=== PATIENT | male | born 1950 | race Caucasian/White ===

== ENCOUNTER 2025-02-16 11:59 | Outpatient (CLI) | payer MEDICARE, BC, SELFPAY ==
--- OUTSIDE RECORDS SUMMARY | 2025-02-16 12:03 | XMS_ITS | Clinical Summary ---
Author Organization [facility] Address [address] [place] [address] Care Team Providers Care Applier Name Role Phone Jan Chavez MD Primary Care Provider [phone] Allergies No known active allergies Medications multivitamin (THERAGRAN) tablet tablet Take by mouth Daily. Active allopurinol (ZYLOPRIM) 100 MG tablet Take 1 tablet by mouth. Active atorvastatin (LIPITOR) 40 MG tablet Take 1 tablet by mouth Daily. 3 Active citalopram (CeleXA) 40 MG tablet Take 1 tablet by mouth Daily. 3 Active fluconazole (DIFLUCAN) 100 MG tablet Take 1 tablet by mouth Daily. 3 Active lisinopril-hydr ochlorothiazide (PRINZIDE,ZESTO RETIC) 20-12.5 MG per tablet Take 1 tablet by mouth Daily. 3 Active nystatin (MYCOSTATIN) 952512 UNIT/GM powder APPLY 1 GRAM TOPICALLY EVERY 6 HOURS FOR 14 DAYS 3 Active phentermine (ADIPEX-P) 37.5 MG tablet Take 1 tablet by mouth Daily. 3 Active Active Problems Problem Noted Date Diagnosed Date Nonrheumatic aortic valve insufficiency 11/21/19 23 High cholesterol 07/06/2021 Assessment & Plan (11/20/2022 12:48 PM EDT): On statin. Followed by Dr. Chavez. HTN (hypertension) 07/06/2021 Assessment & Plan (11/20/2022 12:48 PM EDT): Not at goal in clinic today. However patient is taking Adipex. This most likely is increasing his blood pressure slightly. Kidney stone 07/06/2021 RENÉE (obstructive sleep apnea) 07/06/2021 Brain mass 07/05/2021 Onychomycosis of toenail 06/30/2019 Immunizations Immunization Administration Dates Next Due COVID-19 (PFIZER) Purple Cap Monovalent 03/15/20,08/01/2020,07/11/2020 Covid-19 (Pfizer) Hoang Cap Monovalent 11/10/2021 Fluzone High-Dose 65+YRS 03/25/2019 Fluzone High-Dose 65+yrs 03/10/2022,03/27/2021,0 03/07/2020 Hepatitis A 07/11/2018 Tdap 12/26/2006 Family History Relation Name Status Comments Father Mother Social History Tobacco Use Types Packs/Day Years Used Date Smoking Tobacco: Never Abuse Screen Answer Date Recorded Unsafe at Home or Work/School Not on file Feels Threatened by Someone? Not on file 03/2023 Does Anyone Keep You from Co ntacting Others or Doint Things Outside the Home? Not on file 04/15/2023 Physical Sign of Abuse Present Not on file 1 Housing Stability Answer Date Recorded Current Living Arrangements Not on file 03/2023 Potentially Unsafe Housing Conditions Not on cathryn e 04/15/2023 Family and Community Support Answer Jose R e Recorded Help with Day-to-Day Activities Not on file 04/15/2023 Lonely or Isolated Not on file 04/15/2023 Employment Answer Date Recorded Do you want help finding or keeping work or a us b? Not on file 04/15/2023 Disabilities Answer Date Recorded Concentrating, Remembering, or Making Decisions Difficulty Not on file 04/15/2023 Doing Errands Independently Difficulty Not on fi le 04/15/2023 Education Answer Date Recorded Help with school or training? Not on file Preferred Language Not on file 04/15/2023 Sex and Gender Information Value Date Recorded Sex Assigned at Not on file Legal Sex Male 12:29 PM EDT Gender Identity Not on file Sexual Orientation Not on file Last Filed Vital Signs Vital Sign Reading Time Taken Comments Blood Pressure 140/88 11/20/2022 8:46 AM EDT Pulse 95 11/20/2022 8:46 AM EDT Temperature - - Respiratory Rate - - Oxygen Saturation 94% 11/20/2022 8:46 AM EDT Inhaled Oxygen Concentration - - Weight 92.1 kg (203 lb) 11/20/2022 8:46 AM EDT Height 172.7 cm (5' 8 ) 11/20/2022 8:46 AM EDT Body Mass Index 30.87 11/20/2022 8:46 AM EDT Plan of Treatment Health Maintenance Due Date Last Done Comments LIPID PANEL 1950 COLOGUARD 11/17/1996 COLON CANCER SCREENING 5 YEA R SIGMOIDOSCOPY 11/17/1996 COLONOSCOPY 11/17/1996 COLORECTAL CANCER SCREENING 11/17/1996 CT COLONOGRAPHY 11/17/1996 FECAL OCCULT BLOOD TEST 11/17/1996 FIT Testing (1 year) 11/17/1996 Pneumococcal Vaccine 50+ (1 of 1 - PCV) 11/17/2001 ZOSTER VACCINE (1 of 2) 11/17/2001 TDAP/TD VACCINES (2 - Td or Tdap) 12/26/2016 007 ANNUAL WELLNESS VISIT 11/20/2022 HEPATITIS C SCREENING 11/20/2022 COVID-19 Vaccine (6 - 2023-2 5 season) 2024 03/20/2022, 11/10/2021, 03/15/2021, Additional history exists INFLUENZA VACCINE 04/07/2025 03/10/2022, , 03/07/2020, Additional history exists AAA SCREEN ONCE Completed 07/05/2021 Insurance MEDICARE A & B [facility] SU[facility] Care Teams Applier Relationship Specialty Start Date End Date Jan Chavez MD [address] [place] [address] PCP - General Family Medicine 11/20/22
--- OUTSIDE RECORDS SUMMARY | 2025-02-16 12:03 | XMS_ITS | Clinical Summary ---
Author Organization [facility] Address [address] [place] [address] Care Team Providers Care Continuity Editor Name Role Phone Jan Chavez MD Primary Care Provider [phone] Rachid Jaime MD Unavailable [phone] Allergies No known active allergies Medications allopurinol (Zyloprim) 100 MG tablet Take 100 mg by mouth 2 (two) times a day. Active atorvastatin (Lipitor) 40 MG tablet Take 40 mg by mouth 1 (one) time each day. Active citalopram (CeleXA) 40 MG tablet Take 40 mg by mouth 1 (one) time each day. Active lisinopril-hydr oCHLOROthiazide 20-12.5 MG tablet Take 1 tablet by mouth 1 (one) time each day. Active cephalexin (Keflex) 500 MG capsule Take 1,000 mg by mouth 2 (two) times a day. Active Multiple Vitamins-Minera ls (CENTRUM SILVER ADULT 50+ PO) Take 1 by mouth daily Active dexamethasone (Decadron) 2 MG tablet Take 1 tablet (2 mg total) by mouth 2 (two) times a day for 8 doses. 8 tablet 2 Active Additional Information Patient not taking.Reported on 08/07/2021 levETIRAcetam (Keppra) 750 MG tablet Take 1 tablet (750 mg total) by mouth 2 (two) times a day for 7 days. 14 tablet 1 Active Additional Information Patient not taking.Reported on 08/07/2021 acetaminophen-c odeine (Tylenol #3) 300-30 MG tablet TAKE 1 TABLET BY MOUTH EVERY 6 HOURS NEEDED FOR SEVERE PAIN 2 Active diazePAM (Valium) 5 MG tablet TAKE 1 TABLET BY MOUTH A ONE TIME DOSE 30 MINUTES PRIOR TO MRI 2 Active Active Problems Problem Noted Date Diagnosed Date HTN (hypertension) 07/06/2021 High cholesterol 07/06/2021 RENÉE (obstructive sleep apnea) 07/06/2021 Kidney stone 07/06/2021 Brain mass 07/05/2021 Immunizations Immunization Administration Dates Next Due [employer] COVID-19 Vaccine (Purple Cap) 12 + 08/01/2020,07/11/2020 Social History Tobacco Use Types Packs/Day Years Used Date Smoking Tobacco: Never Smokeless Tobacco: Never Alcohol Use Standard Drinks/Week Comments Never 0 (1 standard drink = 0.6 oz pur e alcohol) Sex and Gender Information Value Date Recorded Sex Assigned at Male 07/06/2021 10:53 AM EST Legal Sex Male 8:47 PM EDT Gender Identity Male 07/06/2021 10:53 AM EST Sexual Orientation Not on file Last Filed Vital Signs Vital Sign Reading Time Taken Comments Blood Pressure 140/90 04/30/2022 9:41 AM EDT Pulse 79 07/07/2021 8:04 AM EST Temperature 36.4 C (97.6 F) 07/07/2021 8:04 AM EST Respiratory Rate 16 07/07/2021 8:04 AM EST Oxygen Saturation 96% 07/07/2021 8:04 AM EST Inhaled Oxygen Concentration - - Weight 89.8 kg (198 lb) 04/30/2022 9:41 AM EDT Height 172.7 cm (5' 8 ) 04/30/2022 9:41 AM EDT Body Mass Index 30.11 04/30/2022 9:41 AM EDT Plan of Treatment Health Maintenance Due Date Last Done Comments [facility]-Depression Screening 1950 [facility]-Medicare Annual Wellness (AWV) 1950 [facility]-Infant/Child/Adol SDOH Screenings 1950 [facility]- SDOH Screenings 11/17/1969 [facility]-Adult SDOH Screenings 11/17/1969 CT Colonography 11/17/1996 Colonoscopy 11/17/1996 FIT-DNA 11/17/1996 FIT 11/17/1996 FOBT 11/17/1996 Sigmoidoscopy 11/17/1996 [facility]-Colorectal Cancer Screening 11/17/1996 [facility]-Pneumococcal Vaccine: 50+ Years (1 of 1 - PCV) 11/17/2001 [facility]-Zoster Vaccines (1 of 2) 11/17/2001 [facility]-DTaP,Tdap,and Td Vaccines (2 - Td or Tdap) 12/26/2016 12/26/2006 [id number] Vaccine ( season) 2024 03/20/2022, 11/10/2021, 03/15/2021, Additional history exists [facility]-Influenza Vaccine (#1) 03/08/202503/10, 03/27/2021, 03/07/2020, Additional history exists [facility]-RSV Vaccine: 60+ Years or (1 - 1-dose 75+ series) 11/17/2026 [facility]-Hepatitis A Vaccines Aged Out 07/11/2018 No longer eligible based on patient's age to complete this topic [facility]-Hepatitis C Screening Completed 07/05/2021 [facility]-Obesity Intervention Completed 04/30/2022 HPV Vaccines Aged Out No longer eligi ble based on patient's age to complete this topic [facility]-HIB Vaccines Aged Out No longer e ligible based on patient's age to complete this topic [facility]-IPV Vaccines Aged Out No longer e ligible based on patient's age to complete this topic [facility]-Rotavirus Vaccines Aged Out No lo nger eligible based on patient's age to complete this topic Medical Devices Implanted Type Area Cloth Brushing [employer] Sueding Supervisor Device Identifier Shelf Expiration Date Model / Serial / Lot Periguard 10 X 16cm - [id number] Implanted:Qty: 1 on 07/06/2021 by Rachid Jaime MD at [facility] [employer]-[id number] 09/01/2025 [id number] / / [id number] Screw Ti Matrixneuro Selfdrill 4mm - [id number] Implanted:Qty: 18 on 07/06/2021 by Rachid Jaime MD at [facility]-[id number] 07/06/2022 [id number] / / Plate, Neuro Box Lp [id number] - [id number] Implanted:Qty: 2 on 07/06/2021 by Rachid Jaime MD at [facility]-[id number] 07/06/2022 [id number] / / Cover, Neuro Bhupendra Lp 17mm - [id number] Implanted:Qty: 3 on 07/06/2021 by Rachid Jaime MD at [facility]-07/06/2022 [id number] / / Explanted Type Area Cloth Brushing And Sueding Supervisor Device Identifier Shelf Expiration Date Model / Serial / Lot Screw Ti Matrixneuro Selfdrill 4mm - [id number] Explanted:Qty: 3 on 07/06/2021 by Rachid Jaime MD at [facility]-07/06/2022 [id number] / / Procedures Procedure Name Priority Date/Time Associated Diagnosis Comments HEPATITIS C ANTIBODY - ED W/REFLEX TO HCV QUANT PCR STAT 07/05/2021 6:33 PM EST from Last 3 Months or Most Recently Relevant to Health Maintenance Results * [place] Hepatitis C Antibody (07/05/2021 6:33 PM EST) [facility] Signature Hepatitis C Antibody Negative Negative 07/05/2021 8:12 PM EST [facility] Blood Venous blood specimen / Unknown Venipuncture / Unknown 07/05/2021 6:33 PM EST 07/05/2021 6:42 PM EST Jose R Morrow MD LAB BLOOD ORDERABLES Tran darden Result [facility] [address] [place] [id number] from Last 3 Months or Most Recently Relevant to Health Maintenance Insurance [address] [address] [place] [address] ANTHEM Advance Directives * Full Code (Latest Code Status on File) Date Activated Date Inactivated Comments 07/05/2021 10:54 PM 07/07/2021 4:30 PM Question Answer Comments Patient has decision-making capacity? Yes Care Teams Continuity Editor Relationship Specialty Start Date End Date Jan Chavez MD [address] [place] [id number] PCP - General 07/05/21 Rachid Jaime MD [address] [id number] Surgeon Neurosurgery 08/07/21
[2025-02-16 12:55] LABS: Hematocrit 31.0 % (42.0-52.0); Hemoglobin 9.2 g/dL (14.1-18.0); Immature Granulocytes % 0.2 %; Mean Corpuscular HGB Conc 29.7 g/dL (31.8-35.4); Mean Corpuscular Hemoglobin 25.8 pg (27.0-31.2); Mean Corpuscular Volume 86.8 fl (80-94); Nucleated Red Blood Cells % 0 %; Platelet Count 473 K/mm3 (142-424); Red Blood Count 3.57 M/mm3 (4.60-6.20); Red Cell Distribution Width-SD 48.9 fL; Reticulocyte % (Auto) 1.7 % (0.9-3.2); White Blood Count 8.1 K/mm3 (4.8-10.8)
[2025-02-16 13:33] LABS: Albumin Level 3.9 g/dl (3.5-5.0); Chloride 102 mmol/L (98-107)
[2025-02-16 13:34] LABS: Potassium 4.7 mmoL/L (3.5-5.1); Sodium 137 mmol/L (136-145)
[2025-02-16 13:36] LABS: Alanine Aminotransferase 29 U/L (12-78); Alkaline Phosphatase 99 U/L (38-126); Anion Gap 11.7 mEq/L (5-15); Aspartate Amino Transferase 23 U/L (17-59); Bilirubin,Total 0.4 mg/dl (0.2-1.3); Blood Urea Nitrogen 15 mg/dl (9-20); Carbon Dioxide 28 mmol/L (22.0-30.0); Creatinine,Serum 0.80 mg/dl (0.66-1.25); Estimated Glomerular Filt Rate 95 ml/min (>60); GFR (African American) 115 ML/MIN (>60)
[2025-02-16 13:37] LABS: Albumin/Globulin Ratio 1.5 (1.1-1.8); Calcium 9.4 mg/dl (8.4-10.2); Globulin 2.6 g/dL (1.3-3.2); Glucose 95 mg/dl (74-100); Iron 42 ug/dL (49-181); Total Protein,Serum 6.5 g/dl (6.3-8.2)
[2025-02-16 13:46] LABS: Total Iron Binding Capacity 211 ug/dL (261-462)
[2025-02-16 14:12] LABS: Ferritin 5.98 ng/ml (17.9-464)
[2025-02-16 14:59] LABS: Folate > 20.00 ng/mL
== END 2025-02-16 23:59 | disposition home or self-care (01) ==
LOC: LAB 12:01
PROVIDERS: PCP Family Medicine; Visit Provider Internal Medicine Medical Oncology
DX: D64.9 Anemia, unspecified (principal)
CPT/HCPCS: 36415; 80053; 81596; 82728; 82746; 83540; 83550; 83615; 85025; 85044; 86880

== ENCOUNTER 2025-03-10 08:04 | Day surgery (SDC) | payer MEDICARE, BC, SELFPAY ==
[2025-03-09 07:52] VITALS: BMI 29.4
--- NOTE | 2025-03-09 07:58 | EXP.HP ---
History of Present Illness *Admission Date: 03/10/25 *History of present illness: Mr. Collins is a 74-year-old gentleman who is here for diagnostic EGD and colonoscopy secondary to recent profound anemia. The patient's labs on 02/02/2025 showed hemoglobin 5.8 and hematocrit 20.6 with normocytic indices. The patient did have 2 units of PRBCs transfused. Labs were repeated on 02/16/2025 showing some improvement with hemoglobin 9.2 and hematocrit 31.0. Iron studies showed serum iron 42, ferritin 5.98 and iron saturation of 19.9%. The examination is deemed medically necessary for diagnostic EGD and colonoscopy. The patient has been seen, interviewed and examined prior to the procedure by both myself and the anesthesia provider. [facility] Disclaimer: The information contained in this section may have been updated after the patient was seen, as this information can be updated by other users. Medical History Hypertension Kidney stones RENÉE (obstructive sleep apnea) Surgical History History of cholecystectomy History of tonsillectomy Family History Other Cancer Diabetes Heart attack Hypertension Social History Smoking Status: Never smoker alcohol intake: never substance use type: denies use current occupational status: retired Travel in the last 8 weeks?: None household members: spouse housing: house marital status: Have you lived/traveled outside US in past 30 days?: No Contact w/someone who lives/traveled outside US past 30 days?: No Exposure to someone with infectious disease in past 14 days?: No Do you have a fever (greater than 100.4 F or 38 C)?: No Have you tested positive for COVID-19?: No Exposed to someone with COVID-19 in past 14 days?: No Do you have a sore throat?: No Do you have a cough?: No Do you have any weakness?: No Do you have any diarrhea?: No Are you experiencing any unusual bleeding?: No Do you have any muscle aches/pain?: No Do you have any abdominal pain?: No Are you experiencing loss of taste or smell?: No Other Medical History Have you received the Pneumonia Vaccine: Yes Review of Systems Review of Systems Review of systems (narrative): Negative *Cardiovascular Comments: Negative *Gastrointestinal Comments: Negative *Genitourinary Comments: Negative *Musculoskeletal Comments: Negative *Neurologic Comments: Negative Meds Home Medications and Allergies Home Medications ?Medication ?Instructions ?Recorded ?Confirmed ?Type allopurinol 100 mg tablet 100 mg PO DAILY 03/14/23 03/10/25 History atorvastatin 40 mg tablet 40 mg PO HS 03/14/23 03/10/25 History citalopram 40 mg tablet 40 mg PO DAILY 03/14/23 03/10/25 History lisinopril 20 1 tab PO DAILY 03/14/23 03/10/25 History mg-hydrochlorothiazide 12.5 mg tablet (Zestoretic) multivitamin-ferrous 1 tab PO DAILY 03/14/23 03/10/25 History fumarate-folic acid 18 mg-400 mcg tablet (Centrum) topiramate 50 mg tablet (Topamax) 50 mg PO DAILY 09/11/23 03/10/25 History gabapentin 300 mg capsule 300 mg PO TID #90 caps 02/16/25 03/10/25 Rx ferrous sulfate 325 mg (65 mg 325 mg PO DAILY #90 tabs 02/17/25 03/10/25 Rx iron) tablet sodium,potassium,mag sulfates 17.5 See Rx Instructions PO .COMPLEX 03/05/25 Rx gram-3.13 gram-1.6 gram oral soln #354 mL (Suprep Bowel Prep Kit) sodium,potassium,mag sulfates 17.5 See Rx Instructions PO .COMPLEX 03/05/25 03/05/25 Rx gram-3.13 gram-1.6 gram oral soln #354 mL (Suprep Bowel Prep Kit) New Prescriptions to Start Prescriptions: Allergies Allergy/AdvReac Type Severity Reaction Status Date / Time No Known Allergies Allergy Verified 03/10/25 08:31 Exam Data for Last 24 hours I & O for Last 24 hours: Intake & Output 03/06/25 03/07/25 03/08/25 03/09/25 23:59 23:59 23:59 23:59 Weight 188 lb *Routine HEENT Exam Head: Present normocephalic Eye: Present EOMI and PERRL ENT: Present mucous membranes moist *Routine Neck Exam Neck: Present supple *Routine Respiratory Exam Respiratory: Present CTA bilaterally *Routine Cardiovascular Exam Cardiovascular: Present RRR *Routine Abdominal Exam Abdominal: Present soft and normoactive bowel sounds; Absent tenderness *Routine Rectal Exam Rectal:: deferred *Routine Genitalia Exam Genitalia:: deferred *Routine Extremities Exam Extremities: Absent cyanosis, clubbing or edema *Routine Skin Exam Skin: Present warm; Absent rash *Routine Neurological Exam Neurological: Present alert and oriented X3 Assessment and Plan *Assessment and plan (1) Iron deficiency anemia: Status: Acute Category: Medical Code(s): D50.9 - Iron deficiency anemia, unspecified Plan A/P: 1. Iron deficiency anemia is the preprocedural diagnosis. The patient will be anesthetized/sedated using MAC sedation. The patient has been seen and examined. Cardiac and lung assessment prior to the examination is stable. Proceed with planned diagnostic EGD and colonoscopy.
[2025-03-10 08:36] VITALS: BP 159/89; PULSE 78; RESP 18; TEMP 36.2; O2SAT 98
[2025-03-10] MEDS: LACTATED RINGERS 1000ML 1,000 ML 50 ML IV (08:47)
--- NOTE | 2025-03-10 09:18 | SUR.PREOP ---
Patient reported having shingles during preop assessment, rash noted to neck with open areas oozing scant amount serous fluid extending to BUCW. Karley Pate RN informed care team including charge preparation technician and department mgr, appropriate isolation interventions activated and patient transferred to PACU r/t contact/airborne precautions. Staff was provided with Airborne and contact isolation PPE. patient's EGD and Colonoscopy moved to last case for the day r/t active infection per Dr. Mcpherson. Patient agreeable to change in schedule and staying until the end of day for procedures rescheduled for 1500.
--- NOTE | 2025-03-10 14:47 | P.PNANES_ITS ---
[facility] Disclaimer: The information contained in this section may have been updated after the patient was seen, as this information can be updated by other users. Medical History Hypertension Kidney stones RENÉE (obstructive sleep apnea) Surgical History History of cholecystectomy History of tonsillectomy Family History Other Cancer Diabetes Heart attack Hypertension Social History Smoking Status: Never smoker alcohol intake: never substance use type: denies use current occupational status: retired Travel in the last 8 weeks?: None household members: spouse housing: house marital status: Have you lived/traveled outside US in past 30 days?: No Contact w/someone who lives/traveled outside US past 30 days?: No Exposure to someone with infectious disease in past 14 days?: No Do you have a fever (greater than 100.4 F or 38 C)?: No Have you tested positive for COVID-19?: No Exposed to someone with COVID-19 in past 14 days?: No Do you have a sore throat?: No Do you have a cough?: No Do you have any weakness?: No Do you have any diarrhea?: No Are you experiencing any unusual bleeding?: No Do you have any muscle aches/pain?: No Do you have any abdominal pain?: No Are you experiencing loss of taste or smell?: No [facility] Anesthesia Checklist Patient Identification Patient Identification: Arm Band Structural Data Admitted From: Home Planned Operative Procedure/s: EGD/Colonoscopy Consent for Planned Operative Procedure(s) Verified: Yes Verified Documents: Surgical Consent and History and Physical NPO Status Verified Time NPO: 00:00 Additional verifications Anesthesia Reactions: No Airway Assessment Mallampati Score:: Class II C-Spine Mobility Assessed: Yes TMJ Mobility Assessed: Yes Dentition: Good Dentition Neurological Assessment Level of Consciousness: Awake, Alert and Appropriate Anesthesia Plan Anesthesia Risk discussed: Yes Anesthesia Plan: Verified ASA Class: III Anesthesia Type: MAC
--- NOTE | 2025-03-10 14:58 | HMH.PROCNOTE ---
[facility] Procedure Note Date: 03/10/25 Time: 15:19 Procedure Note:: Upper Endoscopy Procedure Report: Esophagogastroduodenoscopy with cold biopsies Endoscopost: Stephen Mcpherson II, MD Referring Physician: Jan Chavez MD Date of Procedure: March 10, 2025 Equipment: Olympus GIF-1100 standard upper endoscope Sedation: MAC sedation Indications: Mr. Collins is a 74-year-old gentleman who is here for diagnostic EGD and colonoscopy secondary to a recent finding of profound anemia. The patient's labs on 02/02/2025 showed hemoglobin 5.8 and hematocrit 20.6 with normocytic indices. The patient did have 4 units of PRBCs transfused. Labs were repeated on 02/16/2025 showing some improvement with hemoglobin 9.2 and hematocrit 31.0. Iron studies showed serum iron 42, ferritin 5.98 and iron saturation of 19.9%. The patient is taking oral iron. The patient reports no heartburn, reflux, dyspepsia or dysphagia. He has never had an upper endoscopy. He reports no abdominal pain, weight loss, melena, hematochezia or bright red blood per rectum. He reports no change in bowel habits or family history of gastric or colon cancer. He has never had a prior colonoscopy. His sister had ovarian cancer. Procedure: Prior to the procedure, a history and physical exam was performed, and patient's medications and allergies were reviewed. The risks, benefits and alternatives of the sedation and procedure were discussed with the patient. All questions were answered and informed consent was obtained. The patient was brought to the procedure room. Patient identification and proposed procedure were verified by the physician and the nurse. The patient was placed in a left lateral decubitus position and the scope was passed under direct vision. Throughout the procedure, the patient's blood pressure, pulse, and oxygen saturations were monitored continuously. The upper GI endoscopy was accomplished without difficulty. The patient tolerated the procedure well. Findings: The scope was passed directly into the upper esophagus and advanced to the third portion of the duodenum. The second portion of the duodenum and ampulla were normal. There were 3-4 shallow ulcerations within the first portion of the duodenum and duodenal bulb. The largest of these was 8 mm. Cold biopsies were taken from the duodenum. The scope was withdrawn to a normal pylorus and of the stomach. The antrum and body of the stomach were normal but there was some gastric atrophy of the body and fundus. A cold biopsy was taken along the incisura. Upon retroflexion there was a 3 cm extrinsic mass with central cavitation and central ulceration that was deeper. Several biopsies were taken within the cavitation where there was ulceration of this mass. This was in the gastric cardia within 1 to 2 cm from the GE junction along the posterior wall and lesser curvature side. The scope was then withdrawn into the esophagus. There was no evidence of reflux esophagitis or Luis's and the remainder of the esophageal mucosa was normal. Impression: 1. 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 Superficial duodenal ulceration x 4 3. Mild chronic atrophic gastritis/gastric atrophy Plan: I am concerned about the gastric cardia mass. The margins and masslike effect appear to be a submucosal and this may be submucosal GIST or carcinoid or leiomyoma. I am still suspicious it could be adenocarcinoma. Will await pathology. We will obtain CT imaging of the abdomen and pelvis. I do feel that this is the etiology of his iron deficiency anemia but we will still proceed with diagnostic colonoscopy.
--- NOTE | 2025-03-10 14:59 | P.PCN_ITS ---
[facility] Procedure Note Date: 03/10/25 Time: 15:31 Procedure Note:: Sigmoidoscopy procedure Report: Aborted colonoscopy Endoscopist: Stephen Mcpherson II, MD Referring physician: Jan Chavez MD Date of Procedure: March 10, 2020 Equipment: Olympus [id number] adult colonoscope Sedation: MAC sedation Indication: Mr. Collins is a 74-year-old gentleman who is here for diagnostic EGD and colonoscopy secondary to a recent finding of profound anemia. The patient's labs on 02/02/2025 showed hemoglobin 5.8 and hematocrit 20.6 with normocytic indices. The patient did have 4 units of PRBCs transfused. Labs were repeated on 02/16/2025 showing some improvement with hemoglobin 9.2 and hematocrit 31.0. Iron studies showed serum iron 42, ferritin 5.98 and iron saturation of 19.9%. The patient is taking oral iron. The patient reports no heartburn, reflux, dyspepsia or dysphagia. He has never had an upper endoscopy. He reports no abdominal pain, weight loss, melena, hematochezia or bright red blood per rectum. He reports no change in bowel habits or family history of gastric or colon cancer. He has never had a prior colonoscopy. His sister had ovarian cancer. Procedure: Prior to the procedure, a history and physical exam was performed, and patient's medications and allergies were reviewed. The risks, benefits and alternatives of the sedation and procedure were discussed with the patient. All questions were answered and informed consent was obtained. The patient was brought to the procedure room. Patient identification and proposed procedure were verified by the physician and the nurse. The patient was placed in a left lateral decubitus position and the scope was passed under direct vision. Throughout the procedure, the patient's blood pressure, pulse, and oxygen saturations were monitored continuously. The sigmoidoscopy was accomplished without difficulty. The patient tolerated the procedure well. Findings: On digital rectal examination, there was normal rectal tone. The scope was then inserted through the anal canal into the rectum and advanced to 30 cm. There was abundant amount of brown liquid stool and the preparation was inadequate to allow visualization of the mucosa. The procedure was aborted. Impression: 1. Unprepped exam?aborted colonoscopy Plan: I do suspect that the profound iron deficiency anemia is related to the upper endoscopic findings. However, I do feel that he will need diagnostic colonoscopy as well. We will obtain CT imaging of the abdomen and pelvis and I will discuss the findings with the patient and family.
[2025-03-10 15:35] VITALS: BP 143/76; PULSE 88; RESP 17; TEMP 36.3; O2SAT 93
[2025-03-10 15:45] VITALS: BP 146/72; PULSE 85; RESP 17; O2SAT 95
[2025-03-10 15:55] VITALS: BP 158/68; PULSE 84; RESP 18; O2SAT 95
[2025-03-10 16:05] VITALS: BP 152/74; PULSE 82; RESP 17; O2SAT 94
[2025-03-12 11:14] LABS: CEA 5.0 ng/mL (0.0-4.7)
== END 2025-03-10 16:43 | disposition home or self-care (01) ==
PROVIDERS: PCP Family Medicine; Visit Provider Internal Medicine Gastroenterology
PROC: 0DJ08ZZ Inspection of Upper Intestinal Tract, Via Natural or Artificial Opening Endoscopic (ICD-10-PCS; CPT 45378; principal; 2025-03-10 10:00)
DX: C16.0 Malignant neoplasm of cardia (principal); K26.9 Duodenal ulcer, unspecified as acute or chronic, without hemorrhage or perforation; K29.40 Chronic atrophic gastritis without bleeding; I10 Essential (primary) hypertension; G47.33 Obstructive sleep apnea (adult) (pediatric); Z79.899 Other long term (current) drug therapy
CPT/HCPCS: 43239; 45330; 82378; J2003; J2704; J7120

== ENCOUNTER 2025-03-16 10:50 | Outpatient (CLI) | payer MEDICARE, BC, SELFPAY ==
--- NOTE | 2025-03-16 11:00 | CT_ITS ---
FINAL REPORT TECHNIQUE: Thin section axial images were obtained through the abdomen after intravenous contrast. Reconstruction images were obtained from the axial data. Exam was performed using dose reduction techniques. CLINICAL HISTORY: GIST TUMOR FINDINGS: There is a hypodense lesion in the inferior right hepatic lobe measuring 25 mm with some peripheral, nodular enhancement. This is not well-seen on delayed imaging. Findings could represent hemangioma. No other liver lesion is identified. The gallbladder is absent. The spleen, adrenal glands, and pancreas are unremarkable. There are bilateral, hypodense renal lesions, some of which are not simple cysts. There are nonobstructing, bilateral renal stones. There is no hydronephrosis. There is focal wall thickening of the fundus of the stomach seen on coronal images which appears somewhat rounded and contains a focus of air. Findings could represent GIST. Air could be related to recent biopsy. There is no evidence of small bowel obstruction. Appendix is not visualized. There are no secondary findings of appendicitis. There is diverticulosis without evidence of diverticulitis. A fat-containing umbilical hernia is present. There is no abdominal or pelvic lymphadenopathy or ascites. In the deep right pelvis is a 3.1 cm cystic lesion along the anterolateral aspect of the rectum. No acute osseous abnormality is seen. IMPRESSION: 1. Findings concerning for mass in the proximal stomach, possibly recently biopsied and which could represent reported GIST. 2. Liver lesion which may represent hemangioma. However, consider liver mass protocol MRI for further evaluation. 3. Bilateral renal lesions, some of which are not simple cysts. Consider renal mass protocol for further evaluation in the nonemergent setting. 4. Fluid density lesion in the right pelvis of uncertain etiology. Findings could represent a peritoneal inclusion cyst. Metastatic disease felt unlikely. Reviewed, Interpreted and Dictated by Betina Urbina MD Transcribed by Yamel Teague Authenticated and [facility]
--- NOTE | 2025-03-16 11:00 | CT_ITS ---
FINAL REPORT TECHNIQUE: Thin section axial images were obtained from the thoracic inlet through the upper abdomen after intravenous contrast injection. Reconstruction images were obtained from the axial data. Exam was performed using dose reduction technique. CLINICAL HISTORY: GIST TUMOR FINDINGS: There is no mediastinal, hilar, or axillary lymphadenopathy. There is no pleural or pericardial effusion. The heart is mildly enlarged. There is an ascending aortic aneurysm measuring 44 mm. No suspicious nodule or mass is seen. There is a mosaic attenuation pattern which is nonspecific but suggestive of small airway or small vessel disease. No acute osseous abnormality. IMPRESSION: 1. No evidence of metastatic disease to the chest. 2. Ascending aortic aneurysm. 3. Mosaic attenuation pattern which could be seen with small airways or small vessel disease. Reviewed, Interpreted and Dictated by Betina Urbina MD Transcribed by Yamel Teague Authenticated and [facility]
--- OUTSIDE RECORDS SUMMARY | 2025-03-16 11:08 | XMS_ITS | Clinical Summary ---
Author Organization [facility] Address [address] [place] [address] Care Team Providers Care Outdoor Landscape Architect Name Role Phone Jan Chavez MD Primary Care Provider [phone] Allergies No known active allergies Medications multivitamin [...] by mouth Daily. 3 Active nystatin (MYCOSTATIN) 293406 UNIT/GM powder APPLY 1 GRAM TOPICALLY EVERY [...] help finding or keeping work or a su b? Not on file 04/15/2023 Disabilities Answer [...] C SCREENING 11/20/2022 COVID-19 Vaccine (6 - 2024-2 6 season) 2025 03/20/2022, 11/10/2021, 03/15/2021, Additional history exists INFLUENZA VACCINE 04/07/2025 03/10/2022, , 03/07/2020, Additional history exists AAA SCREEN ONCE Completed 07/05/2021 Insurance MEDICARE A & B [facility] SU[facility] Care Teams Outdoor Landscape Architect Relationship Specialty Start Date End Date Jan Chavez MD [address] [place] [address] PCP - General Family Medicine 11/20/22
--- OUTSIDE RECORDS SUMMARY | 2025-03-16 11:08 | XMS_ITS | Clinical Summary ---
Author Organization [facility] Address [address] [place] [address] Care Team Providers Care Tobacco Packer Name Role Phone Jan Chavez MD Primary Care Provider [phone] Rachid Jaime MD Unavailable [phone] Allergies No known active allergies Medications [...] 07/05/2021 Immunizations Immunization Administration Dates Next Due [employer] COVID-19 Vaccine (Purple Cap) 12 + 08/01/2020,07/11/2020 [...] (2 - Td or Tdap) 12/26/2016 12/26/2006 [id number] Vaccine ( season) 2025 03/20/2022, 11/10/2021, 03/15/2021, Additional history exists UKY-Influenza [...] this topic Medical Devices Implanted Type Area Placement Secretary Device Identifier Shelf Expiration Date Model / Serial / Lot Periguard 10 X 16cm - [id number] Implanted:Qty: 1 on 07/06/2021 by Rachid Jaime MD at [facility] [id number] 09/01/2025 [id number] / / [id number] Screw Ti Matrixne[employer] Selfdrill 4mm - [id number] Implanted:Qty: 18 on 07/06/2021 by Rachid Jaime MD at [facility], [id number] 07/06/2022 [id number] / / Plate, Neuro Box Lp [id number] - [id number] Implanted:Qty: 2 on 07/06/2021 by Rachid Jaime MD at [facility], [id number] 07/06/2022 [id number] / / Cover, Neuro [place] Lp 17mm - [id number] Implanted:Qty: 3 on 07/06/2021 by Rachid Jaime MD at [facility] [place]-07/06/2022 [id number] / / Explanted Type Area Placement Secretary Device Identifier Shelf Expiration Date Model / Serial / Lot Screw Ti Matrixneuro Selfdrill 4mm - [id number] Explanted:Qty: 3 on 07/06/2021 by Rachid Jaime MD at [facility] [place]-07/06/2022 [id number] / / Procedures Procedure Name Priority Date/Time Associated Diagnosis Comments HEPATITIS C ANTIBODY - ED W/REFLEX TO HCV QUANT PCR STAT 07/05/2021 6:33 PM EST from Last 3 Months or Most Recently Relevant to Health Maintenance Results * [place] Hepatitis C Antibody (07/05/2021 6:33 PM EST) [facility] Signature Hepatitis C Antibody Negative Negative 07/05/2021 8:12 PM EST [facility] Blood Venous blood specimen / Unknown Venipuncture / Unknown 07/05/2021 6:33 PM EST 07/05/2021 6:42 PM EST Jose R Morrow MD LAB BLOOD ORDERABLES Tran darden Result [facility] [address] [place] [id number] from Last 3 Months or Most Recently Relevant to Health Maintenance Insurance [address] [id number] [place] [address] ANTHEM Advance Directives * Full Code (Latest Code Status on File) Date Activated Date Inactivated Comments 07/05/2021 10:54 PM 07/07/2021 4:30 PM Question Answer Comments Patient has decision-making capacity? Yes Care Teams Tobacco Packer Relationship Specialty Start Date End Date Jan Chavez MD [address] [place] [id number] PCP - General 07/05/21 Rachid Jaime MD [address] [id number] Surgeon Neurosurgery 08/07/21
[2025-03-16] MEDS: SODIUM CHLORIDE 0.9% 10ML SYR (RAD ONLY) 10 ML IV (11:22)
[2025-03-16] MEDS: IOPAMIDOL-370 (76%);100ML BOTTLE 50 ML IV (11:22)
[2025-03-16 12:47] LABS: Hematocrit 29.3 % (42.0-52.0); Hemoglobin 7.7 g/dL (14.1-18.0); Immature Granulocytes % 0.4 %; Mean Corpuscular HGB Conc 26.3 g/dL (31.8-35.4); Mean Corpuscular Hemoglobin 23.6 pg (27.0-31.2); Mean Corpuscular Volume 89.9 fl (80-94); Nucleated Red Blood Cells % 0 %; Platelet Count 438 K/mm3 (142-424); Red Blood Count 3.26 M/mm3 (4.60-6.20); Red Cell Distribution Width-SD 56.2 fL; White Blood Count 7.4 K/mm3 (4.8-10.8)
[2025-03-16 12:58] LABS: Alanine Aminotransferase 22 U/L (12-78); Albumin Level 4.1 g/dl (3.5-5.0); Albumin/Globulin Ratio 1.6 (1.1-1.8); Alkaline Phosphatase 96 U/L (38-126); Anion Gap 10.7 mEq/L (5-15); Aspartate Amino Transferase 20 U/L (17-59); Bilirubin,Total 0.2 mg/dl (0.2-1.3); Blood Urea Nitrogen 13 mg/dl (9-20); Calcium 10.2 mg/dl (8.4-10.2); Carbon Dioxide 28 mmol/L (22.0-30.0); Chloride 109 mmol/L (98-107); Creatinine,Serum 1.00 mg/dl (0.66-1.25); Estimated Glomerular Filt Rate 73 ml/min (>60); GFR (African American) 89 ML/MIN (>60); Globulin 2.6 g/dL (1.3-3.2); Glucose 113 mg/dl (74-100); Potassium 4.7 mmoL/L (3.5-5.1); Sodium 143 mmol/L (136-145); Total Protein,Serum 6.7 g/dl (6.3-8.2)
[2025-03-16 13:04] LABS: Iron 54 ug/dL (49-181)
[2025-03-16 13:14] LABS: Total Iron Binding Capacity 216 ug/dL (261-462)
[2025-03-16 13:39] LABS: Ferritin 11.5 ng/ml (17.9-464)
== END 2025-03-16 23:59 | disposition home or self-care (01) ==
LOC: RAD 10:52
PROVIDERS: PCP Family Medicine; Visit Provider Internal Medicine Medical Oncology
DX: C49.A0 Gastrointestinal stromal tumor, unspecified site (principal); I71.21 Aneurysm of the ascending aorta, without rupture; R93.89 Abnormal findings on diagnostic imaging of other specified body structures; K76.9 Liver disease, unspecified; N28.9 Disorder of kidney and ureter, unspecified; D50.9 Iron deficiency anemia, unspecified; R93.3 Abnormal findings on diagnostic imaging of other parts of digestive tract; R93.5 Abnormal findings on diagnostic imaging of other abdominal regions, including retroperitoneum
CPT/HCPCS: 36415; 71260; 74177; 80053; 82728; 83540; 83550; 85025; Q9967

== ENCOUNTER 2025-03-30 10:30 | Outpatient (CLI) | payer MEDICARE, BC, SELFPAY ==
--- OUTSIDE RECORDS SUMMARY | 2025-03-30 08:10 | XMS_ITS | Encounter Summary ---
Author Organization [facility] Address [address] 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 Encounter Details Date Type Department Care Team (Latest Contact Info) Description 03/30/2025 8:10 AM EDT Office Visit [facility] Multidisciplinary Oncology Clinic [address] [place] [address] Shorty Barroso MD [address] [phone] Gastrointestinal stromal tumor (GIST) (CMS/HCC) (Primary Dx); [...] Maryam Shipley documented as of this encounter Plan of Treatment Upcoming Encounters Date Type Department Care Team (Latest Contact Info) Description 04/15/2025 11:30 AM EDT Pre-Admission Testing [facility] Pre-op Clinic [address], [address] [place] [address] 04/23/2025 9:40 AM EDT Hospital Encounter [facility] [address] [place] [address] Shorty Barroso MD [address] [phone] 04/23/2025 9:40 AM EDT - 04/23/2025 1:40 PM EDT Surgery [facility] [address] [place] [phone] Shorty Barroso MD [address] [phone] laparoscopic/roboti c possible open partial gastrectomy [78854 (CPT )] Pending Results Name Type Priority Associated Diagnoses Date /Time ECG Adult (Now - Performed in your clinic) ECG Routine Gastrointestinal stromal tumor (GIST) (CMS/HCC) 03/30/2025 9:14 AM EDT Scheduled Procedures Name Priority Associated Diagnoses Date/Ti me GASTRECTOMY, ROBOT-ASSISTED Gastrointestinal stromal tumor (GIST) 04/23/2025 9:40 AM EDT documented as of this encounter Goals [...] profile documented in this encounter Results * (ABNORMAL) APTT (03/30/2025 9:03 AM EDT) aPTT 22(L) 25 - 35 sec LAB COAGULATION METHOD 03/30/2025 10:17 AM EDT [facility] Blood Venous blood specimen / Unknown Venipuncture / Unknown 03/30/2025 9:03 AM EDT 03/30/2025 9:36 AM EDT us Emiliana Pierre APRN LAB BLOOD ORDERABLES Fin al Result [facility] [address] [place] [address] * Prothrombin Time/INR (03/30/2025 9:03 AM EDT) Prothrombin Time 13.4 12.0 - 14.3 sec LAB COAGULATION METHOD 03/30/2025 10:17 AM EDT [facility] INR 1.0 0.9 - 1.1 LAB COAGULATION METHOD 03/30/2025 10:17 AM EDT [facility] Blood Venous blood specimen / Unknown Venipuncture / Unknown 03/30/2025 9:03 AM EDT 03/30/2025 9:36 AM EDT Narrative [facility] - 03/30/2025 10:17 AM EDT OPTIMAL INR RANGES FOR PATIENT ON ORAL ANTICOAGULANT THERAPY Prevention of venous thromboembolism INR 2.0 to 3.0 In patients with heart disease: Atrial fibrillation INR 2.0 to 3.0 Valvular heart disease INR 2.0 to 3.0 Tissue heart valves INR 2.0 to 3.0 Mechanical prosthetic valves INR 2.5 to 3.5 Prevention of recurrent [place] INR 2.5 to 3.5 Emiliana Pierre APRN LAB BLOOD ORDERABLES Fin al Result Performing Organization Address City/[facility]/ZIP Co de Phone Number [facility] [address] [place] [address] * Prealbumin, Plasma (03/30/2025 9:02 AM EDT) Prealbumin, Plasma 34.3 20.0 - 41.0 mg/dL 03/30/2025 10:09 AM EDT [facility] Blood Venous blood specimen / Unknown Venipuncture / Unknown 03/30/2025 9:02 AM EDT 03/30/2025 9:36 AM EDT Shorty Barroso MD LAB BLOOD ORDERABLES Final R esult [facility] [address] [place] [address] * (ABNORMAL) Comprehensive Metabolic Panel, Plasma (03/30/2025 9:02 AM EDT) Glucose, Plasma 91 74 - 99 mg/dL 03/30/2025 10:09 AM EDT [facility] BUN, Plasma 24(H) 8 - 23 mg/dL 03/30/2025 10:09 AM EDT [facility] Creatinine, Plasma 1.02 0.70 - 1.20 mg/dL 03/30/2025 10:09 AM EDT [facility] BUN/Creatinine Ratio 24 03/30/2025 10:09 AM EDT [facility] Sodium, Plasma 143 136 - 145 mmol/L 03/30/2025 10:09 AM EDT [facility] Potassium, Plasma 4.6 3.6 - 4.9 mmol/L 03/30/2025 10:09 AM EDT [facility] Chloride, Plasma 105 97 - 107 mmol/L 03/30/2025 10:09 AM EDT [facility] CO2, Plasma 26 22 - 29 mmol/L 03/30/2025 10:09 AM EDT [facility] Anion Gap 12 6 - 16 mmol/L 03/30/2025 10:09 AM EDT [facility] Total Calcium, Plasma 9.6 8.9 - 10.2 mg/dL 03/30/2025 10:09 AM EDT [facility] Total Protein 6.5 6.3 - 7.9 g/dL 03/30/2025 10:09 AM EDT [facility] Albumin, Plasma 4.0 3.5 - 5.2 g/dL 03/30/2025 10:09 AM EDT [facility] AST, Plasma 16 10 - 50 U/L 03/30/2025 10:09 AM EDT [facility] ALT, Plasma 35 10 - 50 U/L 03/30/2025 10:09 AM EDT [facility] Alkaline Phosphatase, Plasma 73 40 - 115 U/L 03/30/2025 10:09 AM EDT [facility] Total Bilirubin, Plasma 0.2 0.2 - 1.1 mg/dL 03/30/2025 10:09 AM EDT [facility] eGFRcr 77.6 mL/min/1.7 3m*2 03/30/2025 10:09 AM EDT [facility] Comment:Reported eGFRcr in m L/min/1.73m2 is based the CKD-EPI 2020 equation that does not use a race coefficient. Blood Venous blood specimen / Unknown Venipuncture / Unknown 03/30/2025 9:02 AM EDT 03/30/2025 9:36 AM EDT us Shorty Barroso MD LAB BLOOD ORDERABLES Final R esult [facility] [address] [place] [address] * (ABNORMAL) CBC and Differential (03/30/2025 9:02 AM EDT) WBC Count 14.22(H) 3.70 - 10.30 10*3/uL LAB HEMATOLOGY METHOD 03/30/2025 9:53 AM EDT [facility] RBC Count 3.81(L) 4.60 - 6.10 10*6/uL LAB HEMATOLOGY METHOD 03/30/2025 9:53 AM EDT [facility] HGB 8.7(L) 13.7 - 17.5 g/dL LAB HEMATOLOGY METHOD 03/30/2025 9:53 AM EDT [facility] HCT 32.4(L) 40.0 - 51.0 % LAB HEMATOLOGY METHOD 03/30/2025 9:53 AM EDT [facility] Platelet Count 534(H) 155 - 369 10*3/uL LAB HEMATOLOGY METHOD 03/30/2025 9:53 AM EDT [facility] MCV 85 79 - 98 fL LAB HEMATOLOGY METHOD 03/30/2025 9:53 AM EDT [facility] MCH 22.8(L) 26.0 - 32.0 pg LAB HEMATOLOGY METHOD 03/30/2025 9:53 AM EDT [facility] MCHC 26.9(L) 30.7 - 35.5 g/dL LAB HEMATOLOGY METHOD 03/30/2025 9:53 AM EDT [facility] RDW 16.8(H) 11.5 - 14.5 % LAB HEMATOLOGY METHOD 03/30/2025 9:53 AM EDT [facility] MPV 9.9 8.8 - 12.5 fL LAB HEMATOLOGY METHOD 03/30/2025 9:53 AM EDT [facility] nRBC 0.0 <=0.0 per 100 WBCs LAB HEMATOLOGY METHOD 03/30/2025 9:53 AM EDT [facility] Differential Type Automated LAB HEMATOLOGY METHOD 03/30/2025 9:53 AM EDT [facility] Neutrophils % 72 % LAB HEMATOLOGY METHOD 03/30/2025 9:53 AM EDT [facility] Lymphocytes % 19 % LAB HEMATOLOGY METHOD 03/30/2025 9:53 AM EDT [facility] Monocytes % 7 % LAB HEMATOLOGY METHOD 03/30/2025 9:53 AM EDT [facility] Eosinophils % 1 % LAB HEMATOLOGY METHOD 03/30/2025 9:53 AM EDT [facility] Basophils % 0 % LAB HEMATOLOGY METHOD 03/30/2025 9:53 AM EDT [facility] Immature Granulocytes % 1 % LAB HEMATOLOGY METHOD 03/30/2025 9:53 AM EDT [facility] Neutrophils Absolute 10.41(H) 1.60 - 6.10 10*3/uL LAB HEMATOLOGY METHOD 03/30/2025 9:53 AM EDT [facility] Lymphocytes Absolute 2.67 1.20 - 3.90 10*3/uL LAB HEMATOLOGY METHOD 03/30/2025 9:53 AM EDT [facility] Monocytes Absolute 0.96(H) 0.30 - 0.90 10*3/uL LAB HEMATOLOGY METHOD 03/30/2025 9:53 AM EDT [facility] Eosinophils Absolute 0.08 0.00 - 0.50 10*3/uL LAB HEMATOLOGY METHOD 03/30/2025 9:53 AM EDT [facility] Basophils Absolute 0.02 0.00 - 0.10 10*3/uL LAB HEMATOLOGY METHOD 03/30/2025 9:53 AM EDT [facility] Immature Granulocytes Absolute 0.08(H) 0.00 - 0.06 10*3/uL LAB HEMATOLOGY METHOD 03/30/2025 9:53 AM EDT [facility] Blood Venous blood specimen / Unknown Venipuncture / Unknown 03/30/2025 9:02 AM EDT 03/30/2025 9:35 AM EDT [facility] - 03/30/2025 9:53 AM EDT Therapeutic decision making should be based on absolute values, rather than percentages. 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
--- OUTSIDE RECORDS SUMMARY | 2025-03-30 10:34 | XMS_ITS | Encounter Summary ---
Author Organization Healthcare Address [address] [place] [address] Care Team Providers Care Floating Operator Name Role Phone Jan Chavez MD Primary Care Provider [phone] Rachid Jaime MD Unavailable [phone] Encounter Details Date Type Department Care Team (Late st Contact Info) Description 03/16/2025 Orders Only External Location [address] [place] [phone] Provider, External Social History Tobacco Use Types Packs/Day Years [...] on file documented as of this encounter Plan of Treatment Upcoming Encounters Date Type Department Care Team (Latest Contact Info) Description 04/15/2025 11:30 AM EDT Pre-[facility] Testing [facility] [address], [address]st [place] [address] 04/23/2025 9:40 AM EDT Hospital Encounter [facility] [address] [place] [phone] Shorty Barroso MD [address] [address] 04/23/2025 9:40 AM EDT - 04/23/2025 1:40 PM EDT Surgery [facility] [address] [place] [address] Shorty Barroso MD [address] [phone] laparoscopic/roboti c possible open partial gastrectomy [06693 (CPT )] Scheduled Procedures Name Priority Associated Diagnoses Date/Ti me GASTRECTOMY, ROBOT-ASSISTED Gastrointestinal stromal tumor (GIST) 04/23/2025 9:40 AM EDT documented as of this encounter Procedures Procedure Name Priority Date/Time Associated Diagnosis Comments CT THORACIC OUTSIDE IMAGES 03/16/2025 11:00 AM EDT documented in this encounter Results * CT THORACIC OUTSIDE IMAGES (03/16/2025 11:00 AM EDT) Anatomical Region Laterality Modality Computed Tomogra phy 03/16/2025 11:0 0 AM EDT us External Provider IMG CT PROCEDURES Edited Resul t - Final documented in this encounter Visit Diagnoses Not on filedocumented in this encounter Additional Health Concerns Assessment Noted Time A fall risk assessment has been complete d for the patient 04/30/2022 9:50 AM EDT documented as of this encounter Care Teams Floating Operator Relationship Specialty Start Date End Date Jna Chavez MD [address] [place] [address] PCP - General 07/05/21 Rachid Jaime MD [address] [facility] [address] [place] [address] Surgeon Neurosurgery 08/07/21 documented as of this encounter
--- OUTSIDE RECORDS SUMMARY | 2025-03-30 10:34 | XMS_ITS | Encounter Summary ---
Author Organization [facility] Address [address] [place] [address] Care Team Providers Care Keg Raiser Name Role Phone Jan Chavez MD Primary Care Provider [phone] Rachid Jaime MD Unavailable [phone] Encounter Details Date Type Department Care Team (Latest Contact Info) Description 03/30/2025 Travel Social History Tobacco Use Types Packs/Day Years [...] on file documented as of this encounter Functional Status * Calculated C-SSRS [...] Description 04/15/2025 11:30 AM EDT Pre-Admission Testing [facility] [address], [address] [place] [address] 04/23/2025 9:40 AM EDT Hospital Encounter [facility] ROOM [address] [place] [address] Shorty Barroso MD [address] [address] 04/23/2025 9:40 AM EDT - 04/23/2025 1:40 PM EDT Surgery [facility] RO[facility] [address] [place] [address] Shorty Barroso MD [address] [address] laparoscopic/roboti c possible open partial gastrectomy [24707 (CPT )] Scheduled Procedures Name Priority Associated Diagnoses Date/Ti me GASTRECTOMY, ROBOT-ASSISTED Gastrointestinal stromal tumor (GIST) 04/23/2025 9:40 AM EDT documented as of this encounter Goals Goal Patient Goal Type Associated Problems Recent Progress Patient-Stated? Author Autogenera kayla Goal Care Plan Autogenerated Problem No Shorty Barroso MD documented as of this encounter Visit Diagnoses Not on filedocumented in this encounter Additional Health Concerns Active Problems Noted Date Diagnosed Date Autogenerated Problem 03/30/2025 Assessment Noted Time A fall risk assessment has been complete d for the patient 03/30/2025 8:02 AM EDT documented as of this encounter Care Teams Keg Raiser Relationship Specialty Start Date End Date Jan Chavez MD [address] [place] [address] PCP - General 07/05/21 Rachid Jaime MD [address] [place] [address] Surgeon Neurosurgery 08/07/21 documented as of this encounter
--- OUTSIDE RECORDS SUMMARY | 2025-03-30 10:34 | XMS_ITS | Clinical Summary ---
Author Organization [facility] Address [address] [place] [address] Care Team Providers Care Building Mover Name Role Phone Jan Chavez MD Primary Care Provider [phone] Allergies No known active allergies Medications multivitamin [...] by mouth Daily. 3 Active nystatin (MYCOSTATIN) [id number] UNIT/GM powder APPLY 1 GRAM TOPICALLY EVERY [...] WELLNESS VISIT 11/20/2022 HEPATITIS C SCREENING 11/20/2022 INFLUENZA VACCINE 02/05/2025 03/10/2022, , 03/07/2020, Additional history exists COVID-19 Vaccine (6 - 2024-2 6 season) 2025 03/20/2022, 11/10/2021, 03/15/2021, Additional history exists AAA SCREEN ONCE Completed 07/05/2021 Insurance MEDICARE A & B [facility] Care Teams Building Mover Relationship Specialty Start Date End Date Jan Chavez MD [address] [place] [address] PCP - General Family Medicine 11/20/22
--- OUTSIDE RECORDS SUMMARY | 2025-03-30 10:34 | XMS_ITS | Encounter Summary ---
Author Organization [facility] Address [address] [place] [address] Care Team Providers Care Mix House Operator Name Role Phone Jan Chavez MD Primary Care Provider Rachid Jaime MD Unavailable [phone] Encounter Details Date Type Department Care Team (Late st Contact Info) Description 03/24/2025 Lab Requisition [facility] [address] [place] [address] Shorty Barroso MD [address] [phone] Iron deficiency anemia, unspecified Social History Tobacco Use Types Packs/Day Years [...] Description 04/15/2025 11:30 AM EDT [facility] Testing [place] [facility] Pre[facility] Clinic [address], 1[address] [place] [address] 04/23/2025 9:40 AM EDT Hospital Encounter [facility] [address] [place] [address] Shorty Barroso MD [address] [phone] 04/23/2025 9:40 AM EDT - 04/23/2025 1:40 PM EDT Surgery [facility] [address] [place] [address] Shotry Barroso MD [address] [address] laparoscopic/roboti c possible open partial gastrectomy [36026 (CPT )] Pending Results Name Type Priority Associated Diagnoses Date /Time Surgical Pathology Consult Pathology and Cytology Routine Iron deficiency anemia, unspecified 03/24/2025 10:38 AM EDT Scheduled Procedures Name Priority Associated Diagnoses Date/Ti me GASTRECTOMY, ROBOT-ASSISTED Gastrointestinal stromal tumor (GIST) 04/23/2025 9:40 AM EDT documented as of this encounter Visit Diagnoses Diagnosis Iron deficiency anemia, unspecified Gastrointestinal stromal tumor (GIST) documented in this encounter Additional Health Concerns Assessment Noted Time A fall risk assessment has been complete d for the patient 04/30/2022 9:50 AM EDT documented as of this encounter Care Teams Mix House Operator Relationship Specialty Start Date End Date Jan Chavez MD [address] [place] [address] PCP - General 07/05/21 Rachid Jaime MD [address] [facility] [address] [place] [address] Surgeon Neurosurgery 08/07/21 documented as of this encounter
--- OUTSIDE RECORDS SUMMARY | 2025-03-30 10:34 | XMS_ITS | Encounter Summary ---
Author Organization Healthcare Address [address] [place] [address] Care Team Providers Care Floor Assembler Name Role Phone Jan Chavez MD Primary Care Provider [phone] Rachid Jaime MD Unavailable [phone] Encounter Details Date Type Department Care Team (Late st Contact Info) Description 03/16/2025 Orders Only External Location [address] [place] [phone] Provider, External Social History Tobacco Use Types [...] Description 04/15/2025 11:30 AM EDT Pre-Admission Testing [facility] Pre-op Clinic [address], [address] [place] [address] 04/23/2025 9:40 AM EDT Hospital Encounter [facility] RO[facility] [address] [place] [phone] Shorty Barroso MD [address] [address] 04/23/2025 9:40 AM EDT - 04/23/2025 1:40 PM EDT Surgery [facility] RO[facility] [address] [place] [address] Shorty Barroso MD [address] [phone] laparoscopic/roboti c possible open partial gastrectomy [19776 (CPT )] Scheduled Procedures Name Priority Associated [...] documented as of this encounter Care Teams Floor Assembler Relationship Specialty Start Date End Date Jan Chavez MD [address] [place] [address] PCP - General 07/05/21 Rachid Jaime MD [address] [facility] [address] [place] [address] Surgeon Neurosurgery 08/07/21 documented as of this encounter
--- OUTSIDE RECORDS SUMMARY | 2025-03-30 10:34 | XMS_ITS | Clinical Summary ---
Author Organization [facility] Address [address] [place] [address] Care Team Providers Care Extruder Name Role Phone Jan Chavez MD Primary Care Provider [phone] Rachid Jaime MD Unavailable [phone] Allergies No known active allergies Medications [...] Active Additional Information Patient not taking.Reported on 03/30/2025 levETIRAcetam (Keppra) 750 MG tablet Take 1 tablet (750 mg total) by mouth 2 (two) times a day for 7 days. 14 tablet 1 Active Additional Information Patient not taking.Reported on 03/30/2025 acetaminophen-c odeine (Tylenol #3) 300-30 MG tablet TAKE 1 TABLET BY MOUTH EVERY 6 HOURS NEEDED FOR SEVERE PAIN 2 Active diazePAM (Valium) 5 MG tablet TAKE 1 TABLET BY MOUTH A ONE TIME DOSE 30 MINUTES PRIOR TO MRI 2 Active FeroSul 325 (65 Fe) MG tablet Take 1 tablet by mouth daily. 5 Active multivitamin (Theragran) tablet Take by mouth daily. Active omeprazole (PriLOSEC) [address] capsule Take 1 capsule by mouth daily. 5 Active topiramate 50 MG tablet Take 1 tablet by mouth nightly. 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 HTN (hypertension) 07/06/2021 High cholesterol 07/06/2021 RENÉE (obstructive sleep apnea) 07/06/2021 Kidney stone 07/06/2021 Brain mass 07/05/2021 Encounters Date Type Department Care Team Description 03/30/2025 8:10 AM EDT Office Visit [facility] Multidisciplinary Oncology Clinic [address] [place] [address] Shorty Barroso MD Gastrointestinal stromal tumor (GIST) (CMS/HCC) (Primary Dx); Abnormal coagulation profile 03/30/2025 Travel 03/24/2025 Lab Requisition [facility] [address] [place] [phone] Shorty Barroso MD Iron deficiency anemia, unspecified 03/16/2025 Orders Only External Location [address] [place] [address] Provider, External 03/16/2025 Orders Only External Location [address] [place] [phone] Provider, External from Last 3 Months Immunizations Immunization Administration Dates Next Due [facility] COVID-19 Vaccine (Purple Cap) 12 + 08/01/2020,07/11/2020 [...] Mass Index 32.99 03/30/2025 8:07 AM EDT Plan of Treatment Upcoming Encounters Date Type Department Care Team (Latest Contact Info) Description 04/15/2025 11:30 AM EDT Pre-Admission Testing [facility] Pre-op Clinic [address], [address]st [place] [address] 04/23/2025 9:40 AM EDT Hospital Encounter [facility]ATING ROOM [address] [place] [phone] Shorty Barroso MD [address] [address] 04/23/2025 9:40 AM EDT - 04/23/2025 1:40 PM EDT Surgery [facility]ATING ROOM [address] [place] [address] Shorty Barroso MD [address] [phone] laparoscopic/roboti c possible open partial gastrectomy [85661 (CPT )] Scheduled Procedures Name Priority Associated Diagnoses Date/Ti me GASTRECTOMY, ROBOT-ASSISTED Gastrointestinal stromal tumor (GIST) 04/23/2025 9:40 AM EDT Health Maintenance Due Date Last Done Comments [facility]-Medicare Annual Wellness (AWV) 1950 [facility]-/Child/Adol SDOH Screenings 1950 [facility]- SDOH Screenings 11/17/1969 [facility]-Adult SDOH Screenings 11/17/1969 CT Colonography 11/17/1996 Colonoscopy 11/17/1996 FIT-DNA 11/17/1996 FIT 11/17/1996 FOBT 11/17/1996 Sigmoidoscopy 11/17/1996 [facility]-Colorectal Cancer Screening 11/17/1996 [facility]-Zoster Vaccines (1 of 2) 11/17/2001 [facility]-DTaP,Tdap,and Td Vaccines (2 - Td or Tdap) 12/26/2016 12/26/2006 [id number] Vaccine (2023- season) 2025 04/15/2024, 04/10/2023, 03/20/2022, Additional history exists [facility]-Influenza Vaccine (#1) 03/08/202502/28, 04/08/2023, 03/10/2022, Additional history exists [facility]-Depression Screening 03/30/2026 03/30/2025, 03/09 [facility]-RSV Vaccine: 60+ Years or (1 - 1-dose 75+ series) 11/17/2026 [facility]-Hepatitis A Vaccines Aged Out 07/11/2018 No longer eligible based on patient's age to complete this topic [facility]-Hepatitis C Screening Completed 07/05/2021 [facility]-Obesity Intervention Completed 04/30/2022 [facility]-Pneumococcal Vaccine: 50+ Years Completed 04/15/2024 HPV Vaccines Aged Out No longer eligi [...] on patient's age to complete this topic Goals Goal Patient Goal Type Associated Problems Recent Progress Patient-Stated? Author Autohudson garza Goal Care Plan Autogenerated Problem No Shorty Barroso MD Medical Devices Implanted Type Area Machine Stitcher Device Identifier Shelf Expiration Date Model / Serial / Lot Periguard 10 X 16cm - [id number] Implanted:Qty: 1 on 07/06/2021 by Rachid Jaime MD at [facility]-[id number] 09/01/2025 [id number] / / [id number] Screw Ti Matrixneuro Selfdrill 4mm - [id number] Implanted:Qty: 18 on 07/06/2021 by Rachid Jaime MD at [facility] Emotive [facility]-[id number] 07/06/2022 [id number] / / Plate, Neuro Box Lp 13a29jo - [id number] Implanted:Qty: 2 on 07/06/2021 by Rachid Jaime MD at [facility] [employer] [facility]-[id number] 07/06/2022 [id number] / / Cover, Neuro [place] Lp 17mm - [id number] Implanted:Qty: 3 on 07/06/2021 by Rachid Jaime MD at [facility] [employer] [facility]-[id number] 07/06/2022 [id number] / / Explanted Type Area Machine Stitcher Device Identifier Shelf Expiration Date Model / Serial / Lot Screw Ti Matrixneuro Selfdrill 4mm - [id number] Explanted:Qty: 3 on 07/06/2021 by Rachid Jaime MD at [facility] [employer] [facility]-[id number] 07/06/2022 [id number] / / Procedures Procedure Name Priority Date/Time Associated Diagnosis Comments ECG ADULT Routine 03/30/2025 9:14 AM EDT Gastrointestinal stromal tumor (GIST) (CMS/HCC) APTT Routine 03/30/2025 9:03 AM EDT Gastrointestinal stromal tumor (GIST) (CMS/HCC) Abnormal coagulation profile PROTHROMBIN TIME(PT) / INR Today 03/30/2025 9:03 AM EDT Gastrointestinal stromal tumor (GIST) (CMS/HCC) Abnormal coagulation profile PREALBUMIN, PLASMA Routine 03/30/2025 9: 02 AM EDT Gastrointestinal stromal tumor (GIST) (CMS/HCC) COMPREHENSIVE METABOLIC PANEL, PLASMA Routine 03/30/2025 9:02 AM EDT Gastrointestinal stromal tumor (GIST) (CMS/HCC) CBC WITH AUTO DIFFERENTIAL Routine 03/30/2025 9:02 AM EDT Gastrointestinal stromal tumor (GIST) (CMS/HCC) CT THORACIC OUTSIDE IMAGES 03/16/2025 11:[address] THORACIC OUTSIDE IMAGES 03/16/2025 11:00 AM EDT HEPATITIS C ANTIBODY - ED W/REFLEX TO HCV QUANT PCR STAT 07/05/2021 6:33 PM EST from Last 3 Months or Most Recently Relevant to Health Maintenance Results * (ABNORMAL) APTT (03/30/2025 9:03 AM EDT) aPTT 22(L) 25 - 35 sec LAB COAGULATION METHOD 03/30/2025 10:[address] [facility] Blood Venous blood specimen / Unknown Venipuncture / Unknown 03/30/2025 9:03 AM EDT 03/30/2025 9:36 AM EDT us Emiliana Pierre INSTRUCTOR TAP DANCING LAB BLOOD ORDERABLES Fin al Result [facility] [address] [place] [address] * Prothrombin Time/INR (03/30/2025 9:03 AM EDT) Prothrombin Time 13.4 12.0 - 14.3 sec LAB COAGULATION METHOD 03/30/2025 10:[address] [facility] INR 1.0 0.9 - 1.1 LAB COAGULATION METHOD 03/30/2025 10:[address] [facility] Blood Venous blood specimen / Unknown Venipuncture / Unknown 03/30/2025 9:03 AM EDT 03/30/2025 9:[address] [facility] - 03/30/2025 10:17 AM EDT OPTIMAL INR RANGES FOR PATIENT ON ORAL ANTICOAGULANT THERAPY Prevention of venous thromboembolism INR 2.0 to 3.0 In patients with heart disease: Atrial fibrillation INR 2.0 to 3.0 Valvular heart disease INR 2.0 to 3.0 Tissue heart valves INR 2.0 to 3.0 Mechanical prosthetic valves INR 2.5 to 3.5 Prevention of recurrent VT INR 2.5 to 3.5 Emiliana Pierre INSTRUCTOR TAP DANCING LAB BLOOD ORDERABLES Fin al Result [facility] [address] [place] [address] * (ABNORMAL) CBC and Differential (03/30/2025 9:02 AM EDT) WBC Count 14.22(H) 3.70 - 10.30 10*3/uL LAB HEMATOLOGY METHOD 03/30/2025 9:[address] [facility] RBC Count 3.81(L) 4.60 - 6.10 10*6/uL LAB HEMATOLOGY METHOD 03/30/2025 9:[address] [facility] HGB 8.7(L) 13.7 - 17.5 g/dL LAB HEMATOLOGY METHOD 03/30/2025 9:[address] [facility] HCT 32.4(L) 40.0 - 51.0 % LAB HEMATOLOGY METHOD 03/30/2025 9:[address] [facility] Platelet Count 534(H) 155 - 369 10*3/uL LAB HEMATOLOGY METHOD 03/30/2025 9:[address] [facility] MCV 85 79 - 98 fL LAB HEMATOLOGY METHOD 03/30/2025 9:[address] [facility] MCH 22.8(L) 26.0 - 32.0 pg LAB HEMATOLOGY METHOD 03/30/2025 9:[address] [facility] MCHC 26.9(L) 30.7 - 35.5 g/dL LAB HEMATOLOGY METHOD 03/30/2025 9:[address] [facility] RDW 16.8(H) 11.5 - 14.5 % LAB HEMATOLOGY METHOD 03/30/2025 9:[address] [facility] MPV 9.9 8.8 - 12.5 fL LAB HEMATOLOGY METHOD 03/30/2025 9:[address] [facility] nRBC 0.0 <=0.0 per 100 WBCs LAB HEMATOLOGY METHOD 03/30/2025 9:[address] [facility] Differential Type Automated LAB HEMATOLOGY METHOD 03/30/2025 9:[address] [facility] Neutrophils % 72 % LAB HEMATOLOGY METHOD 03/30/2025 9:[address] [facility] Lymphocytes % 19 % LAB HEMATOLOGY METHOD 03/30/2025 9:[address] [facility] Monocytes % 7 % LAB HEMATOLOGY METHOD 03/30/2025 9:[address] [facility] Eosinophils % 1 % LAB HEMATOLOGY METHOD 03/30/2025 9:[address] [facility] Basophils % 0 % LAB HEMATOLOGY METHOD 03/30/2025 9:[address] [facility] Immature Granulocytes % 1 % LAB HEMATOLOGY METHOD 03/30/2025 9:[address] [facility] Neutrophils Absolute 10.41(H) 1.60 - 6.10 10*3/uL LAB HEMATOLOGY METHOD 03/30/2025 9:[address] [facility] Lymphocytes Absolute 2.67 1.20 - 3.90 10*3/uL LAB HEMATOLOGY METHOD 03/30/2025 9:[address] [facility] Monocytes Absolute 0.96(H) 0.30 - 0.90 10*3/uL LAB HEMATOLOGY METHOD 03/30/2025 9:[address] [facility] Eosinophils Absolute 0.08 0.00 - 0.50 10*3/uL LAB HEMATOLOGY METHOD 03/30/2025 9:[address] [facility] Basophils Absolute 0.02 0.00 - 0.10 10*3/uL LAB HEMATOLOGY METHOD 03/30/2025 9:[address] [facility] Immature Granulocytes Absolute 0.08(H) 0.00 - 0.06 10*3/uL LAB HEMATOLOGY METHOD 03/30/2025 9:[address] [facility] Blood Venous blood specimen / Unknown Venipuncture / Unknown 03/30/2025 9:02 AM EDT 03/30/2025 9:[address] [facility] - 03/30/2025 9:53 AM EDT Therapeutic decision making should be based on absolute values, rather than percentages. us Shorty Barroso MD LAB BLOOD ORDERABLES Final R esult [facility] [address] [place] [address] * Prealbumin, Plasma (03/30/2025 9:02 AM EDT) Prealbumin, Plasma 34.3 20.0 - 41.0 mg/dL 03/30/2025 10:[address] [facility] Blood Venous blood specimen / Unknown Venipuncture / Unknown 03/30/2025 9:02 AM EDT 03/30/2025 9:36 AM EDT Shorty Barroso MD LAB BLOOD ORDERABLES Final R [facility] [address] [place] [address] * (ABNORMAL) Comprehensive Metabolic Panel, Plasma (03/30/2025 9:02 AM EDT) Pathologist [facility] Glucose, Plasma 91 74 - 99 mg/dL 03/30/2025 10:[address] [facility] BUN, Plasma 24(H) 8 - 23 mg/dL 03/30/2025 10:[address] [facility] Creatinine, Plasma 1.02 0.70 - 1.20 mg/dL 03/30/2025 10:[address] [facility] BUN/Creatinine Ratio 24 03/30/2025 10:[address] [facility] Sodium, Plasma 143 136 - 145 mmol/L 03/30/2025 10:[address] [facility] Potassium, Plasma 4.6 3.6 - 4.9 mmol/L 03/30/2025 10:[address] [facility] Chloride, Plasma 105 97 - 107 mmol/L 03/30/2025 10:[address] [facility] CO2, Plasma 26 22 - 29 mmol/L 03/30/2025 10:[address] [facility] Anion Gap 12 6 - 16 mmol/L 03/30/2025 10:[address] [facility] Total Calcium, Plasma 9.6 8.9 - 10.2 mg/dL 03/30/2025 10:[address] [facility] Total Protein 6.5 6.3 - 7.9 g/dL 03/30/2025 10:[address] [facility] Albumin, Plasma 4.0 3.5 - 5.2 g/dL 03/30/2025 10:[address] [facility] AST, Plasma 16 10 - 50 U/L 03/30/2025 10:[address] [facility] ALT, Plasma 35 10 - 50 U/L 03/30/2025 10:[address] [facility] Alkaline Phosphatase, Plasma 73 40 - 115 U/L 03/30/2025 10:[address] [facility] Total Bilirubin, Plasma 0.2 0.2 - 1.1 mg/dL 03/30/2025 10:[address] [facility] eGFRcr 77.6 mL/min/1.7 3m*2 03/30/2025 10:[address] [facility] Comment:Reported eGFRcr in m L/min/1.73m2 is based the CKD-EPI 2020 equation that does not use a race coefficient. Blood Venous blood specimen / Unknown Venipuncture / Unknown 03/30/2025 9:02 AM EDT 03/30/2025 9:36 AM EDT us Shorty Barroso MD LAB BLOOD ORDERABLES Final R esult [facility] [address] [place] [address] * CT THORACIC OUTSIDE IMAGES (03/16/2025 11:00 AM EDT) Only the most recent of2 resultswithin the time period is included. Anatomical Region Laterality Modality Computed Tomogra phy 03/16/2025 11:0 0 AM EDT us External Provider IMG CT PROCEDURES Edited Resul t - Final * Martin Hepatitis C Antibody (07/05/2021 6:33 PM EST) Hepatitis C Antibody Negative Negative 07/05/2021 8:12 PM EST [facility] Blood Venous blood specimen / Unknown Venipuncture / Unknown 07/05/2021 6:33 PM EST 07/05/2021 6:42 PM EST us Jose R Morrow MD LAB BLOOD ORDERABLES Tran adelso Result [facility] [address] [place] [address] from Last 3 Months or Most Recently Relevant to Health Maintenance Additional Health Concerns Active Problems Noted Date Diagnosed Date Autogenerated Problem 03/30/2025 [address] [id number] MEDICARE [facility] Advance Directives * Full Code (Latest Code Status on File) Date Activated Date Inactivated Comments 07/05/2021 10:54 PM 07/07/2021 4:30 PM Question Answer Comments Patient has decision-making capacity? Yes Care Teams Extruder Relationship Specialty Start Date End Date Jan Chavez MD [address] [place] [address], [place] [address] PCP - General 07/05/21 Rachid Jaime MD [address] [facility] [address] [place] [address] Surgeon Neurosurgery 08/07/21
[2025-03-30] MEDS: SODIUM CHLORIDE 0.9% 10ML FLUSH SYRINGE 10 ML IV (10:56)
[2025-03-30 10:57] VITALS: BP 143/82; PULSE 61; RESP 14; TEMP 36.6; O2SAT 100
[2025-03-30] MEDS: IRON SUCROSE COMPLEX 200 MG in 0.9 % SODIUM CHLORIDE 100 ML 220 MG IV (10:57)
[2025-03-30 11:30] VITALS: BP 130/73; PULSE 60; RESP 16; TEMP 36.6; O2SAT 99
== END 2025-03-30 23:59 | disposition home or self-care (01) ==
LOC: INF 10:31
PROVIDERS: PCP Family Medicine; Visit Provider Internal Medicine Medical Oncology
DX: D50.9 Iron deficiency anemia, unspecified (principal)
CPT/HCPCS: 96365; J1756

== ENCOUNTER 2025-04-02 09:10 | Outpatient (CLI) | payer MEDICARE, BC, SELFPAY ==
--- OUTSIDE RECORDS SUMMARY | 2024-10-20 20:00 | XMS_ITS | Continuity of Care Document ---
Author Organization [address] [place] [address] Address [address] [facility] [address] [place] [address] Phone Care Team Providers Care Manager Audit Name Role Phone Fred Daly DPM Unavailable [...] SECOND DOSE IN A WEEK. - Active allopurinol 100 mg tablet take 1 tablet by oral route every day 100 MG - Active atorvastatin 40 mg tablet take 1 tablet by oral route every day 40 MG - Active losartan 100 mg-hydrochlorothiazide 12.5 mg tablet take 1 tablet by oral route every day 1.00 tablet - Active Problems Condition Type Effective Dates [...] Encounter HOME/RES VST EST MOD MDM [address] [place] [address], [address] [place] [address], [id number], tel:[phone] [employer] [place] Other specified peripheral vascular diseasesTinea unguiumCorns and callositiesHall ux valgus (acquired), left footHallux valgus (acquired), right footOther hammer toe(s) (acquired), right footOther hammer toe(s) (acquired), left foot 5 Malika Peter [place]. Referring Provider: Jan Chavez. [address] [place] [address], [address] [place] [address], [place], [place], [id number], tel:[phone] [employer] [place] Tinea unguiumOther specified peripheral vascular diseasesCorns and callosities 5 Inocente Cervantes [address] [facility], [address], [place], [place], [facility], . Referring Provider: Jan Chavez. [address] [place] [address], [address] [place] [address], [place], [place], [id number], tel:[phone] [employer] [place] Other specified peripheral vascular diseasesTinea unguiumCorns and callosities 4 Inocente Cervantes [address] [facility], [address], [place], [address], . Referring Provider: Jan Chavez. [address] [place] [address], [address] [place] [address], [place], [place], [id number], tel:[phone] [facility] No Information 4 Inocente Cervantes [address] [facility], [address], [place], [address], [place]. [facility], [address] [place] [address], [place], [place], [id number], tel:[phone] [facility] [place] Tinea unguiumOther specified peripheral vascular diseasesCorns and callosities 4 Inocente Higginbotham. [address], [address], [place], [address], [place]. Referring Provider: Jan Chavez. [facility], [address] [place] [address], [place], [place], [id number], tel:[phone] [facility] Corns and callositiesOthe r specified peripheral vascular diseasesTinea unguium 4 Inocente Cervantes [address] [facility], [address], [place], [address], [place]. Referring Provider: Jose A Porter. [facility], [address] [place], [place] [address], [place], [place], [id number], tel:[phone] [facility] Corns and callositiesTine a unguiumOther specified peripheral vascular diseases 3 Inocente Cervantes [address] [facility], [address], [place], [address], [place]. Referring Provider: Kaykay Aranda. [address] [place] [address], [address] [place] [address], [place], [place], [id number], tel:[phone] [facility] Tinea unguiumCorns and callositiesOthe r specified peripheral vascular diseases 3 Inocente Cervantes [address] [facility], [address], [place], [address], [place]. Referring Provider: Jan Chavez. [address] [place] [address], [address] [place], [place] [address], [place], [place], [id number], tel:[phone] [facility] No Information 3 Inocente Cervantes [address] [facility], [address], [place], [address], [place]. NURSING FAC CARE SUBSEQ [facility], [address] [place], [place] [address], [place], [place], [id number], tel:[phone] [place] Tinea unguiumOther specified peripheral vascular diseasesXerosis cutisCorns and callositiesPain in right toe(s)Pain in left toe(s) 7- 2 [place], [place]. Referring Provider: Jan Chavez. [facility], [address] [place], [place] [address], [place], [place], [id number], tel:[phone] [place] Tinea unguiumOther specified peripheral vascular diseasesCorns and callositiesPain in right toe(s)Pain in left toe(s) - 1 [place], [place]. Referring Provider: Jan Chavez. [facility], [address] [place] [address], [place], [place], [id number], tel:[phone] [place] Tinea unguiumPain in left toe(s)Pain in right toe(s)Corns and callosities Jun-2 9 Inocente Cervantes [address] [facility], [address], [place], [place], [facility], . Referring Provider: Jan Chavez. [address] [place] [address], [address] [place] [address], [place], [place], [id number], tel:[phone] [place] Tinea unguiumCorns and callositiesPain in left toe(s)Pain in right toe(s) Sep-2 0-201 9 Inocente Cervantes [address] [facility], [address], [place], [address], . Referring Provider: Jan Chavez. [facility], [address] [place] [address], [place], [place], [id number], tel:[phone] [place] Tinea unguiumPain in left toe(s)Pain in right toe(s)Tinea pedisCorns and callosities Jan-0 8 9 Inocente Cervantes [address] [facility], [address], [place], [address], . Referring Provider: Jan Chavez. Subsequent Nursing Facility Care [address] [place] [address], [address], [place], [place], [id number], [place] tel:[phone] Lizzie Mercado Tinea unguiumPain in left toe(s)Pain in right toe(s)Tinea pedis Oct- 9 Inocente Higginbotham. [address] [facility], [address], [place], [address], . Referring Provider: Jan Chavez. Family History Family Member Type Diagnosis Age At Onset No Information Payers Payer name Insurance type Covered constitution party ID Authoriza tion(s) Medicare [facility] [id number] BC Supplemental [facility] [id number] Social History Type Description Quantity Date Captured [...] to Other hammer toe(s) (acquired), left foot All of the calluses were debrided/pared to [...] for 1 % clotrimazole cream. Called into [facility] pharmacy in [place], [place]. Apply to affected area twice a [...]
--- OUTSIDE RECORDS SUMMARY | 2025-03-30 08:10 | XMS_ITS | Encounter Summary ---
Author Organization [facility] Address [address] 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 Encounter Details Date Type Department Care Team (Latest Contact Info) Description 03/30/2025 8:10 AM EDT Office Visit [facility] Multidisciplinary Oncology Clinic [address] [place] [address] Shorty Barroso MD [address] [address] Gastrointestinal stromal tumor (GIST) (CMS/HCC) (Primary Dx); [...] Description 04/15/2025 11:30 AM EDT Pre-Admission Testing [facility] Pre-op Clinic [address], 1st [place] [address] 04/23/2025 11:35 AM EDT Hospital Encounter [facility] [address] [place] [address] Shorty Barroso MD [address] [address] 04/23/2025 11:35 AM EDT - 04/23/2025 3:35 PM EDT Surgery [facility] RO[facility] [address] [place] [address] Shorty Barroso MD [address] [phone] laparoscopic/roboti c possible open partial gastrectomy [53123 (CPT )] Scheduled Procedures Name Priority Associated [...] ECG Atrial Rate 60 BPM MUSE ECG [place] Interval 160 ms MUSE ECG QRSD Interval 90 ms MUSE ECG QT Interval 438 ms MUSE ECG QTC Interval 438 ms MUSE ECG P [place] 57 degrees MUSE ECG R [place] 6 degrees MUSE ECG T Wave [place] 17 degrees MUSE ECG Diagnosis Normal sinus [...] LAB COAGULATION METHOD 03/30/2025 10:17 AM EDT [facility] Blood Venous blood specimen / Unknown Venipuncture / Unknown 03/30/2025 9:03 AM EDT 03/30/2025 9:36 AM EDT [facility] FRONT END SOFTWARE ENGINEER LAB BLOOD ORDERABLES Fin al Result Performing Organization Address City/[facility]/ZIP Co de Phone Number [facility] [address] [place] [address] * Prothrombin Time/INR (03/30/2025 9:03 AM EDT) Prothrombin Time 13.4 12.0 - 14.3 sec LAB COAGULATION METHOD 03/30/2025 10:17 AM EDT [facility] INR 1.0 0.9 - 1.1 LAB COAGULATION METHOD 03/30/2025 10:17 AM EDT [facility] Blood Venous blood specimen / Unknown Venipuncture / Unknown 03/30/2025 9:03 AM EDT 03/30/2025 9:36 AM EDT Narrative [facility] - 03/30/2025 10:17 AM EDT OPTIMAL INR RANGES FOR PATIENT ON ORAL ANTICOAGULANT THERAPY Prevention of venous thromboembolism INR 2.0 to 3.0 In patients with heart disease: Atrial fibrillation INR 2.0 to 3.0 Valvular heart disease INR 2.0 to 3.0 Tissue heart valves INR 2.0 to 3.0 Mechanical prosthetic valves INR 2.5 to 3.5 Prevention of recurrent CO INR 2.5 to 3.5 Emilianawalt Woodsoney FRONT END SOFTWARE ENGINEER LAB BLOOD ORDERABLES Fin al Result [facility] [address] [place] [address] * Prealbumin, Plasma (03/30/2025 9:02 AM EDT) Prealbumin, Plasma 34.3 20.0 - 41.0 mg/dL 03/30/2025 10:09 AM EDT [facility] Blood Venous blood specimen / Unknown Venipuncture / Unknown 03/30/2025 9:02 AM EDT 03/30/2025 9:36 AM EDT us Shorty Barroso MD LAB BLOOD ORDERABLES Final R esult [facility] [address] [place] [address] * (ABNORMAL) Comprehensive Metabolic Panel, Plasma (03/30/2025 9:02 AM EDT) Glucose, Plasma 91 74 - 99 mg/dL 03/30/2025 10:09 AM EDT [facility] BUN, Plasma 24(H) 8 - 23 mg/dL 03/30/2025 10:09 AM EDT [facility] Creatinine, Plasma 1.02 0.70 - 1.20 mg/dL 03/30/2025 10:09 AM EDT [facility] BUN/Creatinine Ratio 24 03/30/2025 10:09 AM EDT [facility] Sodium, Plasma 143 136 - 145 mmol/L 03/30/2025 10:09 AM EDT [facility] Potassium, Plasma 4.6 3.6 - 4.9 mmol/L 03/30/2025 10:09 AM EDT [facility] Chloride, Plasma 105 97 - 107 mmol/L 03/30/2025 10:09 AM EDT [facility] CO2, Plasma 26 22 - 29 mmol/L 03/30/2025 10:09 AM EDT [facility] Anion Gap 12 6 - 16 mmol/L 03/30/2025 10:09 AM EDT [facility] Total Calcium, Plasma 9.6 8.9 - 10.2 mg/dL 03/30/2025 10:09 AM EDT [facility] Total Protein 6.5 6.3 - 7.9 g/dL 03/30/2025 10:09 AM EDT [facility] Albumin, Plasma 4.0 3.5 - 5.2 g/dL 03/30/2025 10:09 AM EDT [facility] AST, Plasma 16 10 - 50 U/L 03/30/2025 10:09 AM EDT [facility] ALT, Plasma 35 10 - 50 U/L 03/30/2025 10:09 AM EDT [facility] Alkaline Phosphatase, Plasma 73 40 - 115 U/L 03/30/2025 10:09 AM EDT [facility] Total Bilirubin, Plasma 0.2 0.2 - 1.1 mg/dL 03/30/2025 10:09 AM EDT [facility] eGFRcr 77.6 mL/min/1.7 3m*2 03/30/2025 10:09 AM EDT [facility] Comment:Reported eGFRcr in m L/min/1.73m2 is based the CKD-EPI 2020 equation that does not use a race coefficient. Blood Venous blood specimen / Unknown Venipuncture / Unknown 03/30/2025 9:02 AM EDT 03/30/2025 9:36 AM EDT us Shorty Barroso MD LAB BLOOD ORDERABLES Final R esult [facility] [address] [place] [address] * (ABNORMAL) CBC and Differential (03/30/2025 9:02 AM EDT) WBC Count 14.22(H) 3.70 - 10.30 10*3/uL LAB HEMATOLOGY METHOD 03/30/2025 9:53 AM EDT [facility] RBC Count 3.81(L) 4.60 - 6.10 10*6/uL LAB HEMATOLOGY METHOD 03/30/2025 9:53 AM EDT [facility] HGB 8.7(L) 13.7 - 17.5 g/dL LAB HEMATOLOGY METHOD 03/30/2025 9:53 AM EDT [facility] HCT 32.4(L) 40.0 - 51.0 % LAB HEMATOLOGY METHOD 03/30/2025 9:53 AM EDT [facility] Platelet Count 534(H) 155 - 369 10*3/uL LAB HEMATOLOGY METHOD 03/30/2025 9:53 AM EDT [facility] MCV 85 79 - 98 fL LAB HEMATOLOGY METHOD 03/30/2025 9:53 AM EDT [facility] MCH 22.8(L) 26.0 - 32.0 pg LAB HEMATOLOGY METHOD 03/30/2025 9:53 AM EDT [facility] MCHC 26.9(L) 30.7 - 35.5 g/dL LAB HEMATOLOGY METHOD 03/30/2025 9:53 AM EDT [facility] RDW 16.8(H) 11.5 - 14.5 % LAB HEMATOLOGY METHOD 03/30/2025 9:53 AM EDT [facility] MPV 9.9 8.8 - 12.5 fL LAB HEMATOLOGY METHOD 03/30/2025 9:53 AM EDT [facility] nRBC 0.0 <=0.0 per 100 WBCs LAB HEMATOLOGY METHOD 03/30/2025 9:53 AM EDT [facility] Differential Type Automated LAB HEMATOLOGY METHOD 03/30/2025 9:53 AM EDT [facility] Neutrophils % 72 % LAB HEMATOLOGY METHOD 03/30/2025 9:53 AM EDT [facility] Lymphocytes % 19 % LAB HEMATOLOGY METHOD 03/30/2025 9:53 AM EDT [facility] Monocytes % 7 % LAB HEMATOLOGY METHOD 03/30/2025 9:53 AM EDT [facility] Eosinophils % 1 % LAB HEMATOLOGY METHOD 03/30/2025 9:53 AM EDT [facility] Basophils % 0 % LAB HEMATOLOGY METHOD 03/30/2025 9:53 AM EDT [facility] Immature Granulocytes % 1 % LAB HEMATOLOGY METHOD 03/30/2025 9:53 AM EDT [facility] Neutrophils Absolute 10.41(H) 1.60 - 6.10 10*3/uL LAB HEMATOLOGY METHOD 03/30/2025 9:53 AM EDT [facility] Lymphocytes Absolute 2.67 1.20 - 3.90 10*3/uL LAB HEMATOLOGY METHOD 03/30/2025 9:53 AM EDT [facility] Monocytes Absolute 0.96(H) 0.30 - 0.90 10*3/uL LAB HEMATOLOGY METHOD 03/30/2025 9:53 AM EDT [facility] Eosinophils Absolute 0.08 0.00 - 0.50 10*3/uL LAB HEMATOLOGY METHOD 03/30/2025 9:53 AM EDT [facility] Basophils Absolute 0.02 0.00 - 0.10 10*3/uL LAB HEMATOLOGY METHOD 03/30/2025 9:53 AM EDT [facility] Immature Granulocytes Absolute 0.08(H) 0.00 - 0.06 10*3/uL LAB HEMATOLOGY METHOD 03/30/2025 9:53 AM EDT [facility] Blood Venous blood specimen / Unknown Venipuncture / Unknown 03/30/2025 9:02 AM EDT 03/30/2025 9:35 AM EDT Narrative [facility] - 03/30/2025 9:53 AM EDT Therapeutic decision making should be based on absolute values, rather than percentages. us Shorty Barroso MD LAB BLOOD ORDERABLES Final R esult [facility] [address] [place] [address] documented in this encounter Visit Diagnoses Diagnosis [...] documented as of this encounter Care Teams Ditching Machine Operating Engineer Relationship Specialty Start Date End Date Jan Chavez MD [address] [place] [address] PCP - General 07/05/21 Rachid Jaime MD [address] [facility] [address] [place] [address] Surgeon Neurosurgery 08/07/21 documented as of this encounter
[2025-04-02 09:25] VITALS: BP 152/86; PULSE 74; RESP 18; O2SAT 99
--- OUTSIDE RECORDS SUMMARY | 2025-04-02 09:25 | XMS_ITS | Encounter Summary ---
Author Organization [facility] Address [address] [place] [address] Care Team Providers Care Solid Glass Rod Dowel Machine Operator Name Role Phone Jan Chavez MD Primary Care Provider [phone] Rachid Jaime MD Unavailable [phone] Encounter Details Date Type Department Care Team (Late st Contact Info) Description 03/16/2025 Orders Only External Location [address] [place] [address] Provider, External Social History Tobacco Use Types [...] Description 04/15/2025 11:30 AM EDT Pre-Admission Testing [place] [facility] Pre-op Clinic [address], [address]st [place] [address] 04/23/2025 11:35 AM EDT Hospital Encounter [facility] [address] [place] [phone] Shorty Barroso MD [address] [address] 04/23/2025 11:35 AM EDT - 04/23/2025 3:35 PM EDT Surgery [facility]ATING RO[facility] [address] [place] [address] Shorty Barroso MD [address] [phone] laparoscopic/roboti c possible open partial gastrectomy [19495 (CPT )] Scheduled Procedures Name Priority Associated [...] documented as of this encounter Care Teams Solid Glass Rod Dowel Machine Operator Relationship Specialty Start Date End Date Jan Chavez MD [address] [place] [address] PCP - General 07/05/21 Rachid Jaime MD [address] [facility] [address] [place] [address] Surgeon Neurosurgery 08/07/21 documented as of this encounter
--- OUTSIDE RECORDS SUMMARY | 2025-04-02 09:25 | XMS_ITS | Encounter Summary ---
Author Organization [facility] Address [address] [place] [address] Care Team Providers Care Project Estimator Name Role Phone Jan Chavez MD Primary Care Provider Rachid Jaime MD Unavailable [phone] Encounter Details Date Type Department Care Team (Late st Contact Info) Description 03/24/2025 Lab Requisition [facility] H Lab [address] [place] [address] Shorty Barroso MD [address] [phone] Iron deficiency anemia, unspecified Social History Tobacco [...] Description 04/15/2025 11:30 AM EDT Pre-Admission Testing [place] [facility] Pre-op Clinic [address], [address] [place] [address] 04/23/2025 11:35 AM EDT Hospital Encounter [facility]ATING ROOM [address] [place] [address] Shorty Barroso MD [address] [phone] 04/23/2025 11:35 AM EDT - 04/23/2025 3:35 PM EDT Surgery [facility]ATING RO[facility] [address] [place] [address] Shorty Barroso MD [address] [address] laparoscopic/roboti c possible open partial gastrectomy [28490 (CPT )] Pending Results Name Type Priority [...] documented as of this encounter Care Teams Project Estimator Relationship Specialty Start Date End Date Jan Chavez MD [address] [place] [address] PCP - General 07/05/21 Rachid Jaime MD [address] [facility] [address] [place] [address] Surgeon Neurosurgery 08/07/21 documented as of this encounter
--- OUTSIDE RECORDS SUMMARY | 2025-04-02 09:25 | XMS_ITS | Encounter Summary ---
Author Organization Healthcare Address [address] [place] [address] Care Team Providers Care Estimate Clerk Name Role Phone Jan Chavez MD Primary Care Provider [phone] Rachid Jaime MD Unavailable [phone] Encounter Details Date Type Department Care Team (Late st Contact Info) Description 03/16/2025 Orders Only External Location 800 [place] [phone] Provider, External Social History Tobacco Use Types [...] Description 04/15/2025 11:30 AM EDT Pre-Admission Testing [place] [facility] Pre-op Clinic [address], [address] [place] [address] 04/23/2025 11:35 AM EDT Hospital Encounter [facility] A OPERATING ROOM [address] [place] [phone] Shorty Barroso MD [address] [address] 04/23/2025 11:35 AM EDT - 04/23/2025 3:35 PM EDT Surgery [facility]ATING RO[facility] [address] [place] [address] Shorty Barroso MD [address] [phone] laparoscopic/roboti c possible open partial gastrectomy [05876 (CPT )] Scheduled Procedures Name Priority Associated [...] documented as of this encounter Care Teams Estimate Clerk Relationship Specialty Start Date End Date Jan Chavez MD [address] [place] [address] PCP - General 07/05/21 Rachid Jaime MD [address] [facility] [address] [place] [address] Surgeon Neurosurgery 08/07/21 documented as of this encounter
--- OUTSIDE RECORDS SUMMARY | 2025-04-02 09:25 | XMS_ITS | Encounter Summary ---
Author Organization [facility] Address [address] [place] [address] Care Team Providers Care Caramel Cutter Helper Name Role Phone Jan Chavez MD Primary Care Provider [phone] Rachid Jaime MD Unavailable [phone] Encounter Details Date Type Department Care [...] Description 04/15/2025 11:30 AM EDT Pre-Admission Testing [place] [facility] Pre-op Clinic [address], [address] [place] [address] 04/23/2025 11:35 AM EDT Hospital Encounter [facility] A OPERATING ROOM [address] [place] [address] Shorty Barroso MD [address] [address] 04/23/2025 11:35 AM EDT - 04/23/2025 3:35 PM EDT Surgery [facility] RO[facility] [address] [place] [address] Shorty Barroso MD [address] [address] laparoscopic/roboti c possible open partial gastrectomy [51598 (CPT )] Scheduled Procedures Name Priority Associated [...] documented as of this encounter Care Teams Caramel Cutter Helper Relationship Specialty Start Date End Date Jan Chavez MD [address] [place] [address] PCP - General 07/05/21 Rachid Jaime MD [address] [place] [address] Surgeon Neurosurgery 08/07/21 documented as of this encounter
[2025-04-02] MEDS: IRON SUCROSE COMPLEX 200 MG in 0.9 % SODIUM CHLORIDE 100 ML 220 MG IV (09:26)
--- OUTSIDE RECORDS SUMMARY | 2025-04-02 09:26 | XMS_ITS | Clinical Summary ---
Author Organization [facility] Address [address] [place] [address] Care Team Providers Care Tobacco Educator Name Role Phone Jan Chavez MD Primary Care Provider [phone] Allergies No known active allergies Medications multivitamin [...] by mouth Daily. 3 Active nystatin (MYCOSTATIN) [id number] UNIT/GM powder APPLY 1 GRAM TOPICALLY EVERY [...] Completed 07/05/2021 Insurance MEDICARE A & B [facility] SU[facility] Care Teams Tobacco Educator Relationship Specialty Start Date End Date Jan Chavez MD [address] [place] [address] PCP - General Family Medicine 11/20/22
--- OUTSIDE RECORDS SUMMARY | 2025-04-02 09:26 | XMS_ITS | Clinical Summary ---
Author Organization [facility] Address [address] [place] [address] Care Team Providers Care Area Forester Name Role Phone Jan Chavez MD Primary Care Provider Rachid Jaime MD Unavailable [phone] Allergies No known active allergies Medications [...] Description 03/30/2025 8:10 AM EDT [address] [facility] Multidisciplinary Oncology Clinic [address] [place] [address] Shorty Barroso MD Gastrointestinal stromal tumor (GIST) (CMS/HCC) (Primary Dx); Abnormal coagulation profile 03/30/2025 Travel 03/24/2025 Lab Requisition [facility] [address] [place] [phone] Shorty Barroso MD Iron deficiency anemia, unspecified 03/16/2025 Orders Only External Location [address] [place] [address] Provider, External 03/16/2025 Orders Only External Location [address] [place] [phone] Provider, External from Last 3 Months Immunizations Immunization Administration Dates Next Due SparCode COVID-19 Vaccine (Purple Cap) 12 + 08/01/2020,07/11/2020 [...] Description 04/15/2025 11:30 AM EDT Pre-Admission Testing [facility] [address], [address]st [place] [address] 04/23/2025 11:35 AM EDT Hospital Encounter [facility] A OPERATING ROOM [address] [place] [phone] Shorty Barroso MD [address] [phone] 04/23/2025 11:35 AM EDT - 04/23/2025 3:35 PM EDT Surgery [facility] OPERATING ROOM [address] [place] [phone] Shorty Barroso MD [address] [phone] laparoscopic/roboti c possible open partial gastrectomy [11361 (CPT )] Scheduled Procedures Name Priority Associated Diagnoses Date/Ti me GASTRECTOMY, ROBOT-ASSISTED Gastrointestinal stromal tumor (GIST) 04/23/2025 11:35 AM EDT Health Maintenance Due Date Last Done Comments [facility] Annual Wellness (AWV) 1950 [facility]-/Child/Adol SDOH Screenings 1950 [facility]- SDOH Screenings 11/17/1969 [facility]-Adult SDOH Screenings 11/17/1969 CT Colonography 11/17/1996 Colonoscopy 11/17/1996 FIT-DNA 11/17/1996 FIT 11/17/1996 FOBT 11/17/1996 Sigmoidoscopy 11/17/1996 [facility]-Colorectal Cancer Screening 11/17/1996 [facility]-Zoster Vaccines (1 of 2) 11/17/2001 [facility]-DTaP,Tdap,and Td Vaccines (2 - Td or Tdap) 12/26/2016 12/26/2006 [id number] Vaccine (2023- season) 2025 04/15/2024, 04/10/2023, 03/20/2022, [...] Barroso MD Medical Devices Implanted Type Area Glass Installer Technician Device Identifier Shelf Expiration Date Model / Serial / Lot Periguard 10 X 16cm - [id number] Implanted:Qty: 1 on 07/06/2021 by Rachid Jaime MD at [facility]-[id number] 09/01/2025 [id number] / / [id number] Screw Ti Matrixneuro Selfdrill 4mm - [id number] Implanted:Qty: 18 on 07/06/2021 by Rachid Jaime MD at [facility] Girls Guide To [facility]-[id number] 07/06/2022 [id number] / / Plate, Neuro Box Lp 50s05zu - [id number] Implanted:Qty: 2 on 07/06/2021 by Rachid Jaime MD at [facility] [employer] To [facility]-[id number] 07/06/2022 [id number] / / Cover, Neuro Goldvein Lp 17mm - [id number] Implanted:Qty: 3 on 07/06/2021 by Rachid Jaime MD at [facility] [employer] To [facility]-[id number] 07/06/2022 [id number] / / Explanted Type Area Glass Installer Technician Device Identifier Shelf Expiration Date Model / Serial / Lot Screw Ti Matrixneuro Selfdrill 4mm - [id number] Explanted:Qty: 3 on 07/06/2021 by Rachid Jaime MD at [facility] [employer] Guide To [facility]-[id number] 07/06/2022 [id number] / / Procedures Procedure [...] Recently Relevant to Health Maintenance Results * ECG Adult (Now - Performed in your clinic) (03/30/2025 9:14 AM EDT) EKG DIAGNOSIS CLASS Normal MUSE ECG Ventricular Rate 60 BPM MUSE ECG Atrial Rate 60 BPM MUSE ECG MS Interval 160 ms MUSE ECG QRSD Interval 90 ms MUSE ECG QT Interval 438 ms MUSE ECG QTC Interval 438 ms MUSE ECG P [place] 57 degrees MUSE ECG R [place] 6 degrees MUSE ECG T Wave [place] 17 degrees MUSE ECG Diagnosis Normal sinus [...] LAB COAGULATION METHOD 03/30/2025 10:17 AM EDT [facility] Blood Venous blood specimen / Unknown Venipuncture / Unknown 03/30/2025 9:03 AM EDT 03/30/2025 9:36 AM EDT Emiliana D Reckley FIRE PROTECTION FABRICATOR LAB BLOOD ORDERABLES Fin al Result Performing Organization Address City/[facility]/ZIP Co de Phone Number [facility] [address] [place] [address] * Prothrombin Time/INR (03/30/2025 9:03 AM EDT) Prothrombin Time 13.4 12.0 - 14.3 sec LAB COAGULATION METHOD 03/30/2025 10:17 AM EDT [facility] INR 1.0 0.9 - 1.1 LAB COAGULATION METHOD 03/30/2025 10:17 AM EDT [facility] Blood Venous blood specimen / Unknown Venipuncture / Unknown 03/30/2025 9:03 AM EDT 03/30/2025 9:36 AM EDT Narrative [facility] - 03/30/2025 10:17 AM EDT OPTIMAL INR RANGES FOR PATIENT ON ORAL ANTICOAGULANT THERAPY Prevention of venous thromboembolism INR 2.0 to 3.0 In patients with heart disease: Atrial fibrillation INR 2.0 to 3.0 Valvular heart disease INR 2.0 to 3.0 Tissue heart valves INR 2.0 to 3.0 Mechanical prosthetic valves INR 2.5 to 3.5 Prevention of recurrent [place] INR 2.5 to 3.5 Emiliana Pierre APRN LAB BLOOD ORDERABLES Fin al Result Performing Organization Address [facility] Co de Phone Number [facility] [address] [place] [address] * (ABNORMAL) CBC and Differential (03/30/2025 9:02 AM EDT) WBC Count 14.22(H) 3.70 - 10.30 10*3/uL LAB HEMATOLOGY METHOD 03/30/2025 9:53 AM EDT [facility] RBC Count 3.81(L) 4.60 - 6.10 10*6/uL LAB HEMATOLOGY METHOD 03/30/2025 9:53 AM EDT [facility] HGB 8.7(L) 13.7 - 17.5 g/dL LAB HEMATOLOGY METHOD 03/30/2025 9:53 AM EDT [facility] HCT 32.4(L) 40.0 - 51.0 % LAB HEMATOLOGY METHOD 03/30/2025 9:53 AM EDT [facility] Platelet Count 534(H) 155 - 369 10*3/uL LAB HEMATOLOGY METHOD 03/30/2025 9:53 AM EDT [facility] MCV 85 79 - 98 fL LAB HEMATOLOGY METHOD 03/30/2025 9:53 AM EDT [facility] MCH 22.8(L) 26.0 - 32.0 pg LAB HEMATOLOGY METHOD 03/30/2025 9:53 AM EDT [facility] MCHC 26.9(L) 30.7 - 35.5 g/dL LAB HEMATOLOGY METHOD 03/30/2025 9:53 AM EDT [facility] RDW 16.8(H) 11.5 - 14.5 % LAB HEMATOLOGY METHOD 03/30/2025 9:53 AM EDT [facility] MPV 9.9 8.8 - 12.5 fL LAB HEMATOLOGY METHOD 03/30/2025 9:53 AM EDT [facility] nRBC 0.0 <=0.0 per 100 WBCs LAB HEMATOLOGY METHOD 03/30/2025 9:53 AM EDT [facility] Differential Type Automated LAB HEMATOLOGY METHOD 03/30/2025 9:53 AM EDT [facility] Neutrophils % 72 % LAB HEMATOLOGY METHOD 03/30/2025 9:53 AM EDT [facility] Lymphocytes % 19 % LAB HEMATOLOGY METHOD 03/30/2025 9:53 AM EDT [facility] Monocytes % 7 % LAB HEMATOLOGY METHOD 03/30/2025 9:53 AM EDT [facility] Eosinophils % 1 % LAB HEMATOLOGY METHOD 03/30/2025 9:53 AM EDT [facility] Basophils % 0 % LAB HEMATOLOGY METHOD 03/30/2025 9:53 AM EDT [facility] Immature Granulocytes % 1 % LAB HEMATOLOGY METHOD 03/30/2025 9:53 AM EDT [facility] Neutrophils Absolute 10.41(H) 1.60 - 6.10 10*3/uL LAB HEMATOLOGY METHOD 03/30/2025 9:53 AM EDT [facility] Lymphocytes Absolute 2.67 1.20 - 3.90 10*3/uL LAB HEMATOLOGY METHOD 03/30/2025 9:53 AM EDT [facility] Monocytes Absolute 0.96(H) 0.30 - 0.90 10*3/uL LAB HEMATOLOGY METHOD 03/30/2025 9:53 AM EDT [facility] Eosinophils Absolute 0.08 0.00 - 0.50 10*3/uL LAB HEMATOLOGY METHOD 03/30/2025 9:53 AM EDT [facility] Basophils Absolute 0.02 0.00 - 0.10 10*3/uL LAB HEMATOLOGY METHOD 03/30/2025 9:53 AM EDT [facility] Immature Granulocytes Absolute 0.08(H) 0.00 - 0.06 10*3/uL LAB HEMATOLOGY METHOD 03/30/2025 9:53 AM EDT [facility] Blood Venous blood specimen / Unknown Venipuncture / Unknown 03/30/2025 9:02 AM EDT 03/30/2025 9:35 AM EDT Narrative [facility] - 03/30/2025 9:53 AM EDT Therapeutic decision making should be based on absolute values, rather than percentages. us Shorty Barroso MD LAB BLOOD ORDERABLES Final R esult [facility] [address] [place] [address] * Prealbumin, Plasma (03/30/2025 9:02 AM EDT) Prealbumin, Plasma 34.3 20.0 - 41.0 mg/dL 03/30/2025 10:09 AM EDT [facility] Blood Venous blood specimen / Unknown Venipuncture / Unknown 03/30/2025 9:02 AM EDT 03/30/2025 9:36 AM EDT us Shorty Barroso MD LAB BLOOD ORDERABLES Final R esult [facility] [address] [place] [address] * (ABNORMAL) Comprehensive Metabolic Panel, Plasma (03/30/2025 9:02 AM EDT) Glucose, Plasma 91 74 - 99 mg/dL 03/30/2025 10:09 AM EDT [facility] BUN, Plasma 24(H) 8 - 23 mg/dL 03/30/2025 10:09 AM EDT [facility] Creatinine, Plasma 1.02 0.70 - 1.20 mg/dL 03/30/2025 10:09 AM EDT [facility] BUN/Creatinine Ratio 24 03/30/2025 10:09 AM EDT [facility] Sodium, Plasma 143 136 - 145 mmol/L 03/30/2025 10:09 AM EDT [facility] Potassium, Plasma 4.6 3.6 - 4.9 mmol/L 03/30/2025 10:09 AM EDT [facility] Chloride, Plasma 105 97 - 107 mmol/L 03/30/2025 10:09 AM EDT [facility] CO2, Plasma 26 22 - 29 mmol/L 03/30/2025 10:09 AM EDT [facility] Anion Gap 12 6 - 16 mmol/L 03/30/2025 10:09 AM EDT [facility] Total Calcium, Plasma 9.6 8.9 - 10.2 mg/dL 03/30/2025 10:09 AM EDT [facility] Total Protein 6.5 6.3 - 7.9 g/dL 03/30/2025 10:09 AM EDT [facility] Albumin, Plasma 4.0 3.5 - 5.2 g/dL 03/30/2025 10:09 AM EDT [facility] AST, Plasma 16 10 - 50 U/L 03/30/2025 10:09 AM EDT [facility] ALT, Plasma 35 10 - 50 U/L 03/30/2025 10:09 AM EDT [facility] Alkaline Phosphatase, Plasma 73 40 - 115 U/L 03/30/2025 10:09 AM EDT [facility] Total Bilirubin, Plasma 0.2 0.2 - 1.1 mg/dL 03/30/2025 10:09 AM EDT [facility] eGFRcr 77.6 mL/min/1.7 3m*2 03/30/2025 10:09 AM EDT [facility] Comment:Reported eGFRcr in m L/min/1.73m2 is based the CKD-EPI 2020 equation that does not use a race coefficient. Blood Venous blood specimen / Unknown Venipuncture / Unknown 03/30/2025 9:02 AM EDT 03/30/2025 9:36 AM EDT us Shorty Barroso MD LAB BLOOD ORDERABLES Final R esult Performing Organization Address City/[facility]/ZIP Co de Phone Number [facility] [address] [place] [address] * CT THORACIC OUTSIDE IMAGES (03/16/2025 11:00 AM EDT) Only the most recent of2 resultswithin the time period is included. Anatomical Region Laterality Modality Computed Tomogra phy 03/16/2025 11:0 0 AM EDT External Provider IMG CT PROCEDURES Edited Resul t - Final * [place] Hepatitis C Antibody (07/05/2021 6:33 PM EST) Hepatitis C Antibody Negative Negative 07/05/2021 8:12 PM EST [facility] Blood Venous blood specimen / Unknown Venipuncture / Unknown 07/05/2021 6:33 PM EST 07/05/2021 6:42 PM EST Jose R Morrow MD LAB BLOOD ORDERABLES Tran l Result Performing Organization Address City/[facility]/ZIP Co de Phone Number [facility] [address] [place] [address] from Last 3 Months or Most Recently Relevant to Health Maintenance Additional Health Concerns Active Problems Noted Date Diagnosed Date Autogenerated Problem 03/30/2025 [address] [phone] MEDICARE ANTHEM Advance Directives * Full Code (Latest Code Status on File) Date Activated Date Inactivated Comments 07/05/2021 10:54 PM 07/07/2021 4:30 PM Question Answer Comments Patient has decision-making capacity? Yes Care Teams Area Forester Relationship Specialty Start Date End Date Jan Chavez MD [address] [place] [address] PCP - General 07/05/21 Rachid Jaime MD [address] [facility] [address] [place] [address] Surgeon Neurosurgery 08/07/21
[2025-04-02 10:00] VITALS: BP 126/80; PULSE 66
== END 2025-04-02 23:59 | disposition home or self-care (01) ==
LOC: INF 09:12
PROVIDERS: PCP Family Medicine; Visit Provider Internal Medicine Medical Oncology
DX: D50.9 Iron deficiency anemia, unspecified (principal)
CPT/HCPCS: 96365; J1756

== ENCOUNTER 2025-04-05 09:29 | Outpatient (CLI) | payer MEDICARE, BC, SELFPAY ==
--- OUTSIDE RECORDS SUMMARY | 2024-10-20 20:00 | XMS_ITS | Continuity of Care Document ---
Author Organization [address] [place] [address] Address [address] [facility] [address] [place] [address] Phone Care Team Providers Care Network Director Name Role Phone Fred Daly DPM Unavailable Unavaila ble Allergies, Adverse Reactions, Alerts Substance Reaction Status Criticality No Known Allergies Active No Inform ation Medications Medication Instructions Dosage Effective Dates (start - stop) Status Comments topiramate 50 mg tablet TAKE 1 TABLET BY MOUTH ONCE DAILY AT BEDTIME - Active amoxicillin 500 mg capsule TAKE 1 CAPSULE BY MOUTH THREE TIMES DAILY FOR 10 DAYS - Active acyclovir 200 mg capsule TAKE 1 CAPSULE BY MOUTH FIVE TIMES DAILY - Active acyclovir 400 mg tablet TAKE 1 TABLET BY MOUTH ONCE DAILY - Active triamcinolone acetonide 0.1 % topical ointment - Active phentermine 37.5 mg tablet TAKE 1 TABLET BY MOUTH ONCE DAILY - Active ketoconazole 2 % topical cream APPLY A THIN LAYER TO AFFECTED AREAS TWICE DAILY UNTIL RESOLVED - Active lisinopril 20 mg-hydrochlorothiazide 12.5 mg tablet - Active nystatin 100,000 unit/gram topical powder APPLY 1 GRAM TOPICALLY EVERY 6 HOURS FOR 14 DAYS - Active itraconazole 100 mg capsule - Active clotrimazole 1 % topical cream APPLY 1 GRAM OF CREAM TOPICALLY TWICE DAILY - Active fluconazole 100 mg tablet - Active citalopram 40 mg tablet TAKE 1 TABLET BY MOUTH ONCE DAILY - Active promethazine-DM 6.25 mg-15 mg/5 mL oral syrup TAKE 5 ML BY MOUTH EVERY 6 HOURS NEEDED FOR COUGH, CONGESTION AND DRIANAGE - Active cephalexin 500 mg capsule - Active sulfamethoxazole 800 mg-trimethoprim 160 mg tablet TAKE 1 TABLET BY MOUTH TWICE DAILY FOR 10 DAYS - Active mupirocin 2 % topical ointment - Active fluconazole 150 mg tablet TAKE 1 TABLET BY MOUTH TODAY, THEN REPEAT SECOND DOSE IN A WEEK. - Active losartan 100 mg-hydrochlorothiazide 12.5 mg tablet take 1 tablet by oral route every day 1.00 tablet - Active atorvastatin 40 mg tablet take 1 tablet by oral route every day 40 MG - Active allopurinol 100 mg tablet take 1 tablet by oral route every day 100 MG - Active Problems Condition Type Effective Dates (start - stop) Clini mariana Status Comments No Known Problems Procedures Procedure Date PARNG/CUTG B9 HYPRKR LES 2-4 DEBRIDE NAIL 6 OR MORE HOME/RES VST EST MOD MDM 40 Paring, cutting callus, 2-4 Debride mycotic, thick nails 6 or more J PARNG/CUTG B9 HYPRKR LES 2-4 DEBRIDE NAIL 6 OR MORE PARNG/CUTG B9 HYPRKR LES 2-4 DEBRIDE NAIL 6 OR MORE PARNG/CUTG B9 HYPRKR LES 2-4 DEBRIDE NAIL 6 OR MORE TRIM SKIN LESIONS 2 TO 4 DEBRIDE NAIL 6 OR MORE TRIM SKIN LESIONS 2 TO 4 DEBRIDE NAIL 6 OR MORE DEBRIDE NAIL 6 OR MORE TRIM SKIN LESIONS 2 TO 4 NURSING FAC CARE SUBSEQ TRIM SKIN LESIONS 2 TO 4 DEBRIDE NAIL 6 OR MORE DEBRIDEMENT OF NAIL(S) BY ANY METHOD(S); 6 OR MORE Paring/cutting 2-4 benign lesions DEBRIDEMENT OF NAIL(S) BY ANY METHOD(S); OR MORE Paring/cutting 2-4 benign lesions DEBRIDEMENT OF NAIL(S) BY ANY METHOD(S); OR MORE Paring/cutting 2-4 benign lesions DEBRIDEMENT OF NAIL(S) BY ANY METHOD(S); OR MORE Subsequent Nursing Facility Care 2018 Advance Directives Directive Yes / No Effective Date File Name No Information Encounters Encounter Description Practice Location Reason(s) For Visit Diagnoses Date Provider Providers Copied on Encounter HOME/RES VST EST MOD MDM [address] [place] [address], [address] [place] [address], [id number], tel:[phone] [employer] [place] Other specified peripheral vascular diseasesTinea unguiumCorns and callositiesHall ux valgus (acquired), left footHallux valgus (acquired), right footOther hammer toe(s) (acquired), right footOther hammer toe(s) (acquired), left foot 5 Malika Peter [place]. Referring Provider: Jan Chavez. [address] [place] [address], [address] [place] [address], [place], [place], [id number], tel:[phone] [employer] [place] Tinea unguiumOther specified peripheral vascular diseasesCorns and callosities 5 Inocente Cervantes [address] [facility], [address], [place], [place], [facility], . Referring Provider: Jan Chavez. [address] [place] [address], [address] [place] [address] 300, [place], [place], [id number], tel:[phone] [employer] [place] Other specified peripheral vascular diseasesTinea unguiumCorns and callosities 4 Inocente Cervantes [address] [facility], [address], [place], [address], . Referring Provider: Jan Chavez. [address] [place] [address], [address] [place] [address], [place], [place], [id number], tel:[phone] [facility] No Information 4 Inocente Cervantes [address] [facility], [address], [place], [address], [place]. [facility], [address] [place] [address], [place], [place], [id number], tel:[phone] [facility] [place] Tinea unguiumOther specified peripheral vascular diseasesCorns and callosities 4 Inocente Higginbotham. [address], [address], [place], [address], [place]. Referring Provider: Jan Chavez. [facility], [address] [place] [address], [place], [place], [id number], tel:[phone] [facility] Corns and callositiesOthe r specified peripheral vascular diseasesTinea unguium 4 Inocente Cervantes [address] [facility], [address], [place], [address], [place]. Referring Provider: Jose A Porter. [facility], [address] [place], [place] [address], [place], [place], [id number], tel:[phone] [facility] Corns and callositiesTine a unguiumOther specified peripheral vascular diseases 3 Inocente Cervantes [address] [facility], [address], [place], [address], [place]. Referring Provider: Kaykay Aranda. [address] [place] [address], [address] [place] [address], [place], [place], [id number], tel:[phone] [facility] Tinea unguiumCorns and callositiesOthe r specified peripheral vascular diseases 3 Inocente Cervantes [address] [facility], [address], [place], [address], [place]. Referring Provider: Jan Chavez. [address] [place] [address], [address] [place], [place] [address], [place], [place], [id number], tel:[phone] [facility] No Information 3 Inocente Cervantes [address] [facility], [address], [place], [address], [place]. NURSING FAC CARE SUBSEQ [facility] [place], [address] [place], [place] [address], [place], [place], [id number], tel:[phone] [place] Tinea unguiumOther specified peripheral vascular diseasesXerosis cutisCorns and callositiesPain in right toe(s)Pain in left toe(s) 7- 2 [place], [place]. Referring Provider: Jan Chavez. [facility], [address] [place], [place] [address], [place], [place], [id number], tel:[phone] [place] Tinea unguiumOther specified peripheral vascular diseasesCorns and callositiesPain in right toe(s)Pain in left toe(s) - 1 [place], [place]. Referring Provider: Jan Chavez. [facility], [address] [place] [address], [place], [place], [id number], tel:[phone] [place] Tinea unguiumPain in left toe(s)Pain in right toe(s)Corns and callosities Jun-2 9 Inocente Cervantes [address] [facility], [address], [place], [facility], . Referring Provider: Jan Chavez. [address] [place] [address], [address] [place] [address], [place], [place], [id number], tel:[phone] [place] Tinea unguiumCorns and callositiesPain in left toe(s)Pain in right toe(s) Sep-2 0-201 9 Inocente Cervantes [address] [facility], [address], [place], [address], . Referring Provider: Jan Chavez. [facility], [address] [place] [address], [place], [place], [id number], tel:[phone] [place] Tinea unguiumPain in left toe(s)Pain in right toe(s)Tinea pedisCorns and callosities Jan-0 8 9 Inocente Cervantes [address] [facility], [address], [place], [address], . Referring Provider: Jan Chavez. Subsequent Nursing Facility Care [address] [place] [address], [address], [place], [place], [id number], [place] tel:[phone] Lizzie Mercado Tinea unguiumPain in left toe(s)Pain in right toe(s)Tinea pedis Oct- 9 Inocente Higginbotham. [address] [facility], [address], [place], [address], . Referring Provider: Jan Chavez. Family History Family Member Type Diagnosis Age At Onset No Information Payers Payer name Insurance type Covered green party ID Authoriza tion(s) Medicare [facility] [id number] BC Supplemental [facility] [id number] Social History Type Description Quantity Date Captured Comments Alcohol Use Details Unknown Caffeine Use Details Unknown Tobacco Use Status No Information Smoking Status No Information Sex Male Chief Complaint And Reason For Visit No Information Reason For Referral Reason For Referral No Information Plan Of Treatment Date Type Action Status Appointment Sunny Collins BOOKED Patient Education Toenail Fungus: Care In structions completed Patient Education Toenail Fungus: Care In structions completed Patient Education Toenail Fungus: Care In structions completed Patient Education Toenail Fungus: Care In structions completed History Of Present Illness Encounter Date Complaint History Of Prese nt Illness No Information Functional Status Date Functional Assessmen t No Information Instructions Date Instruction Additional Infor mation Pt will continue to be monitored for signs and symptoms of Peripheral vascular disease. Stressed importance of regular podiatry care and pedal hygiene. Related to Other specified peripheral vascular diseases All onychogryphotic, and/or mycotic nails ( 6 or more) as described were debrided using nail nipper. A file and/or rotary tool were used to further reduce thickness. Related to Tinea unguium All of the multiple benign hyperkeratotic lesions (corn/callus) as described were cut/pared. A sterile blade and scalpel were used. Padding to offload encouraged. Related to Corns and callosities discussed bunion def ormity with patient. Educated patient on signs/symptoms. Treatment to include padding and shoe gear changes. creams or pain medicine if symptoms worsen. Related to Hallux valgus (acquired), left foot discussed bunion def ormity with patient. Educated patient on signs/symptoms. Treatment to include padding and shoe gear changes. creams or pain medicine if symptoms worsen. Related to Hallux valgus (acquired), right foot symptomatic hammer t oes examined today. pt educated on monitoring for any signs of wound formation or skin irritation. discussed using toe sleeves to provide padding if needed. not candidate for elective surgery due to vascular status. hammer toes stable at this time. pt educated on monitoring for any signs of wound formation or skin irritation. discussed using toe sleeves to provide padding if needed. Related to Other hammer toe(s) (acquired), right foot symptomatic hammer t oes examined today. pt educated on monitoring for any signs of wound formation or skin irritation. discussed using toe sleeves to provide padding if needed. not candidate for elective surgery due to vascular status. hammer toes stable at this time. pt educated on monitoring for any signs of wound formation or skin irritation. discussed using toe sleeves to provide padding if needed. Related to Other hammer toe(s) (acquired), left foot Toenails 1-5 b/l wer e debrided in length and thickness without incident. Follow up in 2-3 months. Related to Tinea unguium All of the calluses were debrided/pared to prevent further tissue breakdown and pain. Related to Corns and callosities Toenails 1-5 b/l wer e debrided in length and thickness without incident. Follow up in 2-3 months. Related to Tinea unguium All of the calluses were debrided/pared to prevent further tissue breakdown and pain. Related to Corns and callosities Toenails 1-5 b/l wer e debrided in length and thickness without incident. Follow up in 2-3 months. Related to Tinea unguium All of the calluses were debrided/pared to prevent further tissue breakdown and pain. Related to Corns and callosities All of the calluses were debrided/pared to prevent further tissue breakdown and pain. Related to Corns and callosities Toenails 1-5 b/l wer e debrided in length and thickness without incident. Follow up in 2-3 months. Related to Tinea unguium Toenails 1-5 b/l wer e debrided in length and thickness without incident. Follow up in 2-3 months. Related to Tinea unguium All of the calluses were debrided/pared to prevent further tissue breakdown and pain. Related to Corns and callosities Toenails 1-5 b/l wer e debrided in length and thickness without incident. Follow up in 2-3 months. Related to Tinea unguium All of the calluses were debrided/pared to prevent further tissue breakdown and pain. Related to Corns and callosities Toenails 1-5 b/l wer e debrided in length and thickness without incident. Follow up in 2-3 months. 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 Related to Corns and callosities Debrided calluses x 2 b/l hallux . Related to Corns and callosities Toenails 1-5 b/l wer e debrided in length and thickness without incident. Follow up in 2-3 months.Rx clotrimazole dispensed to be applied to nails. Related to Tinea unguium Debrided callus medi al IPJ of callus b/l with a nail nipper and rasp. Related to Corns and callosities Toenails 1-5 b/l wer e debrided in length and thickness without incident. Follow up in 2-3 months. Related to Tinea unguium Debrided callus medi al IPJ of hallux b/l with a nail nipper and rasp. Related to Corns and callosities Toenails 1-5 b/l wer e debrided in length and thickness without incident. Follow up in 2-3 months. Related to Tinea unguium Debrided calluses x 2 b/l hallux . Related to Corns and callosities Continue clotrimazol e cream as prescribed. Related to Tinea pedis Toenails 1-5 b/l wer e debrided in length and thickness without incident. Follow up in 2-3 months. Related to Tinea unguium Discussed tinea infe ction in detail with the patient. Rx for 1 % clotrimazole cream. Called into [facility] pharmacy in [place], [place]. Apply to affected area twice a day. Related to Tinea pedis Toenails 1-5 b/l wer e debrided in length and thickness without incident. Follow up in 2-3 months. Related to Tinea unguium Assessments Type Assessment Date assessment Other specified peripheral vascu lar diseases assessment Tinea unguium assessment Corns and callosities assessment Hallux valgus (acquired), left f oot assessment Hallux valgus (acquired), right foot assessment Other hammer toe(s) (acquired), right foot assessment Other hammer toe(s) (acquired), left foot Patient Care Teams Name Effective Dates (start - stop) Status Members No Information
--- OUTSIDE RECORDS SUMMARY | 2025-03-30 08:10 | XMS_ITS | Encounter Summary ---
Author Organization [facility] Address [address] 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 Encounter Details Date Type Department Care Team (Latest Contact Info) Description 03/30/2025 8:10 AM EDT Office Visit [facility] Multidisciplinary Oncology Clinic [address] [place] [address] Shorty Barroso MD [address] [address] Gastrointestinal stromal tumor (GIST) (CMS/HCC) (Primary Dx); [...] Description 04/15/2025 11:30 AM EDT Pre-Admission Testing [facility] Pre-op Clinic [address], [address] [place] [address] 04/23/2025 11:35 AM EDT Hospital Encounter [facility] [address] [place] [address] Shorty Barroso MD [address] [address] 04/23/2025 11:35 AM EDT - 04/23/2025 3:35 PM EDT Surgery [facility] [address] [place] [address] Shorty Barroso MD [address] [phone] laparoscopic/roboti c possible open partial gastrectomy [43426 (CPT )] Scheduled Procedures Name Priority Associated [...] ECG Atrial Rate 60 BPM MUSE ECG [place] Interval 160 ms MUSE ECG QRSD Interval 90 ms MUSE ECG QT Interval 438 ms MUSE ECG QTC Interval 438 ms MUSE ECG P [place] 57 degrees MUSE ECG R [place] 6 degrees MUSE ECG T Wave [place] 17 degrees MUSE ECG Diagnosis Normal sinus [...] LAB COAGULATION METHOD 03/30/2025 10:17 AM EDT [facility] Blood Venous blood specimen / Unknown Venipuncture / Unknown 03/30/2025 9:03 AM EDT 03/30/2025 9:36 AM EDT [facility] BLOOD ORDERABLES Fin al Result Performing Organization Address City/[facility]/ZIP Co de Phone Number [facility] [address] [place] [address] * Prothrombin Time/INR (03/30/2025 9:03 AM EDT) Prothrombin Time 13.4 12.0 - 14.3 sec LAB COAGULATION METHOD 03/30/2025 10:17 AM EDT [facility] INR 1.0 0.9 - 1.1 LAB COAGULATION METHOD 03/30/2025 10:17 AM EDT [facility] Blood Venous blood specimen / Unknown Venipuncture / Unknown 03/30/2025 9:03 AM EDT 03/30/2025 9:36 AM EDT Narrative [facility] - 03/30/2025 10:17 AM EDT OPTIMAL INR RANGES FOR PATIENT ON ORAL ANTICOAGULANT THERAPY Prevention of venous thromboembolism INR 2.0 to 3.0 In patients with heart disease: Atrial fibrillation INR 2.0 to 3.0 Valvular heart disease INR 2.0 to 3.0 Tissue heart valves INR 2.0 to 3.0 Mechanical prosthetic valves INR 2.5 to 3.5 Prevention of recurrent NM INR 2.5 to 3.5 Emilianawalt Woodsoney CONDITIONING COACH LAB BLOOD ORDERABLES Fin al Result [facility] [address] [place] [address] * Prealbumin, Plasma (03/30/2025 9:02 AM EDT) Prealbumin, Plasma 34.3 20.0 - 41.0 mg/dL 03/30/2025 10:09 AM EDT [facility] Blood Venous blood specimen / Unknown Venipuncture / Unknown 03/30/2025 9:02 AM EDT 03/30/2025 9:36 AM EDT us Shorty Barroso MD LAB BLOOD ORDERABLES Final R esult [facility] [address] [place] [address] * (ABNORMAL) Comprehensive Metabolic Panel, Plasma (03/30/2025 9:02 AM EDT) Glucose, Plasma 91 74 - 99 mg/dL 03/30/2025 10:09 AM EDT [facility] BUN, Plasma 24(H) 8 - 23 mg/dL 03/30/2025 10:09 AM EDT [facility] Creatinine, Plasma 1.02 0.70 - 1.20 mg/dL 03/30/2025 10:09 AM EDT [facility] BUN/Creatinine Ratio 24 03/30/2025 10:09 AM EDT [facility] Sodium, Plasma 143 136 - 145 mmol/L 03/30/2025 10:09 AM EDT [facility] Potassium, Plasma 4.6 3.6 - 4.9 mmol/L 03/30/2025 10:09 AM EDT [facility] Chloride, Plasma 105 97 - 107 mmol/L 03/30/2025 10:09 AM EDT [facility] CO2, Plasma 26 22 - 29 mmol/L 03/30/2025 10:09 AM EDT [facility] Anion Gap 12 6 - 16 mmol/L 03/30/2025 10:09 AM EDT [facility] Total Calcium, Plasma 9.6 8.9 - 10.2 mg/dL 03/30/2025 10:09 AM EDT [facility] Total Protein 6.5 6.3 - 7.9 g/dL 03/30/2025 10:09 AM EDT [facility] Albumin, Plasma 4.0 3.5 - 5.2 g/dL 03/30/2025 10:09 AM EDT [facility] AST, Plasma 16 10 - 50 U/L 03/30/2025 10:09 AM EDT [facility] ALT, Plasma 35 10 - 50 U/L 03/30/2025 10:09 AM EDT [facility] Alkaline Phosphatase, Plasma 73 40 - 115 U/L 03/30/2025 10:09 AM EDT [facility] Total Bilirubin, Plasma 0.2 0.2 - 1.1 mg/dL 03/30/2025 10:09 AM EDT [facility] eGFRcr 77.6 mL/min/1.7 3m*2 03/30/2025 10:09 AM EDT [facility] Comment:Reported eGFRcr in m L/min/1.73m2 is based the CKD-EPI 2020 equation that does not use a race coefficient. Blood Venous blood specimen / Unknown Venipuncture / Unknown 03/30/2025 9:02 AM EDT 03/30/2025 9:36 AM EDT us Shorty Barroso MD LAB BLOOD ORDERABLES Final R esult [facility] [address] [place] [address] * (ABNORMAL) CBC and Differential (03/30/2025 9:02 AM EDT) WBC Count 14.22(H) 3.70 - 10.30 10*3/uL LAB HEMATOLOGY METHOD 03/30/2025 9:53 AM EDT [facility] RBC Count 3.81(L) 4.60 - 6.10 10*6/uL LAB HEMATOLOGY METHOD 03/30/2025 9:53 AM EDT [facility] HGB 8.7(L) 13.7 - 17.5 g/dL LAB HEMATOLOGY METHOD 03/30/2025 9:53 AM EDT [facility] HCT 32.4(L) 40.0 - 51.0 % LAB HEMATOLOGY METHOD 03/30/2025 9:53 AM EDT [facility] Platelet Count 534(H) 155 - 369 10*3/uL LAB HEMATOLOGY METHOD 03/30/2025 9:53 AM EDT [facility] MCV 85 79 - 98 fL LAB HEMATOLOGY METHOD 03/30/2025 9:53 AM EDT [facility] MCH 22.8(L) 26.0 - 32.0 pg LAB HEMATOLOGY METHOD 03/30/2025 9:53 AM EDT [facility] MCHC 26.9(L) 30.7 - 35.5 g/dL LAB HEMATOLOGY METHOD 03/30/2025 9:53 AM EDT [facility] RDW 16.8(H) 11.5 - 14.5 % LAB HEMATOLOGY METHOD 03/30/2025 9:53 AM EDT [facility] MPV 9.9 8.8 - 12.5 fL LAB HEMATOLOGY METHOD 03/30/2025 9:53 AM EDT [facility] nRBC 0.0 <=0.0 per 100 WBCs LAB HEMATOLOGY METHOD 03/30/2025 9:53 AM EDT [facility] Differential Type Automated LAB HEMATOLOGY METHOD 03/30/2025 9:53 AM EDT [facility] Neutrophils % 72 % LAB HEMATOLOGY METHOD 03/30/2025 9:53 AM EDT [facility] Lymphocytes % 19 % LAB HEMATOLOGY METHOD 03/30/2025 9:53 AM EDT [facility] Monocytes % 7 % LAB HEMATOLOGY METHOD 03/30/2025 9:53 AM EDT [facility] Eosinophils % 1 % LAB HEMATOLOGY METHOD 03/30/2025 9:53 AM EDT [facility] Basophils % 0 % LAB HEMATOLOGY METHOD 03/30/2025 9:53 AM EDT [facility] Immature Granulocytes % 1 % LAB HEMATOLOGY METHOD 03/30/2025 9:53 AM EDT [facility] Neutrophils Absolute 10.41(H) 1.60 - 6.10 10*3/uL LAB HEMATOLOGY METHOD 03/30/2025 9:53 AM EDT [facility] Lymphocytes Absolute 2.67 1.20 - 3.90 10*3/uL LAB HEMATOLOGY METHOD 03/30/2025 9:53 AM EDT [facility] Monocytes Absolute 0.96(H) 0.30 - 0.90 10*3/uL LAB HEMATOLOGY METHOD 03/30/2025 9:53 AM EDT [facility] Eosinophils Absolute 0.08 0.00 - 0.50 10*3/uL LAB HEMATOLOGY METHOD 03/30/2025 9:53 AM EDT [facility] Basophils Absolute 0.02 0.00 - 0.10 10*3/uL LAB HEMATOLOGY METHOD 03/30/2025 9:53 AM EDT [facility] Immature Granulocytes Absolute 0.08(H) 0.00 - 0.06 10*3/uL LAB HEMATOLOGY METHOD 03/30/2025 9:53 AM EDT [facility] Blood Venous blood specimen / Unknown Venipuncture / Unknown 03/30/2025 9:02 AM EDT 03/30/2025 9:35 AM EDT Narrative [facility] - 03/30/2025 9:53 AM EDT Therapeutic decision making should be based on absolute values, rather than percentages. us Shorty Barroso MD LAB BLOOD ORDERABLES Final R esult [facility] [address] [place] [address] documented in this encounter Visit Diagnoses Diagnosis [...] documented as of this encounter Care Teams Sql Ssis Developer Relationship Specialty Start Date End Date Jan Chavez MD [address] [place] [address] PCP - General 07/05/21 Rachid Jaime MD [address] [facility] [address] [place] [address] Surgeon Neurosurgery 08/07/21 documented as of this encounter
--- OUTSIDE RECORDS SUMMARY | 2025-04-05 09:36 | XMS_ITS | Encounter Summary ---
Author Organization Healthcare Address [address] [place] [address] Care Team Providers Care Fitting Room Operator Name Role Phone Jan Chavez MD Primary Care Provider [phone] Rachid Jaime MD Unavailable [phone] Encounter Details Date Type Department Care Team (Late st Contact Info) Description 03/16/2025 Orders Only External Location [address] [place] [address] Provider, External Social History Tobacco Use Types [...] Description 04/15/2025 11:30 AM EDT [facility] Testing [facility] [address], [address]st [place] [address] 04/23/2025 11:35 AM EDT Hospital Encounter [facility] ROOM [address] [place] [phone] Shorty Barroso MD [address] [address] 04/23/2025 11:35 AM EDT - 04/23/2025 3:35 PM EDT Surgery [facility] OPERATING ROOM [address] [place] [address] Shorty Barroso MD [address] [phone] laparoscopic/roboti c possible open partial gastrectomy [45257 (CPT )] Scheduled Procedures Name Priority Associated [...] documented as of this encounter Care Teams Fitting Room Operator Relationship Specialty Start Date End Date Jan Chavez MD [address] [place] [address] PCP - General 07/05/21 Rachid Jaime MD [address] [facility] [address] [place] [address] Surgeon Neurosurgery 08/07/21 documented as of this encounter
--- OUTSIDE RECORDS SUMMARY | 2025-04-05 09:36 | XMS_ITS | Encounter Summary ---
Author Organization [facility] Address [address] [place] [address] Care Team Providers Care Wire Mesh Gate Assembler Name Role Phone Jan Chavez MD Primary Care Provider Rachid Jaime MD Unavailable [phone] Encounter Details Date Type Department Care Team (Late st Contact Info) Description 03/24/2025 Lab Requisition [facility] [address] [place] [address] Shorty Barroso MD [address] [phone] Iron deficiency anemia, unspecified Social History Tobacco [...] Description 04/15/2025 11:30 AM EDT [facility] Testing [facility] [address], [address] [place] [address] 04/23/2025 11:35 AM EDT Hospital Encounter [facility] A OPERATING ROOM [address] [place] [address] Shorty Barroso MD [address] [phone] 04/23/2025 11:35 AM EDT - 04/23/2025 3:35 PM EDT Surgery [facility] A OPERATING ROOM [address] [place] [address] Shorty Barroso MD [address] [address] laparoscopic/roboti c possible open partial gastrectomy [89344 (CPT )] Scheduled Procedures Name Priority Associated Diagnoses Date/Ti me GASTRECTOMY, ROBOT-ASSISTED Gastrointestinal stromal tumor (GIST) 04/23/2025 11:35 AM EDT documented as of this encounter Procedures Procedure Name Priority Date/Time Associated Diagnosis Comments SURGICAL PATHOLOGY CONSULT Routine 03/24/2025 10:38 AM EDT Iron deficiency anemia, unspecified documented in this encounter Results * Surgical Pathology Consult (03/24/2025 10:38 AM EDT) Case Report Sugical Pathology Consult Case: [id number] Authorizing Provider: Shorty Barroso MD Collected: 03/24/2025 1038 Ordering Location: [facility] Lab Received: 03/24/2025 1039 Pathologist: Landry Mcdonald MD Specimen: Duodenum, [id number] 5 6:16 PM EDT [facility] Final Diagnosis (OUTSIDE CASE: [id number] COLLECTED ON 03/10/2025): DUODENUM, BIOPSY (A): - NO PATHOLOGIC ABNORMALITY - NO EVIDENCE OF VILLOUS ABNORMALITY OR INTRAEPITHELIAL LYMPHOCYTOSIS STOMACH, BIOPSY (B): - NO PATHOLOGIC ABNORMALITY - NO EVIDENCE OF HELICOBACTER-LIKE ORGANISMS ON ROUTINE STAIN STOMACH, CARDIA MASS, BIOPSY (C): - GASTROINTESTINAL STROMAL TUMOR (GIST), SPINDLE CELL TYPE - MITOTIC RATE: UP TO 2 PER 5MM2 (GRADE 1 IN THE SUBMITTED SAMPLE) 5 6:16 PM EDT [facility] at 1816 EDT Clinical Information D50.9 - Iron deficiency anemia, unspecified [ICD-10-CM] 5 6:16 PM EDT [facility] Special and Immunohistochemical Stains Immunohistochemica l stains that have been performed by the outside institution are also reviewed here, which are interpreted as follows: Positive: CD117, DOG1 5 6:16 PM EDT [facility] Gross Description A. [id number] Received along with a corresponding pathology report from [facility] Laboratory are 5 slide(s) labeled outside case: [id number] collected on 03/10/2025. 5 6:16 PM EDT [facility] Tissue Duodenal structure / Unknown 03/24/2025 10:38 AM EDT 03/24/2025 10:39 AM EDT us Shorty Barroso MD LAB PATHOLOGY ORDERABLES Fin al Result [facility] [address] [place] [address] documented in this encounter Visit Diagnoses Diagnosis Iron deficiency anemia, unspecified Gastrointestinal stromal tumor (GIST) documented in this encounter Additional Health Concerns Assessment Noted Time A fall risk assessment has been complete d for the patient 04/30/2022 9:50 AM EDT documented as of this encounter Care Teams Wire Mesh Gate Assembler Relationship Specialty Start Date End Date Jan Chavez MD [address] [place] [address] PCP - General 07/05/21 Rachid Jaime MD [address] [facility] [address] [place] [address] Surgeon Neurosurgery 08/07/21 documented as of this encounter
--- OUTSIDE RECORDS SUMMARY | 2025-04-05 09:36 | XMS_ITS | Encounter Summary ---
Author Organization Healthcare Address [address] [place] [address] Care Team Providers Care Air Chief Marshal Name Role Phone Jan Chavez MD Primary Care Provider [phone] Rachid Jaime MD Unavailable [phone] Encounter Details Date Type Department Care Team (Late st Contact Info) Description 03/16/2025 Orders Only External Location [address] [place] [phone] Provider, External Social History Tobacco Use Types [...] Description 04/15/2025 11:30 AM EDT Pre-[facility]mission Testing [facility] [address], [address] [place] [address] 04/23/2025 11:35 AM EDT Hospital Encounter [facility] A OPERATING ROOM [address] [place] [phone] Shorty Barroso MD [address] [address] 04/23/2025 11:35 AM EDT - 04/23/2025 3:35 PM EDT Surgery [facility]PERATING ROOM [address] [place] [address] Shorty Barroso MD [address] [phone] laparoscopic/roboti c possible open partial gastrectomy [92710 (CPT )] Scheduled Procedures Name Priority Associated [...] documented as of this encounter Care Teams Air Chief Marshal Relationship Specialty Start Date End Date Jan Chavez MD [address] [place] [address] PCP - General 07/05/21 Rachid Jaime MD [address] [facility] [address] [place] [address] Surgeon Neurosurgery 08/07/21 documented as of this encounter
--- OUTSIDE RECORDS SUMMARY | 2025-04-05 09:37 | XMS_ITS | Encounter Summary ---
Author Organization [facility] Address [address] [place] [address] Care Team Providers Care Beef Cattle Farm Worker Name Role Phone Jan Chavez MD Primary Care Provider [phone] Rachid Jaime MD Unavailable [phone] Encounter Details Date Type Department Care [...] Description 04/15/2025 11:30 AM EDT Pre-Admission Testing [place] [facility] [address], [address] [place] [address] 04/23/2025 11:35 AM EDT Hospital Encounter [facility] A OPERATING ROOM [address] [place] [address] Shorty Barroso MD [address] [address] 04/23/2025 11:35 AM EDT - 04/23/2025 3:35 PM EDT Surgery [facility] A OPERATING ROOM [address] [place] [address] Shorty Barroso MD [address] [address] laparoscopic/roboti c possible open partial gastrectomy [27438 (CPT )] Scheduled Procedures Name Priority Associated [...] documented as of this encounter Care Teams Beef Cattle Farm Worker Relationship Specialty Start Date End Date Jan Chavez MD [address] [place] [address] PCP - General 07/05/21 Rachid Jaime MD [address] [place] [address] Surgeon Neurosurgery 08/07/21 documented as of this encounter
--- OUTSIDE RECORDS SUMMARY | 2025-04-05 09:37 | XMS_ITS | Clinical Summary ---
Author Organization [facility] Address [address] [place] [address] Care Team Providers Care Engineering Mechanic Name Role Phone Jan Chavez MD Primary Care Provider [phone] Rachid Jaime MD Unavailable [phone] Allergies No known active allergies Medications [...] Description 03/30/2025 8:10 AM EDT Office Visit [facility] Multidisciplinary Oncology Clinic [address] [place] [address] Shorty Barroso MD Gastrointestinal stromal tumor (GIST) (CMS/HCC) (Primary Dx); Abnormal coagulation profile 03/30/2025 Travel 03/24/2025 Lab Requisition [facility] [address] [place] [phone] Shorty Barroso MD Iron deficiency anemia, unspecified 03/16/2025 Orders Only External Location [address] [place] [address] Provider, External 03/16/2025 Orders Only External Location [address] [place] [phone] Provider, External from Last 3 Months Immunizations Immunization Administration Dates Next Due Ram Power COVID-19 Vaccine (Purple Cap) 12 + 08/01/2020,07/11/2020 [...] Description 04/15/2025 11:30 AM EDT Pre-Admission Testing [facility] Pre-op Clinic [address], [address] [place] [address] 04/23/2025 11:35 AM EDT Hospital Encounter [facility] [address] [place] [address] Shorty Barroso MD [address] [phone] 04/23/2025 11:35 AM EDT - 04/23/2025 3:35 PM EDT Surgery [facility] [address] [place] [phone] Shorty Barroso MD [address] [phone] laparoscopic/roboti c possible open partial gastrectomy [42010 (CPT )] Scheduled Procedures Name Priority Associated Diagnoses Date/Ti me GASTRECTOMY, ROBOT-ASSISTED Gastrointestinal stromal tumor (GIST) 04/23/2025 11:35 AM EDT Health Maintenance Due Date Last Done Comments [facility] Annual Wellness (AWV) 1950 [facility]-/Child/Adol SDOH Screenings 1950 [facility]- SDOH Screenings 11/17/1969 [facility]-Adult SDOH Screenings 11/17/1969 CT Colonography 11/17/1996 Colonoscopy 11/17/1996 FIT-DNA 11/17/1996 FIT 11/17/1996 FOBT 11/17/1996 Sigmoidoscopy 11/17/1996 [facility]-Colorectal Cancer Screening 11/17/1996 [facility]-Zoster Vaccines (1 of 2) 11/17/2001 [facility]-DTaP,Tdap,and Td Vaccines (2 - Td or Tdap) 12/26/2016 12/26/2006 [id number] Vaccine (2023- season) 2025 04/15/2024, 04/10/2023, 03/20/2022, [...] Barroso MD Medical Devices Implanted Type Area Alterations Workroom Clerk Device Identifier Shelf Expiration Date Model / Serial / Lot Periguard 10 X 16cm - [id number] Implanted:Qty: 1 on 07/06/2021 by Rachid Jaime MD at [id number] 09/01/2025 [id number] / / [id number] Screw Ti Matrixneuro Selfdrill 4mm - [id number] Implanted:Qty: 18 on 07/06/2021 by Rachid Jaime MD at [facility] PatientKeeper [facility] [email or web address] 07/06/2022 [id number] / / Plate, Neuro Box Lp 52m88ms - [id number] Implanted:Qty: 2 on 07/06/2021 by Rachid Jaime MD at [facility]eeper [facility] [[email or web address]]-[id number] 07/06/2022 421.521 / / Cover, Neuro [place] Lp 17mm - [id number] Implanted:Qty: 3 on 07/06/2021 by Rachid Jaime MD at [facility] PatientKeeper [facility] [[email or web address]]-[id number] 07/06/2022 421.527 / / Explanted Type Area Alterations Workroom Clerk Device Identifier Shelf Expiration Date Model / Serial / Lot Screw Ti Matrixneuro Selfdrill 4mm - [id number] Explanted:Qty: 3 on 07/06/2021 by Rachid Jaime MD at [facility] Patient[employer]eeper [facility] [email or web address] 07/06/2022 [id number] / / Procedures Procedure [...] AM EDT Gastrointestinal stromal tumor (GIST) (CMS/HCC) SURGICAL PATHOLOGY CONSULT Routine 03/24/2025 10:38 AM EDT Iron deficiency anemia, unspecified CT THORACIC OUTSIDE IMAGES 03/16/2025 11:00 AM [...] ECG Atrial Rate 60 BPM MUSE ECG MA Interval 160 ms MUSE ECG QRSD Interval 90 ms MUSE ECG QT Interval 438 ms MUSE ECG QTC Interval 438 ms MUSE ECG P Mesa 57 degrees MUSE ECG R Mesa 6 degrees MUSE ECG T Wave Mesa 17 degrees MUSE ECG Diagnosis Normal sinus rhythm MUSE ECG Diagnosis Normal ECG MUSE ECG Diagnosis MUSE ECG Diagnosis Confirmed by Jayne Holland ([id number]) on 03/30/2025 10:46:16 AM MUSE ECG 03/30/2025 [...] ORDERABLES Fin al Result Performing Organization Address City/[facility]/ZIP Co de Phone Number [facility] [address] [place] [address] * Prothrombin Time/INR (03/30/2025 9:03 AM EDT) [...] INR 2.5 to 3.5 Prevention of recurrent GA INR 2.5 to 3.5 Emiliana Pierre APRN LAB BLOOD ORDERABLES Fin al Result Performing Organization Address City/[facility]/ZIP Co de Phone Number [facility] [address] [place] [address] * (ABNORMAL) CBC and Differential (03/30/2025 9:02 [...] ORDERABLES Final R esult Performing Organization Address City/[facility]/ZIP Co de Phone Number [facility] [address] [place] [address] * Prealbumin, Plasma (03/30/2025 9:02 AM EDT) Prealbumin, Plasma 34.3 20.0 - 41.0 mg/dL 03/30/2025 10:09 AM EDT [facility] Blood Venous blood specimen / Unknown Venipuncture / Unknown 03/30/2025 9:02 AM EDT 03/30/2025 9:36 AM EDT Shorty Barroso MD LAB BLOOD ORDERABLES Final R esult [facility] [address] [place] [address] * (ABNORMAL) Comprehensive Metabolic Panel, Plasma (03/30/2025 9:02 AM EDT) [facility] Glucose, Plasma 91 74 - 99 [...] MD LAB BLOOD ORDERABLES Final R esult [facility] [address] [place] [address] * Surgical Pathology Consult (03/24/2025 10:38 AM EDT) Case Report Sugical Pathology Consult Case: [id number] Authorizing Provider: Shorty Barroso MD Collected: 03/24/2025 1038 Ordering Location: [facility] Lab Received: 03/24/2025 1039 Pathologist: Landry Mcdonald MD Specimen: Duodenum, [id number] 6:16 PM EDT [facility] Final Diagnosis (OUTSIDE CASE: [id number] COLLECTED ON 03/10/2025): DUODENUM, BIOPSY (A): - [...] THE SUBMITTED SAMPLE) 5 6:16 PM EDT [facility] at 1816 EDT Clinical Information D50.9 - Iron deficiency anemia, unspecified [ICD-10-CM] 5 6:16 PM EDT [facility] Special and Immunohistochemical Stains Immunohistochemica l stains that have been performed by the outside institution are also reviewed here, which are interpreted as follows: Positive: CD117, DOG1 5 6:16 PM EDT [facility] Gross Description A. [id number] Received along with a corresponding pathology report from [facility] are 5 slide(s) labeled outside case: [id number] collected on 03/10/2025. 6:16 PM EDT [facility] Tissue Duodenal structure / Unknown 03/24/2025 10:38 AM EDT 03/24/2025 10:39 AM EDT us Shorty Barroso MD LAB PATHOLOGY ORDERABLES Fin al Result Performing Organization Address City/[facility]/ZIP Co de Phone Number [facility] [address] [place] [address] * CT THORACIC OUTSIDE IMAGES (03/16/2025 11:00 AM EDT) Only the most recent of2 resultswithin the time period is included. Anatomical Region Laterality Modality Computed Tomogra phy 03/16/2025 11:0 0 AM EDT External Provider IMG CT PROCEDURES Edited Resul t - Final * Warren Hepatitis C Antibody (07/05/2021 6:33 PM EST) Hepatitis C Antibody Negative Negative 07/05/2021 8:12 PM EST [facility] Blood Venous blood specimen / Unknown Venipuncture / Unknown 07/05/2021 6:33 PM EST 07/05/2021 6:42 PM EST us Jose R Morrow MD LAB BLOOD ORDERABLES Tran l Result Performing Organization Address City/[facility]/ZIP Co de Phone Number [facility] [address] [place] [address] from Last 3 Months or Most Recently Relevant to Health Maintenance Additional Health Concerns Active Problems Noted Date Diagnosed Date Autogenerated Problem 03/30/[address] [phone] [place] [address] ANTHEM Advance Directives * Full Code (Latest Code Status on File) Date Activated Date Inactivated Comments 07/05/2021 10:54 PM 07/07/2021 4:30 PM Question Answer Comments Patient has decision-making capacity? Yes Care Teams Engineering Mechanic Relationship Specialty Start Date End Date Jan Chavez MD [address] [place] [address] PCP - General 07/05/21 Rachid Jaime MD [address] [facility] [address] [place] [address] Surgeon Neurosurgery 08/07/21
--- OUTSIDE RECORDS SUMMARY | 2025-04-05 09:37 | XMS_ITS | Clinical Summary ---
Author Organization [facility] Address [address] [place] [address] Care Team Providers Care Carpenter Helper Hardwood Flooring Name Role Phone Jan Chavez MD Primary Care Provider [phone] Allergies No known active allergies Medications multivitamin [...] by mouth Daily. 3 Active nystatin (MYCOSTATIN) 732834 UNIT/GM powder APPLY 1 GRAM TOPICALLY EVERY [...] Completed 07/05/2021 Insurance MEDICARE A & B [facility] SUPP Care Teams Carpenter Helper Hardwood Flooring Relationship Specialty Start Date End Date Jan Chavez MD [address] [place] [address] PCP - General Family Medicine 11/20/22
[2025-04-05 09:55] VITALS: BP 148/81; PULSE 63; RESP 18; O2SAT 100
[2025-04-05] MEDS: IRON SUCROSE COMPLEX 200 MG in 0.9 % SODIUM CHLORIDE 100 ML 220 MG IV (09:55)
[2025-04-05 10:33] VITALS: BP 137/86; PULSE 59; RESP 18; O2SAT 100
== END 2025-04-05 23:59 | disposition home or self-care (01) ==
PROVIDERS: PCP Family Medicine; Visit Provider Internal Medicine Medical Oncology
DX: D50.9 Iron deficiency anemia, unspecified (principal)
CPT/HCPCS: 96365; J1756

== ENCOUNTER 2025-04-08 09:45 | Outpatient (CLI) | payer MEDICARE, BC, SELFPAY ==
--- OUTSIDE RECORDS SUMMARY | 2025-03-30 08:10 | XMS_ITS | Encounter Summary ---
Author Organization [facility] Address [address] 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 Encounter Details Date Type Department Care Team (Latest Contact Info) Description 03/30/2025 8:10 AM EDT Office Visit [facility] Multidisciplinary Oncology Clinic [address] [place] [address] Shorty Barroso MD [address] [address] Gastrointestinal stromal tumor (GIST) (CMS/HCC) (Primary Dx); [...] No Risk Indicated 03/30/2025 7:58 AM EDT Mayram Shipley * Question Answer Date of Assessment [...] Description 04/15/2025 11:30 AM EDT Pre-Admission Testing [facility] Pre-op Clinic [address], [address] [place] [address] 04/23/2025 11:35 AM EDT Hospital Encounter [facility] [address] [place] [address] Shorty Barroso MD [address] [phone] 04/23/2025 11:35 AM EDT - 04/23/2025 3:35 PM EDT Surgery [facility] [address] [place] [phone] Shorty Barroso MD [address] [phone] laparoscopic/roboti c possible open partial gastrectomy [06495 (CPT )] Scheduled Procedures Name Priority Associated Diagnoses Date/Ti me GASTRECTOMY, ROBOT-ASSISTED Gastrointestinal stromal tumor (GIST) 04/23/2025 11:35 AM EDT documented as of this encounter [...] ECG Atrial Rate 60 BPM MUSE ECG ID Interval 160 ms MUSE ECG QRSD Interval 90 ms MUSE ECG QT Interval 438 ms MUSE ECG QTC Interval 438 ms MUSE ECG P Bronson 57 degrees MUSE ECG R Bronson 6 degrees MUSE ECG T Wave Bronson 17 degrees MUSE ECG Diagnosis Normal sinus rhythm MUSE ECG Diagnosis Normal ECG MUSE ECG Diagnosis MUSE ECG Diagnosis Confirmed by Jayne Holland ([id number]) on 03/30/2025 10:46:16 AM MUSE ECG 03/30/2025 9:14 AM EDT 03/30/2025 10:46 AM EDT us Shorty Barroso MD ECG ORDERABLES Final Result MUSE ECG * (ABNORMAL) APTT (03/30/2025 9:03 AM EDT) aPTT 22(L) 25 - 35 sec LAB COAGULATION METHOD 03/30/2025 10:17 AM EDT [facility] Blood Venous blood specimen / Unknown Venipuncture / Unknown 03/30/2025 9:03 AM EDT 03/30/2025 9:[address] [facility] [facility] STERILE PROCESSING LAB BLOOD ORDERABLES Fin al Result Performing Organization Address City/[facility]/ZIP Co de Phone Number [facility] [address] [place] [address] * Prothrombin Time/INR (03/30/2025 9:03 AM EDT) Prothrombin Time 13.4 12.0 - 14.3 sec LAB COAGULATION METHOD 03/30/2025 10:17 AM EDT [facility] INR 1.0 0.9 - 1.1 LAB COAGULATION METHOD 03/30/2025 10:17 AM EDT [facility] Blood Venous blood specimen / Unknown Venipuncture / Unknown 03/30/2025 9:03 AM EDT 03/30/2025 9:36 AM EDT Narrative [facility] - 03/30/2025 10:17 AM EDT OPTIMAL INR RANGES FOR PATIENT ON ORAL ANTICOAGULANT THERAPY Prevention of venous thromboembolism INR 2.0 to 3.0 In patients with heart disease: Atrial fibrillation INR 2.0 to 3.0 Valvular heart disease INR 2.0 to 3.0 Tissue heart valves INR 2.0 to 3.0 Mechanical prosthetic valves INR 2.5 to 3.5 Prevention of recurrent [place] INR 2.5 to 3.5 Emilianawalt Woodsoney MANAGER STERILE PROCESSING LAB BLOOD ORDERABLES Fin al Result [facility] [address] [place] [address] * Prealbumin, Plasma (03/30/2025 9:02 AM EDT) Prealbumin, Plasma 34.3 20.0 - 41.0 mg/dL 03/30/2025 10:09 AM EDT [facility] Blood Venous blood specimen / Unknown Venipuncture / Unknown 03/30/2025 9:02 AM EDT 03/30/2025 9:36 AM EDT us Shorty Barroso MD LAB BLOOD ORDERABLES Final R esult [facility] [address] [place] [address] * (ABNORMAL) Comprehensive Metabolic Panel, Plasma (03/30/2025 9:02 AM EDT) Glucose, Plasma 91 74 - 99 mg/dL 03/30/2025 10:09 AM EDT [facility] BUN, Plasma 24(H) 8 - 23 mg/dL 03/30/2025 10:09 AM EDT [facility] Creatinine, Plasma 1.02 0.70 - 1.20 mg/dL 03/30/2025 10:09 AM EDT [facility] BUN/Creatinine Ratio 24 03/30/2025 10:09 AM EDT [facility] Sodium, Plasma 143 136 - 145 mmol/L 03/30/2025 10:09 AM EDT [facility] Potassium, Plasma 4.6 3.6 - 4.9 mmol/L 03/30/2025 10:09 AM EDT [facility] Chloride, Plasma 105 97 - 107 mmol/L 03/30/2025 10:09 AM EDT [facility] CO2, Plasma 26 22 - 29 mmol/L 03/30/2025 10:09 AM EDT [facility] Anion Gap 12 6 - 16 mmol/L 03/30/2025 10:09 AM EDT [facility] Total Calcium, Plasma 9.6 8.9 - 10.2 mg/dL 03/30/2025 10:09 AM EDT [facility] Total Protein 6.5 6.3 - 7.9 g/dL 03/30/2025 10:09 AM EDT [facility] Albumin, Plasma 4.0 3.5 - 5.2 g/dL 03/30/2025 10:09 AM EDT [facility] AST, Plasma 16 10 - 50 U/L 03/30/2025 10:09 AM EDT [facility] ALT, Plasma 35 10 - 50 U/L 03/30/2025 10:09 AM EDT [facility] Alkaline Phosphatase, Plasma 73 40 - 115 U/L 03/30/2025 10:09 AM EDT [facility] Total Bilirubin, Plasma 0.2 0.2 - 1.1 mg/dL 03/30/2025 10:09 AM EDT [facility] eGFRcr 77.6 mL/min/1.7 3m*2 03/30/2025 10:09 AM EDT [facility] Comment:Reported eGFRcr in m L/min/1.73m2 is based the CKD-EPI 2020 equation that does not use a race coefficient. Blood Venous blood specimen / Unknown Venipuncture / Unknown 03/30/2025 9:02 AM EDT 03/30/2025 9:36 AM EDT us Shorty Barroso MD LAB BLOOD ORDERABLES Final R esult [facility] [address] [place] [address] * (ABNORMAL) CBC and Differential (03/30/2025 9:02 AM EDT) WBC Count 14.22(H) 3.70 - 10.30 10*3/uL LAB HEMATOLOGY METHOD 03/30/2025 9:53 AM EDT [facility] RBC Count 3.81(L) 4.60 - 6.10 10*6/uL LAB HEMATOLOGY METHOD 03/30/2025 9:53 AM EDT [facility] HGB 8.7(L) 13.7 - 17.5 g/dL LAB HEMATOLOGY METHOD 03/30/2025 9:53 AM EDT [facility] HCT 32.4(L) 40.0 - 51.0 % LAB HEMATOLOGY METHOD 03/30/2025 9:53 AM EDT [facility] Platelet Count 534(H) 155 - 369 10*3/uL LAB HEMATOLOGY METHOD 03/30/2025 9:53 AM EDT [facility] MCV 85 79 - 98 fL LAB HEMATOLOGY METHOD 03/30/2025 9:53 AM EDT [facility] MCH 22.8(L) 26.0 - 32.0 pg LAB HEMATOLOGY METHOD 03/30/2025 9:53 AM EDT [facility] MCHC 26.9(L) 30.7 - 35.5 g/dL LAB HEMATOLOGY METHOD 03/30/2025 9:53 AM EDT [facility] RDW 16.8(H) 11.5 - 14.5 % LAB HEMATOLOGY METHOD 03/30/2025 9:53 AM EDT [facility] MPV 9.9 8.8 - 12.5 fL LAB HEMATOLOGY METHOD 03/30/2025 9:53 AM EDT [facility] nRBC 0.0 <=0.0 per 100 WBCs LAB HEMATOLOGY METHOD 03/30/2025 9:53 AM EDT [facility] Differential Type Automated LAB HEMATOLOGY METHOD 03/30/2025 9:53 AM EDT [facility] Neutrophils % 72 % LAB HEMATOLOGY METHOD 03/30/2025 9:53 AM EDT [facility] Lymphocytes % 19 % LAB HEMATOLOGY METHOD 03/30/2025 9:53 AM EDT [facility] Monocytes % 7 % LAB HEMATOLOGY METHOD 03/30/2025 9:53 AM EDT [facility] Eosinophils % 1 % LAB HEMATOLOGY METHOD 03/30/2025 9:53 AM EDT [facility] Basophils % 0 % LAB HEMATOLOGY METHOD 03/30/2025 9:53 AM EDT [facility] Immature Granulocytes % 1 % LAB HEMATOLOGY METHOD 03/30/2025 9:53 AM EDT [facility] Neutrophils Absolute 10.41(H) 1.60 - 6.10 10*3/uL LAB HEMATOLOGY METHOD 03/30/2025 9:53 AM EDT [facility] Lymphocytes Absolute 2.67 1.20 - 3.90 10*3/uL LAB HEMATOLOGY METHOD 03/30/2025 9:53 AM EDT [facility] Monocytes Absolute 0.96(H) 0.30 - 0.90 10*3/uL LAB HEMATOLOGY METHOD 03/30/2025 9:53 AM EDT [facility] Eosinophils Absolute 0.08 0.00 - 0.50 10*3/uL LAB HEMATOLOGY METHOD 03/30/2025 9:53 AM EDT [facility] Basophils Absolute 0.02 0.00 - 0.10 10*3/uL LAB HEMATOLOGY METHOD 03/30/2025 9:53 AM EDT [facility] Immature Granulocytes Absolute 0.08(H) 0.00 - 0.06 10*3/uL LAB HEMATOLOGY METHOD 03/30/2025 9:53 AM EDT [facility] Blood Venous blood specimen / Unknown Venipuncture / Unknown 03/30/2025 9:02 AM EDT 03/30/2025 9:35 AM EDT Narrative [facility] - 03/30/2025 9:53 AM EDT Therapeutic decision making should be based on absolute values, rather than percentages. us Shorty Barroso MD LAB BLOOD ORDERABLES Final R esult [facility] [address] [place] [address] documented in this encounter Visit Diagnoses Diagnosis [...] documented as of this encounter Care Teams Drug Room Clerk Relationship Specialty Start Date End Date Jan Chavez MD [address] [place] [id number] PCP - General 07/05/21 Rachid Jaime MD [address] [facility] [address] [place] [address] Surgeon Neurosurgery 08/07/21 documented as of this encounter
--- OUTSIDE RECORDS SUMMARY | 2025-04-08 09:52 | XMS_ITS | Encounter Summary ---
Author Organization [facility] Address [address] [place] [address] Care Team Providers Care Semi Conductor Assembler Name Role Phone Jan Chavez MD Primary Care Provider [phone] Rachid Jaime MD Unavailable [phone] Encounter Details Date Type Department Care [...] Description 04/15/2025 11:30 AM EDT Pre[facility] Testing [facility] [address], [address]st [place] [address] 04/23/2025 11:35 AM EDT Hospital Encounter [facility] [address] [place] [address] Shorty Barroso MD [address] [address] 04/23/2025 11:35 AM EDT - 04/23/2025 3:35 PM EDT Surgery [facility] [address] [place] [address] Shorty Barroso MD [address] [address] laparoscopic/roboti c possible open partial gastrectomy [25642 (CPT )] Scheduled Procedures Name Priority Associated [...] documented as of this encounter Care Teams Semi Conductor Assembler Relationship Specialty Start Date End Date Jan Chavez MD [address] [place] [address] PCP - General 07/05/21 Rachid Jaime MD [address] [place] [address] Surgeon Neurosurgery 08/07/21 documented as of this encounter
--- OUTSIDE RECORDS SUMMARY | 2025-04-08 09:52 | XMS_ITS | Encounter Summary ---
Author Organization [facility] Address [address] [place] [address] Care Team Providers Care Auto Mechanics Teacher Name Role Phone Jan Chavez MD Primary Care Provider [phone] Rachid Jaime MD Unavailable [phone] Encounter Details Date Type Department Care Team (Late st Contact Info) Description 03/24/2025 Lab Requisition [facility] [address] [place] [address] Shorty Barroso MD [address] [phone] Iron deficiency anemia, unspecified Social History Tobacco [...] Description 04/15/2025 11:30 AM EDT Pre-Admission Testing [place] [facility] [address], [address] [place] [address] 04/23/2025 11:35 AM EDT Hospital Encounter [facility] [address] [place] [address] Shorty Barroso MD [address] [phone] 04/23/2025 11:35 AM EDT - 04/23/2025 3:35 PM EDT Surgery [facility] [address] [place] [address] Shorty Barroso MD [address] [address] laparoscopic/roboti c possible open partial gastrectomy [70157 (CPT )] Scheduled Procedures Name Priority Associated [...] EDT) Case Report Sugical Pathology Consult Case: [id number] Authorizing Provider: Shorty Barroso MD Collected: 03/24/2025 1038 Ordering Location: [facility] Lab Received: 03/24/2025 1039 Pathologist: Landry Mcdonald MD Specimen: Duodenum, [id number] 5 6:16 PM EDT [facility] Final Diagnosis (OUTSIDE CASE: [id number] COLLECTED ON 03/10/2025): DUODENUM, BIOPSY (A): - [...] THE SUBMITTED SAMPLE) 5 6:16 PM EDT [facility] at 1816 EDT Clinical Information D50.9 - Iron deficiency anemia, unspecified [ICD-10-CM] 5 6:16 PM EDT [facility] Special and Immunohistochemical Stains Immunohistochemica l stains that have been performed by the outside institution are also reviewed here, which are interpreted as follows: Positive: CD117, DOG1 5 6:16 PM EDT [facility] Gross Description A. [id number] Received along with a corresponding pathology report from [facility] are 5 slide(s) labeled outside case: [id number] collected on 03/10/2025. 5 6:16 PM EDT [facility] Tissue Duodenal structure / Unknown 03/24/2025 10:38 AM EDT 03/24/2025 10:39 AM EDT us Shorty Barroso MD LAB PATHOLOGY ORDERABLES Fin al Result [facility] [address] [place] [address] documented in this encounter Visit Diagnoses Diagnosis Iron deficiency anemia, unspecified Gastrointestinal stromal tumor (GIST) documented in this encounter Additional Health Concerns Assessment Noted Time A fall risk assessment has been complete d for the patient 04/30/2022 9:50 AM EDT documented as of this encounter Care Teams Auto Mechanics Teacher Relationship Specialty Start Date End Date Jan Chavez MD [address] [place] [address] PCP - General 07/05/21 Rachid Jaime MD [address] [facility] [address] [place] [address] Surgeon Neurosurgery 08/07/21 documented as of this encounter
--- OUTSIDE RECORDS SUMMARY | 2025-04-08 09:52 | XMS_ITS | Encounter Summary ---
Author Organization [facility] Address [address] [place] [address] Care Team Providers Care Buckle Stringer Name Role Phone Jan Chavez MD Primary Care Provider [phone] Rachid Jaime MD Unavailable [phone] Encounter Details Date Type Department Care Team (Late st Contact Info) Description 03/16/2025 Orders Only External Location [address] [place] [address] Provider, External Social History Tobacco Use Types [...] Description 04/15/2025 11:30 AM EDT Pre-Admission Testing [facility] Pre-op Clinic [address], [address] [place] [address] 04/23/2025 11:35 AM EDT Hospital Encounter [facility] [address] [place] [address] Shorty Barroso MD [address] [address] 04/23/2025 11:35 AM EDT - 04/23/2025 3:35 PM EDT Surgery [facility] [address] [place] [address] Shorty Barroso MD [address] [phone] laparoscopic/roboti c possible open partial gastrectomy [55936 (CPT )] Scheduled Procedures Name Priority Associated [...] documented as of this encounter Care Teams Buckle Stringer Relationship Specialty Start Date End Date Jan Chavez MD [address] [place] [address] PCP - General 07/05/21 Rachid Jaime MD [address] [facility] [address] [place] [address] Surgeon Neurosurgery 08/07/21 documented as of this encounter
--- OUTSIDE RECORDS SUMMARY | 2025-04-08 09:52 | XMS_ITS | Encounter Summary ---
Author Organization [facility] Address [address] [place] [address] Care Team Providers Care Custom Harvester Name Role Phone Jan Chavez MD Primary Care Provider [phone] Rachid Jaime MD Unavailable [phone] Encounter Details Date Type Department Care Team (Late st Contact Info) Description 03/16/2025 Orders Only External Location [address] [place] [address] Provider, External Social History Tobacco Use Types [...] Description 04/15/2025 11:30 AM EDT Pre-Admission Testing [place] [facility] [address], [address] [place] [address] 04/23/2025 11:35 AM EDT Hospital Encounter [facility] [address] [place] [phone] Shorty Barroso MD [address] [address] 04/23/2025 11:35 AM EDT - 04/23/2025 3:35 PM EDT Surgery [facility] [address] [place] [address] Shorty Barroso MD [address] [phone] laparoscopic/roboti c possible open partial gastrectomy [12863 (CPT )] Scheduled Procedures Name Priority Associated [...] documented as of this encounter Care Teams Custom Harvester Relationship Specialty Start Date End Date Jan Chavez MD [address] [place] [address] PCP - General 07/05/21 Rachid Jaime MD [address] [facility] [address] [place] [address] Surgeon Neurosurgery 08/07/21 documented as of this encounter
--- OUTSIDE RECORDS SUMMARY | 2025-04-08 09:52 | XMS_ITS | Clinical Summary ---
Author Organization [facility] Address [address] [place] [address] Care Team Providers Care Child Care Associate Teacher Name Role Phone Jan Chavez MD Primary Care Provider [phone] Rachid Jaime MD Unavailable [phone] Allergies No known active allergies Medications [...] Description 03/30/2025 8:10 AM EDT Office Visit [facility] Multidisciplinary Oncology Clinic [address] [place] [address] Shorty Barroso MD Gastrointestinal stromal tumor (GIST) (CMS/HCC) (Primary Dx); Abnormal coagulation profile 03/30/2025 Travel 03/24/2025 Lab Requisition [facility] [address] [place] [phone] Shorty Barrsoo MD Iron deficiency anemia, unspecified 03/16/2025 Orders Only External Location [address] [place] [phone] Provider, External 03/16/2025 Orders Only External Location [address] [place] [phone] Provider, External from Last 3 Months Immunizations Immunization Administration Dates Next Due [employer] COVID-19 Vaccine (Purple Cap) 12 + 08/01/2020,07/11/2020 [...] Description 04/15/2025 11:30 AM EDT Pre-Admission Testing [facility] Pre-op Clinic [address], [address] [place] [address] 04/23/2025 11:35 AM EDT Hospital Encounter [facility] [address] [place] [phone] Shorty Barroso MD [address] [phone] 04/23/2025 11:35 AM EDT - 04/23/2025 3:35 PM EDT Surgery [facility] [address] [place] [phone] Shorty Barroso MD [address] [phone] laparoscopic/roboti c possible open partial gastrectomy [71394 (CPT )] Scheduled Procedures Name Priority Associated Diagnoses Date/Ti me GASTRECTOMY, ROBOT-ASSISTED Gastrointestinal stromal tumor (GIST) 04/23/2025 11:35 AM EDT Health Maintenance Due Date Last Done Comments [facility]-Medicare Annual Wellness (AWV) 1950 [facility]-/Child/Adol SDOH Screenings 1950 [facility]- SDOH Screenings 11/17/1969 [facility]-Adult SDOH Screenings 11/17/1969 CT Colonography 11/17/1996 Colonoscopy 11/17/1996 [facility]-DNA 11/17/1996 FIT 11/17/1996 FOBT 11/17/1996 Sigmoidoscopy 11/17/1996 [facility]-Colorectal Cancer Screening 11/17/1996 [facility]-Zoster Vaccines (1 of 2) 11/17/2001 [facility]-DTaP,Tdap,and Td Vaccines (2 - Td or Tdap) 12/26/2016 12/26/2006 BXX-RSTGA-30 Vaccine (2023- season) 2025 04/15/2024, 04/10/2023, 03/20/2022, [...] Barroso MD Medical Devices Implanted Type Area Silhouette Artist Device Identifier Shelf Expiration Date Model / Serial / Lot Periguard 10 X 16cm - [id number] Implanted:Qty: 1 on 07/06/2021 by Rachid Jaime MD at [facility]-[id number] 09/01/2025 [id number] / / [id number] Screw Ti [employer] Selfdrill 4mm - [id number] Implanted:Qty: 18 on 07/06/2021 by Rachid Jaime MD at [facility] [employer] [facility]-[id number] 07/06/2022 [id number] / / Plate, Neuro Box Lp 02o80sq - [id number] Implanted:Qty: 2 on 07/06/2021 by Rachid Jaime MD at [facility] [employer] [facility]-[id number] 07/06/2022 [id number] / / Cover, Neuro [place] Lp 17mm - [id number] Implanted:Qty: 3 on 07/06/2021 by Rachid Jaime MD at [facility] [employer] [facility]-[id number] 07/06/2022 [id number] / / Explanted Type Area Silhouette Artist Device Identifier Shelf Expiration Date Model / Serial / Lot Screw Ti [employer] Selfdrill 4mm - [id number] Explanted:Qty: 3 on 07/06/2021 by Rachid Jaime MD at [facility] [employer] [facility]-[id number] 07/06/2022 [id number] / / Procedures Procedure [...] ECG Atrial Rate 60 BPM MUSE ECG LA Interval 160 ms MUSE ECG QRSD Interval 90 ms MUSE ECG QT Interval 438 ms MUSE ECG QTC Interval 438 ms MUSE ECG P [place] 57 degrees MUSE ECG R [place] 6 degrees MUSE ECG T Wave [place] 17 degrees MUSE ECG Diagnosis Normal sinus rhythm MUSE ECG Diagnosis Normal ECG MUSE ECG Diagnosis MUSE ECG Diagnosis Confirmed by Jayne Holland ([id number]) on 03/30/2025 10:46:16 AM MUSE ECG 03/30/2025 [...] ORDERABLES Fin al Result Performing Organization Address City/[facility]/ZIP Co de Phone Number [facility] [address] [place] [address] * Prothrombin Time/INR (03/30/2025 9:03 AM EDT) [...] INR 2.5 to 3.5 Prevention of recurrent [place] INR 2.5 to 3.5 Emiliana Pierre APRN LAB BLOOD ORDERABLES Fin al Result Performing Organization Address City/[facility]/ZIP Co de Phone Number [facility] [address] [place] [address] * (ABNORMAL) CBC and Differential (03/30/2025 9:02 [...] ORDERABLES Final R esult Performing Organization Address City/[facility]/ZIP Co de Phone Number [facility] [address] [place] [address] * Prealbumin, Plasma (03/30/2025 9:02 AM EDT) Prealbumin, Plasma 34.3 20.0 - 41.0 mg/dL 03/30/2025 10:09 AM EDT [facility] Blood Venous blood specimen / Unknown Venipuncture / Unknown 03/30/2025 9:02 AM EDT 03/30/2025 9:36 AM EDT Shorty Barroso MD LAB BLOOD ORDERABLES Final R esult [facility] [address] [place] [address] * (ABNORMAL) Comprehensive Metabolic Panel, Plasma (03/30/2025 9:02 AM EDT) [facility] Glucose, Plasma 91 74 - 99 mg/dL [...] MD LAB BLOOD ORDERABLES Final R esult [facility] [address] [place] [address] * Surgical Pathology Consult (03/24/2025 10:38 AM EDT) Case Report Sugical Pathology Consult Case: [id number] Authorizing Provider: Shorty Barroso MD Collected: 03/24/2025 1038 Ordering Location: [facility] Lab Received: 03/24/2025 1039 Pathologist: Landry Mcdonald MD Specimen: Duodenum, [id number] 6:16 PM EDT [facility] Final Diagnosis (OUTSIDE CASE: [id number] COLLECTED ON 03/10/2025): DUODENUM, BIOPSY (A): - [...] THE SUBMITTED SAMPLE) 5 6:16 PM EDT [facility] at 1816 EDT Clinical Information D50.9 - Iron deficiency anemia, unspecified [ICD-10-CM] 5 6:16 PM EDT [facility] Special and Immunohistochemical Stains Immunohistochemica l stains that have been performed by the outside institution are also reviewed here, which are interpreted as follows: Positive: CD117, DOG1 5 6:16 PM EDT [facility] Gross Description A. [id number] Received along with a corresponding pathology report from [facility] are 5 slide(s) labeled outside case: [id number] collected on 03/10/2025. 6:16 PM EDT [facility] Tissue Duodenal structure / Unknown 03/24/2025 10:38 AM EDT 03/24/2025 10:39 AM EDT us Shorty Barroso MD LAB PATHOLOGY ORDERABLES Fin al Result Performing Organization Address City/[facility]/ZIP Co de Phone Number [facility] [address] [place] [address] * CT THORACIC OUTSIDE IMAGES (03/16/2025 11:00 AM EDT) Only the most recent of2 resultswithin the time period is included. Anatomical Region Laterality Modality Computed Tomogra phy 03/16/2025 11:0 0 AM EDT External Provider IMG CT PROCEDURES Edited Resul t - Final * [place] Hepatitis C Antibody (07/05/2021 6:33 PM EST) Hepatitis C Antibody Negative Negative 07/05/2021 8:12 PM EST [facility] Blood Venous blood specimen / Unknown Venipuncture / Unknown 07/05/2021 6:33 PM EST 07/05/2021 6:42 PM EST us Jose R Morrow MD LAB BLOOD ORDERABLES Tran l Result Performing Organization Address City/[facility]/ZIP Co de Phone Number [facility] [address] [place] [address] from Last 3 Months or Most Recently Relevant to Health Maintenance Additional Health Concerns Active Problems Noted Date Diagnosed Date Autogenerated Problem 03/30/2025 [address] [id number] MEDICARE ANTHEM Advance Directives * Full Code (Latest Code Status on File) Date Activated Date Inactivated Comments 07/05/2021 10:54 PM 07/07/2021 4:30 PM Question Answer Comments Patient has decision-making capacity? Yes Care Teams Child Care Associate Teacher Relationship Specialty Start Date End Date Jan Chavez MD [address] [place] [address] PCP - General 07/05/21 Rachid Jaime MD [address] [facility] [address] [place] [address] Surgeon Neurosurgery 08/07/21
--- OUTSIDE RECORDS SUMMARY | 2025-04-08 09:52 | XMS_ITS | Clinical Summary ---
Author Organization [facility] Address [address] [place] [address] Care Team Providers Care Renal Dialysis Technician Name Role Phone Jan Chavez MD Primary Care Provider [phone] Allergies No known active allergies Medications multivitamin [...] by mouth Daily. 3 Active nystatin (MYCOSTATIN) 623878 UNIT/GM powder APPLY 1 GRAM TOPICALLY EVERY [...] Completed 07/05/2021 Insurance MEDICARE A & B [facility] SUPP Care Teams Renal Dialysis Technician Relationship Specialty Start Date End Date Jan Chavez MD [address] [place] [address] PCP - General Family Medicine 11/20/22
[2025-04-08 10:04] VITALS: BP 130/71; PULSE 62; RESP 16; TEMP 36.6; O2SAT 99
[2025-04-08] MEDS: IRON SUCROSE COMPLEX 200 MG in 0.9 % SODIUM CHLORIDE 100 ML 220 MG IV (10:04)
[2025-04-08] MEDS: SODIUM CHLORIDE 0.9% 10ML FLUSH SYRINGE 10 ML IV (10:05)
[2025-04-08 10:40] VITALS: BP 143/78; PULSE 60; RESP 16; TEMP 36.6; O2SAT 98
== END 2025-04-08 23:59 | disposition home or self-care (01) ==
LOC: INF 09:47
PROVIDERS: PCP Family Medicine; Visit Provider Internal Medicine Medical Oncology
DX: D50.9 Iron deficiency anemia, unspecified (principal)
CPT/HCPCS: 96365; J1756

== ENCOUNTER 2025-04-12 09:32 | Outpatient (CLI) | payer MEDICARE, BC, SELFPAY ==
--- OUTSIDE RECORDS SUMMARY | 2025-03-30 08:10 | XMS_ITS | Encounter Summary ---
Author Organization [facility] Address [address] [place] [address] Care Team Providers Care Spent Grain Dryer Name Role Phone Jan Chavez MD Primary Care Provider Rachid Jaime MD Unavailable [phone] Reason for Visit * Reason Comments Consult Darier's disease. Encounter Details Date Type Department Care Team (Latest Contact Info) Description 03/30/2025 8:10 AM EDT Office Visit [facility] Multid[facility] Oncology [facility] [address] [place] [address] Shorty Barroso MD [address] [phone] Gastrointestinal stromal tumor (GIST) (CMS/HCC) (Primary Dx); Abnormal coagulation profile Social History Tobacco Use Types Packs/Day Years Used Date Smoking Tobacco: Never Smokeless Tobacco: Never Alcohol Use Standard Drinks/Week Comments Never 0 (1 standard drink = 0.6 oz pur e alcohol) PHQ-2A Answer Date Recorded Depression Risk 0 03/30/2025 PHQ-9A Answer Date Recorded Depression Risk Score 0 03/30/2025 Sex and Gender Information Value Date Recorded Sex Assigned at Male 07/06/2021 10:53 AM EST Legal Sex Male 8:47 PM EDT Gender Identity Male 07/06/2021 10:53 AM EST Sexual Orientation Not on file documented as of this encounter Last Filed Vital Signs Vital Sign Reading Time Taken Comments Blood Pressure 142/82 03/30/2025 8:07 AM EDT Pulse 61 03/30/2025 8:07 AM EDT Temperature 36.6 C (97.9 F) 03/30/2025 8:07 AM EDT Respiratory Rate 16 03/30/2025 8:07 AM EDT Oxygen Saturation 99% 03/30/2025 8:07 AM EDT Inhaled Oxygen Concentration - - Weight 91.3 kg (201 lb 4.5 oz) 03/30/2025 8:07 A M EDT Height 166.4 cm (5' 5.5 ) 03/30/2025 8:07 AM EDT Body Mass Index 32.99 03/30/2025 8:07 AM EDT documented in this encounter Functional Status * Calculated C-SSRS Risk Score (Lifetime/Recent) Answer Date of Assessment Author No Risk Indicated 03/30/2025 7:58 AM EDT Maryam Shipley * Question Answer Date of Assessment Author 1. Wish to be (Past 1 Month) No 025 7:58 AM EDT Maryam Shipley 2. Non-Specific Active Suici farzad Thoughts (Past 1 Month) No 03/30/2025 7:58 AM EDT Ela Shipley 6. Suicidal Behavior (Lifetime) No 7:58 AM EDT Maryam Shipley documented as of this encounter Miscellaneous Notes * H&P - Shorty Barroso MD - 03/30/2025 8:10 AM EDT Images from the original note were not included. Surgical Oncology Outpatient Consultation Requesting Service: Dr. Steve Chief complaint: Sunny Collins is a 74 y.o. seen in consultation from Dr. Shorty Steve for GIST of the gastric cardia. History of Present Illness: Sunny Collins is a 74 year old male with a PMHx of HTN, nephrolithiasis and RENÉE who presents in consultation from his junior legal secretary/oncologist Dr. Steve. The patient presented to his PCP with reports of dizziness and fatigue and was found to be profoundly anemic on labs. (Hgb 5.7). Patient underwent EGD to rule out UGIB and was found to have a gastric mass in the cardia notable for GIST. He is currently asymptomatic without changes in his bowel habits, no nausea/vomiting, no blood in the stool, no abdominal pain and no unintentional weight loss. His surgical history is remarkable for cholecystectomy and craniotomy for meningioma done at under Dr. Jaime. He is here with his and son-in-law. Treatment history 03/10/25 EGD - ulcerated cardia mass, bx GIST with low mitotic rate 03/16/25 CT - 3cm gastric cardia mass 03/30/25 - initial surg onc consult - plan for 04/23 robotic partial gastrectomy. Past Medical History: Past Medical History: Diagnosis Date Headache High cholesterol 07/06/2021 HTN (hypertension) 07/06/2021 Kidney stone 07/06/2021 RENÉE (obstructive sleep apnea) 07/06/2021 Past Surgical History: Past Surgical History: Procedure Laterality Date BRAIN SURGERY 06/2021 COLONOSCOPY Social History: Tobacco: Tobacco Use: Low Risk (03/30/2025) Patient History Smoking Tobacco Use: Never Smokeless Tobacco Use: Never Passive Exposure: Not on file Alcohol: Alcohol Use: Not on file Illicit drug use: Social History Substance and Sexual Activity Drug Use Never Allergies: No Known Allergies Family Medical History: family history is not on file. Denies FH of cancer. Home Medications: Prior to Admission medications Medication Sig Start Date End Date Taking? Authorizing Provider allopurinol (Zyloprim) 100 MG tablet Take 100 mg by mouth 2 (two) times a day. Yes Provider, Historical atorvastatin (Lipitor) 40 MG tablet Take 40 mg by mouth 1 (one) time each day. Yes Provider, Historical citalopram (CeleXA) 40 MG tablet Take 40 mg by mouth 1 (one) time each day. Yes Provider, Historical FeroSul 325 (65 Fe) MG tablet Take 1 tablet by mouth daily. 02/17/25 Yes Provider, Historical lisinopril-hydroCHLOROthiazide 20-12.5 MG tablet Take 1 tablet by mouth 1 (one) time each day. Yes Provider, Historical Multiple Vitamins-Minerals (CENTRUM SILVER ADULT 50+ PO) Take 1 by mouth daily Yes Provider, Historical multivitamin (Theragran) tablet Take by mouth daily. Yes Provider, Historical omeprazole (PriLOSEC) [address] capsule Take 1 capsule by mouth daily. 03/16/25 Yes Provider, Historical topiramate 50 MG tablet Take 1 tablet by mouth nightly. Yes Provider, Historical acetaminophen-codeine (Tylenol #3) 300-30 MG tablet TAKE 1 TABLET BY MOUTH EVERY 6 HOURS NEEDED FOR SEVERE PAIN Patient not taking: Reported on 03/30/2025 10/19/21 Provider, Historical cephalexin (Keflex) 500 MG capsule Take 1,000 mg by mouth 2 (two) times a day. Patient not taking: Reported on 03/30/2025 Provider, Historical dexamethasone (Decadron) 2 MG tablet Take 1 tablet (2 mg total) by mouth 2 (two) times a day for 8 doses. Patient not taking: Reported on 03/30/2025 07/13/21 07/17/21 Naeem Ortiz MD diazePAM (Valium) 5 MG tablet TAKE 1 TABLET BY MOUTH A ONE TIME DOSE 30 MINUTES PRIOR TO MRI Patient not taking: Reported on 03/30/2025 10/23/21 Provider, Historical levETIRAcetam (Keppra) 750 MG tablet Take 1 tablet (750 mg total) by mouth 2 (two) times a day for 7 days. Patient not taking: Reported on 03/30/2025 07/07/21 07/14/21 Naeem Ortiz MD Review of Systems: 14 ROS was conducted and is otherwise negative unless noted in HPI. Physical exam: GENERAL: WD, WN, NAD. EYES: No scleral icterus or conjunctivitis HENT: Atraumatic, normocephalic, nares patent, mucus membranes moist NECK: Supple, no JVD, no evidence of bruit bilaterally RESP/CHEST: Symmetric expansion; non labored. CTA bilaterally. CARD: Regular rate and rhythm, no murmur Extremities: No cyanosis or clubbing. Pedal pulses palpable +2. GI: No organomegaly or masses. Soft, Nontender, nondistended. BS present and normoactive x 4 quadrants SKIN: No rash, sores, lesions or subcutaneous nodules. NEURO: AAOx4. Motor intact and no focal deficits PSYCH: Mood and affect congruent and appropriate to situation. Objective: All laboratory, images, tracings, and vital sign data are personally reviewed unless otherwise noted. VITALS BP (!) 142/82 (03/30/25 0807) Temp 36.6 ??C (97.9 ??F) (03/30/25 0807) Pulse 61 (03/30/25 0807) Resp 16 (03/30/25 0807) SpO2 99 % (03/30/25 0807) .FLOWAMB[14 Weight: 91.3 kg (201 lb 4.5 oz) .FLOWAMB[11 LABS Lab Results Component Value Date WBC 14.22 (H) 03/30/2025 HGB 8.7 (L) 03/30/2025 HCT 32.4 (L) 03/30/2025 PLT 534 (H) 03/30/2025 NA 143 03/30/2025 K 4.6 03/30/2025 CL 105 03/30/2025 CO2 26 03/30/2025 BUN 24 (H) 03/30/2025 CREATININE 1.02 03/30/2025 GLUCOSE 91 03/30/2025 CALCIUM 9.6 03/30/2025 Lab Results Component Value Date TP 6.5 03/30/2025 ALBUMIN 4.0 03/30/2025 AST 16 03/30/2025 ALT 35 03/30/2025 BILITOT 0.2 03/30/2025 ALKPHOS 73 03/30/2025 Lab Results Component Value Date APTT 22 (L) 03/30/2025 INR 1.0 03/30/2025 Lab Results Component Value Date PREALBUMIN 34.3 03/30/2025 Radiographics/Diagnostics: === 03/16/25 === CT THORACIC OUTSIDE IMAGES Pathology: Gastrointestinal stromal tumor, spindle cell type, grade 1, 0.3 cm in greatest dimension. Mitotic rate 2 per 5 mm2 Final Diagnosis (no units) Date/Time Value 03/24/2025 1038 (OUTSIDE CASE: [id number] COLLECTED ON 03/10/2025): DUODENUM, BIOPSY (A): - NO PATHOLOGIC ABNORMALITY - NO EVIDENCE OF VILLOUS ABNORMALITY OR INTRAEPITHELIAL LYMPHOCYTOSIS STOMACH, BIOPSY (B): - NO PATHOLOGIC ABNORMALITY - NO EVIDENCE OF HELICOBACTER-LIKE ORGANISMS ON ROUTINE STAIN STOMACH, CARDIA MASS, BIOPSY (C): - GASTROINTESTINAL STROMAL TUMOR (GIST), SPINDLE CELL TYPE - MITOTIC RATE: UP TO 2 PER 5MM2 (GRADE 1 IN THE SUBMITTED SAMPLE) Assessment & Plan: Mr. Collins is a 74-year-old male with a newly diagnosed grade 1 gastric cardia GIST, identified on EGD after his PCP discovered anemia during workup for dizziness and fatigue. He presents today for surgical management. His imaging is significant for a 3 cm gastric cardia mass along the posterior wall and lesser curvature of the stomach. I personally reviewed these images and pasted a leyva image in the note above. I reviewed the endoscopic images (also pasted above). I discussed his case with referring physician Dr. Steve. I recommended proceeding to the operating room for a laparoscopic/robotic partial gastrectomy, which will be performed via anterior gastrotomy. I discussed risks, benefits, and alternatives to gastrectomy including but not limited to bleeding, infection, injury to associated structures such as the biliary tree, liver, pancreas, duodenum, or blood vessels; life-long dietary modifications, anastomotic leak, hernia, pancreatic fistula, cardiopulmonary complications, stroke, possibly even . After this discussion, the patient signed consent to the procedure. Patient has been advised to complete an EKG and labs today as part of his pre- operative workup. These were notable for anemia with hgb of 8.7 with otherwise acceptable values to proceed with surgery. Kathy Donohue, MS3 03/30/25 8:52 AM I saw and evaluated the patient with the medical/COSMETIC CONSULTANT/PA student. I discussed the case with the medical/COSMETIC CONSULTANT/PA student and agree with the findings and plan as documented. I personally performed the Examand Medical Decision Making. Shorty Barroso MD * Progress Notes - Kathy Donohue - 03/30/2025 8:10 AM EDT Images from the original note were not included. Surgical Oncology Outpatient Consultation Requesting Service: Dr. Steve Chief complaint: Sunny Collins is a 74 y.o. seen in consultation from Dr. Shorty Steve for GIST of the gastric cardia. History of Present Illness: Sunny Collins is a 74 year old male with a PMHx of HTN, nephrolithiasis and RENÉE who presents in consultation from his junior legal secretary/oncologist Dr. Steve. The patient presented to his PCP with reports of dizziness and fatigue and was found to be profoundly anemic on labs. (Hgb 5.7). Patient underwent EGD to rule out UGIB and was found to have a gastric mass in the cardia notable for GIST. He is currently asymptomatic without changes in his bowel habits, no nausea/vomiting, no blood in the stool, no abdominal pain and no unintentional weight loss. His surgical history is remarkable for cholecystectomy and craniotomy for meningioma done at under Dr. Jaime. He is here with his and son-in-law. Treatment history 03/10/25 EGD - ulcerated cardia mass, bx GIST with low mitotic rate 03/16/25 CT - 3cm gastric cardia mass 03/30/25 - initial surg onc consult - plan for 04/23 robotic partial gastrectomy. Past Medical History: Past Medical History: Diagnosis Date Headache High cholesterol 07/06/2021 HTN (hypertension) 07/06/2021 Kidney stone 07/06/2021 RENÉE (obstructive sleep apnea) 07/06/2021 Past Surgical History: Past Surgical History: Procedure Laterality Date BRAIN SURGERY 06/2021 COLONOSCOPY Social History: Tobacco: Tobacco Use: Low Risk (03/30/2025) Patient History Smoking Tobacco Use: Never Smokeless Tobacco Use: Never Passive Exposure: Not on file Alcohol: Alcohol Use: Not on file Illicit drug use: Social History Substance and Sexual Activity Drug Use Never Allergies: No Known Allergies Family Medical History: family history is not on file. Denies FH of cancer. Home Medications: Prior to Admission medications Medication Sig Start Date End Date Taking? Authorizing Provider allopurinol (Zyloprim) 100 MG tablet Take 100 mg by mouth 2 (two) times a day. Yes Provider, Historical atorvastatin (Lipitor) 40 MG tablet Take 40 mg by mouth 1 (one) time each day. Yes Provider, Historical citalopram (CeleXA) 40 MG tablet Take 40 mg by mouth 1 (one) time each day. Yes Provider, Historical FeroSul 325 (65 Fe) MG tablet Take 1 tablet by mouth daily. 02/17/25 Yes Provider, Historical lisinopril-hydroCHLOROthiazide 20-12.5 MG tablet Take 1 tablet by mouth 1 (one) time each day. Yes Provider, Historical Multiple Vitamins-Minerals (CENTRUM SILVER ADULT 50+ PO) Take 1 by mouth daily Yes Provider, Historical multivitamin (Theragran) tablet Take by mouth daily. Yes Provider, Historical omeprazole (PriLOSEC) [address] capsule Take 1 capsule by mouth daily. 03/16/25 Yes Provider, Historical topiramate 50 MG tablet Take 1 tablet by mouth nightly. Yes Provider, Historical acetaminophen-codeine (Tylenol #3) 300-30 MG tablet TAKE 1 TABLET BY MOUTH EVERY 6 HOURS NEEDED FOR SEVERE PAIN Patient not taking: Reported on 03/30/2025 10/19/21 Provider, Historical cephalexin (Keflex) 500 MG capsule Take 1,000 mg by mouth 2 (two) times a day. Patient not taking: Reported on 03/30/2025 Provider, Historical dexamethasone (Decadron) 2 MG tablet Take 1 tablet (2 mg total) by mouth 2 (two) times a day for 8 doses. Patient not taking: Reported on 03/30/2025 07/13/21 07/17/21 Naeem Ortiz MD diazePAM (Valium) 5 MG tablet TAKE 1 TABLET BY MOUTH A ONE TIME DOSE 30 MINUTES PRIOR TO MRI Patient not taking: Reported on 03/30/2025 10/23/21 Provider, Historical levETIRAcetam (Keppra) 750 MG tablet Take 1 tablet (750 mg total) by mouth 2 (two) times a day for 7 days. Patient not taking: Reported on 03/30/2025 07/07/21 07/14/21 Naeem Ortiz MD Review of Systems: 14 ROS was conducted and is otherwise negative unless noted in HPI. Physical exam: GENERAL: WD, WN, NAD. EYES: No scleral icterus or conjunctivitis HENT: Atraumatic, normocephalic, nares patent, mucus membranes moist NECK: Supple, no JVD, no evidence of bruit bilaterally RESP/CHEST: Symmetric expansion; non labored. CTA bilaterally. CARD: Regular rate and rhythm, no murmur Extremities: No cyanosis or clubbing. Pedal pulses palpable +2. GI: No organomegaly or masses. Soft, Nontender, nondistended. BS present and normoactive x 4 quadrants SKIN: No rash, sores, lesions or subcutaneous nodules. NEURO: AAOx4. Motor intact and no focal deficits PSYCH: Mood and affect congruent and appropriate to situation. Objective: All laboratory, images, tracings, and vital sign data are personally reviewed unless otherwise noted. VITALS BP (!) 142/82 (03/30/25 08) Temp 36.6 ??C (97.9 ??F) (03/30/25 08) Pulse 61 (03/30/25 0807) Resp 16 (03/30/25 0807) SpO2 99 % (03/30/25 0807) .FLOWAMB[14 Weight: 91.3 kg (201 lb 4.5 oz) .FLOWAMB[11 LABS Lab Results Component Value Date WBC 14.22 (H) 03/30/2025 HGB 8.7 (L) 03/30/2025 HCT 32.4 (L) 03/30/2025 PLT 534 (H) 03/30/2025 NA 143 03/30/2025 K 4.6 03/30/2025 CL 105 03/30/2025 CO2 26 03/30/2025 BUN 24 (H) 03/30/2025 CREATININE 1.02 03/30/2025 GLUCOSE 91 03/30/2025 CALCIUM 9.6 03/30/2025 Lab Results Component Value Date TP 6.5 03/30/2025 ALBUMIN 4.0 03/30/2025 AST 16 03/30/2025 ALT 35 03/30/2025 BILITOT 0.2 03/30/2025 ALKPHOS 73 03/30/2025 Lab Results Component Value Date APTT 22 (L) 03/30/2025 INR 1.0 03/30/2025 Lab Results Component Value Date PREALBUMIN 34.3 03/30/2025 Radiographics/Diagnostics: === 03/16/25 === CT THORACIC OUTSIDE IMAGES Pathology: Gastrointestinal stromal tumor, spindle cell type, grade 1, 0.3 cm in greatest dimension. Mitotic rate 2 per 5 mm2 Final Diagnosis (no units) Date/Time Value 03/24/2025 1038 (OUTSIDE CASE: [id number] COLLECTED ON 03/10/2025): DUODENUM, BIOPSY (A): - NO PATHOLOGIC ABNORMALITY - NO EVIDENCE OF VILLOUS ABNORMALITY OR INTRAEPITHELIAL LYMPHOCYTOSIS STOMACH, BIOPSY (B): - NO PATHOLOGIC ABNORMALITY - NO EVIDENCE OF HELICOBACTER-LIKE ORGANISMS ON ROUTINE STAIN STOMACH, CARDIA MASS, BIOPSY (C): - GASTROINTESTINAL STROMAL TUMOR (GIST), SPINDLE CELL TYPE - MITOTIC RATE: UP TO 2 PER 5MM2 (GRADE 1 IN THE SUBMITTED SAMPLE) Assessment & Plan: Mr. Collins is a 74-year-old male with a newly diagnosed grade 1 gastric cardia GIST, identified on EGD after his PCP discovered anemia during workup for dizziness and fatigue. He presents today for surgical management. His imaging is significant for a 3 cm gastric cardia mass along the posterior wall and lesser curvature of the stomach. I personally reviewed these images and pasted a leyva image in the note above. I reviewed the endoscopic images (also pasted above). I discussed his case with referring physician Dr. Steve. I recommended proceeding to the operating room for a laparoscopic/robotic partial gastrectomy, which will be performed via anterior gastrotomy. I discussed risks, benefits, and alternatives to gastrectomy including but not limited to bleeding, infection, injury to associated structures such as the biliary tree, liver, pancreas, duodenum, or blood vessels; life-long dietary modifications, anastomotic leak, hernia, pancreatic fistula, cardiopulmonary complications, stroke, possibly even . After this discussion, the patient signed consent to the procedure. Patient has been advised to complete an EKG and labs today as part of his pre- operative workup. These were notable for anemia with hgb of 8.7 with otherwise acceptable values to proceed with surgery. Kathy Donohue, MS3 03/30/25 8:52 AM I saw and evaluated the patient with the medical/COSMETIC CONSULTANT/PA student. I discussed the case with the medical/COSMETIC CONSULTANT/PA student and agree with the findings and plan as documented. I personally performed the Examand Medical Decision Making. Shorty Barroso MD Cosigned by Shorty Barroso MD at 04/08/2025 1:45 PM EDT documented in this encounter Plan of Treatment Upcoming Encounters Date Type Department Care Team (Latest Contact Info) Description 04/15/2025 11:30 AM EDT Pre-Admission Testing [place] Clinic Pre-op Clinic [address] [place] [address] 04/23/2025 3:30 PM EDT Hospital Encounter [facility] [address] [place] [address] Shorty Barroso MD [address] [id number] 04/23/2025 3:30 PM EDT - 04/23/2025 7:30 PM EDT Surgery [facility] [address] [place] [address] Shorty Barroso MD [address] [phone] laparoscopic/roboti c possible open partial gastrectomy [76132 (CPT )] Scheduled Procedures Name Priority Associated Diagnoses Date/Ti me GASTRECTOMY, ROBOT-ASSISTED Gastrointestinal stromal tumor (GIST) 04/23/2025 3:30 PM EDT documented as of this encounter Goals Goal Patient Goal Type Associated Problems Recent Progress Patient-Stated? Author Autogenera kayla Goal Care Plan Autogenerated Problem No Shorty Barroso MD documented as of this encounter Procedures Procedure Name Priority Date/Time Associated Diagnosis Comments ECG ADULT Routine 03/30/2025 9:14 AM EDT Gastrointestinal stromal tumor (GIST) (CMS/HCC) APTT Routine 03/30/2025 9:03 AM EDT Gastrointestinal stromal tumor (GIST) (CMS/HCC) Abnormal coagulation profile PROTHROMBIN TIME(PT) / INR Today 03/30/2025 9:03 AM EDT Gastrointestinal stromal tumor (GIST) (CMS/HCC) Abnormal coagulation profile documented in this encounter Results * ECG Adult (Now - Performed in your clinic) (03/30/2025 9:14 AM EDT) EKG DIAGNOSIS CLASS Normal MUSE ECG Ventricular Rate 60 BPM MUSE ECG Atrial Rate 60 BPM MUSE ECG RI Interval 160 ms MUSE ECG QRSD Interval 90 ms MUSE ECG QT Interval 438 ms MUSE ECG QTC Interval 438 ms MUSE ECG P [place] 57 degrees MUSE ECG R [place] 6 degrees MUSE ECG T Wave [place] 17 degrees MUSE ECG Diagnosis Normal sinus rhythm MUSE ECG Diagnosis Normal ECG MUSE ECG Diagnosis MUSE ECG Diagnosis Confirmed by Jayne Holland ([id number]) on 03/30/2025 10:46:16 AM MUSE ECG 03/30/2025 9:14 AM EDT 03/30/2025 10:46 AM EDT Shorty Barroso MD ECG ORDERABLES Final Result MUSE ECG * (ABNORMAL) APTT (03/30/2025 9:03 AM EDT) aPTT 22(L) 25 - 35 sec LAB COAGULATION METHOD 03/30/2025 10:17 AM EDT [facility] Blood Venous blood specimen / Unknown Venipuncture / Unknown 03/30/2025 9:03 AM EDT 03/30/2025 9:36 AM EDT Emiliana Pierre APRN LAB BLOOD ORDERABLES Fin al Result Performing Organization Address City/[facility]/ZIP Co de Phone Number [facility] [address] [place] [address] * Prothrombin Time/INR (03/30/2025 9:03 AM EDT) Prothrombin Time 13.4 12.0 - 14.3 sec LAB COAGULATION METHOD 03/30/2025 10:17 AM EDT [facility] INR 1.0 0.9 - 1.1 LAB COAGULATION METHOD 03/30/2025 10:17 AM EDT [facility] Blood Venous blood specimen / Unknown Venipuncture / Unknown 03/30/2025 9:03 AM EDT 03/30/2025 9:36 AM EDT Narrative [facility] - 03/30/2025 10:17 AM EDT OPTIMAL INR RANGES FOR PATIENT ON ORAL ANTICOAGULANT THERAPY Prevention of venous thromboembolism INR 2.0 to 3.0 In patients with heart disease: Atrial fibrillation INR 2.0 to 3.0 Valvular heart disease INR 2.0 to 3.0 Tissue heart valves INR 2.0 to 3.0 Mechanical prosthetic valves INR 2.5 to 3.5 Prevention of recurrent HI INR 2.5 to 3.5 Emiliana Pierre APRN LAB BLOOD ORDERABLES Fin al Result [facility] [address] [place] [address] * Prealbumin, Plasma (03/30/2025 9:02 AM EDT) Prealbumin, Plasma 34.3 20.0 - 41.0 mg/dL 03/30/2025 10:09 AM EDT [facility] Blood Venous blood specimen / Unknown Venipuncture / Unknown 03/30/2025 9:02 AM EDT 03/30/2025 9:36 AM EDT us Shorty Barroso MD LAB BLOOD ORDERABLES Final R esult Performing Organization Address City/[facility]/ZIP Co de Phone Number [facility] [address] [place] [address] * (ABNORMAL) Comprehensive Metabolic Panel, Plasma (03/30/2025 9:02 AM EDT) Pathologist [facility] [place] Glucose, Plasma 91 74 - 99 mg/dL 03/30/2025 10:09 AM EDT [facility] BUN, Plasma 24(H) 8 - 23 mg/dL 03/30/2025 10:09 AM EDT [facility] Creatinine, Plasma 1.02 0.70 - 1.20 mg/dL 03/30/2025 10:09 AM EDT [facility] BUN/Creatinine Ratio 24 03/30/2025 10:09 AM EDT [facility] Sodium, Plasma 143 136 - 145 mmol/L 03/30/2025 10:09 AM EDT [facility] Potassium, Plasma 4.6 3.6 - 4.9 mmol/L 03/30/2025 10:09 AM EDT [facility] Chloride, Plasma 105 97 - 107 mmol/L 03/30/2025 10:09 AM EDT [facility] CO2, Plasma 26 22 - 29 mmol/L 03/30/2025 10:09 AM EDT [facility] Anion Gap 12 6 - 16 mmol/L 03/30/2025 10:09 AM EDT [facility] Total Calcium, Plasma 9.6 8.9 - 10.2 mg/dL 03/30/2025 10:09 AM EDT [facility] Total Protein 6.5 6.3 - 7.9 g/dL 03/30/2025 10:09 AM EDT [facility] Albumin, Plasma 4.0 3.5 - 5.2 g/dL 03/30/2025 10:09 AM EDT [facility] AST, Plasma 16 10 - 50 U/L 03/30/2025 10:09 AM EDT [facility] ALT, Plasma 35 10 - 50 U/L 03/30/2025 10:09 AM EDT [facility] Alkaline Phosphatase, Plasma 73 40 - 115 U/L 03/30/2025 10:09 AM EDT [facility] Total Bilirubin, Plasma 0.2 0.2 - 1.1 mg/dL 03/30/2025 10:09 AM EDT [facility] eGFRcr 77.6 mL/min/1.7 3m*2 03/30/2025 10:09 AM EDT [facility] Comment:Reported eGFRcr in m L/min/1.73m2 is based the CKD-EPI 2020 equation that does not use a race coefficient. Blood Venous blood specimen / Unknown Venipuncture / Unknown 03/30/2025 9:02 AM EDT 03/30/2025 9:36 AM EDT us Shorty Barroso MD LAB BLOOD ORDERABLES Final R esult [facility] [address] [place] [address] * (ABNORMAL) CBC and Differential (03/30/2025 9:02 AM EDT) WBC Count 14.22(H) 3.70 - 10.30 10*3/uL LAB HEMATOLOGY METHOD 03/30/2025 9:53 AM EDT [facility] RBC Count 3.81(L) 4.60 - 6.10 10*6/uL LAB HEMATOLOGY METHOD 03/30/2025 9:53 AM EDT [facility] HGB 8.7(L) 13.7 - 17.5 g/dL LAB HEMATOLOGY METHOD 03/30/2025 9:53 AM EDT [facility] HCT 32.4(L) 40.0 - 51.0 % LAB HEMATOLOGY METHOD 03/30/2025 9:53 AM EDT [facility] Platelet Count 534(H) 155 - 369 10*3/uL LAB HEMATOLOGY METHOD 03/30/2025 9:53 AM EDT [facility] MCV 85 79 - 98 fL LAB HEMATOLOGY METHOD 03/30/2025 9:53 AM EDT [facility] MCH 22.8(L) 26.0 - 32.0 pg LAB HEMATOLOGY METHOD 03/30/2025 9:53 AM EDT [facility] MCHC 26.9(L) 30.7 - 35.5 g/dL LAB HEMATOLOGY METHOD 03/30/2025 9:53 AM EDT [facility] RDW 16.8(H) 11.5 - 14.5 % LAB HEMATOLOGY METHOD 03/30/2025 9:53 AM EDT [facility] MPV 9.9 8.8 - 12.5 fL LAB HEMATOLOGY METHOD 03/30/2025 9:53 AM EDT [facility] nRBC 0.0 <=0.0 per 100 WBCs LAB HEMATOLOGY METHOD 03/30/2025 9:53 AM EDT [facility] Differential Type Automated LAB HEMATOLOGY METHOD 03/30/2025 9:53 AM EDT [facility] Neutrophils % 72 % LAB HEMATOLOGY METHOD 03/30/2025 9:53 AM EDT [facility] Lymphocytes % 19 % LAB HEMATOLOGY METHOD 03/30/2025 9:53 AM EDT [facility] Monocytes % 7 % LAB HEMATOLOGY METHOD 03/30/2025 9:53 AM EDT [facility] Eosinophils % 1 % LAB HEMATOLOGY METHOD 03/30/2025 9:53 AM EDT [facility] Basophils % 0 % LAB HEMATOLOGY METHOD 03/30/2025 9:53 AM EDT [facility] Immature Granulocytes % 1 % LAB HEMATOLOGY METHOD 03/30/2025 9:53 AM EDT [facility] Neutrophils Absolute 10.41(H) 1.60 - 6.10 10*3/uL LAB HEMATOLOGY METHOD 03/30/2025 9:53 AM EDT [facility] Lymphocytes Absolute 2.67 1.20 - 3.90 10*3/uL LAB HEMATOLOGY METHOD 03/30/2025 9:53 AM EDT [facility] Monocytes Absolute 0.96(H) 0.30 - 0.90 10*3/uL LAB HEMATOLOGY METHOD 03/30/2025 9:53 AM EDT [facility] Eosinophils Absolute 0.08 0.00 - 0.50 10*3/uL LAB HEMATOLOGY METHOD 03/30/2025 9:53 AM EDT [facility] Basophils Absolute 0.02 0.00 - 0.10 10*3/uL LAB HEMATOLOGY METHOD 03/30/2025 9:53 AM EDT [facility] Immature Granulocytes Absolute 0.08(H) 0.00 - 0.06 10*3/uL LAB HEMATOLOGY METHOD 03/30/2025 9:53 AM EDT [facility] Blood Venous blood specimen / Unknown Venipuncture / Unknown 03/30/2025 9:02 AM EDT 03/30/2025 9:35 AM EDT Narrative [facility] - 03/30/2025 9:53 AM EDT Therapeutic decision making should be based on absolute values, rather than percentages. 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) documented in this encounter Additional Health Concerns Active Problems Noted Date Diagnosed Date Autogenerated Problem 03/30/2025 Assessment Noted Time A fall risk assessment has been complete d for the patient 03/30/2025 8:02 AM EDT A Body Mass Index follow-up plan has been documented for the patient 04/08/2025 1:45 PM EDT documented as of this encounter Care Teams Spent Grain Dryer Relationship Specialty Start Date End Date Jan Chavez MD [address] [place] [id number] PCP - General 07/05/21 Rachid Jaime MD [address] [place] [phone] Surgeon Neurosurgery 08/07/21 documented as of this encounter
--- OUTSIDE RECORDS SUMMARY | 2025-04-12 09:38 | XMS_ITS | Encounter Summary ---
Author Organization [facility] Address [address] [place] [address] Care Team Providers Care Labor Supervisor Name Role Phone Jan Chavez MD Primary Care Provider [phone] Rachid Jaime MD Unavailable [phone] Encounter Details Date Type Department Care [...] Description 04/15/2025 11:30 AM EDT Pre-Admission Testing [facility] [address], [address]st [place] [address] 04/23/2025 3:30 PM EDT Hospital Encounter [facility] [address] [place] [address] Shorty Barroso MD [address] [address] 04/23/2025 3:30 PM EDT - 04/23/2025 7:30 PM EDT Surgery [facility] [address] [place] [address] Shorty Barroso MD [address] [place] [address] laparoscopic/roboti c possible open partial gastrectomy [02921 (CPT )] Scheduled Procedures Name Priority Associated [...] documented as of this encounter Care Teams Labor Supervisor Relationship Specialty Start Date End Date Jan Chavez MD [address] [place] [address] PCP - General 07/05/21 Rachid Jaime MD [address] [place] [address] Surgeon Neurosurgery 08/07/21 documented as of this encounter
--- OUTSIDE RECORDS SUMMARY | 2025-04-12 09:38 | XMS_ITS | Encounter Summary ---
Author Organization [facility] Address [address] [place] [address] Care Team Providers Care Hide Mill Worker Name Role Phone Jan Chavez MD Primary Care Provider Rachid Jaime MD Unavailable [phone] Encounter Details Date Type Department Care Team (Late st Contact Info) Description 03/24/2025 Lab Requisition [facility] [address] [place] [address] Shorty Barroso MD [address] [phone] Iron deficiency anemia, unspecified Social History Tobacco [...] Description 04/15/2025 11:30 AM EDT Pre-Admission Testing [facility] [address], [address] [place] [address] 04/23/2025 3:30 PM EDT Hospital Encounter [facility] [address] [place] [address] Shorty Barroso MD [address] [phone] 04/23/2025 3:30 PM EDT - 04/23/2025 7:30 PM EDT Surgery [facility] [address] [place] [address] Shorty Barroso MD [address] [address] laparoscopic/roboti c possible open partial gastrectomy [36183 (CPT )] Scheduled Procedures Name Priority Associated Diagnoses Date/Ti me GASTRECTOMY, ROBOT-ASSISTED Gastrointestinal stromal tumor (GIST) 04/23/2025 3:30 PM EDT documented as of this encounter Procedures Procedure Name Priority Date/Time Associated Diagnosis Comments SURGICAL PATHOLOGY CONSULT Routine 03/24/2025 10:38 AM EDT Iron deficiency anemia, unspecified documented in this encounter Results * Surgical Pathology Consult (03/24/2025 10:38 AM EDT) Case Report Sugical Pathology Consult Case: [id number] Authorizing Provider: Shorty Barroso MD Collected: 03/24/2025 1038 Ordering Location: [facility] Lab Received: 03/24/2025 1039 Pathologist: Landry Mcdonald MD Specimen: Duodenum, [id number] 5 6:16 PM EDT [facility] Final Diagnosis (OUTSIDE CASE: [id number] COLLECTED ON 03/10/2025): DUODENUM, BIOPSY (A): - [...] THE SUBMITTED SAMPLE) 5 6:16 PM EDT [facility] at 1816 EDT Clinical Information D50.9 - Iron deficiency anemia, unspecified [ICD-10-CM] 5 6:16 PM EDT [facility] Special and Immunohistochemical Stains Immunohistochemica l stains that have been performed by the outside institution are also reviewed here, which are interpreted as follows: Positive: CD117, DOG1 5 6:16 PM EDT [facility] Gross Description A. [id number] Received along with a corresponding pathology report from [facility] are 5 slide(s) labeled outside case: [id number] collected on 03/10/2025. 5 6:16 PM EDT [facility] Tissue Duodenal structure / Unknown 03/24/2025 10:38 AM EDT 03/24/2025 10:39 AM EDT us Shorty Barroso MD LAB PATHOLOGY ORDERABLES Fin al Result [facility] [address] [place] [address] documented in this encounter Visit Diagnoses Diagnosis Iron deficiency anemia, unspecified Gastrointestinal stromal tumor (GIST) documented in this encounter Additional Health Concerns Assessment Noted Time A fall risk assessment has been complete d for the patient 04/30/2022 9:50 AM EDT documented as of this encounter Care Teams Hide Mill Worker Relationship Specialty Start Date End Date Jan Chavez MD [address] [place] [address] PCP - General 07/05/21 Rachid Jaime MD [address] [facility] [address] [place] [address] Surgeon Neurosurgery 08/07/21 documented as of this encounter
--- OUTSIDE RECORDS SUMMARY | 2025-04-12 09:38 | XMS_ITS | Encounter Summary ---
Author Organization [facility] Address [address] [place] [address] Care Team Providers Care Regulatory Affairs Assistant Name Role Phone Jan Chavez MD Primary Care Provider [phone] Rachid Jaiem MD Unavailable [phone] Encounter Details Date Type Department Care Team (Late st Contact Info) Description 03/16/2025 Orders Only External Location [address] [place] [phone] Provider, External Social History Tobacco Use Types [...] Description 04/15/2025 11:30 AM EDT [facility] Testing [place] [facility] [address], [address] [place] [address] 04/23/2025 3:30 PM EDT Hospital Encounter [facility] [address] [place] [phone] Shorty Barroso MD [address] [phone] 04/23/2025 3:30 PM EDT - 04/23/2025 7:30 PM EDT Surgery [facility] RO[facility] [address] [place] [address] Shorty Barroso MD [address] [phone] laparoscopic/roboti c possible open partial gastrectomy [72057 (CPT )] Scheduled Procedures Name Priority Associated [...] documented as of this encounter Care Teams Regulatory Affairs Assistant Relationship Specialty Start Date End Date Jan Chavez MD [address] [place] [address] PCP - General 07/05/21 Rachid Jaime MD [address] [facility] [address] [place] [address] Surgeon Neurosurgery 08/07/21 documented as of this encounter
--- OUTSIDE RECORDS SUMMARY | 2025-04-12 09:38 | XMS_ITS | Clinical Summary ---
Author Organization [facility] Address [address] [place] [address] Care Team Providers Care Regrader Name Role Phone Jan Chavez MD Primary Care Provider [phone] Rachid Jaime MD Unavailable [phone] Allergies No known active allergies Medications [...] Description 03/30/2025 8:10 AM EDT Office Visit [facility] Multidisciplinary Oncology Clinic [address] [place] [address] Shorty Barroso MD Gastrointestinal stromal tumor (GIST) (CMS/HCC) (Primary Dx); Abnormal coagulation profile 03/30/2025 Travel 03/24/2025 Lab Requisition [facility] [address] [place] [phone] Shorty Barroso MD Iron deficiency anemia, unspecified 03/16/2025 Orders Only External Location [address] [place] [address] Provider, External 03/16/2025 Orders Only External Location [address] [place] [phone] Provider, External from Last 3 Months Immunizations Immunization Administration Dates Next Due Big Frame COVID-19 Vaccine (Purple Cap) 12 + 08/01/2020,07/11/2020 [...] Description 04/15/2025 11:30 AM EDT Pre-Admission Testing [facility] Pre-op Clinic [address], [address] [place] [address] 04/23/2025 3:30 PM EDT Hospital Encounter [facility] [address] [place] [address] Shorty Barroso MD [address] [phone] 04/23/2025 3:30 PM EDT - 04/23/2025 7:30 PM EDT Surgery [facility] [address] [place] [phone] Shotry Barroso MD [address] [phone] laparoscopic/roboti c possible open partial gastrectomy [68822 (CPT )] Scheduled Procedures Name Priority Associated Diagnoses Date/Ti me GASTRECTOMY, ROBOT-ASSISTED Gastrointestinal stromal tumor (GIST) 04/23/2025 3:30 PM EDT Health Maintenance Due Date Last Done Comments [facility]-Medicare Annual Wellness (AWV) 1950 [facility]-Infant/Child/Adol SDOH Screenings 1950 [facility]- SDOH Screenings 11/17/1969 [facility]-Adult SDOH Screenings 11/17/1969 CT Colonography 11/17/1996 Colonoscopy 11/17/1996 FIT-DNA 11/17/1996 FIT 11/17/1996 FOBT 11/17/1996 Sigmoidoscopy 11/17/1996 [facility]-Colorectal Cancer Screening 11/17/1996 [facility]-Zoster Vaccines (1 of 2) 11/17/2001 [facility]-DTaP,Tdap,and Td Vaccines (2 - Td or Tdap) 12/26/2016 12/26/2006 [id number] Vaccine ( season) 2025 04/15/2024, 04/10/2023, 03/20/2022, Additional history exists [facility]-Influenza Vaccine (#1) 03/08/202502/28, 04/08/2023, 03/10/2022, Additional history exists [facility]-Depression Screening 03/30/2026 03/30/2025, 03/09 [facility]-RSV Vaccine: 60+ Years or (1 - 1-dose 75+ series) 11/17/2026 [facility]-Hepatitis A Vaccines Aged Out 07/11/2018 No longer eligible based on patient's age to complete this topic [facility]-Hepatitis C Screening Completed 07/05/2021 [facility]-Pneumococcal Vaccine: 50+ Years Completed 04/15/2024 [facility]-Obesity Intervention Completed 03/30/2025, 04/08 HPV Vaccines Aged Out No longer eligi [...] Barroso MD Medical Devices Implanted Type Area Chief Of Planning Device Identifier Shelf Expiration Date Model / Serial / Lot Periguard 10 X 16cm - [id number] Implanted:Qty: 1 on 07/06/2021 by Rachid Jaime MD at [facility]-[id number] 09/01/2025 [id number] / / [id number] Screw Ti Matrixneuro Selfdrill 4mm - [id number] Implanted:Qty: 18 on 07/06/2021 by Rachid Jaime MD at [facility] [employer] [facility]-[id number] 07/06/2022 [id number] / / Plate, Neuro Box Lp [id number] - [id number] Implanted:Qty: 2 on 07/06/2021 by Rachid Jaime MD at [facility] [employer] [facility]-[id number] 07/06/2022 [id number] / / Cover, Neuro Bhupendra Lp 17mm - [id number] Implanted:Qty: 3 on 07/06/2021 by Rachid Jaime MD at [facility] [employer] [facility]-[id number] 07/06/2022 [id number] / / Explanted Type Area Chief Of Planning Device Identifier Shelf Expiration Date Model / Serial / Lot Screw Ti Matrixneuro Selfdrill 4mm - [id number] Explanted:Qty: 3 on 07/06/2021 by Rachid Jaime MD at [facility] [employer] [facility]-[id number] 07/06/2022 [id number] / / Procedures Procedure [...] ECG Atrial Rate 60 BPM MUSE ECG NV Interval 160 ms MUSE ECG QRSD Interval 90 ms MUSE ECG QT Interval 438 ms MUSE ECG QTC Interval 438 ms MUSE ECG P [place] 57 degrees MUSE ECG R [place] 6 degrees MUSE ECG T Wave [place] 17 degrees MUSE ECG Diagnosis Normal sinus [...] ORDERABLES Fin al Result Performing Organization Address City/[facility]/ZIP Co de Phone Number [facility] [address] [place] [address] * Prothrombin Time/INR (03/30/2025 9:03 AM EDT) [...] INR 2.5 to 3.[address] INR 2.5 to 3.5 Emiliana Pierre APRN LAB BLOOD ORDERABLES Fin al Result Performing Organization Address City/[facility] Co de Phone Number [facility] [address] [place] [address] * (ABNORMAL) CBC and Differential (03/30/2025 9:02 [...] based on absolute values, rather than percentages. Shorty Barroso MD LAB BLOOD ORDERABLES Final R esult Performing Organization Address City/[facility]/ZIP Co de Phone Number [facility] [address] [place] [address] * Prealbumin, Plasma (03/30/2025 9:02 AM EDT) Prealbumin, Plasma 34.3 20.0 - 41.0 mg/dL 03/30/2025 10:09 AM EDT [facility] Blood Venous blood specimen / Unknown Venipuncture / Unknown 03/30/2025 9:02 AM EDT 03/30/2025 9:36 AM EDT Shorty Barroso MD LAB BLOOD ORDERABLES Final R esult Performing Organization Address City/[facility]/ZIP Co de Phone Number [facility] [address] [place] [address] * (ABNORMAL) Comprehensive Metabolic Panel, Plasma (03/30/2025 [...] R esult [facility] [address] [place] [address] * Surgical Pathology Consult (03/24/2025 10:38 AM EDT) Case Report Sugical Pathology Consult Case: [id number] Authorizing Provider: Shorty Barroso MD Collected: 03/24/2025 1038 Ordering Location: [facility] Lab Received: 03/24/2025 1039 Pathologist: Landry Mcdonald MD Specimen: Duodenum, [id number] 6:16 PM EDT [facility] Final Diagnosis (OUTSIDE CASE: [id number] COLLECTED ON 03/10/2025): DUODENUM, BIOPSY (A): - NO PATHOLOGIC ABNORMALITY - NO EVIDENCE OF VILLOUS ABNORMALITY OR INTRAEPITHELIAL LYMPHOCYTOSIS STOMACH, BIOPSY (B): - NO PATHOLOGIC ABNORMALITY - NO EVIDENCE OF HELICOBACTER-LIKE ORGANISMS ON ROUTINE STAIN STOMACH, CARDIA MASS, BIOPSY (C): - GASTROINTESTINAL STROMAL TUMOR (GIST), SPINDLE CELL TYPE - MITOTIC RATE: UP TO 2 PER 5MM2 (GRADE 1 IN THE SUBMITTED SAMPLE) 6:16 PM EDT [facility] at 1816 EDT Clinical Information D50.9 - Iron deficiency anemia, unspecified [ICD-10-CM] 5 6:16 PM EDT [facility] Special and Immunohistochemical Stains Immunohistochemica l stains that have been performed by the outside institution are also reviewed here, which are interpreted as follows: Positive: CD117, DOG1 5 6:16 PM EDT [facility] Gross Description A. [id number] Received along with a corresponding pathology report from [facility]ology [facility] Laboratory are 5 slide(s) labeled outside case: [id number] collected on 03/10/2025. 6:16 PM EDT [facility] Tissue Duodenal structure / Unknown 03/24/2025 10:38 AM EDT 03/24/2025 10:39 AM EDT us Shorty Barroso MD LAB PATHOLOGY ORDERABLES Fin al Result Performing Organization Address City/[facility]/ZIP Co de Phone Number [facility] [address] [place] [address] * CT THORACIC OUTSIDE IMAGES (03/16/2025 11:00 AM EDT) Only the most recent of2 resultswithin the time period is included. Anatomical Region Laterality Modality Computed Tomogra phy 03/16/2025 11:0 0 AM EDT us External Provider IMG CT PROCEDURES Edited Resul t - Final * [place] Hepatitis C Antibody (07/05/2021 6:33 PM EST) Hepatitis C Antibody Negative Negative 07/05/2021 8:12 PM EST [facility] Blood Venous blood specimen / Unknown Venipuncture / Unknown 07/05/2021 6:33 PM EST 07/05/2021 6:42 PM EST us Jose R Morrow MD LAB BLOOD ORDERABLES Tran l Result [facility] [address] [place] [address] from Last 3 Months or Most Recently Relevant to Health Maintenance Additional Health Concerns Active Problems Noted Date Diagnosed Date Autogenerated Problem 03/30/2025 Insurance [address] [phone] MEDICARE ANTHEM Advance Directives * Full Code (Latest Code Status on File) Date Activated Date Inactivated Comments 07/05/2021 10:54 PM 07/07/2021 4:30 PM Question Answer Comments Patient has decision-making capacity? Yes Care Teams Regrader Relationship Specialty Start Date End Date Jan Chavez MD [address] [place] [address] PCP - General 07/05/21 Rachid Jaime MD [id number] [place] [address] Surgeon Neurosurgery 08/07/21
--- OUTSIDE RECORDS SUMMARY | 2025-04-12 09:38 | XMS_ITS | Clinical Summary ---
Author Organization [facility] Address [address] [place] [address] Care Team Providers Care Pipe Organ Technician Name Role Phone Jan Chavez MD Primary Care Provider [phone] Allergies No known active allergies Medications multivitamin [...] by mouth Daily. 3 Active nystatin (MYCOSTATIN) 327598 UNIT/GM powder APPLY 1 GRAM TOPICALLY EVERY [...] Completed 07/05/2021 Insurance MEDICARE [facility] Care Teams Pipe Organ Technician Relationship Specialty Start Date End Date Jan Chavez MD [address] [facility] [facility] [place] [address] PCP - General Family Medicine 11/20/22
--- OUTSIDE RECORDS SUMMARY | 2025-04-12 09:38 | XMS_ITS | Encounter Summary ---
Author Organization [facility] Address [address] [place] [address] Care Team Providers Care Craps Dealer Name Role Phone Jan Chavez MD Primary Care Provider [phone] Rachid Jaime MD Unavailable [phone] Encounter Details Date Type Department Care Team (Late st Contact Info) Description 03/16/2025 Orders Only External Location [address] [place] [address] Provider, External Social History Tobacco Use Types [...] Testing [facility] [address], [address]st [place] [address] 04/23/2025 3:30 PM EDT Hospital Encounter [facility] [address] [place] [phone] Shorty Barroso MD [address] [address] 04/23/2025 3:30 PM EDT - 04/23/2025 7:30 PM EDT Surgery [facility] [address] [place] [address] Shorty Barroso MD [address] [phone] laparoscopic/roboti c possible open partial gastrectomy [83925 (CPT )] Scheduled Procedures Name Priority Associated [...] documented as of this encounter Care Teams Craps Dealer Relationship Specialty Start Date End Date Jan Chavez MD [address] [place] [address] PCP - General 07/05/21 Rachid Jaime MD [address] [facility] [address] [place] [address] Surgeon Neurosurgery 08/07/21 documented as of this encounter
[2025-04-12 09:41] VITALS: BP 100/68; PULSE 76; RESP 18; TEMP 36.7; O2SAT 99
[2025-04-12] MEDS: IRON SUCROSE COMPLEX 200 MG in 0.9 % SODIUM CHLORIDE 100 ML 220 MG IV (09:41)
[2025-04-12] MEDS: SODIUM CHLORIDE 0.9% 10ML FLUSH SYRINGE 10 ML IV (09:45)
[2025-04-12 10:20] VITALS: BP 132/67; PULSE 76
== END 2025-04-12 23:59 | disposition home or self-care (01) ==
LOC: INF 09:33
PROVIDERS: PCP Family Medicine; Visit Provider Internal Medicine Medical Oncology
DX: D50.9 Iron deficiency anemia, unspecified (principal)
CPT/HCPCS: 96365; J1756

== ENCOUNTER 2025-06-08 11:41 | Outpatient (CLI) | payer MEDICARE, BC, SELFPAY ==
--- OUTSIDE RECORDS SUMMARY | 2025-04-15 10:30 | XMS_ITS | Encounter Summary ---
Author Organization [facility] Address [address] [place] [address] Care Team Providers Care Insole Beveler Name Role Phone Jan Chavez MD Primary Care Provider [phone] Rachid Jaime MD Unavailable [phone] Encounter Details Date Type Department Care Team (Late st Contact Info) Description 04/15/2025 11:30 AM EDT Pre-Admission Testing [facility] Pre-op Clinic [address], [address] [place] [address] Anesthesia Record Procedure Summary Procedure Name Responsible Anesthesiologist Anesthesia Start Time Anesthesia Stop Time laparoscopic/robotic possible open partial gastrectomy (Abdomen) Jose Ortega MD 04/23/25 1212 04/23/25 1537 Events Date Time Event Comment 04/23/2025 1212 In Room 1212 An Start The patient was reevaluated immediately before sedation and remains eligible for anesthesia plan. 1212 An Start Data 1216 An Induction The patient was reevaluated immediately before moderate or deep sedation use and before anesthesia induction. 1219 An Intubation 1224 Anesthesia Ready 1306 Proc Start 1331 Alvin Gala waveform became unreliable after several attempts at flushing and troubleshooting. Will continue to monitor NIBP. 1520 Proc Fin 1526 An Extubation 1527 an stop data 1528 Out of Room 1537 Handoff to Receiving I compl eted my handoff to the receiving clinician during which we: 1. Identified the patient 2. Identified the responsible provider 3. Reviewed the pertinent medical history 4. Discussed the surgical course 5. Reviewed intra-op anesthesia management and issues during anesthesia 6. Set expectations for post-procedure period 7. Allowed opportunity for questions and acknowledgement of understanding. 1537 An Stop Meds * Agents No agents on file. * Blood No blood administrations on file. Lines, Drains, and Airways Type Details Placement Removal Wound 04/23/25; 1312; N; Y es; Surgical; Abdomen; Left, Upper, Mid, Outer 04/23/25 1312 by Blu Huizar RN Peripheral IV Placement Date: 04/07 01/29; Placement Time: 1156; Catheter Size: 18 G; Orientation: Left, Posterior; Location: Forearm; Site Prep: Chlorhexidine ; Local Anesth: Injectable; Technique: Anatomical landmarks; Inserted by: Janessa Ornelas RN; Insertion Attempts: 2; Patient Tolerance: Tolerated poorly; Removal Date: 04/23/25; Removal Time: 1605 04/23/25 1156 by Jeet Canas RN 04/23/25 1605 by Marylin Shelby RN ETT Placement Date: 04/07 01/29; Placement Time: 1219 (created via procedure documentation); Mask Ventilation: 2; Technique: Direct laryngoscopy; Type: ETT - single; Single Lumen Tube Size: 7.5 mm; Cuffed: Yes; Laryngoscope: Dianna; Blade Size: 3; Location: Oral; Grade View: Grade IIb; Insertion Attempts: 1; Placement Verification: Auscultation, Capnometry; Airway Comments: Atraumatic. No change to dentition. ; Placed by: Resident ; Removal Date: 04/23/25; Removal Time: 1526 04/23/25 1219 by Taj Jeronimo MD 04/23/25 1526 by Taj Jeronimo MD Arterial Line Placement Date: 04/07 01/29; Placement Time: 1224 (created via procedure documentation); Size: 20 G; Orientation: Left; Location: Radial; Inserted by: Anesthesiologist; Securement: Taped; Removal Date: 04/23/25; Removal Time: 1605 04/23/25 1224 by Taj Jeronimo MD 04/23/25 1605 by Marylin Shelby RN Peripheral IV Placement Date: 04/07 01/29; Placement Time: 1224 (created via procedure documentation); Catheter Size: 20 G; Orientation: Right; Location: Hand; Technique: Anatomical landmarks; Inserted by: Taj Jeronimo MD; Insertion Attempts: 1; Removal Date: 04/25/25; Removal Time: 1550 04/23/25 1224 by Taj Jeronimo MD 04/25/25 1550 by Pili Gonzalez RN Urethral Catheter Placement Date: 04/07 01/29; Placement Time: 1239; Inserted by: HELEN Mcclain; Type: Non-latex, Temperature probe; Size: 16 Fr.; Balloon Size: 10 mL; Urine Returned: Yes; Removal Date: 04/24/25; Removal Time: 1000; Removal Reason: Per order 04/23/25 1239 by Blu Huizar RN 04/24/25 1000 by Pili Gonzalez RN documented in this encounter Social History Tobacco Use Types Packs/Day Years [...] on file documented as of this encounter Miscellaneous Notes * PAT Evaluation Note - Bianka Alcaraz PA - 04/15/2025 11:30 AM EDT Images from the original note were not included. HPI Sunny Collins is a 74 y.o. 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 Past Medical History[1] Family History[2] Social History[3] SURGICAL HISTORY: Surgical History[4] Allergies[5] MEDICATIONS: Current Medications[6] ROS Anesthesia: Date of last anesthetic: 07/06/21: ETT Cuffed: yes Successful intubation technique: direct laryngoscopy Facilitating devices/methods: cricoid pressure and intubating stylet Endotracheal tube insertion site: oral Blade: Dianna Blade size: #3 ETT size (mm): 7.5 Cormack-Lehane Classification: grade I - full view of glottis Placement verified by: chest auscultation and capnometry Measured from: teeth ETT to teeth (cm): 23 Number of attempts at approach: 1 history of previous anesthesia and obstructive sleep apnea (wears cpap nightly). Does not have a history of anesthetic complications. Cardiovascular: hyperlipidemia. Does not have atrial fibrillation, CAD, CHF, dysrhythmias, pacemaker or past SC. hypertension: Exercise tolerance is 2 flights of stairs. Does not have chest pain. Cardio additional comments: No current active cardiac complaints. Respiratory: Does not have home oxygen. no asthma: no COPD: Has not had an upper respiratory infection in last 30 days. Has not had pneumonia in the last 30 days or COVID in the last 30 days. HEENT: Does not have chipped teeth. Neurological: headaches. no seizures: Did not have a cerebrovascular accident.an intracranial mass/tumor. 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 Gastrointestinal: Does not have GERD.Does not have cirrhosis. GI/ additional comments: GIST Genitourinary: Does not have chronic renal disease.renal calculi (multiple kidney stones). Does not have renal disease. Hematological/Lymphatic: anemia. History of no DVT. History of no pulmonary embolism. Not in a hypercoagulable state. no history of chemotherapy no history of radiation Does not have HIV, MRSA or tuberculosis. Endocrine/Metabolic: does not have diabetes mellitus. Does not have thyroid disorder. Lab Results Component Value Date WBC 14.22 (H) 03/30/2025 HGB 8.7 (L) 03/30/2025 HCT 32.4 (L) 03/30/2025 MCV 85 03/30/2025 PLT 534 (H) 03/30/2025 Lab Results Component Value Date GLUCOSE 91 03/30/2025 BUN 24 (H) 03/30/2025 CREATININE 1.02 03/30/2025 BCR 24 03/30/2025 NA 143 03/30/2025 K 4.6 03/30/2025 CL 105 03/30/2025 CO2 26 03/30/2025 ALBUMIN 4.0 03/30/2025 ALKPHOS 73 03/30/2025 BILITOT 0.2 03/30/2025 No results found for: HGBA1C Lab Results Component Value Date INR 1.0 03/30/2025 INR 0.9 07/05/2021 Visit Vitals Smoking Status Never 03/30/2025 8:07 AM Vitals Systolic 142 Diastolic 82 Heart Rate 61 Temp 36.6 C Resp 16 Height (cm) 166.4 cm Weight (kg) 91.3 kg BMI 32.99 kg/m2 BSA (m2) 2.05 m2 Visit Report Report Physical Exam Anesthesia Plan ASA 3 Anesthesia technique(s) discussed with the patient/family: general Comment: ALEX phone screen. SADIE Clarke [1] Past Medical History: Diagnosis Date Headache High cholesterol 07/06/2021 HTN (hypertension) 07/06/2021 Kidney stone 07/06/2021 RENÉE (obstructive sleep apnea) 07/06/2021 [2] No family history on file. [3] Social History Tobacco Use Smoking status: Never Smokeless tobacco: Never Vaping Use Vaping status: Never Used Substance Use Topics Alcohol use: Never Drug use: Never [4] Past Surgical History: Procedure Laterality Date BRAIN SURGERY 06/2021 COLONOSCOPY [5] No Known Allergies [6] Current Outpatient Medications: acetaminophen-codeine, TAKE 1 TABLET BY MOUTH EVERY 6 HOURS NEEDED FOR SEVERE PAIN (Patient not taking: Reported on 03/30/2025) allopurinol, Take 100 mg by mouth 2 (two) times a day. atorvastatin, Take 40 mg by mouth 1 (one) time each day. cephalexin, Take 1,000 mg by mouth 2 (two) times a day. (Patient not taking: Reported on 03/30/2025) citalopram, Take 40 mg by mouth 1 (one) time each day. dexamethasone, Take 1 tablet (2 mg total) by mouth 2 (two) times a day for 8 doses. (Patient not taking: Reported on 03/30/2025) diazePAM, TAKE 1 TABLET BY MOUTH A ONE TIME DOSE 30 MINUTES PRIOR TO MRI (Patient not taking: Reported on 03/30/2025) FeroSul, Take 1 tablet by mouth daily. levETIRAcetam, Take 1 tablet (750 mg total) by mouth 2 (two) times a day for 7 days. (Patient not taking: Reported on 03/30/2025) lisinopril-hydroCHLOROthiazide, Take 1 tablet by mouth 1 (one) time each day. Multiple Vitamins-Minerals (CENTRUM SILVER ADULT 50+ PO), Take 1 by mouth daily multivitamin, Take by mouth daily. omeprazole, Take 1 capsule by mouth daily. topiramate, Take 1 tablet by mouth nightly. * Preprocedure Instructions - Bianka Alcaraz PA - 04/15/2025 11:30 AM EDT Home Medication Instructions Current Medications Medication Instructions allopurinol (Zyloprim) 100 MG tablet Take morning of surgery atorvastatin (Lipitor) 40 MG tablet Take morning of surgery citalopram (CeleXA) 40 MG tablet Take night before surgery FeroSul 325 (65 Fe) MG tablet Hold day of surgery lisinopril-hydroCHLOROthiazide 20-12.5 MG tablet Hold day of surgery Multiple Vitamins-Minerals (CENTRUM SILVER ADULT 50+ PO) Hold day of surgery topiramate 50 MG tablet Take night before surgery General Preoperative Instructions You will be called the business day before surgery with your arrival time No food after midnight the night before surgery. You can drink clear liquids up to 2 hours prior to arrival unless instructed by your surgeon otherwise. Please do not try to get all your hydration in 2 hours prior to arrival. Start the day before surgery drinking more than you usually would. After midnight, you can have clear liquids only (water,apple juice, Gatorade) up to 2 hours prior to arrival. No coffee or tea. No alcohol or smoking prior to surgery Arrive on time to avoid delays Parking/Registration procedure explained You MUST have a responsible adult available for transport to and from hospital Visitation policy for the day of surgery reviewed Bring insurance card, photo ID, along with power of commercial real estate attorney, guardianship or advanced directives if applicable Do not bring money, jewelry or other valuables Hibiclens bathing instructions reviewed if applicable Notify surgeon of fever, illness, any changes or if you decide not to have surgery Diabetes Instructions (If applicable) Take diabetes medication as instructed You may have up to 4 ounces of apple juice 2 hours prior to arrival for surgery for low glucose documented in this encounter Plan of Treatment Not on file documented as of this encounter Goals Goal [...] documented as of this encounter Care Teams Insole Beveler Relationship Specialty Start Date End Date Jan Chavez MD [address] [place] [address] PCP - General 07/05/21 Rachid Jaime MD [address] [facility] [address] [place] [address] Surgeon Neurosurgery 08/07/21 documented as of this encounter
--- OUTSIDE RECORDS SUMMARY | 2025-04-23 08:31 | XMS_ITS | Encounter Summary ---
Author Organization [facility] Address [address] [place] [address] Care Team Providers Care Corporate Associate Attorney Name Role Phone Jan Chavez MD Primary Care Provider [phone] Rachid Jaime MD Unavailable [phone] Reason for Referral * Consultation (Routine) - Closed Specialty Diagnoses / Procedures Referred By Contac t Referred To Contact Surgical Oncology / Hematology and Oncology Diagnoses Gastrointestinal stromal tumor (GIST) Shorty Barroso MD [address] [address] Phone: tel: fax: Referral ID Status Reason Start Date Expiration Date V isits Requested Visits Authorized [id number] Closed Specialty Services Required 04/25/2025 10/25/2026 1 1 Scheduling Instructions Please schedule 4 weeks for postop check with Dr. Barroso * Consultation (Routine) - Closed Specialty Diagnoses / Procedures Referred By Contac t Referred To Contact Surgical Oncology / Hematology and Oncology Diagnoses Gastrointestinal stromal tumor (GIST) Shorty Barroso MD [address] [address] Phone: tel: fax: Referral ID Status Reason Start Date Expiration Date V isits Requested Visits Authorized [id number] Closed Specialty Services Required 04/25/2025 10/25/2026 1 1 Scheduling Instructions Please schedule follow up in 2 weeks post op with Surg Onc [facility]. 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] Procedures HI REMV STOMACH,PART,DISTAL,GASTROJ EJUN laparoscopic/robotic possible open partial gastrectomy Shorty Barroso MD [address] [address] Phone: tel: fax: [facility] [address] [place] [phone] Phone: tel: Referral ID Status Reason Start Date Expiration Date Visits Re quested Visits Authorized [id number] 1 1 Encounter Details Date Type Department Care Team (Latest Contact Info) Description 04/23/2025 9:31 AM EDT - 04/25/2025 4:25 PM EDT Hospital Encounter [place] [address] Shorty Barroso MD [address] [address] Gastrointestinal stromal tumor (GIST) (CMS/HCC) Discharge Disposition: Home or Self Care Social History Tobacco Use Types Packs/Day Years [...] Sign Reading Time Taken Comments Blood Pressure 124/72 04/25/2025 12:05 PM EDT Pulse 67 04/25/2025 12:05 PM EDT Temperature 36.9 C (98.5 F) 04/25/2025 12:05 PM EDT Respiratory Rate 16 04/25/2025 5:10 AM EDT Oxygen Saturation 96% 04/25/2025 12: 05 PM EDT Inhaled Oxygen Concentration - - Weight 86.5 kg (190 lb 11.2 oz) 04/25/2025 6:00 AM EDT Height 166.4 cm (5' 5.51 ) 04/23/2025 6:00 PM ED T Body Mass Index 31.24 04/23/2025 6:00 PM EDT documented in this encounter Functional Status * Calculated C-SSRS Risk Score (Lifetime/Recent) Answer Date of Assessment Author No Risk Indicated 04/23/2025 6:00 PM EDT Ilene Araujo RN * Question Answer Date of Assessment Author 1. Wish to be (Past 1 Month) No 04/23/2025 6:00 PM EDT Ilene Humphrey RN 2. Non-Specific Active Suicidal Thoughts (Past 1 Month) No 04/23/2025 6:00 PM EDT Ilene Humphrey RN 6. Suicidal Behavior (Lifetime) No 04/23/2025 6:00 PM EDT Ilene Humphrey RN documented as of this encounter Discharge Instructions * Discharge Instructions* Maury Bacon MD - 04/25/2025 2:58 PM EDT Post-Operative Discharge Instructions: Medications: - You should take 650mg Tylenol every 6 hours as needed for mild - moderate pain. - You have been prescribed pain medications to be taken as needed for severe pain. - You may resume your previous medications unless otherwise instructed. Nutrition: - You should consume a full liquid diet as tolerated, focusing on liquids to keep yourself hydrated. Please refer to diet education for more instructions on what you can or cannot eat. Activity: - Walking and climbing stairs is ok and encouraged. You should refrain from any strenuous activity/exercise until your follow up appointment. - No lifting anything more than 10 pounds for the next 6 weeks - You may not drive for 48 hours after surgery, or while taking narcotics Dressing: - You have steri strips across your incision. Do not pick them off, they will fall off on their ownafter approximately 2 weeks. - A special skin glue is used to close and cover your incision. Do not pick it off, it will fall ofon its own after approximately 2 weeks. The glue is waterproof but you should not soak your incision or take a tub bath for 2 weeks. - You have shahbaz across your incision. These will be removed in clinic at your follow up appointment. - You should try to keep your incisions as clean and dry as possible - You may shower. Let the soapy water run over your incisions. Do not scrub at your incisions. After you shower, pat your incisions dry with a clean towel. - Do NOT soak your incisions, or take a tub bath for 2 weeks. Drain Care: - You will need to clean around your JOLYNN drain once daily as instructed and apply a new drain sponge. - Please empty the drain 2-3 times a day as needed and keep track of drainage output. - You should bring the form you write the output on to your follow-up appointment. Potential Issues: - It is normal to have some pain and soreness, especially around the incisions - A small amount of clear drainage from the incision may be expected, call the office if the drainage becomes bloody, purulent (pus), or foul-smelling - Call the office if you start to have increased redness, drainage, swelling, or increased pain around your incision - Call the office if you have a fever greater than 101 F - Call the office if you have severe abdominal discomfort, nausea and vomiting, or feeling unwell Follow Up: - You will be contacted by the clinic for a follow up appointment in 2 weeks with ALEX and with Dr. Barroso in 4 weeks. - Call the [facility] with any questions or concerns during regular business hours (9am-5pm Saturday through Saturday except holidays). The number is . - If outside regular business hours, please call the after hours number at . documented in this encounter Medications at Time of Discharge acetaminophen (Tylenol) 325 MG tablet Take 2 tablets by mouth every 6 hours. 100 tablet 04/25/2025 allopurinol (Zyloprim) 100 MG tablet Take 1 tablet by mouth 2 times a day. atorvastatin (Lipitor) 40 MG tablet Take 1 tablet by mouth daily. citalopram (CeleXA) 40 MG tablet Take 1 tablet by mouth daily. FeroSul 325 (65 Fe) MG tablet Take 1 tablet by mouth daily. 02/17/2025 lisinopril-hydroCHLO ROthiazide 20-12.5 MG tablet Take 1 tablet by mouth daily. methocarbamol (Robaxin) 500 MG tablet Take 1 tablet by mouth 4 times a day. 56 tablet 04/25/2025 Multiple Vitamins-Minerals (CENTRUM SILVER ADULT 50+ PO) Take 1 by mouth daily naloxone (Narcan) 4 mg/0.1 mL nasal spray 1. Give 1 spray in nostril for no/slow breathing or cannot wake after opioid use 2. Call 911 3. Repeat in other nostril if symptoms continue 1 each 04/25/2025 ondansetron ODT (Zofran-ODT) 4 MG disintegrating tablet Dissolve 1 tablet on the tongue every 6 hours as needed for nausea or vomiting. 20 tablet 04/25/2025 oxyCODONE (Roxicodone) 5 MG immediate release tablet Take 0.5 tablets by mouth every 6 hours as needed for moderate pain. 12 tablet 04/25/2025 pantoprazole (Protonix) 40 MG EC tablet Take 1 tablet by mouth daily. Do not crush, chew, or split. 90 tablet 3 04/26/2025 topiramate 50 MG tablet Take 1 tablet by mouth nightly. enoxaparin (Lovenox) 40 MG/0.4ML solution prefilled syringe Inject 0.4 mL under the skin daily for 26 doses. 10.4 mL 04/25/2025 5 documented as of this encounter Miscellaneous Notes * Pili Jovel RN - 04/25/2025 3:55 PM EDT [id number] Discharge Instructions: Having a Full Liquid Diet Your healthcare provider prescribed a full liquid diet temporarily for you. You may have trouble swallowing solid foods. Or, you may have had surgery and not be ready for solid food or need to advance to solid foods gradually. Here's what you need to know about this type of diet. Home care ? Remember, this diet is temporary. You should not follow this diet longer than directed because itmight not provide you with enough fiber, vitamins, and minerals. ? Contact your healthcare provider if you are on this diet for more than 5 days. You may need nutritional or vitamin supplements. ? Keep track of the amount of liquid that you drink and anything you eat while on this diet. Keep alog for your healthcare provider. Choose these foods ? Choose fruit juices without pulp, such as apple juice, grape juice, cranberry juice, and nectars. ? Choose drinks such as coffee, tea (hot or cold), fruit-flavored drinks, soda, water, milk (whole,skim, 1%, and 2%), cream, instant breakfast drinks, and liquid meal replacements. ? Choose desserts and snacks such as fruit ices (without chunks of fruit), plain or vanilla yogurt (without fruit chunks), plain gelatin, hard candy, frozen juice pops, custards, frozen yogurt, smoothies without chunks, ice cream (without nuts or candy), and pudding. ? Choose broth, bouillon, fat-free consomm??, or strained cream soups. ? Choose thin, refined hot cereals, such as porridge, and grits. Don't eat these foods ? Don?t eat canned, fresh, or frozen fruit. ? Don?t eat soup with vegetables, noodles, rice, meat, or other chunks of food in it. ? Don?t eat vegetables, bread, whole cereal and grain products, meat, chicken, fish, eggs, meat substitutes (nuts and nut butters, tofu, soy), hard cheese, oils, butter, or margarine. Follow-up Make a follow-up appointment, or as advised. When to call your healthcare provider Call your healthcare provider right away if you have any of the following: ? Fever of 100.4??F (38.0??C) or higher, or as advised by your healthcare provider ? Diarrhea that lasts for more than 1 day ? Vomiting that does not stop ? Trouble urinating ? Trouble passing gas ? Abdominal pain with bloating and cramping Last Reviewed Date: 2025 00:00:00 ?? [id number] [employer]. All rights reserved. This information is not intended as a substitute for professional medical care. Always follow your healthcare professional's instructions. * Latha Verma - Pili Gonzalez RN - 04/25/2025 3:55 PM EDT Images from the original note were not included. [id number] Full Liquid Diet A full liquid diet is a middle step between a clear liquid diet and eating solid foods. A clear liquid diet allows only liquids you can see through. A full liquid diet allows thicker liquid foods, aslisted below. It can be anything that is liquid at room temperature. The full liquid diet may be used before or after surgery. Or it may be used if you have a digestive illness. It's also used beforesome medical tests. It's easy to digest and leaves little food in the stomach and intestines. A full liquid diet meets calorie and protein needs for your body with liquids only. If it's to be used for more than 5 days, your healthcare provider or dietitian may also order high-protein, high-calorie liquid supplements. These will give you extra vitamins and minerals. You may include the itemsbelow on a full liquid diet. Adults Adults should drink a total of 2 to 3 quarts of liquid per day. It may be easier to drink small frequent servings rather than a few large ones. People with severe kidney or heart disease may need to limit the amount of fluid they take in. Check with your provider. ? Cereals and soups. Creamy hot breakfast cereals (wheat or rice) thinned with milk, pureed soups (including pureed meats, bland vegetables, and white potatoes), tomato puree. ? Desserts. Gelatin, whipped topping, custard-style yogurt, pudding, custard, plain ice cream, sherbet, sorbet, frozen fruit juice bars. ? Drinks. Coffee, tea, cream, milk, milkshakes, fruit and vegetable juices, sodas, mineral water (plain or flavored), liquid gelatin, electrolyte replacement sports drinks. ? Other items. Salt, mild-flavored seasonings, chocolate flavoring, gravy, margarine, sugar, syrup,jelly, honey, hard candy (to suck on). Children Follow the healthcare provider?s instructions. Young children who are eating solid foods may be able to have the items listed above without problems. Be sure to follow these safety measures: ? Don't give hard candies to young children. The candies may cause choking. ? Children under 1 year old. Don't give cow's milk or honey. It may cause illness. ? Children under 2 years old. Ask your child?s provider if you should supplement your child?s diet with oral rehydration solutions, which have electrolytes. You can buy these drinks at pharmacies and[employer] stores. You don?t need a prescription. ? Children over 1 year old. Limit milk to 2 or 3 cups per day. Too much milk can make your child less hungry for other foods. Last Reviewed Date: 2024 00:00:00 ?? [id number] [employer]. All rights reserved. This information is not intended as a substitute for professional medical care. Always follow your healthcare professional's instructions. * Neetagamal Bayron - Pili Gonzalez RN - 04/25/2025 3:25 PM EDT Images from the original note were not included. [id number] Gastrointestinal Stromal Tumor (GIST) What is a GIST? A gastrointestinal stromal tumor (GIST) is a rare type of soft tissue cancer. It may also be calleda soft tissue sarcoma. It occurs in the GI (gastrointestinal) or digestive tract. A tumor can happen anywhere in your GI tract, from the esophagus to the anus. But they are found most often in the stomach. And in the small intestine (small bowel). In rare cases, a GIST tumor occurs outside the GI tract and in the belly (abdomen). GIST starts in cells that are part of the nervous system. They send signals to the muscles of your GI tract. This helps your GI tract move food and liquid through it. Who is at risk for GIST? Researchers are still learning what causes GIST. In most cases, a gene change (mutation) causes thecells to grow out of control. This causes a tumor to grow. A risk factor is anything that may increase your chance of having a disease. The exact cause of someone?s cancer may not be known. But risk factors can make it more likely for a person to have cancer. Some risk factors may not be in your control. But others may be things you can change. Anyone can get GIST. But certain genetic syndromes have been linked to a higher risk. These include: ? Neurofibromatosis type 1 (NF1) ? Ambrose-Stratakis dyad ? Ambrose triad What are the symptoms of GIST? Many people with GIST have vague symptoms. Symptoms often depend on where the tumor is in the GI tract, its size, and how fast it is growing. As the tumor grows, symptoms may include: ? Swelling pain in the stomach or belly ? Vomiting ? Blood in stools or vomit ? Feeling very tired (from low levels of red blood cells, a condition called anemia) ? Feeling full after eating only a small amount ? Trouble or pain when swallowing ? Loss of appetite ? Weight loss Many of these may be caused by other health problems. It's important to see a healthcare provider if you have these symptoms. Only a healthcare provider can diagnose cancer. How is GIST diagnosed? Your healthcare provider will ask about your health history, your symptoms, and your family history. A physical exam will be done. You may also have some tests, such as: ? Blood tests. These help your provider get an idea of your overall health and how well certain organs are working. ? Endoscopy. This is a procedure that uses a thin, flexible tube that is put down your throat. The tool used (endoscope) has a small light and video camera on the end. This lets your provider closelycheck the lining of your esophagus, stomach, and upper small intestine. ? CT scan. This test uses a series of X-rays and a computer to make detailed images of the inside of the body. A substance called contrast dye may be given before the scan. This helps make the imagesclearer. Contrast can be given into your vein. Or in a liquid that you drink. ? MRI. This test uses large magnets, radio waves, and a computer to make images of the inside of the body. Contrast dye may be given before the scan. This helps make the images clearer. This test uses no X-rays. ? Biopsy. Tiny pieces of tissue (called a sample) are taken from the tumor. They're sent to a lab and checked under a microscope to diagnose cancer. A biopsy may be done during an endoscopy. Or the sample may be removed during surgery. How is GIST treated? GIST can be treated in many ways. It grows differently in each person. The type of treatment that'sbest for you depends on where the tumor is, how big it is, and if cells from the tumor have spread to other parts of your body. If the cancer has spread it is called metastasis. When GIST spreads, itoften goes to the liver and the stomach lining. GIST may be treated with: ? Surgery. If the cancer has not spread, surgery can be done to remove the tumor and a healthy edgeof tissue around it. ? Targeted therapy. These medicines target certain parts of cancer cells that make them unlike normal cells. They're very helpful in treating GIST. Targeted therapy doesn't work the same as chemotherapy (chemo). It causes different side effects. The type of targeted therapy often used to treat GISTis known as tyrosine kinase inhibitors (TKIs). The medicines most often used to treat GIST are taken by mouth as a pill at home. They include: ? Imatinib. This is often the first medicine used for GIST with mutations that respond to it. It can be given before surgery to try to shrink the tumor so it's easier to remove. It can also be used after surgery to help lower the chance of the cancer coming back. It may not cure advanced GIST. But it can help people live longer and feel better. ? Sunitinib. This TKI medicine targets a few receptors. It is often used when imatinib doesn't work. Or if imatinib side effects become a problem. It can often shrink tumors or stop them from growingfor a time. It may help people with GIST live longer. ? Regorafenib. This medicine is often used for advanced GIST that can't be surgically removed. Or if other medicines are no longer working or are causing bad side effects. It can often shrink tumors or slow their growth for a time. ? Ripretinib. This medicine might be used for advanced GIST if other targeted therapies stop working. It can help slow tumor growth and even shrink tumors for a time. ? Avapritinib. This medicine targets a specific gene change called PDGFRA exon 18 mutation. It might be used if tests show that your cancer cells have this mutation. GISTs with this mutation don't often respond well to imatinib and other targeted therapy medicines. Other treatments, like radiation therapy and chemo, are often not effective. They are not often used to treat GIST. Talk with your healthcare providers about your treatment choices. Make a list of questions. Think about the benefits and possible side effects of each choice. Talk about your concerns with your healthcare provider before making a decision. What are treatment side effects? Surgery can cause side effects like pain, bleeding, and infection. Your healthcare providers will talk with you about these before you have surgery. Side effects depend on the type of surgery done and where the tumor is. Targeted therapy medicines also cause side effects. These depend on which medicine is used. They can include: ? Nausea ? Diarrhea ? Loss of appetite ? Fluid retention and swelling ? Muscle cramps ? Bleeding from the GIST tumor ? Feeling very tired (fatigue) ? Skin rash ? Changes in skin and hair color ? Redness and pain in the palms of the hands and soles of the feet ? Hair loss ? Blood pressure changes ? Mouth irritation In most cases, side effects are mild to moderate. And there are often ways to manage them. More serious side effects can include high blood pressure, increased risk of bleeding, swelling, and heart, lung, or liver problems. When to call the healthcare provider It's important to know which medicines you're taking. Write down the names of your medicines. Ask your healthcare team how they work, how to take them, and what side effects they might have. Talk with your healthcare providers about what side effects to look for and when to call them. For instance, imatinib can cause itchy skin rashes that can lead to infections. Make sure you know what number to call with questions. Is there a different number for evenings, weekends, and holidays? It may be helpful to keep a diary of your side effects. Write down the physical, thinking, and emotional changes. A written list will make it easier for you to remember your questions when you go to your appointments. It will also make it easier for you to work with your healthcare team to make a plan to manage your side effects. Last Reviewed Date: 2023 00:00:00 ?? [id number] [employer]. All rights reserved. This information is not intended as a substitute for professional medical care. Always follow your healthcare professional's instructions. * Discharge Summary - Maury aBcon MD - 04/25/2025 2:56 PM EDT Hospitalization Admit Date/Time: 04/23/2025 9:31 AM Admitting Attending: Shorty Barroso Discharge Date: 04/25/2025 Discharge Attending Physician: Shorty Barroso MD PCP name and Address: Jan Chavez MD [address] [place] [address] Referring provider name and address: No referring provider defined for this encounter. 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 On 04/23, the patient was taken to the OR and underwent laparoscopic/robotic partial gastrectomy and EGD. The patient tolerated the procedure without any intraoperative or postoperative complications. The patient was extubated in the operating room, and transferred to the PACU for immediate recovery from anesthesia. Shortly thereafter, the patient was transferred to the floor for their continued recovery. On the day of discharge the patient's pain was controlled on PO pain regimen, tolerating FLD diet, ambulating without issues, and voiding spontaneously and passing flatus with BM. The patient was seen by the surgical oncology team and felt the patient has reached maximal benefit from hospital stay, and deemed the patient stable for discharge. The patient will follow up ALEX in 2 weeks andDr. Barroso in 4 weeks. Surgeries and Procedures laparoscopic/robotic possible open partial gastrectomy (N/A) Medication List .. naloxone 4 mg/0.1 mL nasal spray Commonly known as: Narcan 1. Give 1 spray in nostril for no/slow breathing or cannot wake after opioid use 2. Call 911 3. Repeat in other nostril if symptoms continue oxyCODONE 5 MG immediate release tablet Commonly known as: Roxicodone Take 0.5 tablets by mouth every 6 hours as needed for moderate pain. . allopurinol 100 MG tablet Commonly known as: Zyloprim Take 1 tablet by mouth 2 times a day. atorvastatin 40 MG tablet Commonly known as: Lipitor Take 1 tablet by mouth daily. CENTRUM SILVER ADULT 50+ PO Take 1 by mouth daily citalopram 40 MG tablet Commonly known as: CeleXA Take 1 tablet by mouth daily. FeroSul 325 (65 Fe) MG tablet Generic drug: ferrous sulfate Take 1 tablet by mouth daily. lisinopril-hydroCHLOROthiazide 20-12.5 MG tablet Take 1 tablet by mouth daily. omeprazole [address] capsule Commonly known as: PriLOSEC Take 1 capsule by mouth daily. Do not crush or chew. Ask about: Which instructions should I use? topiramate 50 MG tablet Take 1 tablet by mouth nightly. Where to Get Your Medications These medications were sent to [facility] - [place], [place] - [address], [facility] [id number] naloxone 4 mg/0.1 mL nasal spray oxyCODONE 5 MG immediate release tablet Discharge Diagnosis Medical Problems Active and Resolved Hospital Problems Hospital * (Principal) Gastrointestinal stromal tumor (GIST) Post Discharge Instructions Post-Operative Discharge Instructions: Medications: - You should take 650mg Tylenol every 6 hours as needed for mild - moderate pain. - You have been prescribed pain medications to be taken as needed for severe pain. - You may resume your previous medications unless otherwise instructed. Nutrition: - You should consume a full liquid diet as tolerated, focusing on liquids to keep yourself hydrated. Please refer to diet education for more instructions on what you can or cannot eat. Activity: - Walking and climbing stairs is ok and encouraged. You should refrain from any strenuous activity/exercise until your follow up appointment. - No lifting anything more than 10 pounds for the next 6 weeks - You may not drive for 48 hours after surgery, or while taking narcotics Dressing: - You have steri strips across your incision. Do not pick them off, they will fall off on their ownafter approximately 2 weeks. - A special skin glue is used to close and cover your incision. Do not pick it off, it will fall ofon its own after approximately 2 weeks. The glue is waterproof but you should not soak your incision or take a tub bath for 2 weeks. - You have shahbaz across your incision. These will be removed in clinic at your follow up appointment. - You should try to keep your incisions as clean and dry as possible - You may shower. Let the soapy water run over your incisions. Do not scrub at your incisions. After you shower, pat your incisions dry with a clean towel. - Do NOT soak your incisions, or take a tub bath for 2 weeks. Drain Care: - You will need to clean around your JOLYNN drain once daily as instructed and apply a new drain sponge. - Please empty the drain 2-3 times a day as needed and keep track of drainage output. - You should bring the form you write the output on to your follow-up appointment. Potential Issues: - It is normal to have some pain and soreness, especially around the incisions - A small amount of clear drainage from the incision may be expected, call the office if the drainage becomes bloody, purulent (pus), or foul-smelling - Call the office if you start to have increased redness, drainage, swelling, or increased pain around your incision - Call the office if you have a fever greater than 101 F - Call the office if you have severe abdominal discomfort, nausea and vomiting, or feeling unwell Follow Up: - You will be contacted by the clinic for a follow up appointment in 2 weeks with ALEX and with Dr. Barroso in 4 weeks. - Call the [facility] with any questions or concerns during regular business hours (9am-5pm Saturday through Saturday except holidays). The number is . - If outside regular business hours, please call the after hours number at . Outpatient Follow-Up No future appointments. Test Results Pending At Discharge Pending Labs Order Current Status Surgical Pathology Exam In process Pertinent Physical Exam At Time of Discharge Physical Exam Constitutional: Appearance: Normal appearance. He is normal weight. HENT: Head: Normocephalic. Cardiovascular: Rate and Rhythm: Normal rate and regular rhythm. Pulmonary: Effort: Pulmonary effort is normal. Breath sounds: Normal breath sounds. Abdominal: General: There is distension. Comments: Appropriately tender at incision sites Incisions well healing Musculoskeletal: Cervical back: Normal range of motion and neck supple. Skin: General: Skin is warm and dry. Neurological: Mental Status: He is alert. Comments: Alert and oriented x3 Discharge Disposition/Condition Disposition: Home Condition: Stable (s/sx potential problems absent or manageable) I spent >30 minutes of patient care and instruction time in preparation for this discharge. Maury Bacon PGY-1 General Surgery Cosigned by Himanshu Mendiola MD at 04/26/2025 2:02 PM EDT Associated attestation - Himanshu Mendiola MD - 04/26/2025 2:02 PM EDT I saw and evaluated the patient with the resident/fellow. I discussed the case with the resident/fellow and agree with the findings and plan as documented. 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 On 04/23, the patient was taken to the OR and underwent laparoscopic/robotic partial gastrectomy and EGD. The patient tolerated the procedure without any intraoperative or postoperative complications. The patient was extubated in the operating room, and transferred to the PACU for immediate recovery from anesthesia. Shortly thereafter, the patient was transferred to the floor for their continued recovery. On the day of discharge the patient's pain was controlled on PO pain regimen, tolerating FLD diet, ambulating without issues, and voiding spontaneously and passing flatus with BM. The patient was seen by the surgical oncology team and felt the patient has reached maximal benefit from hospital stay, and deemed the patient stable for discharge. The patient will follow up ALEX in 2 weeks andDr. Barroso in 4 weeks. * Progress Notes - Maury Bacon MD - 04/25/2025 10:12 AM EDT Images from the original note were not included. Department of Surgery Division of Surgical Oncology Surgery Progress Note 04/25/25 Sunny Collins Subjective Subjective: HPI Mr. Collins is a 74-year-old male with a newly diagnosed grade 1 gastric cardia GIST, identified on EGD. 04/23: laparoscopic/robotic partial gastrectomy and EGD. Interval: POD#2. Afebrile. VSS. Delirium concern early last night. Bm, gas, doing well with clears.Not oriented to place. I- 1190 O- 950 UOP + bmx1 Incisions good, distended, gcs 14 Edited by: Maury Bacon MD at 04/25/2025 1012 Review of Systems: Relevant review of systems was obtained as able and is negative unless stated above in HPI. Objective Objective: Vital signs: Vitals: 04/25/25 1205 BP: 124/72 Pulse: 67 Resp: Temp: 36.9 ??C (98.5 ??F) SpO2: 96% Physical Exam: Physical Exam Constitutional: Appearance: Normal appearance. He is normal weight. HENT: Head: Normocephalic. Cardiovascular: Rate and Rhythm: Normal rate and regular rhythm. Pulmonary: Effort: Pulmonary effort is normal. Breath sounds: Normal breath sounds. Abdominal: General: There is distension. Comments: Appropriately tender at incision sites Incisions well healing Musculoskeletal: Cervical back: Normal range of motion and neck supple. Skin: General: Skin is warm and dry. Neurological: Mental Status: He is alert. Comments: Not oriented to place, is oriented to name and year. Intake/Output Summary (Last 24 hours) at 04/25/2025 1249 Last data filed at 04/25/2025 0820 Gross per 24 hour Intake 830 ml Output 600 ml Net 230 ml Lines/Drains/Tubes: Patient Lines/Drains/Airways Status Active Airway None Output by Drain (mL) 04/23/25 07 - 04/23/25 18504/23/251899 - 04/24/25 0659 04/24/25 07 - 04/24/25 18504/24/25 190 - 04/25/25 0659 04/25/25 07 - 04/25/25 1249 Patient has no LDAs of requested type attached. Labs in last 18 hours: CBC WBC 11.40 (H) Hb 10.8 (L) Plt 257 Hct 36.9 (L) ANC ?? INR ??, PTT ??, Anti-Xa ?? MCV 89 BMP Na 139 Cl 103 BUN 14 Glu 118 (H) K 4.1 Co2 27 Cr 0.89 Ca 9.8 iCa ?? Mg 2.1, Phos 2.3 (L) Lactate ?? LFT AST 29 AlkPhos 65 T Prot 7.0 ALK 33 Bili 0.5 Alb ?? D.Bili ?? Lab Trends: H/H Results from last 7 days Lab Units 04/25/25 0511 04/24/25 1432 04/24/25 0339 HEMOGLOBIN g/dL 10.8* 10.4* 11.0* HEMATOCRIT % 36.9* 35.2* 36.6* INR Cr Results from last 7 days Lab Units 04/25/25 0511 04/24/25 1432 04/24/25 0339 CREATININE mg/dL 0.89 0.84 0.84 Lactate Results from last 7 days Lab Units 04/23/25 1558 LACTIC ACID, WHOLE B mmol/L 1.4 Radiographic Interpretation: No relevant imaging to review. Medications reviewed. Vital signs reviewed. Labs reviewed. 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 Pt is s/p Laparoscopic/robotic partial gastrectomy. Plan: - reduce oxy dose to 2.5 q6h prn - will cont to watch mental status - upgrade to fld - Incentive spirometer - Restart home meds (lisinopril-hydrochlorothiazide) - SSI for elevated glucose Edited by: Maury Bacon MD at 04/25/2025 2343 Dispo: Continue Current Level of Care Maury Bacon PGY-1 General Surgery Pager: [phone] Cosigned by Himanshu Mendiola MD at 04/26/2025 2:02 PM EDT Associated attestation - Himanshu Mendiola MD - 04/26/2025 2:02 PM EDT I saw and evaluated the patient with the resident/fellow. I discussed the case with the resident/fellow and agree with the findings and plan as documented. * Care Plan - Pili Gonzalez RN - 04/25/2025 10:00 AM EDT Problem: Adult Inpatient Plan of Care Goal: Plan of Care Review Outcome: Ongoing, Progressing Flowsheets (Taken 04/25/2025 0959) Progress: improving Plan of Care Reviewed With: patient spouse Goal: Patient-Specific Goal (Individualized) Outcome: Ongoing, Progressing Flowsheets (Taken 04/25/2025819) Patient/Family-Specific Goals (Include Timeframe): pt will be free from falls/injury during this shift Individualized Care Needs: safety Anxieties, Fears or Concerns: Eager to go home today Goal: Absence of Hospital-Acquired Illness or Injury Outcome: Ongoing, Progressing Intervention: Identify and Manage Fall Risk Flowsheets (Taken 04/25/2025 08) Safety Promotion/Fall Prevention: assistive device/personal items within reach clutter-free environment maintained lighting adjusted nonskid shoes/slippers when out of bed room organization consistent safety round/check completed Intervention: Prevent Skin Injury Flowsheets Taken 04/25/2025819 Body Position: weight shifting Taken 04/24/2025 1303 Skin Protection: protective footwear used Intervention: Prevent and Manage VTE (Venous Thromboembolism) Risk Flowsheets (Taken 04/25/2025 0820) VTE Prevention/Management: bilateral SCDs (sequential compression devices) off patient refused intervention education provided Intervention: Prevent Infection Flowsheets (Taken 04/24/2025 1303) Infection Prevention: hand hygiene promoted equipment surfaces disinfected rest/sleep promoted Goal: Optimal Comfort and Wellbeing Outcome: Ongoing, Progressing Intervention: Monitor Pain and Promote Comfort Flowsheets (Taken 04/25/2025 0959) Pain Management Interventions: rest Intervention: Provide Person-Centered Care Flowsheets (Taken 04/24/2025 1303) Trust Relationship/Rapport: care explained choices provided emotional support provided empathic listening provided questions answered questions encouraged reassurance provided thoughts/feelings acknowledged Problem: Infection Goal: Absence of Infection Signs and Symptoms Outcome: Ongoing, Progressing Intervention: Prevent or Manage Infection Flowsheets (Taken 04/24/2025 1303) Infection Management: aseptic technique maintained Fever Reduction/Comfort Measures: lightweight clothing Problem: Fall Injury Risk Goal: Absence of Fall and Fall-Related Injury Outcome: Ongoing, Progressing Intervention: Identify and Manage Contributors Flowsheets (Taken 04/25/2025 0959) Medication Review/Management: medications reviewed Self-Care Promotion: independence encouraged Intervention: Promote Injury-Free Environment Flowsheets (Taken 04/25/2025 0820) Safety Promotion/Fall Prevention: assistive device/personal items within reach clutter-free environment maintained lighting adjusted nonskid shoes/slippers when out of bed room organization consistent safety round/check completed * Care Plan - Geraldine Galvez RN - 04/25/2025 5:46 AM EDT Problem: Adult Inpatient Plan of Care Goal: Plan of Care Review Outcome: Ongoing, Progressing Flowsheets (Taken 04/24/2025 0538) Progress: improving Outcome Evaluation: Pt will understand goals of care, Plan of Care Reviewed With: patient spouse Goal: Patient-Specific Goal (Individualized) Outcome: Ongoing, Progressing Flowsheets (Taken 04/23/20252044) Patient/Family-Specific Goals (Include Timeframe): Patient will remain free of injury this shift Individualized Care Needs: safety Anxieties, Fears or Concerns: none stated Goal: Absence of Hospital-Acquired Illness or Injury Outcome: Ongoing, Progressing Intervention: Identify and Manage Fall Risk Flowsheets (Taken 04/24/2025 0538) Safety Promotion/Fall Prevention: activity supervised assistive device/personal items within reach fall prevention program maintained Intervention: Prevent Skin Injury Flowsheets (Taken 04/24/2025 0538) Body Position: weight shifting Skin Protection: incontinence pads utilized protective footwear used Intervention: Prevent and Manage VTE (Venous Thromboembolism) Risk Flowsheets (Taken 04/24/2025 0538) VTE Prevention/Management: medication Intervention: Prevent Infection Flowsheets (Taken 04/24/2025 0538) Infection Prevention: hand hygiene promoted Goal: Optimal Comfort and Wellbeing Outcome: Ongoing, Progressing Intervention: Monitor Pain and Promote Comfort Flowsheets (Taken 04/24/2025 05) Pain Management Interventions: medication (see MAR) Intervention: Provide Person-Centered Care Flowsheets (Taken 04/24/2025 05) Trust Relationship/Rapport: care explained choices provided emotional support provided Problem: Infection Goal: Absence of Infection Signs and Symptoms Outcome: Ongoing, Progressing Intervention: Prevent or Manage Infection Flowsheets (Taken 04/24/2025 05) Infection Management: aseptic technique maintained Fever Reduction/Comfort Measures: lightweight clothing lightweight bedding Isolation Precautions: precautions maintained protective * Care Plan - Pili Gonzalez RN - 04/24/2025 1:04 PM EDT Problem: Adult Inpatient Plan of Care Goal: Plan of Care Review Outcome: Ongoing, Progressing Flowsheets (Taken 04/24/2025 1303) Progress: improving Plan of Care Reviewed With: patient spouse Goal: Patient-Specific Goal (Individualized) Outcome: Ongoing, Progressing Flowsheets (Taken 04/24/2025 08) Patient/Family-Specific Goals (Include Timeframe): pt will report pain level tolerable with currentpain medication regimen during this shift Individualized Care Needs: pain mgmt Anxieties, Fears or Concerns: Wants to go home Goal: Absence of Hospital-Acquired Illness or Injury Outcome: Ongoing, Progressing Intervention: Identify and Manage Fall Risk Flowsheets (Taken 04/24/2025 08) Safety Promotion/Fall Prevention: assistive device/personal items within reach clutter-free environment maintained lighting adjusted nonskid shoes/slippers when out of bed room organization consistent Intervention: Prevent Skin Injury Flowsheets Taken 04/24/2025 1303 by Pili Gonzalez RN Skin Protection: protective footwear used Taken 04/24/2025 1200 by Radha Wallace Body Position: weight shifting Intervention: Prevent and Manage VTE (Venous Thromboembolism) Risk Flowsheets (Taken 04/24/2025 0800) VTE Prevention/Management: medication Intervention: Prevent Infection Flowsheets (Taken 04/24/2025 1303) Infection Prevention: hand hygiene promoted equipment surfaces disinfected rest/sleep promoted Goal: Optimal Comfort and Wellbeing Outcome: Ongoing, Progressing Intervention: Monitor Pain and Promote Comfort Flowsheets (Taken 04/24/2025 1241) Pain Management Interventions: medication (see MAR) Intervention: Provide Person-Centered Care Flowsheets (Taken 04/24/2025 1303) Trust Relationship/Rapport: care explained choices provided emotional support provided empathic listening provided questions answered questions encouraged reassurance provided thoughts/feelings acknowledged Problem: Infection Goal: Absence of Infection Signs and Symptoms Outcome: Ongoing, Progressing Intervention: Prevent or Manage Infection Flowsheets (Taken 04/24/2025 1303) Infection Management: aseptic technique maintained Fever Reduction/Comfort Measures: lightweight clothing * Progress Notes - Maury Bacon MD - 04/24/2025 10:09 AM EDT Images from the original note were not included. Department of Surgery Division of Surgical Oncology Surgery Progress Note 04/24/25 Sunny Collins Subjective Subjective: HPI Mr. Collins is a 74-year-old male with a newly diagnosed grade 1 gastric cardia GIST, identified on EGD. 04/23: laparoscopic/robotic partial gastrectomy and EGD. Patient did well overnight. He had BM x4. Tolerating ice chips well. No N/V. No SOB. Interval: POD#1. Afebrile. VSS. I- 110 PO, 2100 IV O- 875 UOP Edited by: Suzanne Figueredo at 04/24/2025 1008 Review of Systems: Relevant review of systems was obtained as able and is negative unless stated above in HPI. Objective Objective: Vital signs: Vitals: 04/24/25 1130 BP: (!) 157/88 Pulse: 75 Resp: 14 Temp: 36.7 ??C (98 ??F) SpO2: 96% Physical Exam: Physical Exam Constitutional: Appearance: Normal appearance. He is normal weight. HENT: Head: Normocephalic. Cardiovascular: Rate and Rhythm: Normal rate and regular rhythm. Pulmonary: Effort: Pulmonary effort is normal. Breath sounds: Normal breath sounds. Abdominal: General: There is distension. Comments: Appropriately tender at incision sites Musculoskeletal: Cervical back: Normal range of motion and neck supple. Skin: General: Skin is warm and dry. Neurological: General: No focal deficit present. Mental Status: He is alert and oriented to person, place, and time. Mental status is at baseline. Intake/Output Summary (Last 24 hours) at 04/24/2025 1322 Last data filed at 04/24/2025 0827 Gross per 24 hour Intake 2570 ml Output 1025 ml Net 1545 ml Lines/Drains/Tubes: Patient Lines/Drains/Airways Status Active Airway None Output by Drain (mL) 04/22/25 0700 - 04/22/25 18504/22/25 1900 - 04/23/25 0659 04/23/25 07 - 04/23/25 1859 04/23/25 1900 - 04/24/25 0659 04/24/25 0700 - 04/24/25 1322 Patient has no LDAs of requested type attached. Labs in last 18 hours: CBC WBC 9.24 Hb 11.0 (L) Plt 264 Hct 36.6 (L) ANC ?? INR ??, PTT ??, Anti-Xa ?? MCV 88 BMP Na 136 Cl 101 BUN 16 Glu 208 (H) K 4.7 Co2 23 Cr 0.84 Ca 9.5 iCa ?? Mg 1.9, Phos 2.8 Lactate ?? LFT AST 37 AlkPhos 67 T Prot 6.6 ALK 41 Bili 0.5 Alb ?? D.Bili ?? Lab Trends: H/H Results from last 7 days Lab Units 04/24/25 0339 04/23/25 1558 HEMOGLOBIN g/dL 11.0* 11.2* HEMATOCRIT % 36.6* 38.0* INR Cr Results from last 7 days Lab Units 04/24/25 0339 04/23/25 1558 CREATININE mg/dL 0.84 0.82 Lactate Results from last 7 days Lab Units 04/23/25 1558 LACTIC ACID, WHOLE B mmol/L 1.4 Radiographic Interpretation: No relevant imaging to review. Medications reviewed. Vital signs reviewed. Labs reviewed. 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 Pt is s/p Laparoscopic/robotic partial gastrectomy. Plan: - Begin transitioning from IV to oral meds - dc maldonado - Cont CLD - Incentive spirometer - Restart home meds (lisinopril-hydrochlorothiazide) - SSI for elevated glucose Edited by: Maury Bacon MD at 04/24/2025 4822 Dispo: Continue Current Level of Care Maury Bacon PGY-1 General Surgery Pager: [phone] Cosigned by Himanshu Mendiola MD at 04/24/2025 5:38 PM EDT Associated attestation - Himanshu Mendiola MD - 04/24/2025 5:38 PM EDT I saw and evaluated the patient with the resident/fellow. I discussed the case with the resident/fellow and agree with the findings and plan as documented. * Care Plan - Geraldine Galvez RN - 04/24/2025 5:39 AM EDT Problem: Adult Inpatient Plan of Care Goal: Plan of Care Review Outcome: Ongoing, Progressing Flowsheets (Taken 04/24/2025537) Progress: improving Outcome Evaluation: Pt will understand goals of care, Plan of Care Reviewed With: patient spouse Goal: Patient-Specific Goal (Individualized) Outcome: Ongoing, Progressing Flowsheets (Taken 04/23/20252044) Patient/Family-Specific Goals (Include Timeframe): Patient will remain free of injury this shift Individualized Care Needs: safety Anxieties, Fears or Concerns: none stated Goal: Absence of Hospital-Acquired Illness or Injury Outcome: Ongoing, Progressing Intervention: Identify and Manage Fall Risk Flowsheets (Taken 04/24/2025 05) Safety Promotion/Fall Prevention: activity supervised assistive device/personal items within reach fall prevention program maintained Intervention: Prevent Skin Injury Flowsheets (Taken 04/24/2025537) Body Position: weight shifting Skin Protection: incontinence pads utilized protective footwear used Intervention: Prevent and Manage VTE (Venous Thromboembolism) Risk Flowsheets (Taken 04/24/2025537) VTE Prevention/Management: medication Intervention: Prevent Infection Flowsheets (Taken 04/24/2025537) Infection Prevention: hand hygiene promoted Goal: Optimal Comfort and Wellbeing Outcome: Ongoing, Progressing Intervention: Monitor Pain and Promote Comfort Flowsheets (Taken 04/24/2025537) Pain Management Interventions: medication (see MAR) Intervention: Provide Person-Centered Care Flowsheets (Taken 04/24/2025537) Trust Relationship/Rapport: care explained choices provided emotional support provided Problem: Infection Goal: Absence of Infection Signs and Symptoms Outcome: Ongoing, Progressing Intervention: Prevent or Manage Infection Flowsheets (Taken 04/24/2025537) Infection Management: aseptic technique maintained Fever Reduction/Comfort Measures: lightweight clothing lightweight bedding Isolation Precautions: precautions maintained protective * Consults - Chapin Morocho - 04/24/2025 12:20 AM EDT Pastoral Care Note [employer] In[employer] initiated visit. Patient's is at bedside. Patient appeared to be responsive and talking to care team. and patient expressed gratitude for the care team. [employer] In[employer] Servicer provided emotionalsupport, spiritual support, and supportive listening. [employer] In[employer] Servicer will follow up as needed. Referral From: [employer] In[employer] Servicer Initiated Pastoral Care Provided For: Patient, Spouse Patient Profile: Consult Reasons: Initial visit Spiritual Assessment: Support Systems/ Spiritual Resources: Marry, Family Spiritual Needs: Emotional support Spiritual Issues: Change/ transition, Trauma/ crisis Interventions: Interventions Provided: Emotional support, Spiritual support, Consulted with care team, Introduced Patient/Family to [employer] Services, Supportive Listening Pastoral Care Outcomes: Patient Outcomes: Gratitude, Is knowledgeable about [employer], Appreciative of [employer] Support, Expresses increased trust in medical team and/or plan of care * Post-Procedure Note - Homero Joyner MD - 04/23/2025 5:14 PM EDT Images from the original note were not included. [facility] Department of Surgery Division of Surgical Oncology Post Operative Check: Subjective: Procedure: Laparoscopic/robotic partial gastrectomy, EGD Patient currently reports that pain is well controlled with medications. Patient is has not attempted to tolerate a by mouth diet, denies any nausea or vomiting. Patient is on a clear liquid diet. has not ambulated and has a Maldonado in. Denies any shortness of breath, chest pain, or any other acute complaints at this time. Objective: Vitals: Visit Vitals BP (!) 156/84 Pulse 71 Temp (!) 36.1 ??C (97 ??F) Resp 9 IN/Out: Intake/Output Summary (Last 24 hours) at 04/23/2025 1714 Last data filed at 04/23/2025 1509 Gross per 24 hour Intake 2100 ml Output 75 ml Net 2025 ml Physical Exam: GENERAL: Well-developed, well-nourished, not in acute distress EYES: Extra-ocular movements intact, pupils equal, round and reactive to light HENT: Normocephalic, atraumatic, nares patent, mucus membranes moist NECK: Normal range of motion, supple, no JVD CARD: Regular rate RESP: Normal pulmonary effort, symmetric expansion, non-labored, not in respiratory distress GI: Soft, appropriately tender post operatively, non-distended, no guarding or rebound. Incisions clean, dry, and intact. Extremities: No swelling, tenderness, or deformity SKIN: Warm, dry, and without rash, sores, or lesions NEURO: Mental status at baseline, oriented to person, place, and time PSYCH: Mood and affect congruent and appropriate to situation Incisions: healing well Labs: WBC 7.53 Hgb 11.2 (L) PLT 251 HCT 38.0 (L) INR ?? PTT ?? antiXa ?? Na 137 Cl 104 BUN 14 Gluc 189 (H) K 5.0 (H) CO2 23 Creat 0.82 Ca 9.0 iCa 4.8 Mg 1.9 Phos 3.5 pH 7.32 pCO2 50 (H) pO2 70 (L) SPO2 93 (L) FIO2 ?? HCO3 26 BE -0.5 Lactate 1.4 Assessment and Plan: - Diet Status: Clear liquid diet - Anticoagulation/DVT ppx: [facility] - [facility] - Level of care: Continue Current Level of Care I have answered and addressed all issues and concerns from the patient and nursing staff. I have notified senior resident/attending abalone fisherman with any issues or concerns. Homero Joyner MD Plastic and Reconstructive Surgery, PGY-1 * Anesthesia PACU Signout - Carrie Antunez DO - 04/23/2025 4:43 PM EDT Patient: Montez Collins Anesthesia Type: general Vitals Value Taken Time BP 156/84 04/23/25 16:30 Temp 36.2 ??C (97.2 ??F) 04/23/25 16:42 Pulse 72 04/23/25 16:42 Resp 10 04/23/25 16:42 SpO2 95 % 04/23/25 16:42 Vitals shown include unfiled device data. Anesthesia PACU Signout Patient location during evaluation: PACU Patient participation: complete - patient participated Level of consciousness: baseline and awake Pain management: adequate (pain score 0-3) Airway patency: natural airway Hydration status: acceptable PONV: none Cardiovascular status: acceptable and hemodynamically stable Respiratory status: acceptable, spontaneous ventilation, unassisted, nonlabored ventilation and room air Discharge Disposition: admit to inpatient unit Comments: Patient is s/p Procedure(s) and Anesthesia Type: * laparoscopic/robotic possible open partial gastrectomy - General. Patient remains HDS on room air, neurologically appropriate, pain is controlled, and tolerating PO w/o N/V. Patient is appropriate for discharge from PACU to inpatient unit for continued postop care. Cosigned by Andrew Baer MD at 04/23/2025 4:52 PM EDT Associated attestation - Andrew Baer MD - 04/23/2025 4:52 PM EDT I saw and evaluated the patient with the resident/fellow. I discussed the case with the resident/fellow and agree with the findings and plan as documented. 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 (Active) Specimen: Specimens ID Source Frozen? 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 I discussed risks,benefits, and alternatives to laparoscopic/robotic, possible open partial gastrectomy including butnot limited to bleeding, infection, injury to associated structures such as the biliary tree, liver, pancreas, duodenum, or blood vessels; life-long dietary modifications, anastomotic leak, hernia, pancreatic fistula, cardiopulmonary complications, stroke, possibly even . After this discussion, the patient signed consent to the procedure. Narrative: After informed consent was obtained, the patient was brought to the operating room placed this was then positioned on the operating table. SCD boots were placed and activated. Subcutaneous heparin was administered. General anesthesia was induced out complication. Anesthesia placed additional IVs. AFoley catheter was placed. A TAP block was performed. The patient was positioned with the arms tucked bilaterally and a footboard placed with all pressure points carefully padded. The endoscope was inserted into the mouth and passed to the esophagus. The stomach was insufflated and retroflexion was performed. This confirmed the lobulated endophytic ulcerated mass at the GE junction. The stomach was desufflated and the endoscope was removed. An orogastric tube was placed to de compress the stomach. A Veress needle technique was used in the left upper quadrant to insufflate the abdomen to 15 mmHg without adverse hemodynamic effect. An 8 mm robotic Optiview trocar was used to enter the left lowerquadrant of the abdomen. There was no sign of injury from our entry was in the Veress needle. An additional 8 mm robotic port was placed in the left mid abdomen. There were some omental adhesions to the middle of the anterior abdominal wall from the open cholecystectomy. These were taken down with hot cautery. I placed a 12 mm robotic port in the right paramedian supraumbilical position and a 8 mm robotic port in the right upper quadrant. A subxiphoid 5 mm stab incision was made and the Ruby retractor was inserted to elevate the left lateral segment of the liver. The Edaii XI robot was brought in and docked. The camera was placed arm 3. The abdomen was explored. There was no peritoneal carcinomatosis, ascites, or liver metastatic disease. There was no grossevidence of the tumor anteriorly on the stomach, as expected. In the other arms we alternated between tip up grasper, fenestrated bipolar, vessel sealer, hook electrocautery, and needle drivers. The stomach was retracted inferiorly. On the anterior aspect of the upper gastric body, I made a gastrotomy. This confirmed out this was slightly distal to the tumor. I extent of the gastrotomy alongthe middle of the anterior stomach using the vessel sealer. I then used a tip up grasper was in arms 1 and 4 to retract to open this view. The mass was mobile and endophytic. This appeared amenable to robotic stapling. Using a 60 mm white load of the robotic stapler through arm 2, I used a series of staple fires to resect the mass. Once this was done, this was set aside and placed in an Endo-Catch bag. The gastrotomy was closed in 2 layers using 3-0 absorbable Stratafix sutures. Once the closure was complete, the endoscope was passed back into the stomach which insufflated without difficulty. Therewas a negative endoscopic leak past history was no evidence of narrowing at the GE junction. The resection site was hemostatic. The stomach was then desufflated. The ports were removed under direct vision without signs of bleeding. After correct sponge, instrument, and needle count, we then proceeded with specimen extraction and closure obtained in the 12 mm right paramedian incision was extended to about 2 cm with cautery including the underlying fascia. The specimen was then removed without difficulty. This was inspected and found to have what appeared to be a close 5 grossly negative margin. The fascia was closed in interrupted fashion 0-0 [id number] Vicryl sutures. Skin was closed with 4-0 Monocryl in subcuticular fashion. At the conclusion of the procedure, the patient was extubated, and taken to recovery room in stable condition. Complications: None; patient tolerated the procedure well. 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 (Active) Specimen: Specimens ID Source Frozen? 1 Other (specify site) No Description: Partial gastrectomy Findings: Round well circumscribed mass in gastric cardia along lesser curvature with ulceration within the mass. Anterior gastrotomy created, stapled from mucosal surface along base of mass, two layer suture closure of gastrotomy. Completion endoscopy revealed intact and hemostatic staple lines, GEJ easily traversable. Complications: None; patient tolerated the procedure well. Submitted by: Thelma Wallace DO - 04/23/2025 Cosigned by Shorty Barroso MD at 04/23/2025 3:27 PM EDT * Interval H&P Note - Thelma Wallace DO - 04/23/2025 10:38 AM EDT H&P reviewed. The patient was examined and there are no changes to the H&P and the surgicalsite was marked. Source Note - Shorty Barroso MD - 03/30/2025 8:10 [...] RENÉE who presents in consultation from his beamer helper/oncologist Dr. Steve. The patient presented to his [...] units) Date/Time Value 03/24/2025 1038 (OUTSIDE CASE: [id number] COLLECTED ON 03/10/2025): DUODENUM, BIOPSY (A): - [...] saw and evaluated the patient with the medical/INFORMATION TECHNOLOGY DIRECTOR/PA student. I discussed the case with the medical/INFORMATION TECHNOLOGY DIRECTOR/PA student and agree with the findings and plan as documented. I personally performed the Examand Medical Decision Making. Shorty Barroso MD documented in this encounter Plan of Treatment Scheduled Referrals Name Type Priority Associated Diagnoses Order Schedule Discharge Ambulatory referral to Surgical Oncology Outpatient Referral Routine Gastrointestinal stromal tumor (GIST) Expected: 05/09/2025 (Approximate), Expires: 10/27/2026 Discharge Ambulatory referral to Surgical Oncology Outpatient Referral Routine Gastrointestinal stromal tumor (GIST) Expected: 05/26/2025 (Approximate), Expires: 10/27/2026 documented as of this encounter Goals Goal Patient Goal Type Associated Problems Recent Progress Patient-Stated? Author Autogenera kayla Goal Care Plan Autogenerated Problem No Shorty Barroso MD documented as of this encounter Procedures Procedure Name Priority Date/Time Associated Diagnosis Comments POCT GLUCOSE METER UNSOLICITED RESULTS Routine 04/25/2025 12:04 PM EDT POCT GLUCOSE METER UNSOLICITED RESULTS Routine 04/25/2025 7:40 AM EDT CBC W/O DIFFERENTIAL Routine 04/25/2025 5:11 AM EDT PHOSPHORUS, PLASMA Routine 04/25/2025 5: 11 AM EDT MAGNESIUM, PLASMA Routine 04/25/2025 5:1 1 AM EDT COMPREHENSIVE METABOLIC PANEL, PLASMA Routine 04/25/2025 5:11 AM EDT POCT GLUCOSE METER UNSOLICITED RESULTS Routine 04/24/2025 8:04 PM EDT POCT GLUCOSE METER UNSOLICITED RESULTS Routine 04/24/2025 4:52 PM EDT CBC W/O DIFFERENTIAL Timed 04/24/2025 2:32 PM EDT PHOSPHORUS, PLASMA Timed 04/24/2025 2: 32 PM EDT MAGNESIUM, PLASMA Timed 04/24/2025 2:3 2 PM EDT COMPREHENSIVE METABOLIC PANEL, PLASMA Timed 04/24/2025 2:32 PM EDT POCT GLUCOSE METER UNSOLICITED RESULTS Routine 04/24/2025 11:23 AM EDT CBC W/O DIFFERENTIAL Routine 04/24/2025 3:39 AM EDT PHOSPHORUS, PLASMA Routine 04/24/2025 3: 39 AM EDT MAGNESIUM, PLASMA Routine 04/24/2025 3:3 9 AM EDT HEMOGLOBIN A1C Add-On 04/24/2025 3:39 AM EDT COMPREHENSIVE METABOLIC PANEL, PLASMA Routine 04/24/2025 3:39 AM EDT CBC WITH AUTO DIFFERENTIAL Routine 04/23/2025 3:58 PM EDT PHOSPHORUS, PLASMA Routine 04/23/2025 3: 58 PM EDT MAGNESIUM, PLASMA Routine 04/23/2025 3:5 8 PM EDT BLOOD GAS PANEL, ARTERIAL Routine 04/23/2025 3:58 PM EDT COMPREHENSIVE METABOLIC PANEL, PLASMA Routine 04/23/2025 3:58 PM EDT SURGICAL PATHOLOGY EXAM Routine 04/23/2025 2:02 PM EDT Gastrointestinal stromal tumor (GIST) HI REMV STOMACH,PART,DISTAL,GA STROJEJUN 04/23/2025 11:57 AM EDT Gastrointestinal stromal tumor (GIST) TYPE AND SCREEN Routine 04/23/2025 11:47 AM EDT POCT GLUCOSE METER UNSOLICITED RESULTS Routine 04/23/2025 11:46 AM EDT documented in this encounter Results * (ABNORMAL) POCT glucose meter (04/25/2025 12:04 PM EDT) POCT Glucose 127(H) 74 - 99 mg/dL 04/25/2025 12:05 PM EDT [facility] Comment:Accuracy of a glucos e result obtained from a capillary whole blood specimen relies upon adequate, non-compromised capillary blood flow. If the capillary glucose result is not consistent with the patient's clinical signs and symptoms, glucose testing should be repeated with either an arterial or venous sample on the glucometer or sent to the main labortory for testing. Comment 04/25/2025 12:05 PM EDT [facility] Chemist Internship ID Mckenzie Cleaning 12:05 PM EDT [facility] Device ID [id number] 04/25/2025 12:05 PM EDT [facility] Specimen Type POC Capillary 04/25/2025 12:05 PM EDT [facility] Blood Capillary blood specimen / Unknown 04/25/2025 12:04 PM EDT 04/25/2025 12:05 PM EDT us Shorty Barroso MD LAB POINT OF CARE TE ST DOCKED DEVICE UNSOLICITED RESULTS Final Result [facility] [address] [place] [address] * POCT glucose meter (04/25/2025 7:40 AM EDT) POCT Glucose 97 74 - 99 mg/dL 04/25/2025 7:41 AM EDT [facility] Comment:Accuracy of a glucos e result obtained from a capillary whole blood specimen relies upon adequate, non-compromised capillary blood flow. If the capillary glucose result is not consistent with the patient's clinical signs and symptoms, glucose testing should be repeated with either an arterial or venous sample on the glucometer or sent to the main labortory for testing. Comment 04/25/2025 7:41 AM EDT [facility] Chemist Internship ID Mckenzie Cleaning 7:41 AM EDT [facility] Device ID [id number] 04/25/2025 7:41 AM EDT [facility] Specimen Type POC Capillary 04/25/2025 7:41 AM EDT [facility] Blood Capillary blood specimen / Unknown 04/25/2025 7:40 AM EDT 04/25/2025 7:41 AM EDT Shorty Barroso MD LAB POINT OF CARE TE ST DOCKED DEVICE UNSOLICITED RESULTS Final Result Performing Organization Address City/[facility]/ZIP Co de Phone Number [facility] [address] [place] [address] * (ABNORMAL) Phosphorus, Plasma (04/25/2025 5:11 AM EDT) Phosphorus, Plasma 2.3(L) 2.5 - 4.5 mg/dL 04/25/2025 5:57 AM EDT [facility] Blood Venous blood specimen / Unknown Venipuncture / Unknown 04/25/2025 5:11 AM EDT 04/25/2025 5:31 AM EDT Shorty Barroso MD LAB BLOOD ORDERABLES Final R esult [facility] [address] [place] [address] * Magnesium, Plasma (04/25/2025 5:11 AM EDT) Magnesium, Plasma 2.1 1.9 - 2.4 mg/dL 04/25/2025 5:57 AM EDT [facility] Blood Venous blood specimen / Unknown Venipuncture / Unknown 04/25/2025 5:11 AM EDT 04/25/2025 5:31 AM EDT us Shorty Barroso MD LAB BLOOD ORDERABLES Final R esult [facility] [address] [place] [address] * (ABNORMAL) Comprehensive Metabolic Panel, Plasma (04/25/2025 5:11 AM EDT) Glucose, Plasma 118(H) 74 - 99 mg/dL 04/25/2025 5:57 AM EDT [facility] BUN, Plasma 14 8 - 23 mg/dL 04/25/2025 5:57 AM EDT [facility] Creatinine, Plasma 0.89 0.70 - 1.20 mg/dL 04/25/2025 5:57 AM EDT [facility] BUN/Creatinine Ratio 16 04/25/2025 5:57 AM EDT [facility] Sodium, Plasma 139 136 - 145 mmol/L 04/25/2025 5:57 AM EDT [facility] Potassium, Plasma 4.1 3.6 - 4.9 mmol/L 04/25/2025 5:57 AM EDT [facility] Chloride, Plasma 103 97 - 107 mmol/L 04/25/2025 5:57 AM EDT [facility] CO2, Plasma 27 22 - 29 mmol/L 04/25/2025 5:57 AM EDT [facility] Anion Gap 9 6 - 16 mmol/L 04/25/2025 5:57 AM EDT [facility] Total Calcium, Plasma 9.8 8.9 - 10.2 mg/dL 04/25/2025 5:57 AM EDT [facility] Total Protein 7.0 6.3 - 7.9 g/dL 04/25/2025 5:57 AM EDT [facility] Albumin, Plasma 4.1 3.5 - 5.2 g/dL 04/25/2025 5:57 AM EDT [facility] AST, Plasma 29 10 - 50 U/L 04/25/2025 5:57 AM EDT [facility] ALT, Plasma 33 10 - 50 U/L 04/25/2025 5:57 AM EDT [facility] Alkaline Phosphatase, Plasma 65 40 - 115 U/L 04/25/2025 5:57 AM EDT [facility] Total Bilirubin, Plasma 0.5 0.2 - 1.1 mg/dL 04/25/2025 5:57 AM EDT [facility] eGFRcr 90.5 mL/min/1.7 3m*2 04/25/2025 5:57 AM EDT [facility] Comment:Reported eGFRcr in m L/min/1.73m2 is based the CKD-EPI 2020 equation that does not use a race coefficient. Blood Venous blood specimen / Unknown Venipuncture / Unknown 04/25/2025 5:11 AM EDT 04/25/2025 5:31 AM EDT us Shorty Barroso MD LAB BLOOD ORDERABLES Final R esult [facility] [address] [place] [address] * (ABNORMAL) CBC W/O Differential (04/25/2025 5:11 AM EDT) WBC Count 11.40(H) 3.70 - 10.30 10*3/uL LAB HEMATOLOGY METHOD 04/25/2025 5:40 AM EDT [facility] RBC Count 4.13(L) 4.60 - 6.10 10*6/uL LAB HEMATOLOGY METHOD 04/25/2025 5:40 AM EDT [facility] HGB 10.8(L) 13.7 - 17.5 g/dL LAB HEMATOLOGY METHOD 04/25/2025 5:40 AM EDT [facility] HCT 36.9(L) 40.0 - 51.0 % LAB HEMATOLOGY METHOD 04/25/2025 5:40 AM EDT [facility] Platelet Count 257 155 - 369 10*3/uL LAB HEMATOLOGY METHOD 04/25/2025 5:40 AM EDT [facility] MCV 89 79 - 98 fL LAB HEMATOLOGY METHOD 04/25/2025 5:40 AM EDT [facility] MCH 26.2 26.0 - 32.0 pg LAB HEMATOLOGY METHOD 04/25/2025 5:40 AM EDT [facility] MCHC 29.3(L) 30.7 - 35.5 g/dL LAB HEMATOLOGY METHOD 04/25/2025 5:40 AM EDT [facility] RDW 21.0(H) 11.5 - 14.5 % LAB HEMATOLOGY METHOD 04/25/2025 5:40 AM EDT [facility] MPV 9.4 8.8 - 12.5 fL LAB HEMATOLOGY METHOD 04/25/2025 5:40 AM EDT [facility] nRBC 0.0 <=0.0 per 100 WBCs LAB HEMATOLOGY METHOD 04/25/2025 5:40 AM EDT [facility] Blood Venous blood specimen / Unknown Venipuncture / Unknown 04/25/2025 5:11 AM EDT 04/25/2025 5:30 AM EDT us Shorty Barroso MD LAB BLOOD ORDERABLES Final R esult [facility] [address] [place] [address] * (ABNORMAL) POCT glucose meter (04/24/2025 8:04 PM EDT) POCT Glucose 122(H) 74 - 99 mg/dL 04/24/2025 8:06 PM EDT [facility] Comment:Accuracy of a glucos e result obtained from a capillary whole blood specimen relies upon adequate, non-compromised capillary blood flow. If the capillary glucose result is not consistent with the patient's clinical signs and symptoms, glucose testing should be repeated with either an arterial or venous sample on the glucometer or sent to the main labortory for testing. Comment 04/24/2025 8:06 PM EDT [facility] Chemist Internship ID ZakariahNoemi 025 8:06 PM EDT [facility] Device ID [id number] 04/24/2025 8:06 PM EDT [facility] Specimen Type POC Capillary 04/24/2025 8:06 PM EDT [facility] Blood Capillary blood specimen / Unknown 04/24/2025 8:04 PM EDT 04/24/2025 8:06 PM EDT us Shorty Barroso MD LAB POINT OF CARE TE ST DOCKED DEVICE UNSOLICITED RESULTS Final Result [facility] [address] [place] [address] * (ABNORMAL) POCT glucose meter (04/24/2025 4:52 PM EDT) POCT Glucose 122(H) 74 - 99 mg/dL 04/24/2025 4:53 PM EDT [facility] Comment:Accuracy of a glucos e result obtained from a capillary whole blood specimen relies upon adequate, non-compromised capillary blood flow. If the capillary glucose result is not consistent with the patient's clinical signs and symptoms, glucose testing should be repeated with either an arterial or venous sample on the glucometer or sent to the main labortory for testing. Comment 04/24/2025 4:53 PM EDT [facility] Chemist Internship ID Pili Gonzalez 025 4:53 PM EDT [facility] Device ID [id number] 04/24/2025 4:53 PM EDT [facility] Specimen Type POC Capillary 04/24/2025 4:53 PM EDT [facility] Blood Capillary blood specimen / Unknown 04/24/2025 4:52 PM EDT 04/24/2025 4:53 PM EDT us Shorty Barroso MD LAB POINT OF CARE TE ST DOCKED DEVICE UNSOLICITED RESULTS Final Result Performing Organization Address City/[facility]/ZIP Co de Phone Number [facility] [address] [place] [address] * (ABNORMAL) Phosphorus, Plasma (04/24/2025 2:32 PM EDT) Phosphorus, Plasma 2.2(L) 2.5 - 4.5 mg/dL 04/24/2025 3:14 PM EDT [facility] Blood Venous blood specimen / Unknown Venipuncture / Unknown 04/24/2025 2:32 PM EDT 04/24/2025 2:43 PM EDT Shorty Barroso MD LAB BLOOD ORDERABLES Final R esult [facility] [address] [place] [address] * Magnesium, Plasma (04/24/2025 2:32 PM EDT) Pathologist [facility] Magnesium, Plasma 1.9 1.9 - 2.4 mg/dL 04/24/2025 3:14 PM EDT [facility] Blood Venous blood specimen / Unknown Venipuncture / Unknown 04/24/2025 2:32 PM EDT 04/24/2025 2:43 PM EDT us Shorty Barroso MD LAB BLOOD ORDERABLES Final R [facility] Performing Organization Address City/[facility]/ZIP Co de Phone Number [facility] [address] [place] [address] * (ABNORMAL) Comprehensive Metabolic Panel, Plasma (04/24/2025 2:32 PM EDT) Pathologist [facility] Glucose, Plasma 139(H) 74 - 99 mg/dL 04/24/2025 3:14 PM EDT [facility] BUN, Plasma 13 8 - 23 mg/dL 04/24/2025 3:14 PM EDT [facility] Creatinine, Plasma 0.84 0.70 - 1.20 mg/dL 04/24/2025 3:14 PM EDT [facility] BUN/Creatinine Ratio 15 04/24/2025 3:14 PM EDT [facility] Sodium, Plasma 137 136 - 145 mmol/L 04/24/2025 3:14 PM EDT [facility] Potassium, Plasma 4.2 3.6 - 4.9 mmol/L 04/24/2025 3:14 PM EDT [facility] Chloride, Plasma 102 97 - 107 mmol/L 04/24/2025 3:14 PM EDT [facility] CO2, Plasma 23 22 - 29 mmol/L 04/24/2025 3:14 PM EDT [facility] Anion Gap 12 6 - 16 mmol/L 04/24/2025 3:14 PM EDT [facility] Total Calcium, Plasma 9.5 8.9 - 10.2 mg/dL 04/24/2025 3:14 PM EDT [facility] Total Protein 6.9 6.3 - 7.9 g/dL 04/24/2025 3:14 PM EDT [facility] Albumin, Plasma 3.9 3.5 - 5.2 g/dL 04/24/2025 3:14 PM EDT [facility] AST, Plasma 34 10 - 50 U/L 04/24/2025 3:14 PM EDT [facility] ALT, Plasma 36 10 - 50 U/L 04/24/2025 3:14 PM EDT [facility] Alkaline Phosphatase, Plasma 64 40 - 115 U/L 04/24/2025 3:14 PM EDT [facility] Total Bilirubin, Plasma 0.5 0.2 - 1.1 mg/dL 04/24/2025 3:14 PM EDT [facility] eGFRcr 92.1 mL/min/1.7 3m*2 04/24/2025 3:14 PM EDT [facility] Comment:Reported eGFRcr in m L/min/1.73m2 is based the CKD-EPI 2020 equation that does not use a race coefficient. Blood Venous blood specimen / Unknown Venipuncture / Unknown 04/24/2025 2:32 PM EDT 04/24/2025 2:43 PM EDT us Shorty Barroso MD LAB BLOOD ORDERABLES Final R esult [facility] [address] [place] [address] * (ABNORMAL) CBC W/O Differential (04/24/2025 2:32 PM EDT) WBC Count 13.80(H) 3.70 - 10.30 10*3/uL LAB HEMATOLOGY METHOD 04/24/2025 2:51 PM EDT [facility] RBC Count 4.02(L) 4.60 - 6.10 10*6/uL LAB HEMATOLOGY METHOD 04/24/2025 2:51 PM EDT [facility] HGB 10.4(L) 13.7 - 17.5 g/dL LAB HEMATOLOGY METHOD 04/24/2025 2:51 PM EDT [facility] HCT 35.2(L) 40.0 - 51.0 % LAB HEMATOLOGY METHOD 04/24/2025 2:51 PM EDT [facility] Platelet Count 264 155 - 369 10*3/uL LAB HEMATOLOGY METHOD 04/24/2025 2:51 PM EDT [facility] MCV 88 79 - 98 fL LAB HEMATOLOGY METHOD 04/24/2025 2:51 PM EDT [facility] MCH 25.9(L) 26.0 - 32.0 pg LAB HEMATOLOGY METHOD 04/24/2025 2:51 PM EDT [facility] MCHC 29.5(L) 30.7 - 35.5 g/dL LAB HEMATOLOGY METHOD 04/24/2025 2:51 PM EDT [facility] RDW 20.4(H) 11.5 - 14.5 % LAB HEMATOLOGY METHOD 04/24/2025 2:51 PM EDT [facility] MPV 9.2 8.8 - 12.5 fL LAB HEMATOLOGY METHOD 04/24/2025 2:51 PM EDT [facility] nRBC 0.0 <=0.0 per 100 WBCs LAB HEMATOLOGY METHOD 04/24/2025 2:51 PM EDT [facility] Blood Venous blood specimen / Unknown Venipuncture / Unknown 04/24/2025 2:32 PM EDT 04/24/2025 2:43 PM EDT us Shorty Barroso MD LAB BLOOD ORDERABLES Final R esult [facility] [address] [place] [address] * (ABNORMAL) POCT glucose meter (04/24/2025 11:23 AM EDT) POCT Glucose 157(H) 74 - 99 mg/dL 04/24/2025 11:24 AM EDT [facility] Comment:Accuracy of a glucos e result obtained from a capillary whole blood specimen relies upon adequate, non-compromised capillary blood flow. If the capillary glucose result is not consistent with the patient's clinical signs and symptoms, glucose testing should be repeated with either an arterial or venous sample on the glucometer or sent to the main labortory for testing. Comment 04/24/2025 11:24 AM EDT [facility] Chemist Internship ID Pili Gonzalez [id number] 11:24 AM EDT [facility] Device ID [id number] 04/24/2025 11:24 AM EDT [facility] Specimen Type POC Capillary 04/24/2025 11:24 AM EDT [facility] Blood Capillary blood specimen / Unknown 04/24/2025 11:23 AM EDT 04/24/2025 11:24 AM EDT Shorty Barroso MD LAB POINT OF CARE TE ST DOCKED DEVICE UNSOLICITED RESULTS Final Result Performing Organization Address [facility] Co de Phone Number [facility] [address] [place] [address] * Hemoglobin A1c (04/24/2025 3:39 AM EDT) Hemoglobin A1c 5.5 <5.7 % 04/24/2025 9:40 AM EDT [facility] Blood Venous blood specimen / Unknown Venipuncture / Unknown 04/24/2025 3:39 AM EDT 04/24/2025 4:28 AM EDT Narrative [facility] - 04/24/2025 9:40 AM EDT HA1C Interpretive Data: Diagnosis of Diabetes: Diabetic > or = 6.5% Pre-diabetic 5.7 to 6.4% Non-diabetic < or = 5.6% Glycemic Targets for Type I and Type II Diabetics: Non- Adults <7.0% Adults <6.0% Children and Adolescents <7.5% Source: [place] [employer]. Standards of medical care in diabetes,2017. Diabetes Care.2017:40 (suppl 1):S1-S135. Shorty Barroso MD LAB BLOOD ORDERABLES Final R esult Performing Organization Address City/[facility]/ZIP Co de Phone Number [facility] [address] [place] [address] * Phosphorus, Plasma (04/24/2025 3:39 AM EDT) Phosphorus, Plasma 2.8 2.5 - 4.5 mg/dL 04/24/2025 5:01 AM EDT [facility] Blood Venous blood specimen / Unknown Venipuncture / Unknown 04/24/2025 3:39 AM EDT 04/24/2025 4:25 AM EDT Shorty Barroso MD LAB BLOOD ORDERABLES Final R esult Performing Organization Address City/[facility]/ZIP Co de Phone Number [facility] [address] [place] [address] * Magnesium, Plasma (04/24/2025 3:39 AM EDT) Magnesium, Plasma 1.9 1.9 - 2.4 mg/dL 04/24/2025 5:01 AM EDT [facility] Blood Venous blood specimen / Unknown Venipuncture / Unknown 04/24/2025 3:39 AM EDT 04/24/2025 4:25 AM EDT Shorty Barroso MD LAB BLOOD ORDERABLES Final R esult Performing Organization Address City/[facility]/ZIP Co de Phone Number [facility] [address] [place] [address] * (ABNORMAL) Comprehensive Metabolic Panel, Plasma (04/24/2025 3:39 AM EDT) Glucose, Plasma 208(H) 74 - 99 mg/dL 04/24/2025 5:01 AM EDT [facility] BUN, Plasma 16 8 - 23 mg/dL 04/24/2025 5:01 AM EDT [facility] Creatinine, Plasma 0.84 0.70 - 1.20 mg/dL 04/24/2025 5:01 AM EDT [facility] BUN/Creatinine Ratio 19 04/24/2025 5:01 AM EDT [facility] Sodium, Plasma 136 136 - 145 mmol/L 04/24/2025 5:01 AM EDT [facility] Potassium, Plasma 4.7 3.6 - 4.9 mmol/L 04/24/2025 5:01 AM EDT [facility] Chloride, Plasma 101 97 - 107 mmol/L 04/24/2025 5:01 AM EDT [facility] CO2, Plasma 23 22 - 29 mmol/L 04/24/2025 5:01 AM EDT [facility] Anion Gap 12 6 - 16 mmol/L 04/24/2025 5:01 AM EDT [facility] Total Calcium, Plasma 9.5 8.9 - 10.2 mg/dL 04/24/2025 5:01 AM EDT [facility] Total Protein 6.6 6.3 - 7.9 g/dL 04/24/2025 5:01 AM EDT [facility] Albumin, Plasma 3.8 3.5 - 5.2 g/dL 04/24/2025 5:01 AM EDT [facility] AST, Plasma 37 10 - 50 U/L 04/24/2025 5:01 AM EDT [facility] ALT, Plasma 41 10 - 50 U/L 04/24/2025 5:01 AM EDT [facility] Alkaline Phosphatase, Plasma 67 40 - 115 U/L 04/24/2025 5:01 AM EDT [facility] Total Bilirubin, Plasma 0.5 0.2 - 1.1 mg/dL 04/24/2025 5:01 AM EDT [facility] eGFRcr 92.1 mL/min/1.7 3m*2 04/24/2025 5:01 AM EDT [facility] Comment:Reported eGFRcr in m L/min/1.73m2 is based the CKD-EPI 2020 equation that does not use a race coefficient. Blood Venous blood specimen / Unknown Venipuncture / Unknown 04/24/2025 3:39 AM EDT 04/24/2025 4:25 AM EDT us Shorty Barroso MD LAB BLOOD ORDERABLES Final R esult [facility] [address] [place] [address] * (ABNORMAL) CBC W/O Differential (04/24/2025 3:39 AM EDT) WBC Count 9.24 3.70 - 10.30 10*3/uL LAB HEMATOLOGY METHOD 04/24/2025 4:35 AM EDT [facility] RBC Count 4.17(L) 4.60 - 6.10 10*6/uL LAB HEMATOLOGY METHOD 04/24/2025 4:35 AM EDT [facility] HGB 11.0(L) 13.7 - 17.5 g/dL LAB HEMATOLOGY METHOD 04/24/2025 4:35 AM EDT [facility] HCT 36.6(L) 40.0 - 51.0 % LAB HEMATOLOGY METHOD 04/24/2025 4:35 AM EDT [facility] Platelet Count 264 155 - 369 10*3/uL LAB HEMATOLOGY METHOD 04/24/2025 4:35 AM EDT [facility] MCV 88 79 - 98 fL LAB HEMATOLOGY METHOD 04/24/2025 4:35 AM EDT [facility] MCH 26.4 26.0 - 32.0 pg LAB HEMATOLOGY METHOD 04/24/2025 4:35 AM EDT [facility] MCHC 30.1(L) 30.7 - 35.5 g/dL LAB HEMATOLOGY METHOD 04/24/2025 4:35 AM EDT [facility] RDW 20.5(H) 11.5 - 14.5 % LAB HEMATOLOGY METHOD 04/24/2025 4:35 AM EDT [facility] MPV 9.5 8.8 - 12.5 fL LAB HEMATOLOGY METHOD 04/24/2025 4:35 AM EDT [facility] nRBC 0.0 <=0.0 per 100 WBCs LAB HEMATOLOGY METHOD 04/24/2025 4:35 AM EDT [facility] Blood Venous blood specimen / Unknown Venipuncture / Unknown 04/24/2025 3:39 AM EDT 04/24/2025 4:28 AM EDT us Shorty Barroso MD LAB BLOOD ORDERABLES Final R esult [facility] [address] [place] [address] * Phosphorus, Plasma (04/23/2025 3:58 PM EDT) Phosphorus, Plasma 3.5 2.5 - 4.5 mg/dL 04/23/2025 4:42 PM EDT [facility] Blood Arterial blood specimen / Unknown Arterial Puncture / Unknown 04/23/2025 3:58 PM EDT 04/23/2025 4:10 PM EDT Shorty Barroso MD LAB BLOOD ORDERABLES Final R esult Performing Organization Address City/[facility]/ZIP Co de Phone Number [facility] [address] [place] [address] * Magnesium, Plasma (04/23/2025 3:58 PM EDT) Magnesium, Plasma 1.9 1.9 - 2.4 mg/dL 04/23/2025 4:42 PM EDT [facility] Blood Arterial blood specimen / Unknown Arterial Puncture / Unknown 04/23/2025 3:58 PM EDT 04/23/2025 4:10 PM EDT Shorty Barroso MD LAB BLOOD ORDERABLES Final R esult Performing Organization Address City/[facility]/ZIP Co de Phone Number [facility] [address] [place] [address] * (ABNORMAL) Comprehensive Metabolic Panel, Plasma (04/23/2025 3:58 PM EDT) Glucose, Plasma 189(H) 74 - 99 mg/dL 04/23/2025 4:42 PM EDT [facility] BUN, Plasma 14 8 - 23 mg/dL 04/23/2025 4:42 PM EDT [facility] Creatinine, Plasma 0.82 0.70 - 1.20 mg/dL 04/23/2025 4:42 PM EDT [facility] BUN/Creatinine Ratio 17 04/23/2025 4:42 PM EDT [facility] Sodium, Plasma 137 136 - 145 mmol/L 04/23/2025 4:42 PM EDT [facility] Potassium, Plasma 5.0(H) 3.6 - 4.9 mmol/L 04/23/2025 4:42 PM EDT [facility] Comment:Hemolyzed - Potassiu m may be falsely elevated by approximately 0.4-0.7 mmol/L. Chloride, Plasma 104 97 - 107 mmol/L 04/23/2025 4:42 PM EDT [facility] CO2, Plasma 23 22 - 29 mmol/L 04/23/2025 4:42 PM EDT [facility] Anion Gap 10 6 - 16 mmol/L 04/23/2025 4:42 PM EDT [facility] Total Calcium, Plasma 9.0 8.9 - 10.2 mg/dL 04/23/2025 4:42 PM EDT [facility] Total Protein 6.4 6.3 - 7.9 g/dL 04/23/2025 4:42 PM EDT [facility] Albumin, Plasma 3.8 3.5 - 5.2 g/dL 04/23/2025 4:42 PM EDT [facility] AST, Plasma 57(H) 10 - 50 U/L 04/23/2025 4:42 PM EDT [facility] Comment:Hemolyzed, result ma y be falsely increased. ALT, Plasma 48 10 - 50 U/L 04/23/2025 4:42 PM EDT [facility] Alkaline Phosphatase, Plasma 72 40 - 115 U/L 04/23/2025 4:42 PM EDT [facility] Total Bilirubin, Plasma 0.6 0.2 - 1.1 mg/dL 04/23/2025 4:42 PM EDT [facility] eGFRcr 92.8 mL/min/1.7 3m*2 04/23/2025 4:42 PM EDT [facility] Comment:Reported eGFRcr in m L/min/1.73m2 is based the CKD-EPI 2020 equation that does not use a race coefficient. Blood Arterial blood specimen / Unknown Arterial Puncture / Unknown 04/23/2025 3:58 PM EDT 04/23/2025 4:10 PM EDT us Shorty Barroso MD LAB BLOOD ORDERABLES Final R esult [facility] [address] [place] [address] * (ABNORMAL) CBC and Differential (04/23/2025 3:58 PM EDT) [facility] WBC Count 7.53 3.70 - 10.30 10*3/uL LAB HEMATOLOGY METHOD 04/23/2025 4:19 PM EDT [facility] RBC Count 4.35(L) 4.60 - 6.10 10*6/uL LAB HEMATOLOGY METHOD 04/23/2025 4:19 PM EDT [facility] HGB 11.2(L) 13.7 - 17.5 g/dL LAB HEMATOLOGY METHOD 04/23/2025 4:19 PM EDT [facility] HCT 38.0(L) 40.0 - 51.0 % LAB HEMATOLOGY METHOD 04/23/2025 4:19 PM EDT [facility] Platelet Count 251 155 - 369 10*3/uL LAB HEMATOLOGY METHOD 04/23/2025 4:19 PM EDT [facility] MCV 87 79 - 98 fL LAB HEMATOLOGY METHOD 04/23/2025 4:19 PM EDT [facility] MCH 25.7(L) 26.0 - 32.0 pg LAB HEMATOLOGY METHOD 04/23/2025 4:19 PM EDT [facility] MCHC 29.5(L) 30.7 - 35.5 g/dL LAB HEMATOLOGY METHOD 04/23/2025 4:19 PM EDT [facility] RDW 20.7(H) 11.5 - 14.5 % LAB HEMATOLOGY METHOD 04/23/2025 4:19 PM EDT [facility] MPV 9.5 8.8 - 12.5 fL LAB HEMATOLOGY METHOD 04/23/2025 4:19 PM EDT [facility] nRBC 0.0 <=0.0 per 100 WBCs LAB HEMATOLOGY METHOD 04/23/2025 4:19 PM EDT [facility] Differential Type Automated LAB HEMATOLOGY METHOD 04/23/2025 4:19 PM EDT [facility] Neutrophils % 90 % LAB HEMATOLOGY METHOD 04/23/2025 4:19 PM EDT [facility] Lymphocytes % 6 % LAB HEMATOLOGY METHOD 04/23/2025 4:19 PM EDT [facility] Monocytes % 2 % LAB HEMATOLOGY METHOD 04/23/2025 4:19 PM EDT [facility] Eosinophils % 0 % LAB HEMATOLOGY METHOD 04/23/2025 4:19 PM EDT [facility] Basophils % 0 % LAB HEMATOLOGY METHOD 04/23/2025 4:19 PM EDT [facility] Immature Granulocytes % 2 % LAB HEMATOLOGY METHOD 04/23/2025 4:19 PM EDT [facility] Neutrophils Absolute 6.77(H) 1.60 - 6.10 10*3/uL LAB HEMATOLOGY METHOD 04/23/2025 4:19 PM EDT [facility] Lymphocytes Absolute 0.43(L) 1.20 - 3.90 10*3/uL LAB HEMATOLOGY METHOD 04/23/2025 4:19 PM EDT [facility] Monocytes Absolute 0.14(L) 0.30 - 0.90 10*3/uL LAB HEMATOLOGY METHOD 04/23/2025 4:19 PM EDT [facility] Eosinophils Absolute 0.02 0.00 - 0.50 10*3/uL LAB HEMATOLOGY METHOD 04/23/2025 4:19 PM EDT [facility] Basophils Absolute 0.03 0.00 - 0.10 10*3/uL LAB HEMATOLOGY METHOD 04/23/2025 4:19 PM EDT [facility] Immature Granulocytes Absolute 0.14(H) 0.00 - 0.06 10*3/uL LAB HEMATOLOGY METHOD 04/23/2025 4:19 PM EDT [facility] Blood Arterial blood specimen / Unknown Arterial Puncture / Unknown 04/23/2025 3:58 PM EDT 04/23/2025 4:11 PM EDT Narrative [facility] - 04/23/2025 4:19 PM EDT Therapeutic decision making should be based on absolute values, rather than percentages. us Shorty Barroso MD LAB BLOOD ORDERABLES Final R esult [facility] [address] [place] [address] * (ABNORMAL) Blood gas panel, arterial (04/23/2025 3:58 PM EDT) pH, Arterial 7.32 7.31 - 7.42 LAB HEMATOLOGY METHOD 04/23/2025 4:10 PM EDT [facility] pCO2, Arterial 50(H) 32 - 45 mmHg LAB HEMATOLOGY METHOD 04/23/2025 4:10 PM EDT [facility] pO2, Arterial 70(L) >70 mmHg LAB HEMATOLOGY METHOD 04/23/2025 4:10 PM EDT [facility] SO2, Measured, Arterial 93(L) 94 - 98 % LAB HEMATOLOGY METHOD 04/23/2025 4:10 PM EDT [facility] Base Excess, Arterial -0.5 -2.0 - 3.0 mmol/L LAB HEMATOLOGY METHOD 04/23/2025 4:10 PM EDT [facility] Bicarbonate, Calculated, Arterial 26 22 - 26 mmol/L LAB HEMATOLOGY METHOD 04/23/2025 4:10 PM EDT [facility] Hematocrit, Whole Blood 34.0(L) 40.0 - 51.0 % LAB HEMATOLOGY METHOD 04/23/2025 4:10 PM EDT [facility] Sodium, Whole Blood 138 136 - 145 mmol/L LAB HEMATOLOGY METHOD 04/23/2025 4:10 PM EDT [facility] Potassium, Whole Blood 5.0(H) 3.6 - 4.9 mmol/L LAB HEMATOLOGY METHOD 04/23/2025 4:10 PM EDT [facility] Chloride, Whole Blood 105 97 - 107 mmol/L LAB HEMATOLOGY METHOD 04/23/2025 4:10 PM EDT [facility] Glucose, Whole Blood 189(H) 74 - 99 mg/dL LAB HEMATOLOGY METHOD 04/23/2025 4:10 PM EDT [facility] Ionized Calcium, Whole Blood 4.8 4.6 - 5.1 mg/dL LAB HEMATOLOGY METHOD 04/23/2025 4:10 PM EDT [facility] Lactate, Arterial, Whole Blood 1.4 0.5 - 1.6 mmol/L LAB HEMATOLOGY METHOD 04/23/2025 4:10 PM EDT [facility] Blood Arterial blood specimen / Unknown Arterial Puncture / Unknown 04/23/2025 3:58 PM EDT 04/23/2025 4:05 PM EDT us Shorty Barroso MD LAB BLOOD ORDERABLES Final R esult [facility] [address] [place] [address] * Surgical Pathology Exam (04/23/2025 2:02 PM EDT) Case Report Surgical Pathology Case: [id number] Authorizing Provider: Shorty Barroso MD Collected: 04/23/2025 1402 Ordering Location: [facility] A OPERATING ROOM Received: 04/23/2025 1547 Pathologist: Sean Ace MD Specimen: Other (specify site), Partial gastrectomy 5:13 PM EDT [facility] Final Diagnosis A. 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 - SEE CHECKLIST 5:13 PM EDT [facility] at 1713 EDT Synoptic Checklist GASTROINTESTINAL STROMAL TUMOR (GIST): Resection GASTROINTESTINAL STROMAL TUMOR (GIST): RESECTION - All Specimens 8th Edition - Protocol posted: 06/20/2022 CLINICAL Preresection Treatment: No known preresection therapy SPECIMEN Procedure: Resection: Partial gastrectomy TUMOR Tumor Focality: Unifocal Tumor Site: Stomach: Cardia Histologic Type: Gastrointestinal stromal tumor, mixed Tumor Size: Greatest Dimension (Centimeters): 5.0 cm Additional Dimension (Centimeters): 3.0 cm Additional Dimension (Centimeters): 2.6 cm Mitotic Rate: 25 mitoses per 5 mm2 Histologic Grade: G2, high grade Treatment Effect: No known presurgical therapy Risk Assessment: Moderate risk MARGINS Margin Status: All margins negative for GIST Closest Margin(s) to GIST: Deep Distance from GIST to Closest Margin: 2 mm REGIONAL LYMPH NODES Regional Lymph Node Status: Not applicable (no regional lymph nodes submitted or found) pTNM CLASSIFICATION (AJCC 8th Edition) Reporting of pT, pN, and (when applicable) pM categories is based on information available to the pathologist at the time the report is issued. As per the AJCC (Chapter 1, 8th Ed.) it is the managing physician's responsibility to establish the final pathologic stage based upon all pertinent information, including but potentially not limited to this pathology report. pT Category: pT2 pN Category: pN not assigned (no nodes submitted or found) 5:13 PM EDT [facility] Clinical Information Gastrointestinal stromal tumor (GIST) of stomach. 5:13 PM EDT [facility] Microscopic Description Morphology is epithelioid and focally spindly. W Very limited focal necrosis. Abundant mitoses present. IHC is confirmatory. 5:13 PM EDT [facility] Special and Immunohistochemical Stains IHC: A3-3 DOG-1: POSITIVE A3-4 CD117: POSITIVE All controls show appropriate reactivity. All immunohistochemis try, in situ hybridization, and histochemical tests were developed by and are performed at the [facility], [address] [place] [address]. All tests reported here, except those addressing HER2 (breast) and PD-L1 expression as predictive markers, have not been cleared by or approved by the US Food and Drug Administration (FDA). The FDA has determined that such clearance or approval is not necessary. The laboratory is regulated under CLIA as qualified to perform high-complexity testing. The tests are used for clinical purposes. They should not be regarded as investigational or for research. 5:13 PM T [facility] Gross Description A. PARTIAL GASTRECTOMY The specimen is received in formalin and is labeled p artial gastrectomy . It consists of an unoriented, white-chandra, smooth mass that measures 5.0 x 3.0 x 2.6 cm. An irregularly shaped surgical margin/staple is present that covers the surface area of approximately 5.7 x 2.8 cm. The staple line is removed and the underlying tissue is inked blue. The specimen is serially sectioned to reveal a white-chandra, firm mass surrounding a central chandra-brown canal. Every other outbound sales representative section of the mass is submitted in cassettes A1-A8. Cold Time: 1h 45m Arnold Linares MD 5:13 PM T [facility] Note: A resident was involved in the service. I attest I examined the relevant preparations for the specimens and confirmed the diagnosis or interpretation. 5:13 PM T [facility] Tissue Topography unknown / Unknown 04/23/2025 2:02 PM EDT 04/23/2025 3:47 PM EDT Comment:Pre-op diagnosis: Gastrointestinal stromal tumor (GIST) [C49.A0] Shorty Barroso MD LAB PATHOLOGY ORDERABLES Fin al Result Performing Organization Address City/[facility]/ZIP Co de Phone Number [facility] [address] [place] [address] * Type and Screen (04/23/2025 11:47 AM EDT) Pathologist [facility] ABO/Rh O Negative 04/23/2025 12:00 PM EDT BLOOD B[facility] Antibody Screen Negative 04/23/2025 12:00 PM EDT BLOOD BANK Specimen Expiration 04/26/2025 23:59 04/23/2025 12:00 PM EDT BLOOD BANK Blood Venous blood specimen / Unknown Venipuncture / Unknown 04/23/2025 11:47 AM EDT 04/23/2025 12:00 PM EDT Jose Ortega MD LAB BLOOD BANK TEST ORDERABLES F inal Result Performing Organization Address [facility] de Phone Number BLOOD BANK [address] * (ABNORMAL) POCT glucose meter (04/23/2025 11:46 AM EDT) [facility] POCT Glucose 102(H) 74 - 99 mg/dL 04/23/2025 11:47 AM EDT [facility] Comment:Accuracy of a glucos e result obtained from a capillary whole blood specimen relies upon adequate, non-compromised capillary blood flow. If the capillary glucose result is not consistent with the patient's clinical signs and symptoms, glucose testing should be repeated with either an arterial or venous sample on the glucometer or sent to the main labortory for testing. Comment 04/23/2025 11:47 AM EDT [facility] Chemist Internship ID Ornelas Camelia M 04/23/20 11:47 AM EDT HEALTHCARE LAB Device ID [id number] 04/23/2025 11:47 AM EDT [facility]ALTH[facility]ARE LAB Specimen Type POC Venous 04/23/2025 11:47 AM EDT [facility] Blood Venous blood specimen / Unknown 04/23/2025 11:46 AM EDT 04/23/2025 11:47 AM EDT Shorty Barroso MD LAB POINT OF CARE TE ST DOCKED DEVICE UNSOLICITED RESULTS Final Result [facility] [address] [place] [address] documented in this encounter Visit Diagnoses Diagnosis Gastrointestinal stromal tumor (GIST)- Primary documented in this encounter Admitting Diagnoses Diagnosis Gastrointestinal stromal tumor (GIST) documented in this encounter Administered Medications Inactive Administered Medications - up to 3 most recent administrations Medication Order MAR Action Action Date Dose Rate Site acetaminophen (Ofirmev) injection 1,000 mg 1,000 mg, Intravenous, Every 6 hours, 24 doses, First dose on Sat04/23/25 at 1630, Last dose on Azul 04/29/25 at 1030, Routine New Bag 04/24/2025 10:01 AM EDT 1,000 mg 400 mL/hr New Bag 04/24/2025 4:41 AM EDT 1,000 mg 400 mL/hr New Bag 04/23/2025 9:30 PM EDT 1,000 mg 400 mL/hr acetaminophen (Tylenol) tablet 650 mg 650 mg, Oral, Every 6 hours scheduled, First dose (after last modification) on 04/24/25 at 1345, Until Discontinued, Routine, Recovery(Phase II-Outpatient)/On Unit(Inpatient) Given 04/25/2025 12:29 PM EDT 650 mg Given 04/25/2025 5:08 AM EDT 650 mg Given 04/24/2025 5:52 PM EDT 650 mg cefOXitin (Mefoxin) 2 g in sodium chloride 0.9% 100 mL IVPB (vial adapter required) 2 g, Intravenous, Every 6 hours, 4 doses, First dose on Sat04/23/25 at 2100, Last dose on 04/24/25 at 1500, Routine, Recovery(Phase II-Outpatient)/On Unit(Inpatient) New Bag 04/24/2025 3:14 PM EDT 2 g 220 mL/hr New Bag 04/24/2025 8:27 AM EDT 2 g 220 mL/hr New Bag 04/24/2025 3:33 AM EDT 2 g 220 mL/hr citalopram (CeleXA) tablet 40 mg 40 mg, Oral, Daily, First dose on 04/24/25 at 1445, Until Discontinued, Routine Given 04/25/2025 8:25 AM EDT 40 mg Given 04/24/2025 2:23 PM EDT 40 mg dextrose 10 % (D10W) bolus 125 mL 125 mL, Intravenous, Every 15 min PRN, Starting on 04/24/25 at 1025, Until 04/25/25 at 1825, Administer over 15 Minutes, Routine, low blood sugar BG 51-89 mg/dL dextrose 10 % (D10W) bolus 250 mL 250 mL, Intravenous, Every 15 min PRN, Starting on 04/24/25 at 1025, Until 04/25/25 at 1825, Administer over 15 Minutes, Routine, PRN low blood sugar BG =/<50 mg/dL dextrose 5 % and lactated Ringer's infusion 75 mL/hr, Intravenous, Continuous, Starting on Sat04/23/25 at 1630, Until 04/24/25 at 0952, Routine New Bag 04/24/2025 8:42 AM EDT 75 mL/hr 75 mL/hr New Bag 04/23/2025 4:26 PM EDT 75 mL/hr 75 mL/hr enoxaparin (Lovenox) syringe 40 mg 40 mg, Subcutaneous, Daily, 26 doses, First dose on Sat04/25/25 at 1615, Last dose on Azul 05/20/25 at 0900, Routine glucagon (human recombinant) injection 1 mg 1 mg, Intramuscular, Every 15 min PRN, Starting on 04/24/25 at 1025, Until 04/25/25 at 1825, Routine, low blood sugar per Hypoglycemia Prevention and Treatment protocol glucose (Glutose) 40 % oral gel 15-30 grams of glucose 15-30 grams of glucose, Sublingual, Every 15 min PRN, Starting on 04/24/25 at 1025, Until 04/25/25 at 1825, Routine, low blood sugar, per Hypoglycemia Prevention and Treatment protocol heparin (porcine) injection 5,000 Units 5,000 Units, Subcutaneous, Every 8 hours scheduled, First dose on Sat04/23/25 at 1145, Until Discontinued, Routine, Holding - Preprocedure Given 04/23/2025 11:29 AM EDT 5,000 Units Right Lower Abdomen heparin (porcine) injection 5,000 Units 5,000 Units, Subcutaneous, Every 8 hours scheduled, First dose on Sat04/23/25 at 1930, Until Discontinued, Routine, Recovery(Phase II-Outpatient)/On Unit(Inpatient) Given 04/25/2025 1:52 PM EDT 5,000 Units Left Lower Abdomen Given 04/25/2025 5:08 AM EDT 5,000 Units R ight Lower Abdomen Given 04/24/2025 9:06 PM EDT 5,000 Units R ight Lower Abdomen hydrALAZINE (Apresoline) injection 10 mg 10 mg, Intravenous, Every 6 hours PRN, Starting on Sat04/23/25 at 1539, Until 04/25/25 at 1825, Routine, Recovery(Phase II-Outpatient)/On Unit(Inpatient), high blood pressure, administer for SBP > 170 mmHg HOLD FOR HR > 100 BPM Given 04/23/2025 4:13 PM EDT 10 mg hydroCHLOROthiazide (HYDRODiuril) tablet 12.5 mg 12.5 mg, Oral, Daily, First dose on 04/24/25 at 1115, Until Discontinued, Routine Given 04/25/2025 8:25 AM EDT 12.5 mg Given 04/24/2025 11:33 AM EDT 12.5 mg HYDROmorphone (Dilaudid) injection 0.25 mg 0.25 mg, Intravenous, Every 4 hours PRN, Starting on 04/24/25 at 1014, Until 04/25/25 at 1825, Routine, Recovery(Phase II-Outpatient)/On Unit(Inpatient), severe pain, Moderate/Severe Pain > or =3: CPOT; > or =4: FLACC, PAINAD, NPASS, NRS, Wahl-Hadley Faces; > or =5: DVPRS, NIPS HYDROmorphone (Dilaudid) injection 0.5 mg 0.5 mg, Intravenous, Every 3 hours PRN, Starting on Sat04/23/25 at 1542, Until 04/24/25 at 1024, Routine, Recovery(Phase II-Outpatient)/On Unit(Inpatient), severe pain, Moderate/Severe Pain > or =3: CPOT; > or =4: FLACC, PAINAD, NPASS, NRS, Wahl-Hadley Faces; > or =5: DVPRS, NIPS Given 04/23/2025 9:30 PM EDT 0.5 mg insulin lispro (Admelog) 100 units/mL injection - Correction - Standard Dose 0-5 Units, Subcutaneous, 3 times daily with meals, First dose on 04/24/25 at 1230, Until Discontinued, Routine insulin lispro (Admelog) injection - Correction - Nighttime Dose 0-3 Units, Subcutaneous, 2 times nightly (2100 & 0300), First dose on 04/24/25 at 2100, Until Discontinued, Routine lidocaine (Lidoderm) 5 % patch 1 patch 1 patch, Apply externally, Every 24 hours, First dose on Sat04/23/25 at 1630, Until Discontinued, Administer over 12 Hours, Routine Medication Applied 04/24/2025 3:14 PM EDT 1 patch Abdominal Tissue Medication Applied 04/23/2025 4:35 PM EDT 1 patch Abdominal Tissue lisinopril tablet 20 mg 20 mg, Oral, Daily, First dose on 04/24/25 at 1115, Until Discontinued, Routine Given 04/25/2025 8:25 AM EDT 20 mg Given 04/24/2025 11:33 AM EDT 20 mg melatonin tablet 6 mg 6 mg, Oral, Once, 1 dose, On 04/25/25 at 0130, Routine Given 04/25/2025 12:49 AM EDT 6 mg methocarbamol (Robaxin) injection 1,000 mg 1,000 mg, Intravenous, Every 8 hours, 9 doses, First dose on Sat04/23/25 at 1630, Last dose on Sat04/26/25 at 0830, Routine, Recovery(Phase II-Outpatient)/On Unit(Inpatient) Given 04/24/2025 8:27 AM EDT 1,000 mg Given 04/24/2025 12:20 AM EDT 1,000 mg methocarbamol (Robaxin) tablet 500 mg 500 mg, Oral, 4 times daily, First dose on 04/24/25 at 1400, Until Discontinued, Routine, Recovery(Phase II-Outpatient)/On Unit(Inpatient) Given 04/25/2025 1:51 PM EDT 500 mg Given 04/25/2025 8:25 AM EDT 500 mg Given 04/24/2025 9:06 PM EDT 500 mg mupirocin (Bactroban) 2 % ointment 1 Application Each Nostril, 2 times daily, 10 doses, First dose on Sat04/23/25 at 2100, Last dose on Sat04/28/25 at 0900, Routine Given 04/25/2025 8:25 AM EDT 1 Application Given 04/24/2025 9:06 PM EDT 1 Application Given 04/24/2025 8:28 AM EDT 1 Application ondansetron (Zofran) 4 MG/5ML solution 4 mg 4 mg, Oral, Every 6 hours PRN, Starting on Sat04/23/25 at 1539, Until 04/25/25 at 1825, Routine, Recovery(Phase II-Outpatient)/On Unit(Inpatient), nausea, vomiting ondansetron (Zofran) injection 4 mg 4 mg, Intravenous, Every 6 hours PRN, Starting on Sat04/23/25 at 1539, Until 04/25/25 at 1825, Routine, Recovery(Phase II-Outpatient)/On Unit(Inpatient), vomiting, nausea ondansetron ODT (Zofran-ODT) disintegrating tablet 4 mg 4 mg, Oral, Every 6 hours PRN, Starting on Sat04/23/25 at 1539, Until 04/25/25 at 1825, Routine, Recovery(Phase II-Outpatient)/On Unit(Inpatient), nausea, vomiting oxyCODONE (Roxicodone) immediate release tablet 10 mg 10 mg, Oral, Every 6 hours PRN, Starting on 04/24/25 at 1010, Until 04/25/25 at 0815, Routine, Recovery(Phase II-Outpatient)/On Unit(Inpatient), severe pain Given 04/24/2025 12:41 PM EDT 10 mg oxyCODONE (Roxicodone) immediate release tablet 2.5 mg 2.5 mg, Oral, Every 6 hours PRN, Starting on 04/25/25 at 0815, Until 04/25/25 at 1825, Routine, Recovery(Phase II-Outpatient)/On Unit(Inpatient), Moderate/Severe Pain > or =3: CPOT; > or =4: FLACC, PAINAD, NPASS, NRS, Wahl-Hadley Faces; > or =5: DVPRS, NIPS pantoprazole (Protonix) EC tablet 40 mg 40 mg, Oral, Daily, First dose on 04/26/25 at 0900, Until Discontinued, Routine pantoprazole (Protonix) injection 40 mg 40 mg, Intravenous, Daily, First dose on Sat04/23/25 at 1630, Until Discontinued, Routine, Recovery(Phase II-Outpatient)/On Unit(Inpatient) Given 04/25/2025 8:25 AM EDT 40 mg Given 04/24/2025 8:28 AM EDT 40 mg Given 04/23/2025 4:20 PM EDT 40 mg Povidone-Iodine 5 % swab solution 1 Application Nasal, Once, 1 dose, On Sat04/23/25 at 1145, Routine Given 04/23/2025 11:29 AM EDT 1 Application topiramate (Topamax) tablet 50 mg 50 mg, Oral, Nightly, First dose on 04/24/25 at 2100, Until Discontinued, Routine Given 04/24/2025 9:06 PM EDT 50 mg documented in this encounter Active and Recently Administered Medications Times are shown in EDT. Scheduled Medication Order 04/23/2025 04/24/2025 04/25/2025 acetaminophen (Ofirmev) injection 1,000 mg (CANCELED) 1,000 mg, Intravenous, Every 6 hours, 24 doses, First dose on Sat04/23/25 at 1630, Last dose on Azul 04/29/25 at 1030, Routine 1629 (New Bag - Provider: Marylin Shelby RN)2130 (New Bag - Provider: Geraldine Galvez RN) 0441 (New Bag - Provider: Geraldine Galvez RN)1001 (New Bag - Provider: Pili Gonzalez, HELEN) acetaminophen (Tylenol) tablet 650 mg 650 mg, Oral, Every 6 hours scheduled, First dose (after last modification) on 04/24/25 at 1345, Until Discontinued, Routine, Recovery(Phase II-Outpatient)/On Unit(Inpatient) 1752 (Given - Provider: Pili Gonzalez, HELEN)2131 (Not Given - Provider: Geraldine Galvez RN - Reason: Patient/family refused) 0508 (Given - Provider: Geraldine Galvez RN)1229 (Given - Provider: Pili Gonzalez RN)1700 (Canceled Entry - Provider: Automatic Discharge Provider - Comment: Automatically canceled at discontinue of medication order) cefOXitin (Mefoxin) 2 g in sodium chloride 0.9% 100 mL IVPB (vial adapter required) (COMPLETED) 2 g, Intravenous, Every 6 hours, 4 doses, First dose on Sat04/23/25 at 2100, Last dose on Sat04/24/25 at 1500, Routine, Recovery(Phase II-Outpatient)/On Unit(Inpatient) 2015 (New Bag - Provider: Geraldine Galvez RN) 0333 (New Bag - Provider: Geraldine Galvez RN)0827 (New Bag - Provider: Pili Gonzalez, HELEN)1514 (New Bag - Provider: Pili Gonzalez RN) cefOXitin (Mefoxin) injection 2 g (COMPLETED) 2 g, Intravenous, Once, 1 dose, On Sat04/23/25 at 1400, Routine, Anesthesia Intraprocedure 1256 (Given - Provider: Taj Jeronimo MD)1456 (Given - Provider: Taj Jeronimo MD) citalopram (CeleXA) tablet 40 mg 40 mg, Oral, Daily, First dose on 04/24/25 at 1445, Until Discontinued, Routine 1423 (Given - Provider: Pili Gonzalez RN) 0825 (Given - Provider: Pili Gonzalez RN) enoxaparin (Lovenox) syringe 40 mg 40 mg, Subcutaneous, Daily, 26 doses, First dose on Sat04/25/25 at 1615, Last dose on Azul 05/20/25 at 0900, Routine 1615 (Canceled Entry - Provider: Automatic Discharge Provider - Comment: Automatically canceled at discontinue of medication order) heparin (porcine) injection 5,000 Units (CANCELED) 5,000 Units, Subcutaneous, Every 8 hours scheduled, First dose on Sat04/23/25 at 1145, Until Discontinued, Routine, Holding - Preprocedure 1129 (Given - Provider: Jeet Canas RN) heparin (porcine) injection 5,000 Units (CANCELED) 5,000 Units, Subcutaneous, Every 8 hours scheduled, First dose on Sat04/23/25 at 1930, Until Discontinued, Routine, Recovery(Phase II-Outpatient)/On Unit(Inpatient) 2015 (Given - Provider: Geraldine Galvez RN) 0551 (Given - Provider: Geraldine Galvez RN)1424 (Given - Provider: Pili Gonzalez RN)2106 (Given - Provider: Geraldine Galvez RN) 0508 (Given - Provider: Geraldine Galvez RN)1352 (Given - Provider: Pili Gonzalez RN) hydroCHLOROthiazide (HYDRODiuril) tablet 12.5 mg 12.5 mg, Oral, Daily, First dose on 04/24/25 at 1115, Until Discontinued, Routine 1133 (Given - Provider: Pili Gonzalez RN) 0825 (Given - Provider: Pili Gonzalez RN) insulin lispro (Admelog) 100 units/mL injection - Correction - Standard Dose 0-5 Units, Subcutaneous, 3 times daily with meals, First dose on 04/24/25 at 1230, Until Discontinued, Routine 1219 (Not Given - Provider: Pili Gonzalez RN - Reason: Patient/family refused)1658 (Not Given - Provider: Pili Gonzalez RN - Reason: Order parameters not met) 0818 (Not Given - Provider: Pili Gonzalez RN - Reason: Order parameters not met)1206 (Not Given - Provider: Pili Gonzalez RN - Reason: Order parameters not met)1730 (Canceled Entry - Provider: Automatic Discharge Provider - Comment: Automatically canceled at discontinue of medication order) insulin lispro (Admelog) injection - Correction - Nighttime Dose 0-3 Units, Subcutaneous, 2 times nightly (2100 & 0300), First dose on 04/24/25 at 2100, Until Discontinued, Routine 2052 (Not Given - Provider: Geraldine Galvez RN - Reason: Order parameters not met) 0413 (Not Given - Provider: Geraldine Galvez RN - Reason: Order parameters not met) lidocaine (Lidoderm) 5 % patch 1 patch 1 patch, Apply externally, Every 24 hours, First dose on Sat04/23/25 at 1630, Until Discontinued, Administer over 12 Hours, Routine 1635 (Medication Applied - Provider: Marylin Shelby RN) 0335 (Medication Removed - Provider: Geraldine Galvez RN)1514 (Medication Applied - Provider: Pili Gonzalez RN) 0413 (Medication Removed - Provider: Geraldine Galvez RN)1630 (Canceled Entry - Provider: Automatic Discharge Provider - Comment: Automatically canceled at discontinue of medication order) lisinopril tablet 20 mg 20 mg, Oral, Daily, First dose on 04/24/25 at 1115, Until Discontinued, Routine 1133 (Given - Provider: Pili Gonzalez RN) 0825 (Given - Provider: Pili Gonzalez RN) melatonin tablet 6 mg (COMPLETED) 6 mg, Oral, Once, 1 dose, On Sat04/25/25 at 0130, Routine 0049 (Given - Provider: Geraldine Galvez RN) methocarbamol (Robaxin) injection 1,000 mg (CANCELED) 1,000 mg, Intravenous, Every 8 hours, 9 doses, First dose on Sat04/23/25 at 1630, Last dose on Sat04/26/25 at 0830, Routine, Recovery(Phase II-Outpatient)/On Unit(Inpatient) 1630 (Due) 0020 (Given - Provider: Geraldine Galvez RN)0827 (Given - Provider: Pili Gonzalez RN) methocarbamol (Robaxin) tablet 500 mg 500 mg, Oral, 4 times daily, First dose on 04/24/25 at 1400, Until Discontinued, Routine, Recovery(Phase II-Outpatient)/On Unit(Inpatient) 1424 (Given - Provider: Pili Gonzalez RN)1752 (Given - Provider: Pili Gonzalez RN)2106 (Given - Provider: Geraldine Galvez RN) 0825 (Given - Provider: Pili Gonzalez, HELEN)1351 (Given - Provider: Pili Gonzalez RN)1800 (Canceled Entry - Provider: Automatic Discharge Provider - Comment: Automatically canceled at discontinue of medication order) mupirocin (Bactroban) 2 % ointment 1 Application Each Nostril, 2 times daily, 10 doses, First dose on Sat04/23/25 at 2100, Last dose on Sat04/28/25 at 0900, Routine 2015 (Given - Provider: Geraldine Galvez, RN) 08 (Given - Provider: Pili Gonzalez, RN)2105 (Given - Provider: Geraldine Galvez, HELEN) 08 (Given - Provider: Pili Gonzalez, HELEN) pantoprazole (Protonix) EC tablet 40 mg 40 mg, Oral, Daily, First dose on Sat04/26/25 at 0900, Until Discontinued, Routine pantoprazole (Protonix) injection 40 mg (CANCELED) 40 mg, Intravenous, Daily, First dose on Sat04/23/25 at 1630, Until Discontinued, Routine, Recovery(Phase II-Outpatient)/On Unit(Inpatient) 1620 (Given - Provider: Marylin Shelby RN) 08 (Given - Provider: Pili Gonzalez, HELEN) 08 (Given - Provider: Pili Gonazlez, HELEN) Povidone-Iodine 5 % swab solution 1 Application (COMPLETED) Nasal, Once, 1 dose, On Sat04/23/25 at 1145, Routine 1129 (Given - Provider: eJet Canas RN) topiramate (Topamax) tablet 50 mg 50 mg, Oral, Nightly, First dose on 04/24/25 at 2100, Until Discontinued, Routine 2105 (Given - Provider: Geraldine Galvez RN) Continuous Medication Order 04/23/2025 04/24/2025 04/25/2025 dextrose 5 % and lactated Ringer's infusion (CANCELED) 75 mL/hr, Intravenous, Continuous, Starting on Sat04/23/25 at 1630, Until 04/24/25 at 0952, Routine 162 (New Bag - Provider: Marylin Shelby, HELEN) 0842 (New Bag - Provider: Pili Gonzalez, HELEN) PRN Medication Order 04/23/2025 04/24/2025 04/25/2025 dextrose 10 % (D10W) bolus 125 mL(Linked Group 1) 125 mL, Intravenous, Every 15 min PRN, Starting on 04/24/25 at 1025, Until 04/25/25 at 1825, Administer over 15 Minutes, Routine, low blood sugar BG 51-89 mg/dL dextrose 10 % (D10W) bolus 250 mL(Linked Group 1) 250 mL, Intravenous, Every 15 min PRN, Starting on 04/24/25 at 1025, Until 04/25/25 at 1825, Administer over 15 Minutes, Routine, PRN low blood sugar BG =/<50 mg/dL glucagon (human recombinant) injection 1 mg(Linked Group 1) 1 mg, Intramuscular, Every 15 min PRN, Starting on 04/24/25 at 1025, Until 04/25/25 at 1825, Routine, low blood sugar per Hypoglycemia Prevention and Treatment protocol glucose (Glutose) 40 % oral gel 15-30 grams of glucose(Linked Group 1) 15-30 grams of glucose, Sublingual, Every 15 min PRN, Starting on 04/24/25 at 1025, Until 04/25/25 at 1825, Routine, low blood sugar, per Hypoglycemia Prevention and Treatment protocol hydrALAZINE (Apresoline) injection 10 mg 10 mg, Intravenous, Every 6 hours PRN, Starting on Sat04/23/25 at 1539, Until 04/25/25 at 1825, Routine, Recovery(Phase II-Outpatient)/On Unit(Inpatient), high blood pressure, administer for SBP > 170 mmHg HOLD FOR HR > 100 BPM 1613 (Given - Provider: Marylin Shelby RN) HYDROmorphone (Dilaudid) injection 0.25 mg 0.25 mg, Intravenous, Every 4 hours PRN, Starting on 04/24/25 at 1014, Until 04/25/25 at 1825, Routine, Recovery(Phase II-Outpatient)/On Unit(Inpatient), severe pain, Moderate/Severe Pain > or =3: CPOT; > or =4: FLACC, PAINAD, NPASS, NRS, Wahl-Hadley Faces; > or =5: DVPRS, NIPS HYDROmorphone (Dilaudid) injection 0.5 mg (CANCELED) 0.5 mg, Intravenous, Every 3 hours PRN, Starting on Sat04/23/25 at 1542, Until 04/24/25 at 1024, Routine, Recovery(Phase II-Outpatient)/On Unit(Inpatient), severe pain, Moderate/Severe Pain > or =3: CPOT; > or =4: FLACC, PAINAD, NPASS, NRS, Wahl-Hadley Faces; > or =5: DVPRS, NIPS 2130 (Given - Provider: Geraldine Galvez RN) labetalol (Normodyne,Trandate) injection 20 mg 20 mg, Intravenous, Every 4 hours PRN, Starting on Sat04/23/25 at 1539, Until 04/25/25 at 1825, Routine, Recovery(Phase II-Outpatient)/On Unit(Inpatient), high blood pressure, administer for SBP > 170 mmHg HOLD FOR HR < 60 BPM ondansetron (Zofran) 4 MG/5ML solution 4 mg(Linked Group 2) 4 mg, Oral, Every 6 hours PRN, Starting on Sat04/23/25 at 1539, Until 04/25/25 at 1825, Routine, Recovery(Phase II-Outpatient)/On Unit(Inpatient), nausea, vomiting ondansetron (Zofran) injection 4 mg(Linked Group 2) 4 mg, Intravenous, Every 6 hours PRN, Starting on Sat04/23/25 at 1539, Until 04/25/25 at 1825, Routine, Recovery(Phase II-Outpatient)/On Unit(Inpatient), vomiting, nausea ondansetron ODT (Zofran-ODT) disintegrating tablet 4 mg(Linked Group 2) 4 mg, Oral, Every 6 hours PRN, Starting on Sat04/23/25 at 1539, Until 04/25/25 at 1825, Routine, Recovery(Phase II-Outpatient)/On Unit(Inpatient), nausea, vomiting oxyCODONE (Roxicodone) immediate release tablet 10 mg (CANCELED) 10 mg, Oral, Every 6 hours PRN, Starting on 04/24/25 at 1010, Until 04/25/25 at 0815, Routine, Recovery(Phase II-Outpatient)/On Unit(Inpatient), severe pain 1241 (Given - Provider: Pili Gonzalez RN)1243 (See Alternative - Provider: Pili Gonzalez RN) oxyCODONE (Roxicodone) immediate release tablet 2.5 mg(Linked Group 3) 2.5 mg, Oral, Every 6 hours PRN, Starting on 04/25/25 at 0815, Until 04/25/25 at 1825, Routine, Recovery(Phase II-Outpatient)/On Unit(Inpatient), Moderate/Severe Pain > or =3: CPOT; > or =4: FLACC, PAINAD, NPASS, NRS, Wahl-Hadley Faces; > or =5: DVPRS, NIPS Linked Groups Order Group 1: glucose (Glutose) 40 % oral gel 15-30 grams of glucoseJump to med 15-30 grams of glucose, Sublingual, Every 15 min PRN, Starting on 04/24/25 at 1025, Until 04/25/25 at 1825, Routine, low blood sugar, per Hypoglycemia Prevention and Treatment protocol Or dextrose 10 % (D10W) bolus 125 mLJump to med 125 mL, Intravenous, Every 15 min PRN, Starting on 04/24/25 at 1025, Until 04/25/25 at 1825, Administer over 15 Minutes, Routine, low blood sugar BG 51-89 mg/dL Or dextrose 10 % (D10W) bolus 250 mLJump to med 250 mL, Intravenous, Every 15 min PRN, Starting on 04/24/25 at 1025, Until 04/25/25 at 1825, Administer over 15 Minutes, Routine, PRN low blood sugar BG =/<50 mg/dL Or glucagon (human recombinant) injection 1 mgJump to med 1 mg, Intramuscular, Every 15 min PRN, Starting on 04/24/25 at 1025, Until 04/25/25 at 1825, Routine, low blood sugar per Hypoglycemia Prevention and Treatment protocol Group 2: ondansetron ODT (Zofran-ODT) disintegrating tablet 4 mgJump to med 4 mg, Oral, Every 6 hours PRN, Starting on Sat04/23/25 at 1539, Until 04/25/25 at 1825, Routine, Recovery(Phase II-Outpatient)/On Unit(Inpatient), nausea, vomiting Or ondansetron (Zofran) injection 4 mgJump to med 4 mg, Intravenous, Every 6 hours PRN, Starting on Sat04/23/25 at 1539, Until 04/25/25 at 1825, Routine, Recovery(Phase II-Outpatient)/On Unit(Inpatient), vomiting, nausea Or ondansetron (Zofran) 4 MG/5ML solution 4 mgJump to med 4 mg, Oral, Every 6 hours PRN, Starting on 04/23/25 at 1539, Until 04/25/25 at 1825, Routine, Recovery(Phase II-Outpatient)/On Unit(Inpatient), nausea, vomiting Group 3: oxyCODONE (Roxicodone) immediate release tablet 2.5 mgJump to med 2.5 mg, Oral, Every 6 hours PRN, Starting on 04/25/25 at 0815, Until 04/25/25 at 1825, Routine, Recovery(Phase II-Outpatient)/On Unit(Inpatient), Moderate/Severe Pain > or =3: CPOT; > or =4: FLACC, PAINAD, NPASS, NRS, Wahl-Hadley Faces; > or =5: DVPRS, NIPS documented in this encounter Additional Health Concerns Active Problems Noted Date Diagnosed Date Autogenerated Problem 03/30/2025 Assessment Noted Time A fall risk assessment has been complete d for the patient 03/30/2025 8:02 AM EDT A Body Mass Index follow-up plan has been documented for the patient 04/25/2025 3:57 PM EDT documented as of this encounter Care Teams Corporate Associate Attorney Relationship Specialty Start Date End Date Jan Chavez MD [address] [place] [id number] PCP - General 07/05/21 Rachid Jaime MD [id number] [id number] Surgeon Neurosurgery 08/07/21 documented as of this encounter
--- OUTSIDE RECORDS SUMMARY | 2025-04-23 10:35 | XMS_ITS | Encounter Summary ---
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] Procedures SC REMV STOMACH,PART,DISTAL,GASTROJ EJUN laparoscopic/robotic possible open partial gastrectomy Shorty Barroso MD [address] [phone] Phone: tel: fax: [facility] [address] [place] [phone] Phone: tel: Referral ID Status Reason Start Date Expiration Date Visits Re quested Visits Authorized [id number] 1 1 Encounter Details Date Type Department Care Team (Late st Contact Info) Description 04/23/2025 11:35 AM EDT - 04/23/2025 3:35 PM EDT Surgery [facility] [address] [place] [phone] Shorty Barroso MD [address] [phone] laparoscopic/robotic possible open partial gastrectomy [24993 (CPT )] Surgery Details Date/Time Status Location OR Service Patient Class Case Class Case Type Trauma Case? 04/23/2025 11:35 AM Posted [facility] 2OR 05 Surgical Oncology Surgery Admit E-Electi ve Panel 1 Procedure LRB Anes Op Region Wound Class Comments laparoscopic/robotic possible open partial gastrectomy N/A General Abdomen Class II/ Clean Contaminated RT 3h Surgeon Surgeon Role Service Panel Thelma Wallace DO Resident - Assisting 1 Shorty Barroso MD Primary Surgical Oncology 1 documented in this encounter Social History Tobacco [...] Sign Reading Time Taken Comments Blood Pressure 183/74 04/23/2025 3:35 PM EDT Pulse 76 04/23/2025 3:35 PM EDT Temperature 35.7 C (96.2 F) 04/23/2025 3:35 PM EDT Respiratory Rate 12 04/23/2025 3:35 PM EDT Oxygen Saturation 100% 04/23/2025 3:35 PM EDT Inhaled Oxygen Concentration - - Weight 83.9 kg (185 lb) 04/23/2025 11:58 AM EDT Height - - Body Mass Index 31.24 04/23/2025 6:00 PM EDT documented in this encounter Functional Status * Calculated C-SSRS Risk Score (Lifetime/Recent) Answer Date of Assessment Author No Risk Indicated 03/30/2025 7:58 AM EDT Maryam Shipley * Question Answer Date of Assessment Author 1. Wish to be (Past 1 Month) No 7:58 AM EDT Maryam Shipley 2. Non-Specific Active Suici farzad Thoughts (Past 1 Month) No 03/30/2025 7:58 AM EDT Ela Shipley 6. Suicidal Behavior (Lifetime) No 7:58 AM EDT Maryam Shipley documented as of this encounter Discharge Instructions [...] Barroso in 4 weeks. - Call the [facility] with any questions or [...] daily for 26 doses. 10.4 mL 04/25/2025 documented as of this encounter Miscellaneous Notes * Pili Jovel RN - 04/25/2025 3:55 PM EDT [id number] Discharge Instructions: Having a Full Liquid Diet [...] cramping Last Reviewed Date: 2025 00:00:00 ?? 9787-8311 The [employer]. All rights reserved. This information is not intended as a substitute for professional medical care. Always follow your healthcare professional's instructions. * [facility] - Pili Gonzalez RN - 04/25/2025 3:55 PM EDT Images from the original note were not included. [id number] Full Liquid Diet A full liquid diet [...] You can buy these drinks at pharmacies and[facility] stores. You don?t need a prescription. ? Children over 1 year old. Limit milk to 2 or 3 cups per day. Too much milk can make your child less hungry for other foods. Last Reviewed Date: 2024 00:00:00 ?? 8941-5107 The [employer]. All rights reserved. This information is not intended as a substitute for professional medical care. Always follow your healthcare professional's instructions. * Latha [facility] - Pili Gonzalez RN - 04/25/2025 3:25 PM EDT Images from the original note were not included. [address] Gastrointestinal Stromal Tumor (GIST) What is a [...] effects. Last Reviewed Date: 2023 00:00:00 ?? 2371-4778 The [employer]. All rights reserved. This information is not intended as a substitute for professional medical care. Always follow your healthcare professional's instructions. * Discharge Summary - Maury Bacon MD - 04/25/2025 2:56 PM EDT Hospitalization Admit Date/Time: 04/23/2025 9:31 AM Admitting Attending: Shorty Barroso Discharge Date: 04/25/2025 Discharge Attending Physician: Shorty Barroso MD PCP name and Address: Jan Chavez MD [address] [place] [address] Referring provider name and address: No referring provider defined for this encounter. 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 [...] Edited by: Maury Bacon MD at 04/25/2025 9870 Dispo: Continue Current Level of Care Maury Bacon PGY-1 General Surgery Pager: [phone] Cosigned by Himanshu Mendiola MD at 04/26/2025 [...] Goal (Individualized) Outcome: Ongoing, Progressing Flowsheets (Taken 04/25/2025 0820) Patient/Family-Specific Goals (Include Timeframe): pt will be free from falls/injury during this shift Individualized Care Needs: safety Anxieties, Fears or Concerns: Eager to go home today Goal: Absence of Hospital-Acquired Illness or Injury Outcome: Ongoing, Progressing Intervention: Identify and Manage Fall Risk Flowsheets (Taken 04/25/2025 0820) Safety Promotion/Fall Prevention: assistive device/personal items within reach clutter-free environment maintained lighting adjusted nonskid shoes/slippers when out of bed room organization consistent safety round/check completed Intervention: Prevent Skin Injury Flowsheets Taken 04/25/2025 0820 Body Position: weight shifting Taken 04/24/2025 1303 [...] Identify and Manage Fall Risk Flowsheets (Taken 04/24/2025537) Safety Promotion/Fall Prevention: activity supervised assistive device/personal [...] (Individualized) Outcome: Ongoing, Progressing Flowsheets (Taken 04/24/2025 0800) Patient/Family-Specific Goals (Include Timeframe): pt will report pain level tolerable with currentpain medication regimen during this shift Individualized Care Needs: pain mgmt Anxieties, Fears or Concerns: Wants to go home Goal: Absence of Hospital-Acquired Illness or Injury Outcome: Ongoing, Progressing Intervention: Identify and Manage Fall Risk Flowsheets (Taken 04/24/2025 0800) Safety Promotion/Fall Prevention: assistive device/personal items within [...] Airway None Output by Drain (mL) 04/22/25 07 - 04/22/25 1859 04/22/25 190 - 04/23/25 0659 04/23/25 07 - 04/23/25 1859 04/23/25 190 - 04/24/25 0659 04/24/25 07 - 04/24/25 1322 Patient has no LDAs [...] 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 Pt is s/p Laparoscopic/robotic partial gastrectomy. Plan: - Begin transitioning from IV to oral meds - dc maldonado - Cont CLD - Incentive spirometer - Restart home meds (lisinopril-hydrochlorothiazide) - SSI for elevated glucose Edited by: Maury Bacon MD at 04/24/2025 7594 Dispo: Continue Current Level of Care Maury Bacon PGY-1 General Surgery Pager: [phone] Cosigned by Himanshu Mendiola MD at 04/24/2025 [...] Identify and Manage Fall Risk Flowsheets (Taken 04/24/2025537) Safety Promotion/Fall Prevention: activity supervised assistive device/personal [...] 04/24/2025 12:20 AM EDT Pastoral Care Note Employee Development Manager initiated visit. Patient's is at bedside. Patient appeared to be responsive and talking to care team. and patient expressed gratitude for the care team. Employee Development Manager provided emotionalsupport, spiritual support, and supportive listening. Employee Development Manager will follow up as needed. Referral From: Employee Development Manager Initiated Pastoral Care Provided For: Patient, Spouse Patient Profile: Consult Reasons: Initial visit Spiritual Assessment: Support Systems/ Spiritual Resources: Marry, Family Spiritual Needs: Emotional support Spiritual Issues: Change/ transition, Trauma/ crisis Interventions: Interventions Provided: Emotional support, Spiritual support, Consulted with care team, Introduced Patient/Family to Employee Development Manager Services, Supportive Listening Pastoral Care Outcomes: Patient Outcomes: Gratitude, Is knowledgeable about Power Equipment Mechanics Instructor Services, Appreciative of Employee Development Manager Support, Expresses increased trust in medical team and/or plan of care * Post-Procedure Note - Homero Joyner MD - 04/23/2025 5:14 PM EDT Images from the original note were not included. [facility] Department of Surgery Division of Surgical Oncology [...] Intake 2100 ml Output 75 ml Net 202 ml Physical Exam: GENERAL: Well-developed, well-nourished, not [...] liquid diet - Anticoagulation/DVT ppx: SQH - MMPC - Level of care: Continue Current Level of Care I have answered and addressed all issues and concerns from the patient and nursing staff. I have notified senior resident/attending salon coordinator with any issues or concerns. 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 The theRightAPIinci XI robot was brought in and docked. [...] the tumor. I extent of the gastrotomy along the middle of the anterior stomach using the [...] fascia was closed in interrupted fashion 0-0 [id number] Vicryl sutures. Skin was closed with 4-0 Monocryl in subcuticular fashion. At the conclusion of the procedure, the patient was extubated, and taken to recovery room in stable condition. Complications: None; patient tolerated the procedure well. Submitted by: Shorty Barroso MD - 04/23/2025 * Brief Op Note - Thelma Wallace DO - 04/23/2025 1:06 PM EDT Date: 04/23/25 Location: [facility] Name: Montez Collins, : 1950, Diagnoses: Pre-op Diagnosis Gastrointestinal stromal tumor (GIST) Post-op Diagnosis Gastrointestinal stromal tumor (GIST) Procedure(s): Robotic partial gastrectomy for GIST in cardia Esophagogastroscopy Attending Surgeon(s): * Shorty Barroso - Primary Home Economist Consumer Service(s): * Thelma Wallace DO - Resident - [...] RENÉE who presents in consultation from his home appraiser/oncologist Dr. Steve. The patient presented to his [...] 0807) Temp 36.6 ??C (97.9 ??F) (03/30/25 08) Pulse 61 (03/30/25 0807) Resp 16 (03/30/25 08) SpO2 99 % (03/30/25 08) .FLOWAMB[14 Weight: 91.3 kg (201 lb 4.5 [...] units) Date/Time Value 03/24/2025 1038 (OUTSIDE CASE: [id number] COLLECTED ON 03/10/2025): DUODENUM, BIOPSY (A): - [...] saw and evaluated the patient with the medical/SHOE CEMENTER/PA student. I discussed the case with the medical/SHOE CEMENTER/PA student and agree with the findings and [...] 2:02 PM EDT Gastrointestinal stromal tumor (GIST) SC REMV STOMACH,PART,DISTAL,GA STROJEJUN 04/23/2025 11:57 AM EDT Gastrointestinal stromal tumor (GIST) TYPE AND SCREEN Routine 04/23/2025 11:47 AM EDT POCT GLUCOSE METER UNSOLICITED RESULTS Routine 04/23/2025 11:46 AM EDT documented in this encounter Results * (ABNORMAL) POCT glucose meter (04/25/2025 12:04 PM EDT) POCT Glucose 127(H) 74 - 99 mg/dL 04/25/2025 12:05 PM EDT [facility] Comment:Accuracy of a glucos e result [...] for testing. Comment 04/25/2025 12:05 PM EDT [facility] Rail Manager ID Mckenzie Cleaning 12:05 PM EDT [facility] Device ID [id number] 04/25/2025 12:05 PM EDT [facility] Specimen Type POC Capillary 04/25/2025 12:05 PM EDT [facility] Blood Capillary blood specimen / Unknown 04/25/2025 12:04 PM EDT 04/25/2025 12:05 PM EDT Shorty Barroso MD LAB POINT OF CARE TE ST DOCKED DEVICE UNSOLICITED RESULTS Final Result Performing Organization Address City/[facility] Co de Phone Number [facility] [address] [place] [address] * POCT glucose meter (04/25/2025 7:40 AM EDT) [facility] POCT Glucose 97 74 - 99 mg/dL [...] Comment 04/25/2025 7:41 AM EDT [facility] Rail Manager ID Mckenzie Cleaning 7:41 AM EDT [facility] Device ID [id number] 04/25/2025 7:41 AM EDT [facility] Specimen Type POC Capillary 04/25/2025 7:41 AM EDT [facility] Blood Capillary blood specimen / Unknown 04/25/2025 7:40 AM EDT 04/25/2025 7:41 AM EDT Shorty Barroso MD LAB POINT OF CARE TE ST DOCKED DEVICE UNSOLICITED RESULTS Final Result Performing Organization Address City/[facility]/ZIP Co de Phone Number [facility] [address] [place] [address] * (ABNORMAL) Phosphorus, Plasma (04/25/2025 5:11 AM EDT) [facility] Phosphorus, Plasma 2.3(L) 2.5 - 4.5 mg/dL 04/25/2025 5:57 AM EDT [facility] Blood Venous blood specimen / Unknown Venipuncture / Unknown 04/25/2025 5:11 AM EDT 04/25/2025 5:31 AM EDT Shorty Barroso MD LAB BLOOD ORDERABLES Final R esult Performing Organization Address City/[facility]/ZIP Co de Phone Number [facility] [address] [place] [address] * Magnesium, Plasma (04/25/2025 5:11 AM EDT) Magnesium, Plasma 2.1 1.9 - 2.4 mg/dL 04/25/2025 5:57 AM EDT [facility] Blood Venous blood specimen / Unknown Venipuncture / Unknown 04/25/2025 5:11 AM EDT 04/25/2025 5:31 AM EDT Shorty Barroso MD LAB BLOOD ORDERABLES Final R esult [facility] [address] [place] [address] * (ABNORMAL) Comprehensive Metabolic Panel, Plasma (04/25/2025 5:11 AM EDT) Glucose, Plasma 118(H) 74 - 99 mg/dL 04/25/2025 5:57 AM EDT [facility] BUN, Plasma 14 8 - 23 mg/dL 04/25/2025 5:57 AM EDT [facility] Creatinine, Plasma 0.89 0.70 - 1.20 mg/dL 04/25/2025 5:57 AM EDT [facility] BUN/Creatinine Ratio 16 04/25/2025 5:57 AM EDT [facility] Sodium, Plasma 139 136 - 145 mmol/L 04/25/2025 5:57 AM EDT [facility] Potassium, Plasma 4.1 3.6 - 4.9 mmol/L 04/25/2025 5:57 AM EDT [facility] Chloride, Plasma 103 97 - 107 mmol/L 04/25/2025 5:57 AM EDT [facility] CO2, Plasma 27 22 - 29 mmol/L 04/25/2025 5:57 AM EDT [facility] Anion Gap 9 6 - 16 mmol/L 04/25/2025 5:57 AM EDT [facility] Total Calcium, Plasma 9.8 8.9 - 10.2 mg/dL 04/25/2025 5:57 AM EDT [facility] Total Protein 7.0 6.3 - 7.9 g/dL 04/25/2025 5:57 AM EDT [facility] Albumin, Plasma 4.1 3.5 - 5.2 g/dL 04/25/2025 5:57 AM EDT [facility] AST, Plasma 29 10 - 50 U/L 04/25/2025 5:57 AM EDT [facility] ALT, Plasma 33 10 - 50 U/L 04/25/2025 5:57 AM EDT [facility] Alkaline Phosphatase, Plasma 65 40 - 115 U/L 04/25/2025 5:57 AM EDT [facility] Total Bilirubin, Plasma 0.5 0.2 - 1.1 mg/dL 04/25/2025 5:57 AM EDT [facility] eGFRcr 90.5 mL/min/1.7 3m*2 04/25/2025 5:57 AM EDT [facility] Comment:Reported eGFRcr in m L/min/1.73m2 is based the CKD-EPI 2020 equation that does not use a race coefficient. Blood Venous blood specimen / Unknown Venipuncture / Unknown 04/25/2025 5:11 AM EDT 04/25/2025 5:31 AM EDT us Shorty Barroso MD LAB BLOOD ORDERABLES Final R esult [facility] [address] [place] [address] * (ABNORMAL) CBC W/O Differential (04/25/2025 5:11 AM EDT) WBC Count 11.40(H) 3.70 - 10.30 10*3/uL LAB HEMATOLOGY METHOD 04/25/2025 5:40 AM EDT [facility] RBC Count 4.13(L) 4.60 - 6.10 10*6/uL LAB HEMATOLOGY METHOD 04/25/2025 5:40 AM EDT [facility] HGB 10.8(L) 13.7 - 17.5 g/dL LAB HEMATOLOGY METHOD 04/25/2025 5:40 AM EDT [facility] HCT 36.9(L) 40.0 - 51.0 % LAB HEMATOLOGY METHOD 04/25/2025 5:40 AM EDT [facility] Platelet Count 257 155 - 369 10*3/uL LAB HEMATOLOGY METHOD 04/25/2025 5:40 AM EDT [facility] MCV 89 79 - 98 fL LAB HEMATOLOGY METHOD 04/25/2025 5:40 AM EDT [facility] MCH 26.2 26.0 - 32.0 pg LAB HEMATOLOGY METHOD 04/25/2025 5:40 AM EDT [facility] MCHC 29.3(L) 30.7 - 35.5 g/dL LAB HEMATOLOGY METHOD 04/25/2025 5:40 AM EDT [facility] RDW 21.0(H) 11.5 - 14.5 % LAB HEMATOLOGY METHOD 04/25/2025 5:40 AM EDT [facility] MPV 9.4 8.8 - 12.5 fL LAB HEMATOLOGY METHOD 04/25/2025 5:40 AM EDT [facility] nRBC 0.0 <=0.0 per 100 WBCs LAB HEMATOLOGY METHOD 04/25/2025 5:40 AM EDT [facility] Blood Venous blood specimen / Unknown Venipuncture / Unknown 04/25/2025 5:11 AM EDT 04/25/2025 5:30 AM EDT us Shorty Barroso MD LAB BLOOD ORDERABLES Final R esult [facility] [address] [place] [address] * (ABNORMAL) POCT glucose meter (04/24/2025 8:04 PM EDT) [facility] POCT Glucose 122(H) 74 - 99 mg/dL [...] Comment 04/24/2025 8:06 PM EDT [facility] Rail Manager ID Noemi Salguero 025 8:06 PM EDT [facility] Device ID [id number] 04/24/2025 8:06 PM EDT [facility] Specimen Type POC Capillary 04/24/2025 8:06 PM EDT [facility] Blood Capillary blood specimen / Unknown 04/24/2025 8:04 PM EDT 04/24/2025 8:06 PM EDT Shorty Barroso MD LAB POINT OF CARE TE ST DOCKED DEVICE UNSOLICITED RESULTS Final Result Performing Organization Address City/State/[facility] Co de Phone Number [facility] [address] [place] [address] * (ABNORMAL) POCT glucose meter (04/24/2025 4:52 PM EDT) [facility] POCT Glucose 122(H) 74 - 99 mg/dL 04/24/2025 4:53 PM EDT [facility] Comment:Accuracy of [...] for testing. Comment 04/24/2025 4:53 PM EDT [facility] Rail Manager ID Pili Gonzalez 025 4:53 PM EDT [facility] Device ID [id number] 04/24/2025 4:53 PM EDT [facility] Specimen Type POC Capillary 04/24/2025 4:53 PM EDT [facility] Blood Capillary blood specimen / Unknown 04/24/2025 4:52 PM EDT 04/24/2025 4:53 PM EDT Shorty Barroso MD LAB POINT OF CARE TE ST DOCKED DEVICE UNSOLICITED RESULTS Final Result Performing Organization Address City/[facility]/ZIP Co de Phone Number [facility] [address] [place] [address] * (ABNORMAL) Phosphorus, Plasma (04/24/2025 2:32 PM EDT) Phosphorus, Plasma 2.2(L) 2.5 - 4.5 mg/dL 04/24/2025 3:14 PM EDT [facility] Blood Venous blood specimen / Unknown Venipuncture / Unknown 04/24/2025 2:32 PM EDT 04/24/2025 2:43 PM EDT Shorty Barroso MD LAB BLOOD ORDERABLES Final R esult Performing Organization Address City/[facility]/ZIP Co de Phone Number [facility] [address] [place] [address] * Magnesium, Plasma (04/24/2025 2:32 PM EDT) Magnesium, Plasma 1.9 1.9 - 2.4 mg/dL 04/24/2025 3:14 PM EDT [facility] Blood Venous blood specimen / Unknown Venipuncture / Unknown 04/24/2025 2:32 PM EDT 04/24/2025 2:43 PM EDT Shorty Barroso MD LAB BLOOD ORDERABLES Final R esult Performing Organization Address City/[facility]/ZIP Co de Phone Number [facility] [address] [place] [address] * (ABNORMAL) Comprehensive Metabolic Panel, Plasma (04/24/2025 2:32 PM EDT) Glucose, Plasma 139(H) 74 - 99 mg/dL 04/24/2025 3:14 PM EDT [facility] BUN, Plasma 13 8 - 23 mg/dL 04/24/2025 3:14 PM EDT [facility] Creatinine, Plasma 0.84 0.70 - 1.20 mg/dL 04/24/2025 3:14 PM EDT [facility] BUN/Creatinine Ratio 15 04/24/2025 3:14 PM EDT [facility] Sodium, Plasma 137 136 - 145 mmol/L 04/24/2025 3:14 PM EDT [facility] Potassium, Plasma 4.2 3.6 - 4.9 mmol/L 04/24/2025 3:14 PM EDT [facility] Chloride, Plasma 102 97 - 107 mmol/L 04/24/2025 3:14 PM EDT [facility] CO2, Plasma 23 22 - 29 mmol/L 04/24/2025 3:14 PM EDT [facility] Anion Gap 12 6 - 16 mmol/L 04/24/2025 3:14 PM EDT [facility] Total Calcium, Plasma 9.5 8.9 - 10.2 mg/dL 04/24/2025 3:14 PM EDT [facility] Total Protein 6.9 6.3 - 7.9 g/dL 04/24/2025 3:14 PM EDT [facility] Albumin, Plasma 3.9 3.5 - 5.2 g/dL 04/24/2025 3:14 PM EDT [facility] AST, Plasma 34 10 - 50 U/L 04/24/2025 3:14 PM EDT [facility] ALT, Plasma 36 10 - 50 U/L 04/24/2025 3:14 PM EDT [facility] Alkaline Phosphatase, Plasma 64 40 - 115 U/L 04/24/2025 3:14 PM EDT [facility] Total Bilirubin, Plasma 0.5 0.2 - 1.1 mg/dL 04/24/2025 3:14 PM EDT [facility] eGFRcr 92.1 mL/min/1.7 3m*2 04/24/2025 3:14 PM EDT [facility] Comment:Reported eGFRcr in m L/min/1.73m2 is based the CKD-EPI 2020 equation that does not use a race coefficient. Blood Venous blood specimen / Unknown Venipuncture / Unknown 04/24/2025 2:32 PM EDT 04/24/2025 2:43 PM EDT us Shorty Barroso MD LAB BLOOD ORDERABLES Final R esult [facility] [address] [place] [address] * (ABNORMAL) CBC W/O Differential (04/24/2025 2:32 PM EDT) WBC Count 13.80(H) 3.70 - 10.30 10*3/uL LAB HEMATOLOGY METHOD 04/24/2025 2:51 PM EDT [facility] RBC Count 4.02(L) 4.60 - 6.10 10*6/uL LAB HEMATOLOGY METHOD 04/24/2025 2:51 PM EDT [facility] HGB 10.4(L) 13.7 - 17.5 g/dL LAB HEMATOLOGY METHOD 04/24/2025 2:51 PM EDT [facility] HCT 35.2(L) 40.0 - 51.0 % LAB HEMATOLOGY METHOD 04/24/2025 2:51 PM EDT [facility] Platelet Count 264 155 - 369 10*3/uL LAB HEMATOLOGY METHOD 04/24/2025 2:51 PM EDT [facility] MCV 88 79 - 98 fL LAB HEMATOLOGY METHOD 04/24/2025 2:51 PM EDT [facility] MCH 25.9(L) 26.0 - 32.0 pg LAB HEMATOLOGY METHOD 04/24/2025 2:51 PM EDT [facility] MCHC 29.5(L) 30.7 - 35.5 g/dL LAB HEMATOLOGY METHOD 04/24/2025 2:51 PM EDT [facility] RDW 20.4(H) 11.5 - 14.5 % LAB HEMATOLOGY METHOD 04/24/2025 2:51 PM EDT [facility] MPV 9.2 8.8 - 12.5 fL LAB HEMATOLOGY METHOD 04/24/2025 2:51 PM EDT [facility] nRBC 0.0 <=0.0 per 100 WBCs LAB HEMATOLOGY METHOD 04/24/2025 2:51 PM EDT [facility] Blood Venous blood specimen / Unknown Venipuncture / Unknown 04/24/2025 2:32 PM EDT 04/24/2025 2:43 PM EDT Shorty Barroso MD LAB BLOOD ORDERABLES Final R esult [facility] [address] [place] [address] * (ABNORMAL) POCT glucose meter (04/24/2025 11:23 AM EDT) POCT Glucose 157(H) 74 - 99 mg/dL 04/24/2025 11:24 AM EDT [facility] Comment:Accuracy of a glucos [...] Comment 04/24/2025 11:24 AM EDT [facility] Rail Manager ID Pili Gonzalez 025 11:24 AM EDT [facility] Device ID [id number] 04/24/2025 11:24 AM EDT [facility] Specimen Type POC Capillary 04/24/2025 11:24 AM EDT [facility] Blood Capillary blood specimen / Unknown 04/24/2025 11:23 AM EDT 04/24/2025 11:24 AM EDT Shorty Barroso MD LAB POINT OF CARE TE ST DOCKED DEVICE UNSOLICITED RESULTS Final Result [facility] [address] [place] [address] * Hemoglobin A1c (04/24/2025 3:39 AM EDT) Hemoglobin A1c 5.5 <5.7 % 04/24/2025 9:40 AM EDT [facility] Blood Venous blood specimen / Unknown Venipuncture / Unknown 04/24/2025 3:39 AM EDT 04/24/2025 4:28 AM EDT Narrative [facility] - 04/24/2025 9:40 AM EDT HA1C Interpretive Data: Diagnosis of Diabetes: Diabetic > or = 6.5% Pre-diabetic 5.7 to 6.4% Non-diabetic < or = 5.6% Glycemic Targets for Type I and Type II Diabetics: Non- Adults <7.0% Adults <6.0% Children and Adolescents <7.5% Source: [place] [employer]. Standards of medical care in diabetes,2017. Diabetes Care.2017:40 (suppl 1):S1-S135. Shorty Barroso MD LAB BLOOD ORDERABLES Final R esult Performing Organization Address City/[facility] Co de Phone Number [facility] [address] [place] [address] * Phosphorus, Plasma (04/24/2025 3:39 AM EDT) Phosphorus, Plasma 2.8 2.5 - 4.5 mg/dL 04/24/2025 5:01 AM EDT [facility] Blood Venous blood specimen / Unknown Venipuncture / Unknown 04/24/2025 3:39 AM EDT 04/24/2025 4:25 AM EDT Shorty Barroso MD LAB BLOOD ORDERABLES Final R esult Performing Organization Address City/[facility] Co de Phone Number [facility] [address] [place] [address] * Magnesium, Plasma (04/24/2025 3:39 AM EDT) Magnesium, Plasma 1.9 1.9 - 2.4 mg/dL 04/24/2025 5:01 AM EDT [facility] Blood Venous blood specimen / Unknown Venipuncture / Unknown 04/24/2025 3:39 AM EDT 04/24/2025 4:25 AM EDT Shorty Barroso MD LAB BLOOD ORDERABLES Final R esult [facility] [address] [place] [address] * (ABNORMAL) Comprehensive Metabolic Panel, Plasma (04/24/2025 3:39 AM EDT) Glucose, Plasma 208(H) 74 - 99 mg/dL 04/24/2025 5:01 AM EDT [facility] BUN, Plasma 16 8 - 23 mg/dL 04/24/2025 5:01 AM EDT [facility] Creatinine, Plasma 0.84 0.70 - 1.20 mg/dL 04/24/2025 5:01 AM EDT [facility] BUN/Creatinine Ratio 19 04/24/2025 5:01 AM EDT [facility] Sodium, Plasma 136 136 - 145 mmol/L 04/24/2025 5:01 AM EDT [facility] Potassium, Plasma 4.7 3.6 - 4.9 mmol/L 04/24/2025 5:01 AM EDT [facility] Chloride, Plasma 101 97 - 107 mmol/L 04/24/2025 5:01 AM EDT [facility] CO2, Plasma 23 22 - 29 mmol/L 04/24/2025 5:01 AM EDT [facility] Anion Gap 12 6 - 16 mmol/L 04/24/2025 5:01 AM EDT [facility] Total Calcium, Plasma 9.5 8.9 - 10.2 mg/dL 04/24/2025 5:01 AM EDT [facility] Total Protein 6.6 6.3 - 7.9 g/dL 04/24/2025 5:01 AM EDT [facility] Albumin, Plasma 3.8 3.5 - 5.2 g/dL 04/24/2025 5:01 AM EDT [facility] AST, Plasma 37 10 - 50 U/L 04/24/2025 5:01 AM EDT [facility] ALT, Plasma 41 10 - 50 U/L 04/24/2025 5:01 AM EDT [facility] Alkaline Phosphatase, Plasma 67 40 - 115 U/L 04/24/2025 5:01 AM EDT [facility] Total Bilirubin, Plasma 0.5 0.2 - 1.1 mg/dL 04/24/2025 5:01 AM EDT [facility] eGFRcr 92.1 mL/min/1.7 3m*2 04/24/2025 5:01 AM EDT [facility] Comment:Reported eGFRcr in m L/min/1.73m2 is based the CKD-EPI 2020 equation that does not use a race coefficient. Blood Venous blood specimen / Unknown Venipuncture / Unknown 04/24/2025 3:39 AM EDT 04/24/2025 4:25 AM EDT us Shorty Barroso MD LAB BLOOD ORDERABLES Final R esult [facility] [address] [place] [address] * (ABNORMAL) CBC W/O Differential (04/24/2025 3:39 AM EDT) WBC Count 9.24 3.70 - 10.30 10*3/uL LAB HEMATOLOGY METHOD 04/24/2025 4:35 AM EDT [facility] RBC Count 4.17(L) 4.60 - 6.10 10*6/uL LAB HEMATOLOGY METHOD 04/24/2025 4:35 AM EDT [facility] HGB 11.0(L) 13.7 - 17.5 g/dL LAB HEMATOLOGY METHOD 04/24/2025 4:35 AM EDT [facility] HCT 36.6(L) 40.0 - 51.0 % LAB HEMATOLOGY METHOD 04/24/2025 4:35 AM EDT [facility] Platelet Count 264 155 - 369 10*3/uL LAB HEMATOLOGY METHOD 04/24/2025 4:35 AM EDT [facility] MCV 88 79 - 98 fL LAB HEMATOLOGY METHOD 04/24/2025 4:35 AM EDT [facility] MCH 26.4 26.0 - 32.0 pg LAB HEMATOLOGY METHOD 04/24/2025 4:35 AM EDT [facility] MCHC 30.1(L) 30.7 - 35.5 g/dL LAB HEMATOLOGY METHOD 04/24/2025 4:35 AM EDT [facility] RDW 20.5(H) 11.5 - 14.5 % LAB HEMATOLOGY METHOD 04/24/2025 4:35 AM EDT [facility] MPV 9.5 8.8 - 12.5 fL LAB HEMATOLOGY METHOD 04/24/2025 4:35 AM EDT [facility] nRBC 0.0 <=0.0 per 100 WBCs LAB HEMATOLOGY METHOD 04/24/2025 4:35 AM EDT [facility] Blood Venous blood specimen / Unknown Venipuncture / Unknown 04/24/2025 3:39 AM EDT 04/24/2025 4:28 AM EDT Shorty Barroso MD LAB BLOOD ORDERABLES Final R esult Performing Organization Address City/[facility]/ZIP Co de Phone Number [facility] [address] [place] [address] * Phosphorus, Plasma (04/23/2025 3:58 PM EDT) Phosphorus, Plasma 3.5 2.5 - 4.5 mg/dL 04/23/2025 4:42 PM EDT [facility] Blood Arterial blood specimen / Unknown Arterial Puncture / Unknown 04/23/2025 3:58 PM EDT 04/23/2025 4:10 PM EDT Shorty Barroso MD LAB BLOOD ORDERABLES Final R esult Performing Organization Address City/[facility]/ZIP Co de Phone Number [facility] [address] [place] [address] * Magnesium, Plasma (04/23/2025 3:58 PM EDT) Magnesium, Plasma 1.9 1.9 - 2.4 mg/dL 04/23/2025 4:42 PM EDT [facility] Blood Arterial blood specimen / Unknown Arterial Puncture / Unknown 04/23/2025 3:58 PM EDT 04/23/2025 4:10 PM EDT Shorty Barroso MD LAB BLOOD ORDERABLES Final R esult [facility] [address] [place] [address] * (ABNORMAL) Comprehensive Metabolic Panel, Plasma (04/23/2025 3:58 PM EDT) Glucose, Plasma 189(H) 74 - 99 mg/dL 04/23/2025 4:42 PM EDT [facility] BUN, Plasma 14 8 - 23 mg/dL 04/23/2025 4:42 PM EDT [facility] Creatinine, Plasma 0.82 0.70 - 1.20 mg/dL 04/23/2025 4:42 PM EDT [facility] BUN/Creatinine Ratio 17 04/23/2025 4:42 PM EDT [facility] Sodium, Plasma 137 136 - 145 mmol/L 04/23/2025 4:42 PM EDT [facility] Potassium, Plasma 5.0(H) 3.6 - 4.9 mmol/L 04/23/2025 4:42 PM EDT [facility] Comment:Hemolyzed - Potassiu m may be falsely elevated by approximately 0.4-0.7 mmol/L. Chloride, Plasma 104 97 - 107 mmol/L 04/23/2025 4:42 PM EDT [facility] CO2, Plasma 23 22 - 29 mmol/L 04/23/2025 4:42 PM EDT [facility] Anion Gap 10 6 - 16 mmol/L 04/23/2025 4:42 PM EDT [facility] Total Calcium, Plasma 9.0 8.9 - 10.2 mg/dL 04/23/2025 4:42 PM EDT [facility] Total Protein 6.4 6.3 - 7.9 g/dL 04/23/2025 4:42 PM EDT [facility] Albumin, Plasma 3.8 3.5 - 5.2 g/dL 04/23/2025 4:42 PM EDT [facility] AST, Plasma 57(H) 10 - 50 U/L 04/23/2025 4:42 PM EDT [facility] Comment:Hemolyzed, result ma y be falsely increased. ALT, Plasma 48 10 - 50 U/L 04/23/2025 4:42 PM EDT [facility] Alkaline Phosphatase, Plasma 72 40 - 115 U/L 04/23/2025 4:42 PM EDT [facility] Total Bilirubin, Plasma 0.6 0.2 - 1.1 mg/dL 04/23/2025 4:42 PM EDT [facility] eGFRcr 92.8 mL/min/1.7 3m*2 04/23/2025 4:42 PM EDT [facility] Comment:Reported eGFRcr in m L/min/1.73m2 is based the CKD-EPI 2020 equation that does not use a race coefficient. Blood Arterial blood specimen / Unknown Arterial Puncture / Unknown 04/23/2025 3:58 PM EDT 04/23/2025 4:10 PM EDT us Shorty Barroso MD LAB BLOOD ORDERABLES Final R esult [facility] [address] [place] [address] * (ABNORMAL) CBC and Differential (04/23/2025 3:58 PM EDT) WBC Count 7.53 3.70 - 10.30 10*3/uL LAB HEMATOLOGY METHOD 04/23/2025 4:19 PM EDT [facility] RBC Count 4.35(L) 4.60 - 6.10 10*6/uL LAB HEMATOLOGY METHOD 04/23/2025 4:19 PM EDT [facility] HGB 11.2(L) 13.7 - 17.5 g/dL LAB HEMATOLOGY METHOD 04/23/2025 4:19 PM EDT [facility] HCT 38.0(L) 40.0 - 51.0 % LAB HEMATOLOGY METHOD 04/23/2025 4:19 PM EDT [facility] Platelet Count 251 155 - 369 10*3/uL LAB HEMATOLOGY METHOD 04/23/2025 4:19 PM EDT [facility] MCV 87 79 - 98 fL LAB HEMATOLOGY METHOD 04/23/2025 4:19 PM EDT [facility] MCH 25.7(L) 26.0 - 32.0 pg LAB HEMATOLOGY METHOD 04/23/2025 4:19 PM EDT [facility] MCHC 29.5(L) 30.7 - 35.5 g/dL LAB HEMATOLOGY METHOD 04/23/2025 4:19 PM EDT [facility] RDW 20.7(H) 11.5 - 14.5 % LAB HEMATOLOGY METHOD 04/23/2025 4:19 PM EDT [facility] MPV 9.5 8.8 - 12.5 fL LAB HEMATOLOGY METHOD 04/23/2025 4:19 PM EDT [facility] nRBC 0.0 <=0.0 per 100 WBCs LAB HEMATOLOGY METHOD 04/23/2025 4:19 PM EDT [facility] Differential Type Automated LAB HEMATOLOGY METHOD 04/23/2025 4:19 PM EDT [facility] Neutrophils % 90 % LAB HEMATOLOGY METHOD 04/23/2025 4:19 PM EDT [facility] Lymphocytes % 6 % LAB HEMATOLOGY METHOD 04/23/2025 4:19 PM EDT [facility] Monocytes % 2 % LAB HEMATOLOGY METHOD 04/23/2025 4:19 PM EDT [facility] Eosinophils % 0 % LAB HEMATOLOGY METHOD 04/23/2025 4:19 PM EDT [facility] Basophils % 0 % LAB HEMATOLOGY METHOD 04/23/2025 4:19 PM EDT [facility] Immature Granulocytes % 2 % LAB HEMATOLOGY METHOD 04/23/2025 4:19 PM EDT [facility] Neutrophils Absolute 6.77(H) 1.60 - 6.10 10*3/uL LAB HEMATOLOGY METHOD 04/23/2025 4:19 PM EDT [facility] Lymphocytes Absolute 0.43(L) 1.20 - 3.90 10*3/uL LAB HEMATOLOGY METHOD 04/23/2025 4:19 PM EDT [facility] Monocytes Absolute 0.14(L) 0.30 - 0.90 10*3/uL LAB HEMATOLOGY METHOD 04/23/2025 4:19 PM EDT [facility] Eosinophils Absolute 0.02 0.00 - 0.50 10*3/uL LAB HEMATOLOGY METHOD 04/23/2025 4:19 PM EDT [facility] Basophils Absolute 0.03 0.00 - 0.10 10*3/uL LAB HEMATOLOGY METHOD 04/23/2025 4:19 PM EDT [facility] Immature Granulocytes Absolute 0.14(H) 0.00 - 0.06 10*3/uL LAB HEMATOLOGY METHOD 04/23/2025 4:19 PM EDT [facility] Blood Arterial blood specimen / Unknown Arterial Puncture / Unknown 04/23/2025 3:58 PM EDT 04/23/2025 4:11 PM EDT Narrative [facility] - 04/23/2025 4:19 PM EDT Therapeutic decision making should be based on absolute values, rather than percentages. us Shorty Barroso MD LAB BLOOD ORDERABLES Final R esult [facility] [address] [place] [address] * (ABNORMAL) Blood gas panel, arterial (04/23/2025 3:58 PM EDT) pH, Arterial 7.32 7.31 - 7.42 LAB HEMATOLOGY METHOD 04/23/2025 4:10 PM EDT [facility] pCO2, Arterial 50(H) 32 - 45 mmHg LAB HEMATOLOGY METHOD 04/23/2025 4:10 PM EDT [facility] pO2, Arterial 70(L) >70 mmHg LAB HEMATOLOGY METHOD 04/23/2025 4:10 PM EDT [facility] SO2, Measured, Arterial 93(L) 94 - 98 % LAB HEMATOLOGY METHOD 04/23/2025 4:10 PM EDT [facility] Base Excess, Arterial -0.5 -2.0 - 3.0 mmol/L LAB HEMATOLOGY METHOD 04/23/2025 4:10 PM EDT [facility] Bicarbonate, Calculated, Arterial 26 22 - 26 mmol/L LAB HEMATOLOGY METHOD 04/23/2025 4:10 PM EDT [facility] Hematocrit, Whole Blood 34.0(L) 40.0 - 51.0 % LAB HEMATOLOGY METHOD 04/23/2025 4:10 PM EDT [facility] Sodium, Whole Blood 138 136 - 145 mmol/L LAB HEMATOLOGY METHOD 04/23/2025 4:10 PM EDT [facility] Potassium, Whole Blood 5.0(H) 3.6 - 4.9 mmol/L LAB HEMATOLOGY METHOD 04/23/2025 4:10 PM EDT [facility] Chloride, Whole Blood 105 97 - 107 mmol/L LAB HEMATOLOGY METHOD 04/23/2025 4:10 PM EDT [facility] Glucose, Whole Blood 189(H) 74 - 99 mg/dL LAB HEMATOLOGY METHOD 04/23/2025 4:10 PM EDT [facility] Ionized Calcium, Whole Blood 4.8 4.6 - 5.1 mg/dL LAB HEMATOLOGY METHOD 04/23/2025 4:10 PM EDT [facility] Lactate, Arterial, Whole Blood 1.4 0.5 - 1.6 mmol/L LAB HEMATOLOGY METHOD 04/23/2025 4:10 PM EDT [facility] Blood Arterial blood specimen / Unknown Arterial Puncture / Unknown 04/23/2025 3:58 PM EDT 04/23/2025 4:05 PM EDT us Shorty Barroso MD LAB BLOOD ORDERABLES Final R esult [facility] [address] [place] [address] * Surgical Pathology Exam (04/23/2025 2:02 PM EDT) Case Report Surgical Pathology Case: [id number] Authorizing Provider: Shorty Barroso MD Collected: 04/23/2025 1402 Ordering Location: [facility] A OPERATING ROOM Received: 04/23/2025 7847 Pathologist: Sean Ace MD Specimen: Other (specify site), Partial gastrectomy 5:13 PM EDT [facility] Final Diagnosis A. 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 - SEE CHECKLIST 5:13 PM EDT [facility] at 1713 EDT Synoptic Checklist GASTROINTESTINAL [...] nodes submitted or found) 5:13 PM EDT [facility] Clinical Information Gastrointestinal stromal tumor (GIST) of stomach. 5:13 PM T [facility] Microscopic Description Morphology is epithelioid and focally spindly. W Very limited focal necrosis. Abundant mitoses present. IHC is confirmatory. 5:13 PM EDT [facility] Special and Immunohistochemical Stains IHC: A3-3 DOG-1: POSITIVE A3-4 CD117: POSITIVE All controls show appropriate reactivity. All immunohistochemis try, in situ hybridization, and histochemical tests were developed by and are performed at the [facility], [address] [place] [address]. All tests reported here, except those addressing [...] as investigational or for research. 5:13 PM EDT [facility] Gross Description A. PARTIAL GASTRECTOMY The [...] surrounding a central chandra-brown canal. Every other sales development representative section of the mass is submitted in cassettes [id number]. Cold Time: 1h 45m Arnold Linarse MD 5:13 PM EDT [facility] Note: A resident was involved in the service. I attest I examined the relevant preparations for the specimens and confirmed the diagnosis or interpretation. 5:13 PM EDT [facility] Tissue Topography unknown / Unknown 04/23/2025 2:02 PM EDT 04/23/2025 3:47 PM EDT Comment:Pre-op diagnosis: Gastrointestinal stromal tumor (GIST) [C49.A0] us Shorty Barroso MD LAB PATHOLOGY ORDERABLES Fin al Result [facility] [address] [place] [address] * Type and Screen (04/23/2025 11:47 AM EDT) ABO/Rh O Negative 04/23/2025 12:00 PM EDT BLOOD BANK Antibody Screen Negative 04/23/2025 12:00 PM EDT [facility]LO[facility]ANK Specimen Expiration 04/26/2025 23:59 04/23/2025 12:00 PM EDT [facility]LO[facility] Blood Venous blood specimen / Unknown Venipuncture / Unknown 04/23/2025 11:47 AM EDT 04/23/2025 12:00 PM EDT us Jose Ortega MD LAB BLOOD BANK TEST ORDERABLES F inal Result BLOOD BANK [address] [place] [address], * (ABNORMAL) POCT glucose meter (04/23/2025 11:46 AM EDT) POCT Glucose 102(H) 74 - 99 mg/dL [...] 04/23/2025 11:47 AM EDT [facility] Rail Manager ID Camelia Ornelas 04/23/20 11:47 AM EDT [facility] Device ID [id number] 04/23/2025 11:47 AM EDT [facility] Specimen Type POC Venous 04/23/2025 11:47 AM EDT [facility] Blood Venous blood specimen / Unknown 04/23/2025 11:46 AM EDT 04/23/2025 11:47 AM EDT Shorty Barroso MD LAB POINT OF CARE TE ST DOCKED DEVICE UNSOLICITED RESULTS Final Result [facility] [address] [place] [address] documented in this encounter Visit Diagnoses Diagnosis Gastrointestinal stromal tumor (GIST)- Primary Gastrointestinal stromal tumor (GIST) documented in this encounter Admitting Diagnoses Diagnosis Gastrointestinal stromal tumor (GIST) documented in this encounter Administered Medications Inactive Administered Medications - up to 3 most recent administrations Medication Order MAR Action Action Date Dose Rate Site acetaminophen (Tylenol) tablet 650 mg 650 mg, Oral, Every 6 hours scheduled, First dose (after last modification) on 04/24/25 at 1345, Until Discontinued, Routine, Recovery(Phase II-Outpatient)/On Unit(Inpatient) Given 04/25/2025 12:29 PM EDT 650 mg Given 04/25/2025 5:08 AM EDT 650 mg Given 04/24/2025 5:52 PM EDT 650 mg citalopram (CeleXA) tablet 40 mg 40 mg, [...] PRN low blood sugar BG =/<50 mg/dL enoxaparin (Lovenox) syringe 40 mg 40 mg, Subcutaneous, Daily, 26 doses, First dose on 04/25/25 at 1615, Last dose on Azul 05/20/25 [...] Wahl-Hadley Faces; > or =5: DVPRS, NIPS insulin lispro (Admelog) 100 units/mL injection - [...] Given 04/24/2025 11:33 AM EDT 20 mg methocarbamol (Robaxin) tablet 500 mg 500 [...] nausea, vomiting oxyCODONE (Roxicodone) immediate release tablet 2.5 mg 2.5 mg, Oral, Every 6 hours PRN, Starting on Sat04/25/25 at 0815, Until 04/25/25 at 1825, Routine, Recovery(Phase II-Outpatient)/On Unit(Inpatient), Moderate/Severe Pain > or =3: CPOT; > or =4: FLACC, PAINAD, NPASS, NRS, Wahl-Hadley Faces; > or =5: DVPRS, NIPS pantoprazole (Protonix) EC tablet 40 mg 40 mg, Oral, Daily, First dose on 04/26/25 at 0900, Until Discontinued, Routine topiramate (Topamax) tablet 50 mg 50 mg, Oral, Nightly, First dose on 04/24/25 at 2100, Until Discontinued, Routine Given 04/24/2025 9:0 6 PM EDT 50 mg documented in this [...] Galvez RN)1001 (New Bag - Provider: Pili Gonzalez RN) acetaminophen (Tylenol) tablet 650 mg 650 mg, Oral, Every 6 hours scheduled, First dose (after last modification) on 04/24/25 at 1345, Until Discontinued, Routine, Recovery(Phase II-Outpatient)/On Unit(Inpatient) 1752 (Given - Provider: Piil Gonzalez RN)2131 (Not Given - Provider: Geraldine Galvez RN [...] 04/24/25 at 1500, Routine, Recovery(Phase II-Outpatient)/On Unit(Inpatient) 2015 (New Bag - Provider: Geraldine Galvez RN) 033 (New Bag - Provider: Geraldine Galvez RN)0827 [...] Holding - Preprocedure 1129 (Given - Provider: Jete Canas RN) heparin (porcine) injection 5,000 Units [...] Geraldine Galvez RN)1352 (Given - Provider: Pili Gonzalez, HELEN) hydroCHLOROthiazide (HYDRODiuril) tablet 12.5 mg 12.5 mg, Oral, Daily, First dose on 04/24/25 at 1115, Until Discontinued, Routine 1133 (Given - Provider: Pili Gonzalez RN) 0825 (Given - Provider: Pili Gonzalez, HELEN) insulin lispro (Admelog) 100 units/mL injection - [...] on 04/24/25 at 2100, Until Discontinued, Routine 205 (Not Given - Provider: Geraldine Galvez RN [...] 1 dose, On 04/25/25 at 0130, Routine 0049 (Given - Provider: Geraldine Galvez RN) methocarbamol (Robaxin) injection 1,000 mg (CANCELED) 1,000 mg, Intravenous, Every 8 hours, 9 doses, First dose on Sat04/23/25 at 1630, Last dose on 04/26/25 at 0830, Routine, Recovery(Phase II-Outpatient)/On Unit(Inpatient) 1630 (Due) 0020 (Given - Provider: Geraldine Galvez RN)0827 (Given - Provider: Pili Gonzalez, HELEN) methocarbamol (Robaxin) tablet 500 mg 500 mg, Oral, 4 times daily, First dose on Sat04/24/25 at 1400, Until Discontinued, Routine, Recovery(Phase II-Outpatient)/On Unit(Inpatient) 1424 (Given - Provider: Pili Gonzalez, HELEN)1752 (Given - Provider: Pili Gonzalez RN)2106 (Given - Provider: Geraldine Galvez RN) 0825 (Given - Provider: Pili Gonzalez RN)1351 (Given - Provider: Pili Gonzalez, HELEN)1800 (Canceled Entry - Provider: Automatic Discharge Provider - Comment: Automatically canceled at discontinue of medication order) mupirocin (Bactroban) 2 % ointment 1 Application Each Nostril, 2 times daily, 10 doses, First dose on Sat04/23/25 at 2100, Last dose on Sat04/28/25 at 0900, Routine 2016 (Given - Provider: Geraldine Galvez RN) 0828 (Given - Provider: Pili Gonzalez, HELEN)210 (Given - Provider: Geraldine Galvez RN) 0825 (Given - Provider: Pili Gonzalez RN) pantoprazole (Protonix) EC tablet 40 mg 40 mg, Oral, Daily, First dose on Sat04/26/25 at 0900, Until Discontinued, Routine pantoprazole (Protonix) injection 40 mg (CANCELED) 40 mg, Intravenous, Daily, First dose on Sat04/23/25 at 1630, Until Discontinued, Routine, Recovery(Phase II-Outpatient)/On Unit(Inpatient) 1620 (Given - Provider: Marylin Shelby RN) 0828 (Given - Provider: Pili Gonzalez RN) 0825 (Given - Provider: Pili Gonzalez, HELEN) Povidone-Iodine 5 % swab solution 1 Application (COMPLETED) Nasal, Once, 1 dose, On Sat04/23/25 at 1145, Routine 1129 (Given - Provider: Jeet Canas RN) topiramate (Topamax) tablet 50 mg 50 mg, Oral, Nightly, First dose on 04/24/25 at 2100, Until Discontinued, Routine 2106 (Given - Provider: Geraldine Galvez, RN) Continuous Medication Order 04/23/2025 04/24/2025 04/25/2025 dextrose 5 % and lactated Ringer's infusion (CANCELED) 75 mL/hr, Intravenous, Continuous, Starting on 04/23/25 at 1630, Until 04/24/25 at 0952, Routine 1626 (New Bag - Provider: Marylin Shelby, RN) 0842 (New Bag - Provider: Pili Gonzalez RN) PRN Medication Order 04/23/2025 04/24/2025 04/25/2025 dextrose [...] Intravenous, Every 6 hours PRN, Starting on 04/23/25 [...] severe pain 1241 (Given - Provider: Pili Gonzalez, RN)1243 (See Alternative - Provider: Pili Gonzalez [...] documented as of this encounter Care Teams Manufacturing Manager Relationship Specialty Start Date End Date Jan Chavez MD [address] [place] [address] PCP - General 07/05/21 Rachid Jaime MD [address] [place] [address] Surgeon Neurosurgery 08/07/21 documented as of this encounter
--- OUTSIDE RECORDS SUMMARY | 2025-04-23 11:12 | XMS_ITS | Encounter Summary ---
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] Procedures AK REMV STOMACH,PART,DISTAL,GASTROJ EJUN laparoscopic/robotic possible open partial gastrectomy Shorty Barroso MD [address] [place] [phone] Phone: tel: fax: [facility] [address] [place] [phone] Phone: tel: Referral ID Status Reason Start Date Expiration Date Visits Re quested Visits Authorized [id number] 1 1 Encounter Details Date Type Department Care Team (Late st Contact Info) Description 04/23/2025 12:12 PM EDT Anesthesia Event [facility] [address] [place] [phone] Jose Ortega MD [address] [place] [phone] Taj Jeronimo MD [address] [place] [address] Anesthesia Record Procedure Summary Procedure Name Responsible [...] acknowledgement of understanding. 1537 An Stop Meds Name Total fentaNYL (Sublimaze) injection 50 mcg/mL 100 mcg propofol (Diprivan) injection 10 mg/mL 2 00 mg rocuronium (ZeMuron) injection 10 mg/mL 80 mg HYDROmorphone PF (Dilaudid) injection 1 mg/mL 1 mg phenylephrine (Jordy-Synephrine) prefilled syringe 1 mg/10 mL 400 mcg ondansetron (Zofran) injection 2 mg/mL 4 mg sugammadex (Bridion) injection 100 mg/mL 200 mg 0.25% ropivacaine 60 mL cefOXitin (Mefoxin) injection 2 g 4 g labetalol (Normodyne,Trandate) injection 5 mg/mL 5 mg lactated Ringer's infusion 2,000 mL lactated Ringer's infusion 100 mL * Agents Name O2 Sevoflurane * Blood No blood administrations on file. [...] Humphrey RN documented as of this encounter Miscellaneous Notes * Anesthesia Postprocedure Evaluation - Taj Jeronimo MD - 04/23/2025 3:37 PM EDT Patient: Montez Collins Anesthesia Type: general Vitals Value Taken Time BP 153/112 04/23/25 15:35 Temp 35.7 ??C (96.3 ??F) 04/23/25 15:36 Pulse 80 04/23/25 15:36 Resp 18 04/23/25 15:36 SpO2 100 % 04/23/25 15:36 Vitals shown include unfiled device data. Anesthesia Post Evaluation Patient location during evaluation: PACU Patient participation: complete - patient participated Level of consciousness: awake Pain management: adequate (pain score 0-3) Airway patency: natural airway Cardiovascular status: hemodynamically stable, hypertensive and acceptable (placed orders for PRN labetalol for sys >180.) Respiratory status: acceptable, face mask, nonlabored ventilation, spontaneous ventilation and unassisted Hydration status: acceptable Nausea/Vomiting: No No notable events documented. Cosigned by Jose Ortega MD at 04/26/2025 6:50 AM EDT Associated attestation - Jose Ortega MD - 04/26/2025 6:50 AM EDT I agree with the findings and care plan documented in the postprocedure evaluation note. * Anesthesia Procedure Notes - Taj Jeronimo MD - 04/23/2025 1:56 PM EDT Associated Order(s): Peripheral IV Peripheral IV Date/Time: 04/23/2025 12:24 PM Inserted by: Taj Jeronimo MD Placement Needle size: 20 G Location: hand Site prep: alcohol Technique: anatomical landmarks Attempts: 1 Cosigned by Jose Ortega MD at 04/26/2025 6:50 AM EDT Associated attestation - Jose Ortega MD - 04/26/2025 6:50 AM EDT I was present during all critical and leyva portions of the procedure(s) and immediately available [facility] services the entire duration. See resident note for details. * Anesthesia Procedure Notes - Taj Jeronimo MD - 04/23/2025 1:51 PM EDT Associated Order(s): Arterial Line Arterial Line: Date/Time: 04/23/2025 12:24 PM An arterial line was placed. Procedure performed using ultrasound guidance in the OR for the following indication(s): continuousblood pressure monitoring and blood sampling needed. A 20 gauge (size), 1 and 3/4 inch (length), Arrow (type) catheter was placed into the Left radial artery and secured by tape. Seldinger technique used Events: 3 attempts at left radial, pressure held and hemostasis achieved between attempts, no hematoma noted at time of placement.. Staffing Performed: Anesthesiologist Anesthesiologist: Jose Ortega MD Resident: Taj Jeronimo MD Cosigned by Jose Ortega MD at 04/26/2025 6:50 AM EDT Associated attestation - Jose Ortega MD - 04/26/2025 6:50 AM EDT I was present during all critical and leyva portions of the procedure(s) and immediately available [facility] services the entire duration. See resident note for details. * Anesthesia Procedure Notes - Taj Jeronimo MD - 04/23/2025 12:54 PM EDT Associated Order(s): Airway Airway Date/Time: 04/23/2025 12:19 PM Reason: elective Airway not difficult General Information and Staff Patient location during procedure: OR Anesthesiologist: Jose Ortega MD Resident: Taj Jeronimo MD Performed: Resident Patient Condition Indications for airway management: anesthesia Patient position: sniffing No planned trial extubation Final Airway Details Final airway type: endotracheal airway Successful airway: ETT Cuffed: yes Successful intubation technique: direct laryngoscopy Adjuncts used in placement: intubating stylet Endotracheal tube insertion site: oral Blade: Dianna Blade size: #3 ETT size (mm): 7.5 Cormack-Lehane Classification: grade IIb - view of arytenoids or posterior of glottis only Placement verified by: chest auscultation and capnometry Inital cuff pressure (cm H2O): 0 Cuff volume (mL): 10 Measured from: lips ETT to lips (cm): 22 Ventilation between attempts: none Additional Comments Atraumatic. No change to dentition. Cosigned by Jose Ortega MD at 04/26/2025 6:50 AM EDT Associated attestation - Jose Ortega MD - 04/26/2025 6:50 AM EDT I was present during all critical and leyva portions of the procedure(s) and immediately available [facility] services the entire duration. See resident note for details. * Anesthesia Procedure Notes - Wing Santizo MD - 04/23/2025 12:39 PM EDT Associated Order(s): Peripheral Block Peripheral Block Patient location during procedure: OR Start time: 04/23/2025 12:20 PM End time: 04/23/2025 12:30 PM Reason for block: post-op pain management Block is at surgeon's request Staffing Performed: Resident Anesthesiologist: Hernan Wyatt MD Resident: Wing Santizo MD Preanesthetic Checklist Completed: patient identified, IV checked, site marked, risks and benefits discussed, surgical consent, monitors and equipment checked, pre-op evaluation and timeout performed Peripheral Block Patient position: supine Prep: ChloraPrep Patient monitoring: continuous pulse ox, environmental monitoring technician and heart rate Block type: TAP Laterality: left and right Injection technique: single-shot Guidance: ultrasound guided Ultrasound used for needle placement AND ultrasound image retained Needle Needle gauge: 20g. Needle length: 4in. Medications Administered: 0.25% ropivacaine - Injection 60 mL - 04/23/2025 12:20:00 PM Assessment Injection assessment: negative aspiration for heme and local visualized surrounding nerve on ultrasound Heart rate change: no Slow fractionated injection: yes Additional Notes The patient was in supine position. A linear ultrasound probe was placed on the lateral wall of theabdomen between the costal margin and the iliac crest and the relevant muscular anatomy was visualized. A large area of skin encompassing the intended needle insertion site was cleansed using chloraprep.The block needle was inserted through skin from the anterior aspect and advanced through the external oblique m., internal oblique m. and into the fascial plane between the internal oblique m. and the transversus abdominis m. using an in-plane technique with ultrasound guidance. Aspiration was negative for heme or bowel contents. Local anesthetic was injected into the TAP plane incrementally in 5mL aliquots, aspirating between each injection. Ultrasound imaging was utilized to confirm spread oflocal anesthetic along the fascial plane with the goal of reaching posteriorly to the end of the transversus abdominis m. The same block was performed on the contralateral side. A total of 60cc of 0.25% Ropivacaine without adjunct was utilized for the block. The needle was removed from the patient. The patient tolerated the procedure well, with no obvious complications. Cosigned by Hernan Wyatt MD at 04/23/2025 4:25 PM EDT Associated attestation - Hernan Wyatt MD - 04/23/2025 4:25 PM EDT I was present during all critical and leyva portions of the procedure(s) and immediately available [facility] services the entire duration. See resident note for details. * Anesthesia Preprocedure Evaluation - Jose Ortega MD - 04/23/2025 11:31 AM EDT Images from the original note were not included. HPI Sunny Collins is a 74 y.o. 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 Past Medical History[1] [...] fibrillation, CAD, CHF, dysrhythmias, pacemaker or past OK. hypertension: Exercise tolerance is 2 flights of [...] 1.0 03/30/2025 INR 0.9 07/05/2021 Visit Vitals BP (!) 151/94 (BP Location: Right arm, Patient Position: Lying) Pulse 74 Temp 37.4 ??C (99.3 ??F) (Oral) Resp 16 SpO2 96% Smoking Status Never 04/23/2025 10:53 AM Vitals Systolic 151 Diastolic 94 Heart Rate 74 Temp 37.4 C Resp 16 Physical Exam Airway Mallampati: II Mouth opening: normal TM distance: >3 FB Neck ROM: full Cardiovascular Rhythm: regular Rate: normal Dental (+) poor dentition Pulmonary Breath sounds clear to auscultation Neurological Skin Musculoskeletal Extremities Anesthesia Plan ASA 3 Plan was reviewed with: resident and attending Anesthesia technique(s) discussed with the patient/family: general Anesthesia plan agreed upon was: general Anesthetic plan and risks discussed with patient. Use of blood products discussed with patient who consented to blood products. Jose Ortega MD [1] Past Medical History: Diagnosis Date ??? Headache ??? High cholesterol 07/06/2021 ??? HTN (hypertension) 07/06/2021 ??? Kidney stone 07/06/2021 ??? RENÉE (obstructive sleep apnea) 07/06/2021 [2] Family History Problem Relation Name Age of Onset ??? Anesthesia problems Neg Hx ??? Malig Hyperthermia Neg Hx [3] Social History Tobacco Use ??? Smoking status: Never ??? Smokeless tobacco: Never Vaping Use ??? Vaping status: Never Used Substance Use Topics ??? Alcohol use: Never ??? Drug use: Never [4] Past Surgical History: Procedure Laterality Date ??? APPENDECTOMY ??? BRAIN SURGERY 06/2021 ??? CHOLECYSTECTOMY ??? COLONOSCOPY [5] No Known Allergies [6] Current Facility-Administered Medications: ??? fentaNYL ??? heparin (porcine) ??? midazolam ??? sodium chloride documented in this encounter Plan of Treatment Not on file documented as of this encounter Goals Goal Patient Goal Type Associated Problems Recent Progress Patient-Stated? Author Autogenera kayla Goal Care Plan Autogenerated Problem No Shorty Barroso MD documented as of this encounter Procedures Procedure Name Priority Date/Time Associated Diagnosis Comments ANESTHESIA PERIPHERAL IV PLACEMENT Routine 04/23/2025 12:24 PM EDT PB ANESTHESIA NON-TIMED PROCEDURE PLACEHOLDER Routine 04/23/2025 12:24 PM EDT PB POINT OF CARE IMAGING PLACEHOLDER Routine 04/23/2025 12:20 PM EDT PB ANESTHESIA PLACEHOLDER Routine 04/23/2025 12:19 PM EDT AK AN ELECTIVE ENDOTRACHEAL AIRWAY Routine 04/23/2025 12:19 PM EDT documented in this encounter Results * Peripheral IV (04/23/2025 12:24 PM EDT) Narrative Jose Ortega MD - 04/23/2025 12:24 PM EDT Jose Ortega MD 04/26/2025 6:50 AM Peripheral IV Date/Time: 04/23/2025 12:24 PM Inserted by: Taj Jeronimo MD Placement Needle size: 20 G Location: hand Site prep: alcohol Technique: anatomical landmarks Attempts: 1 us Jose Ortega MD ANESTHESIA ORDERABLES Final Resu lt * PB ANESTHESIA NON-TIMED PROCEDURE PLACEHOLDER (04/23/2025 12:24 PM EDT) Narrative Jose Ortega MD - 04/23/2025 12:24 PM EDT Jose Ortega MD 04/26/2025 6:50 AM Arterial Line: Date/Time: 04/23/2025 12:24 PM An arterial line was placed. Procedure performed using ultrasound guidance in the OR for the following indication(s): continuous blood pressure monitoring and blood sampling needed. A 20 gauge (size), 1 and 3/4 inch (length), Arrow (type) catheter was placed into the Left radial artery and secured by tape. Seldinger technique used Events: 3 attempts at left radial, pressure held and hemostasis achieved between attempts, no hematoma noted at time of placement.. Staffing Performed: Anesthesiologist Anesthesiologist: Jose Ortega MD Resident: Taj Jeronimo MD us Jose Ortega MD ANESTHESIA ORDERABLES Final Resu lt * PB POINT OF CARE IMAGING PLACEHOLDER (04/23/2025 12:20 PM EDT) Narrative Hernan Wyatt MD - 04/23/2025 12:20 PM EDT Hernan Wyatt MD 04/23/2025 4:25 PM Peripheral Block Patient location during procedure: OR Start time: 04/23/2025 12:20 PM End time: 04/23/2025 12:30 PM Reason for block: post-op pain management Block is at surgeon's request Staffing Performed: Resident Anesthesiologist: Hernan Wyatt MD Resident: Wing Santizo MD Preanesthetic Checklist Completed: patient identified, IV checked, site marked, risks and benefits discussed, surgical consent, monitors and equipment checked, pre-op evaluation and timeout performed Peripheral Block Patient position: supine Prep: ChloraPrep Patient monitoring: continuous pulse ox, environmental monitoring technician and heart rate Block type: TAP Laterality: left and right Injection technique: single-shot Guidance: ultrasound guided Ultrasound used for needle placement AND ultrasound image retained Needle Needle gauge: 20g. Needle length: 4in. Medications Administered: 0.25% ropivacaine - Injection 60 mL - 04/23/2025 12:20:00 PM Assessment Injection assessment: negative aspiration for heme and local visualized surrounding nerve on ultrasound Heart rate change: no Slow fractionated injection: yes Additional Notes The patient was in supine position. A linear ultrasound probe was placed on the lateral wall of the abdomen between the costal margin and the iliac crest and the relevant muscular anatomy was visualized. A large area of skin encompassing the intended needle insertion site was cleansed using chloraprep. The block needle was inserted through skin from the anterior aspect and advanced through the external oblique m., internal oblique m. and into the fascial plane between the internal oblique m. and the transversus abdominis m. using an in-plane technique with ultrasound guidance. Aspiration was negative for heme or bowel contents. Local anesthetic was injected into the TAP plane incrementally in 5mL aliquots, aspirating between each injection. Ultrasound imaging was utilized to confirm spread of local anesthetic along the fascial plane with the goal of reaching posteriorly to the end of the transversus abdominis m. The same block was performed on the contralateral side. A total of 60cc of 0.25% Ropivacaine without adjunct was utilized for the block. The needle was removed from the patient. The patient tolerated the procedure well, with no obvious complications. Jose Ortega MD ANESTHESIA ORDERABLES Final Resu lt * AK AN ELECTIVE ENDOTRACHEAL AIRWAY, PB ANESTHESIA PLACEHOLDER (04/23/2025 12:19 PM EDT) Narrative Jose Ortega MD - 04/23/2025 12:19 PM EDT Jose Ortega MD 04/26/2025 6:50 AM Airway Date/Time: 04/23/2025 12:19 PM Reason: elective Airway not difficult General Information and Staff Patient location during procedure: OR Anesthesiologist: Jose Ortega MD Resident: Taj Jeronimo MD Performed: Resident Patient Condition Indications for airway management: anesthesia Patient position: sniffing No planned trial extubation Final Airway Details Final airway type: endotracheal airway Successful airway: ETT Cuffed: yes Successful intubation technique: direct laryngoscopy Adjuncts used in placement: intubating stylet Endotracheal tube insertion site: oral Blade: Dianna Blade size: #3 ETT size (mm): 7.5 Cormack-Lehane Classification: grade IIb - view of arytenoids or posterior of glottis only Placement verified by: chest auscultation and capnometry Inital cuff pressure (cm H2O): 0 Cuff volume (mL): 10 Measured from: lips ETT to lips (cm): 22 Ventilation between attempts: none Additional Comments Atraumatic. No change to dentition. Jose Ortega MD ANESTHESIA ORDERABLES Final Resu lt documented in this encounter Visit Diagnoses Not on filedocumented in this encounter Administered Medications Inactive Administered Medications - up to 3 most recent administrations Medication Order MAR Action Action Date Dose Rate Site cefOXitin (Mefoxin) injection 2 g 2 g, Intravenous, Once, 1 dose, On Sat04/23/25 at 1400, Routine, Anesthesia Intraprocedure Given 04/23/2025 2:56 PM EDT 2 g Given 04/23/2025 12:56 PM EDT 2 g fentaNYL (Sublimaze) injection Intravenous, As needed, Starting on Sat04/23/25 at 1216, Until Sat04/23/25 at 1537, Routine, Anesthesia Intraprocedure Given 04/23/2025 12:16 PM EDT 10 0 mcg HYDROmorphone PF (Dilaudid) injection Intravenous, As needed, Starting on Sat04/23/25 at 1310, Until Sat04/23/25 at 1537, Routine, Anesthesia Intraprocedure Given 04/23/2025 1:07 PM EDT 1 m g labetalol (Normodyne,Trandate) injection Intravenous, As needed, Starting on Sat04/23/25 at 1336, Until Sat04/23/25 at 1537, Routine, Anesthesia Intraprocedure Given 04/23/2025 1:36 PM EDT 5 m g lactated Ringer's infusion Intravenous, Continuous PRN, Starting on Sat04/23/25 at 1205, Until Sat04/23/25 at 1537, Routine New Bag 04/23/2025 2:09 PM EDT New Bag 04/23/2025 12:05 PM EDT lactated Ringer's infusion Intravenous, Continuous PRN, Starting on Sat04/23/25 at 1224, Until Sat04/23/25 at 1537, Routine New Bag 04/23/2025 12:24 PM EDT ondansetron (Zofran) injection Intravenous, As needed, Starting on Sat04/23/25 at 1505, Until Sat04/23/25 at 1537, Routine, Anesthesia Intraprocedure Given 04/23/2025 3:05 PM EDT 4 m g phenylephrine in NS (Jordy-Synephrine) 100 mcg/mL prefilled syringe Intravenous, As needed, Starting on Sat04/23/25 at 1231, Until Sat04/23/25 at 1537, Routine, Anesthesia Intraprocedure Given 04/23/2025 12:46 PM EDT 10 0 mcg Given 04/23/2025 12:34 PM EDT 100 mcg Given 04/23/2025 12:33 PM EDT 100 mcg propofol (Diprivan) injection Intravenous, As needed, Starting on Sat04/23/25 at 1250, Until Sat04/23/25 at 1537, Routine, Anesthesia Intraprocedure Given 04/23/2025 1:09 PM EDT 30 mg Given 04/23/2025 1:04 PM EDT 30 mg Given 04/23/2025 12:50 PM EDT 20 mg rocuronium (ZeMuron) injection Intravenous, As needed, Starting on Sat04/23/25 at 1217, Until Sat04/23/25 at 1537, Routine, Anesthesia Intraprocedure Given 04/23/2025 2:23 PM EDT 10 mg Given 04/23/2025 1:43 PM EDT 10 mg Given 04/23/2025 12:17 PM EDT 60 mg ropivacaine (Naropin) injection Injection, Once PRN Procedure, Starting on Sat04/23/25 at 1220, Until Sat04/23/25 at 1220, Routine, Anesthesia Intraprocedure Given 04/23/2025 12:20 PM EDT 60 mL sugammadex (Bridion) 100 MG/ML injection Intravenous, As needed, Starting on Sat04/23/25 at 1523, Until Sat04/23/25 at 1537, Routine, Anesthesia Intraprocedure Given 04/23/2025 3:23 PM EDT 200 mg documented in this encounter Additional Health Concerns Active Problems Noted Date Diagnosed Date Autogenerated Problem 03/30/2025 Assessment Noted Time A fall risk assessment has been complete d for the patient 03/30/2025 8:02 AM EDT A Body Mass Index follow-up plan has been documented for the patient 04/25/2025 3:57 PM EDT documented as of this encounter Care Teams Paring Machine Operator Relationship Specialty Start Date End Date Jan Chavez MD [address] [place] [phone] PCP - General 07/05/21 Rachid Jaime MD [id number] [place] [phone] Surgeon Neurosurgery 08/07/21 documented as of this encounter
--- OUTSIDE RECORDS SUMMARY | 2025-05-11 09:00 | XMS_ITS | Encounter Summary ---
Author Organization [facility] Address [address] [place] [address] Care Team Providers Care Gasoline Power Shovel Operator Name Role Phone Jan Chavez MD Primary Care Provider [phone] Rachid Jaime MD Unavailable [phone] Reason for Referral * Consultation (Routine) - Authorized Specialty Diagnoses / Procedures Referred By Contact Referred To Contact Medical Oncology / Hematology and Oncology Diagnoses Gastrointestinal stromal tumor (GIST) Emiliana Pierre APRN [address] [facility] [address] [place] [address] Phone: tel:[phone] fax:[phone] [facility] Mult[facility] On[facility] [address] [place] [address] Phone: tel: fax: Referral ID Status Reason Start Date Expiration Date Visits Requested Visits Authorized [id number] Authorized Specialty Services Required 05/11/2025 11/10/2026 1 1 Scheduling Instructions Please establish with Kenna Baer MD. Reason for Visit * Reason Comments Follow-up Gastrointestinal str omal tumor (GIST) (CMS/HCC) * Consultation (Routine) - Closed Specialty Diagnoses / Procedures Referred By Abhijeet bennett Referred To Contact Surgical Oncology / Hematology and Oncology Diagnoses Gastrointestinal stromal tumor (GIST) Shorty Barroso MD [address] [address] Phone: tel: fax: Referral ID Status Reason Start Date Expiration Date V isits Requested Visits Authorized [id number] Closed Specialty Services Required 04/25/2025 10/25/2026 1 1 Encounter Details Date Type Department Care Team (Latest Contact Info) Description 05/11/2025 9:00 AM EST Office Visit [facility] [address] [place] [address] Emiliana Pierre, SEWER AND INSPECTOR [address] [place] [address] Gastrointestinal stromal tumor (GIST) (Primary Dx) Social History Tobacco Use Types Packs/Day Years Used Date Smoking Tobacco: Never Smokeless Tobacco: Never Alcohol Use Standard Drinks/Week Comments Never 0 (1 standard drink = 0.6 oz pur e alcohol) PHQ-2 Answer Date Recorded Patient Health Questionnaire-2 Score 0 05/11/2025 PHQ-9 Answer Date Recorded Patient Health Questionnaire-9 Score 0 05/11/2025 PHQ-2A Answer Date Recorded Depression Risk 0 [...] Sign Reading Time Taken Comments Blood Pressure 115/76 05/11/2025 10:37 AM EST Pulse 72 05/11/2025 10:37 AM EST Temperature 36.9 C (98.5 F) 05/11/2025 10:37 AM EST Respiratory Rate 14 05/11/2025 10:37 AM EST Oxygen Saturation 99% 05/11/2025 10:37 AM EST Inhaled Oxygen Concentration - - Weight 85 kg (187 lb 6.3 oz) 05/11/2025 10:37 AM EST Height 165.1 cm (5' 5 ) 05/11/2025 10:37 AM EST Body Mass Index 31.18 05/11/2025 10:37 AM EST documented in this encounter Functional Status * Over the past 2 weeks, how often have you been bothered by any of the following problems? Question Answer Date of Assessment Author Little interest or pleasure in doing things Not at all 05/11/2025 10:38 AM Caty Hayden Feeling down, depressed, or hopeless Not at all 10/2024 10:38 AM Caty Hayden Patient Health Questionnaire-2 Score 0 10/2024 10:38 AM Caty Hayden * Question Answer Date of Assessment Author Trouble falling or staying a sleep, or sleeping too much Not at all 05/11/2025 10:38 AM Caty Hayden Feeling tired or having little energy Not at all 10/2024 10:38 AM Caty Hayden Poor appetite or overeating Not at all 05/11/2025 10 :38 AM Caty Hayden Feeling bad about yourself - or that you are a failure or have let yourself or your family down Not at all 05/11/2025 10:38 AM Olesya Hayden Trouble concentrating on thi ngs, such as reading the newspaper or watching television Not at all 05/11/2025 10:38 AM Caty Hayden Moving or speaking so slowly that other people could have noticed? Or the opposite - being so fidgety or restless that you have been moving around a lot more than usual. Not at all 05/11/2025 10:38 AM Cayt Hayden Thoughts that you would be b sapna off or hurting yourself in some way Not at all 05/11/2025 10:38 AM Caty Hayden Patient Health Questionnaire-9 Score 0 10/2024 10:38 AM Caty Hayden * How difficult have these problems made it for you to do your work, take care of things at home, or get along with other people? Answer Date of Assessment Author Not difficult at all 05/11/2025 10:38 AM Caty Varela documented as of this encounter Miscellaneous Notes * Progress Notes - Emiliana Pierre APRN - 05/11/2025 9:00 AM EST Surgical Oncology Outpatient Progress note Verbal consent was obtained to use ambient listening technology to assist in the documentation of the encounter: yes Chief complaint: Montez Collins is a 74 y.o. 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 On 04/23, the patient was takento the OR and underwent laparoscopic/robotic partial gastrectomy and EGD. The patient tolerated the procedure without any intraoperative or postoperative complications. History of Present Illness The patient is a 74-year-old male with a high-grade gastrointestinal stromal tumor (GIST) diagnosedin 04/2025. The tumor exhibited a high mitotic rate of 25. He underwent a laparoscopic robotic partial gastrectomy for the tumor. He reports a satisfactory recovery at home, with no complications such as nausea, vomiting, or abdominal pain. His bowel function remains normal. He has been able to tolerate a variety of foods, including salad, chili, chips, beets, and crackers, without any adverse reactions. He has also incorporated crackers into his soup. His surgical incisions appear to be healing well, with only minor redness noted. He has been using CeraVe lotion to manage itching, as recommended by his enrichment teacher. He has an appointment scheduled with Dr. Gilbert on 06/01/2025. 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 He had it 40 years ago before he got . It came back when they put the fusion and infusion on him. It is on his back now. He uses CeraVe lotion. He is going to see the enrichment teacher on 06/07/2025. SOCIAL HISTORY Marital Status: Occupations: Retired Diet: Consumes Jell-O, soup, broth, salad, chili, chips, beets, crackers, and broth with soup. Treatment History: 03/10/25 EGD - ulcerated cardia mass, bx GIST with low mitotic rate 03/16/25 CT - 3cm gastric cardia mass 03/30/25 - initial surg onc consult - plan for 04/23 robotic partial gastrectomy. Past Medical History: Past Medical History Pertinent Negatives[1] Past Surgical History: Surgical History[2] Social History: Tobacco: Tobacco Use: Low Risk (04/23/2025) Patient History Smoking Tobacco Use: Never Smokeless Tobacco Use: Never Passive Exposure: Not on file Alcohol: Alcohol Use: Not on file Illicit drug use: Social History Substance and Sexual Activity Drug Use Never Allergies: Allergies[3] Family Medical History: family history is not on file. Home Medications: Prior to Admission medications Medication Sig Start Date End Date Taking? Authorizing Provider acetaminophen (Tylenol) 325 MG tablet Take 2 tablets by mouth every 6 hours. 04/25/25 Himanshu Mendiola MD allopurinol (Zyloprim) 100 MG tablet Take 1 tablet by mouth 2 times a day. Provider, Historical atorvastatin (Lipitor) 40 MG tablet Take 1 tablet by mouth daily. Provider, Historical citalopram (CeleXA) 40 MG tablet Take 1 tablet by mouth daily. Provider, Historical enoxaparin (Lovenox) 40 MG/0.4ML solution prefilled syringe Inject 0.4 mL under the skin daily for 26 doses. 04/25/25 05/21/25 Himanshu Mendiola MD FeroSul 325 (65 Fe) MG tablet Take 1 tablet by mouth daily. 02/17/25 Provider, Historical lisinopril-hydroCHLOROthiazide 20-12.5 MG tablet Take 1 tablet by mouth daily. Provider, Historical methocarbamol (Robaxin) 500 MG tablet Take 1 tablet by mouth 4 times a day. 04/25/25 05/09/25 Himanshu Mendiola MD Multiple Vitamins-Minerals (CENTRUM SILVER ADULT 50+ PO) Take 1 by mouth daily Provider, Historical naloxone (Narcan) 4 mg/0.1 mL nasal spray 1. Give 1 spray in nostril for no/slow breathing or cannot wake after opioid use 2. Call 911 3. Repeat in other nostril if symptoms continue 04/25/25 04/25/26 Thelma Wallace DO ondansetron ODT (Zofran-ODT) 4 MG disintegrating tablet Dissolve 1 tablet on the tongue every 6 hours as needed for nausea or vomiting. 04/25/25 Himanshu Mendiola MD oxyCODONE (Roxicodone) 5 MG immediate release tablet Take 0.5 tablets by mouth every 6 hours as needed for moderate pain. 04/25/25 Thelma Wallace DO pantoprazole (Protonix) 40 MG EC tablet Take 1 tablet by mouth daily. Do not crush, chew, or split.04/26/25 Himanshu Mendiola MD topiramate 50 MG tablet Take 1 tablet by mouth nightly. Provider, Historical Review of Systems: Review of Systems Constitutional: Negative. Negative for appetite change, chills, fatigue, fever and unexpected weight change. HENT: Negative. Eyes: Negative. Respiratory: Negative. Cardiovascular: Negative. Gastrointestinal: Negative. Negative for abdominal pain, diarrhea, nausea and vomiting. Endocrine: Negative. Genitourinary: Negative. Musculoskeletal: Negative. Skin: Negative. Neurological: Negative. Hematological: Negative. Psychiatric/Behavioral: Negative. Physical exam: Physical Exam Constitutional: Appearance: Normal appearance. HENT: Head: Normocephalic. Eyes: Pupils: Pupils are equal, round, and reactive to light. Cardiovascular: Rate and Rhythm: Normal rate and regular rhythm. Pulses: Normal pulses. Heart sounds: Normal heart sounds. Pulmonary: Effort: Pulmonary effort is normal. Breath sounds: Normal breath sounds. Abdominal: General: Abdomen is flat. Bowel sounds are normal. Palpations: Abdomen is soft. Musculoskeletal: General: Normal range of motion. Cervical back: Normal range of motion and neck supple. Skin: General: Skin is warm and dry. Capillary Refill: Capillary refill takes less than 2 seconds. Neurological: General: No focal deficit present. Mental Status: He is alert and oriented to person, place, and time. Mental status is at baseline. Psychiatric: Mood and Affect: Mood normal. Behavior: Behavior normal. Thought Content: Thought content normal. Judgment: Judgment normal. Physical Exam Constitutional: Appears well for postoperative status. Integument/Skin: Mild erythema at the incision site, likely due to reaction from the glue. Objective: All laboratory, images, tracings, and vital sign data are personally reviewed unless otherwise noted. ECOG-0 Life expectancy greater then 3 months VITALS Visit Vitals BP 115/76 (BP Location: Left arm, Patient Position: Sitting, BP Cuff Size: Adult) Pulse 72 Temp 36.9 ??C (98.5 ??F) (Oral) Ht 1.651 m (5' 5 ) Wt 85 kg (187 lb 6.3 oz) SpO2 99% BMI 31.18 kg/m?? LABS Lab Results Component Value Date WBC 11.41 (H) 05/11/2025 HGB 11.6 (L) 05/11/2025 HCT 39.2 (L) 05/11/2025 PLT 373 (H) 05/11/2025 NA 140 05/11/2025 K 3.9 05/11/2025 CL 104 05/11/2025 CO2 25 05/11/2025 BUN 21 05/11/2025 CREATININE 0.93 05/11/2025 GLUCOSE 128 (H) 05/11/2025 CALCIUM 10.0 05/11/2025 MG 2.1 04/25/2025 PHOS 2.3 (L) 04/25/2025 Lab Results Component Value Date TP 7.6 05/11/2025 ALBUMIN 4.2 05/11/2025 AST 17 05/11/2025 ALT 25 05/11/2025 BILITOT 0.3 05/11/2025 ALKPHOS 83 05/11/2025 Lab Results Component Value Date APTT 22 (L) 03/30/2025 INR 1.0 03/30/2025 Lab Results Component Value Date PREALBUMIN 25.2 05/11/2025 PREALBUMIN 34.3 03/30/2025 Results Laboratory Studies Mitotic rate of GIST was about 25. Radiographics/Diagnostics: No New Imaging Pathology: Final Diagnosis (no units) Date/Time Value 04/23/2025 1402 A. 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 - SEE CHECKLIST Synoptic Checklist (no units) Date/Time Value 04/23/20251401 GASTROINTESTINAL STROMAL TUMOR (GIST): Resection GASTROINTESTINAL STROMAL [...] (Chapter 1, 8th Ed.) it is the managingphysician's responsibility to establish the final pathologic stage based upon all pertinent information, including but potentially not limited to this pathology report. pT Category: pT2 pN Category: pN not assigned (no nodes submitted or found) Assessment & Plan 1. Postoperative status following laparoscopic robotic partial gastrectomy for gastrointestinal stromal tumor (GIST). Recovery is satisfactory, with no reported issues such as nausea, vomiting, or abdominal pain. Bowel function is normal, and a variety of foods, including salad and soup, have been tolerated. Surgical incisions are healing well, with minor redness likely due to an allergic reaction to the glue. Thepathology report indicates a high-grade GIST with a mitotic rate of approximately 25. All surgical margins were negative, indicating complete resection of the tumor. Without medication, there is a 43% chance of recurrence within 2 years and a 73% chance within 5 years. These probabilities can be significantly reduced with imatinib therapy. Advised to apply oil to the glue on the incisions to facil itate its removal over the next few weeks. Once the glue is removed, lotion may be used to alleviate itching, with vitamin E oil or CeraVe being recommended options. A genetic analysis of the tumor will be conducted to identify specific genes responsible for the GIST, guiding Dr. Baer in determining the appropriate dosage of imatinib. An appointment with Dr. Baer will be scheduled on the same day as the consultation with Dr. Barroso on 06/01/2025. Gradual reintroduction of regular foods into the diet was advised, starting with small portions of new foods to ensure tolerance. Informed that slight weight loss post-surgery is normal. 2. Darier's disease. History of Darier's disease, which has recurred following recent surgery. Currently using CeraVe lotion to manage symptoms. Advised to continue using CeraVe until the next dermatology appointment on 06/07/2025, where potential new medications may be discussed. Follow-up Follow-up scheduled for 06/01/[address] Barroso and Dr. Baer As always, he is encouraged to contact our office at the number provided for any additional questions or concerns. He voiced understanding of the plan, asked appropriate questions, and all questions were answered to his satisfaction today. Emiliana Pierre APRN 05/11/25 11:03 AM [1] Past Medical History: Diagnosis Date Headache High cholesterol 07/06/2021 HTN (hypertension) 07/06/2021 Kidney stone 07/06/2021 RENÉE (obstructive sleep apnea) 07/06/2021 [2] Past Surgical History: Procedure Laterality Date APPENDECTOMY BRAIN SURGERY 06/2021 CHOLECYSTECTOMY COLONOSCOPY [3] No Known Allergies documented in this encounter Plan of Treatment Scheduled Referrals Name Type Priority Associated Diagnoses Order Schedule Ambulatory referral to Hematology Oncology/Medical Oncology Outpatient Referral Routine Gastrointestinal stromal tumor (GIST) 1 Occurrences starting 05/11/2025 until 11/12/2026 documented as of this encounter Goals Goal Patient Goal Type Associated Problems Recent Progress Patient-Stated? Author Autogenera kayla Goal Care Plan Autogenerated Problem No Shorty Barroso MD documented as of this encounter Results * Prealbumin, Plasma (05/11/2025 9:52 AM EST) Prealbumin, Plasma 25.2 20.0 - 41.0 mg/dL 05/11/2025 10:43 AM EST [facility] Blood Venous blood specimen / Unknown Venipuncture / Unknown 05/11/2025 9:52 AM EST 05/11/2025 10:08 AM EST Emiliana Pierre APRN LAB BLOOD ORDERABLES Fin al Result [facility] [address] [place] [address] * (ABNORMAL) Comprehensive Metabolic Panel, Plasma (05/11/2025 9:52 AM EST) Glucose, Plasma 128(H) 74 - 99 mg/dL 05/11/2025 10:43 AM EST [facility] BUN, Plasma 21 8 - 23 mg/dL 05/11/2025 10:43 AM EST [facility] Creatinine, Plasma 0.93 0.70 - 1.20 mg/dL 05/11/2025 10:43 AM [facility] BUN/Creatinine Ratio 23 05/11/2025 10:43 AM [facility] Sodium, Plasma 140 136 - 145 mmol/L 05/11/2025 10:43 AM [facility] Potassium, Plasma 3.9 3.6 - 4.9 mmol/L 05/11/2025 10:43 AM [facility] Chloride, Plasma 104 97 - 107 mmol/L 05/11/2025 10:43 AM [facility] CO2, Plasma 25 22 - 29 mmol/L 05/11/2025 10:43 AM [facility] Anion Gap 11 6 - 16 mmol/L 05/11/2025 10:43 AM [facility] Total Calcium, Plasma 10.0 8.9 - 10.2 mg/dL 05/11/2025 10:43 AM [facility] Total Protein 7.6 6.3 - 7.9 g/dL 05/11/2025 10:43 AM [facility] Albumin, Plasma 4.2 3.5 - 5.2 g/dL 05/11/2025 10:43 AM [facility] AST, Plasma 17 10 - 50 U/L 05/11/2025 10:43 AM [facility] ALT, Plasma 25 10 - 50 U/L 05/11/2025 10:43 AM [facility] Alkaline Phosphatase, Plasma 83 40 - 115 U/L 05/11/2025 10:43 AM [facility] Total Bilirubin, Plasma 0.3 0.2 - 1.1 mg/dL 05/11/2025 10:43 AM [facility] eGFRcr 86.7 mL/min/1.7 3m*2 05/11/2025 10:43 AM [facility] Comment:Reported eGFRcr in m L/min/1.73m2 is based the CKD-EPI 2020 equation that does not use a race coefficient. Blood Venous blood specimen / Unknown Venipuncture / Unknown 05/11/2025 9:52 AM EST 05/11/2025 10:08 AM EST us Emiliana Moniquekl SEWER AND INSPECTOR LAB BLOOD ORDERABLES Fin al Result [facility] [address] [place] [address] * (ABNORMAL) CBC W/O Differential (05/11/2025 9:52 AM EST) WBC Count 11.41(H) 3.70 - 10.30 10*3/uL LAB HEMATOLOGY METHOD 05/11/2025 10:49 AM EST [facility] RBC Count 4.35(L) 4.60 - 6.10 10*6/uL LAB HEMATOLOGY METHOD 05/11/2025 10:49 AM EST [facility] HGB 11.6(L) 13.7 - 17.5 g/dL LAB HEMATOLOGY METHOD 05/11/2025 10:49 AM EST [facility] HCT 39.2(L) 40.0 - 51.0 % LAB HEMATOLOGY METHOD 05/11/2025 10:49 AM EST [facility] Platelet Count 373(H) 155 - 369 10*3/uL LAB HEMATOLOGY METHOD 05/11/2025 10:49 AM EST [facility] MCV 90 79 - 98 fL LAB HEMATOLOGY METHOD 05/11/2025 10:49 AM EST [facility] MCH 26.7 26.0 - 32.0 pg LAB HEMATOLOGY METHOD 05/11/2025 10:49 AM EST [facility] MCHC 29.6(L) 30.7 - 35.5 g/dL LAB HEMATOLOGY METHOD 05/11/2025 10:49 AM EST [facility] RDW 19.8(H) 11.5 - 14.5 % LAB HEMATOLOGY METHOD 05/11/2025 10:49 AM EST [facility] MPV 9.5 8.8 - 12.5 fL LAB HEMATOLOGY METHOD 05/11/2025 10:49 AM EST [facility] nRBC 0.0 <=0.0 per 100 WBCs LAB HEMATOLOGY METHOD 05/11/2025 10:49 AM EST [facility] Blood Venous blood specimen / Unknown Venipuncture / Unknown 05/11/2025 9:52 AM EST 05/11/2025 10:47 AM [facility] AND INSPECTOR LAB BLOOD ORDERABLES Fin al Result [facility] [address] [place] [address] documented in this encounter Visit Diagnoses Diagnosis Gastrointestinal stromal tumor (GIST)- Primary documented in this encounter Additional Health Concerns Active Problems Noted Date Diagnosed Date Autogenerated Problem 03/30/2025 Assessment Noted Time PHQ-9 Depression Total Score: 0 05/11/20 25 10:38 AM EST A fall risk assessment has been complete d for the patient 05/11/2025 10:38 AM EST A Body Mass Index follow-up plan has been documented for the patient 05/11/2025 11:13 AM EST documented as of this encounter Care Teams Gasoline Power Shovel Operator Relationship Specialty Start Date End Date Jan Chavez MD [address] [place] [id number] PCP - General 07/05/21 Rachid Jaime MD [address] [facility] [address] [place] [address] Surgeon Neurosurgery 08/07/21 documented as of this encounter
--- OUTSIDE RECORDS SUMMARY | 2025-06-01 11:30 | XMS_ITS | Encounter Summary ---
Author Organization [facility] Address [address] [place] [address] Care Team Providers Care Analytical Engineer Name Role Phone Jan Chavez MD Primary Care Provider [phone] Rachid Jaime MD Unavailable [phone] Reason for Visit * Reason Comments Follow-up Gastrointestinal str omal tumor * Consultation (Routine) - Closed Specialty Diagnoses / Procedures Referred By Abhijeet bennett Referred To Contact Surgical Oncology / Hematology and Oncology Diagnoses Gastrointestinal stromal tumor (GIST) Shorty Barroso MD [address] [address] Phone: tel: fax: Referral ID Status Reason Start Date Expiration Date V isits Requested Visits Authorized [id number] Closed Specialty Services Required 04/25/2025 10/25/2026 1 1 Encounter Details Date Type Department Care Team (Latest Contact Info) Description 06/01/2025 11:30 AM EST Office Visit [facility] Multidisciplinary Oncology Clinic [address] [place] [address] Shorty Barroso MD [address] [address] Gastrointestinal stromal tumor (GIST) (Primary Dx) Social History Tobacco Use Types Packs/Day Years Used Date Smoking Tobacco: Never Smokeless Tobacco: Never Alcohol Use Standard Drinks/Week Comments Never 0 (1 standard drink = 0.6 oz pur e alcohol) PHQ-2 Answer Date Recorded Patient Health Questionnaire-2 Score 0 06/01/2025 PHQ-9 Answer Date Recorded Patient Health Questionnaire-9 [...] Sign Reading Time Taken Comments Blood Pressure 123/78 06/01/2025 10:56 AM EST Pulse 78 06/01/2025 10:56 AM EST Temperature 36.3 C (97.3 F) 06/01/2025 10:56 AM EST Respiratory Rate 16 06/01/2025 10:5 6 AM EST Oxygen Saturation 97% 06/01/2025 10: 56 AM EST Inhaled Oxygen Concentration - - Weight 85.2 kg (187 lb 13.3 oz) 025 10:56 AM EST Height 165.1 cm (5' 5 ) 06/01/2025 10:5 6 AM EST Body Mass Index 31.26 06/01/2025 10:56 AM EST documented in this encounter Functional Status * Over the past 2 weeks, how often have you been bothered by any of the following problems? Question Answer Date of Assessment Author Little interest or pleasure in doing things Not at all 06/01/2025 10:59 AM EST Meme Peters Feeling down, depressed, or hopeless Not at all 05/09 10:59 AM EST Meme Peters Patient Health Questionnaire-2 Score 0 05/09 10:59 AM EST Meme Peters * Question Answer Date of Assessment Author Thoughts that you would be b sapna off or hurting yourself in some way Not at all 06/01/2025 10:59 AM EST Meme Peters documented as of this encounter Plan of Treatment Not on file documented as of this encounter Goals Goal Patient Goal Type Associated Problems Recent Progress Patient-Stated? Author Autogene kayla Goal Care Plan Autogenerated Problem No Shorty Barroso MD documented as of this encounter Results * Prealbumin, Plasma (06/01/2025 11:14 AM EST) Prealbumin, Plasma 30.6 20.0 - 41.0 mg/dL 06/01/2025 12:23 PM EST [facility] Blood Venous blood specimen / Unknown Venipuncture / Unknown 06/01/2025 11:14 AM EST 06/01/2025 11:50 AM EST us hSorty Barroso MD LAB BLOOD ORDERABLES Final R esult [facility] [address] [place] [address] * (ABNORMAL) Comprehensive Metabolic Panel, Plasma (06/01/2025 11:14 AM EST) Glucose, Plasma 137(H) 74 - 99 mg/dL 06/01/2025 12:23 PM EST [facility] BUN, Plasma 26(H) 8 - 23 mg/dL 06/01/2025 12:23 PM EST [facility] Creatinine, Plasma 1.07 0.70 - 1.20 mg/dL 06/01/2025 12:23 PM EST [facility] BUN/Creatinine Ratio 24 06/01/2025 12:23 PM EST [facility] Sodium, Plasma 138 136 - 145 mmol/L 06/01/2025 12:23 PM EST [facility] Potassium, Plasma 4.3 3.6 - 4.9 mmol/L 06/01/2025 12:23 PM EST [facility] Chloride, Plasma 101 97 - 107 mmol/L 06/01/2025 12:23 PM EST [facility] CO2, Plasma 26 22 - 29 mmol/L 06/01/2025 12:23 PM EST [facility] Anion Gap 11 6 - 16 mmol/L 06/01/2025 12:23 PM EST [facility] Total Calcium, Plasma 10.3(H) 8.9 - 10.2 mg/dL 06/01/2025 12:23 PM EST [facility] Total Protein 7.2 6.3 - 7.9 g/dL 06/01/2025 12:23 PM EST [facility] Albumin, Plasma 4.1 3.5 - 5.2 g/dL 06/01/2025 12:23 PM EST [facility] AST, Plasma 19 10 - 50 U/L 06/01/2025 12:23 PM EST [facility] Comment:Hemolyzed, result ma y be falsely increased. ALT, Plasma 27 10 - 50 U/L 06/01/2025 12:23 PM EST [facility] Alkaline Phosphatase, Plasma 76 40 - 115 U/L 06/01/2025 12:23 PM EST [facility] Total Bilirubin, Plasma 0.3 0.2 - 1.1 mg/dL 06/01/2025 12:23 PM EST [facility] eGFRcr 73.3 mL/min/1.7 3m*2 06/01/2025 12:23 PM EST [facility] Comment:Reported eGFRcr in m L/min/1.73m2 is based the CKD-EPI 2020 equation that does not use a race coefficient. Blood Venous blood specimen / Unknown Venipuncture / Unknown 06/01/2025 11:14 AM EST 06/01/2025 11:50 AM EST us Shorty Barroso MD LAB BLOOD ORDERABLES Final R esult [facility] [address] [place] [address] * (ABNORMAL) CBC and Differential (06/01/2025 11:14 AM EST) WBC Count 14.94(H) 3.70 - 10.30 10*3/uL LAB HEMATOLOGY METHOD 06/01/2025 11:35 AM EST [facility] RBC Count 4.63 4.60 - 6.10 10*6/uL LAB HEMATOLOGY METHOD 06/01/2025 11:35 AM EST [facility] HGB 12.7(L) 13.7 - 17.5 g/dL LAB HEMATOLOGY METHOD 06/01/2025 11:35 AM EST [facility] HCT 41.3 40.0 - 51.0 % LAB HEMATOLOGY METHOD 06/01/2025 11:35 AM EST [facility] Platelet Count 290 155 - 369 10*3/uL LAB HEMATOLOGY METHOD 06/01/2025 11:35 AM EST [facility] MCV 89 79 - 98 fL LAB HEMATOLOGY METHOD 06/01/2025 11:35 AM [facility] MCH 27.4 26.0 - 32.0 pg LAB HEMATOLOGY METHOD 06/01/2025 11:35 AM [facility] MCHC 30.8 30.7 - 35.5 g/dL LAB HEMATOLOGY METHOD 06/01/2025 11:35 AM [facility] RDW 19.7(H) 11.5 - 14.5 % LAB HEMATOLOGY METHOD 06/01/2025 11:35 AM [facility] MPV 9.3 8.8 - 12.5 fL LAB HEMATOLOGY METHOD 06/01/2025 11:35 AM [facility] nRBC 0.0 <=0.0 per 100 WBCs LAB HEMATOLOGY METHOD 06/01/2025 11:35 AM [facility] Differential Type Automated LAB HEMATOLOGY METHOD 06/01/2025 11:35 AM [facility] Neutrophils % 74 % LAB HEMATOLOGY METHOD 06/01/2025 11:35 AM [facility] Lymphocytes % 16 % LAB HEMATOLOGY METHOD 06/01/2025 11:35 AM [facility] Monocytes % 5 % LAB HEMATOLOGY METHOD 06/01/2025 11:35 AM [facility] Eosinophils % 4 % LAB HEMATOLOGY METHOD 06/01/2025 11:35 AM [facility] Basophils % 0 % LAB HEMATOLOGY METHOD 06/01/2025 11:35 AM [facility] Immature Granulocytes % 1 % LAB HEMATOLOGY METHOD 06/01/2025 11:35 AM [facility] Neutrophils Absolute 11.07(H) 1.60 - 6.10 10*3/uL LAB HEMATOLOGY METHOD 06/01/2025 11:35 AM [facility] Lymphocytes Absolute 2.45 1.20 - 3.90 10*3/uL LAB HEMATOLOGY METHOD 06/01/2025 11:35 AM [facility] Monocytes Absolute 0.70 0.30 - 0.90 10*3/uL LAB HEMATOLOGY METHOD 06/01/2025 11:35 AM [facility] Eosinophils Absolute 0.56(H) 0.00 - 0.50 10*3/uL LAB HEMATOLOGY METHOD 06/01/2025 11:35 AM [facility] Basophils Absolute 0.06 0.00 - 0.10 10*3/uL LAB HEMATOLOGY METHOD 06/01/2025 11:35 AM [facility] Immature Granulocytes Absolute 0.10(H) 0.00 - 0.06 10*3/uL LAB HEMATOLOGY METHOD 06/01/2025 11:35 AM EST [facility] Blood Venous blood specimen / Unknown Venipuncture / Unknown 06/01/2025 11:14 AM EST 06/01/2025 11:31 AM EST Narrative [facility] - 06/01/2025 11:35 AM EST Therapeutic decision making should be based on absolute values, rather than percentages. us Shorty Barroso MD LAB BLOOD ORDERABLES Final R esult [facility] [address] [place] [address] documented in this encounter Visit Diagnoses Diagnosis Gastrointestinal stromal tumor (GIST)- Primary documented in this encounter Additional Health Concerns Active Problems Noted Date Diagnosed Date Autogenerated Problem 03/30/2025 Assessment Noted Time PHQ-9 Depression Total Score: 0 05/11/20 10:38 AM EST A fall risk assessment has been complete d for the patient 06/01/2025 10:59 AM EST A Body Mass Index follow-up plan has been documented for the patient 05/11/2025 11:13 AM EST documented as of this encounter Care Teams Analytical Engineer Relationship Specialty Start Date End Date Jan Chavez MD [address] [place] [address] PCP - General 07/05/21 Rachid Jaime MD [address] [facility] [address] [place] [address] Surgeon Neurosurgery 08/07/21 documented as of this encounter
--- OUTSIDE RECORDS SUMMARY | 2025-06-08 11:44 | XMS_ITS | Encounter Summary ---
Author Organization Healthcare Address [address] [place] [address] Care Team Providers Care Dress Marker Name Role Phone Jan Chavez MD Primary Care Provider [phone] Rachid Jaime MD Unavailable [phone] Encounter Details Date Type Department Care Team (Latest Contact Info) Description 04/23/2025 Travel Social History Tobacco Use Types Packs/Day [...] (Past 1 Month) No 04/23/2025 6:00 PM SHAHEENT Ilene Humphrey RN 6. Suicidal Behavior (Lifetime) No 04/23/2025 6:00 PM EDT Ilene Humphrey RN documented as of this encounter Plan of [...] documented as of this encounter Care Teams Dress Marker Relationship Specialty Start Date End Date Jan Chavez MD [address] [place] [address] PCP - General 07/05/21 Rachid aJime MD [address] [facility] [address] [place] [address] Surgeon Neurosurgery 08/07/21 documented as of this encounter
--- OUTSIDE RECORDS SUMMARY | 2025-06-08 11:44 | XMS_ITS | Encounter Summary ---
Author Organization Healthcare Address [address] [place] [address] Care Team Providers Care Felt Machine Mechanic Name Role Phone Jan Chavez MD Primary Care Provider [phone] Rachid Jaime MD Unavailable Encounter Details Date Type Department Care Team (Late st Contact Info) Description 04/23/2025 Orders Only External Location [address] [place] [address] Provider, External Social History Tobacco Use Types [...] Procedure Name Priority Date/Time Associated Diagnosis Comments POC ULTRASOUND 04/23/2025 documented in this encounter Results * POC Imaging (04/23/2025) Anatomical Region Laterality Modality Pelvis Other 04/23/2025 us External Provider IMG POINT OF CARE ULTRASOUND E dited Result - Final documented in this encounter Visit [...] documented as of this encounter Care Teams Felt Machine Mechanic Relationship Specialty Start Date End Date Jan Chavez MD [address] [place] [address] PCP - General 07/05/21 Rachid Jaime MD [address] [address] Surgeon Neurosurgery 08/07/21 documented as of this encounter
--- OUTSIDE RECORDS SUMMARY | 2025-06-08 11:44 | XMS_ITS | Encounter Summary ---
Author Organization Healthcare Address [address] [place] [address] Care Team Providers Care Beauty Advisor Name Role Phone Jan Chavez MD Primary Care Provider [phone] Rachid Jaime MD Unavailable Encounter Details Date Type Department Care Team (Late st Contact Info) Description 03/24/2025 Lab Requisition [facility] [address] [place] [address] Shorty Barroso MD [address] [address] Iron deficiency anemia, unspecified Social History Tobacco [...] on file documented as of this encounter Procedures Procedure Name Priority Date/Time Associated Diagnosis Comments SURGICAL PATHOLOGY CONSULT Routine 03/24/2025 10:38 AM EDT Iron deficiency anemia, unspecified documented in this encounter Results * Surgical Pathology Consult (03/24/2025 10:38 AM EDT) Case Report Sugical Pathology Consult Case: [id number] Authorizing Provider: Shorty Barroso MD Collected: 03/24/2025 1038 Ordering Location: [facility] Lab Received: 03/24/2025 1039 Pathologist: Landry Mcdonald MD Specimen: Duodenum, [id number] 5 6:16 PM EDT [facility] Final Diagnosis (OUTSIDE CASE: [id number] COLLECTED ON 03/10/2025): DUODENUM, BIOPSY (A): - [...] THE SUBMITTED SAMPLE) 5 6:16 PM EDT [facility] at 1816 EDT Clinical Information D50.9 - Iron deficiency anemia, unspecified [ICD-10-CM] 5 6:16 PM EDT [facility] Special and Immunohistochemical Stains Immunohistochemica l stains that have been performed by the outside institution are also reviewed here, which are interpreted as follows: Positive: CD117, DOG1 5 6:16 PM EDT [facility] Gross Description A. [id number] Received along with a corresponding pathology report from [facility] are 5 slide(s) labeled outside case: [id number] collected on 03/10/2025. 5 6:16 PM EDT [facility] Tissue Duodenal structure / Unknown 03/24/2025 10:38 AM EDT 03/24/2025 10:39 AM EDT us Shorty Barroso MD LAB PATHOLOGY ORDERABLES Fin al Result [facility] [address] [place] [address] documented in this encounter Visit Diagnoses Diagnosis Iron deficiency anemia, unspecified documented in this encounter Additional Health Concerns Assessment Noted Time A fall risk assessment has been complete d for the patient 04/30/2022 9:50 AM EDT documented as of this encounter Care Teams Beauty Advisor Relationship Specialty Start Date End Date Jan Chavez MD [address] [place] [address] PCP - General 07/05/21 Rachid Jaime MD [address] [facility] [address] [place] [address] Surgeon Neurosurgery 08/07/21 documented as of this encounter
--- OUTSIDE RECORDS SUMMARY | 2025-06-08 11:44 | XMS_ITS | Encounter Summary ---
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] Procedures ID REMV STOMACH,PART,DISTAL,GASTROJ EJUN laparoscopic/robotic possible open partial gastrectomy Shorty Barroso MD [address] [address] Phone: tel: fax: [facility] [address] [place] [address] Phone: tel: Referral ID Status Reason Start Date Expiration Date Visits Re quested Visits Authorized [id number] 1 1 Encounter Details Date Type Department Care Team (Latest Contact Info) Description 05/12/2025 Lab Requisition [facility] [address] [place] [address] Sean Ace MD [address] [place] [address] Gastrointestinal stromal tumor of stomach Social History Tobacco Use Types Packs/Day Years [...] Procedure Name Priority Date/Time Associated Diagnosis Comments GASTROINTESTINAL STROMAL TUMOR MUTATION (SO) Routine 04/23/2025 2:02 PM EDT Gastrointestinal stromal tumor of stomach documented in this encounter Results * (ABNORMAL) Gastrointestinal Stromal Tumor Mutation (04/23/2025 2:02 PM EDT) BLOCK ID [id number] 05/24/2025 2:55 PM EST [facility] GIST Interpretation Detected( A) 05/24/2025 2:55 PM EST [facility] Tissue Tissue specimen / Unknown 04/23/2025 2:02 PM EDT 05/12/2025 2:08 PM EST Narrative [facility] ([employer]) - 05/24/2025 2:55 PM EST Gastrointestinal Stromal Tumor Mutations 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 This result has been reviewed and approved by Kait Leon M.D. Test information: Gastrointestinal Stromal Tumor Mutation CHARACTERISTICS: This assay is designed to detect mutations in the KIT gene exons 9, 11, 13, 14, 17 or 18 and in PDGFRA gene exons 12, 14 or 18. Mutations in the KIT and PDGFRA genes may indicate responsiveness to certain targeted therapies. For specific treatment recommendations please refer to NCCN Clinical Practice Guidelines in Oncology for Soft Tissue Sarcoma (Gastrointestinal Stromal Tumor section) (www.nccn.org). GENES TESTED: KIT gene (NM_000222.2) exons 9, 11, 13, 14, 17, and 18 and PDGFRA gene (NM_006206.4) exons 12, 14, and 18 METHODOLOGY: Genomic DNA is isolated from microscopically-guided dissection of tumor tissue and then enriched for the targeted regions of the tested genes. The mutation status of the targeted genes is determined by massively parallel sequencing (next generation sequencing). The hg19 (GRCh37) reference sequence is used as a reference for identifying genetic mutations. LIMITATIONS: This test will not detect mutations in other locations within the KIT or PDGFRA genes, in other genes, or below the limit of detection. This test evaluates for variants in tumor tissue only and cannot distinguish between somatic and germline variants. It is possible that some large insertion/deletion mutations (especially those greater than 60bp) may not be detected. Tissue samples yielding at least 10ng are acceptable but may yield suboptimal results if yield is less than 50ng. LIMIT OF DETECTION: 5 percent mutant allele frequency for single nucleotide variants (SNV) and small to medium sized multi-nucleotide variants (MNV) (insertions/deletions less than 60bp). ANALYTICAL SENSITIVITY (PPA): Analytical sensitivity for all variant classes is available through this link: http://ltd.[employer]/Tests/Pdf/294. CLINICAL DISCLAIMER: Results of this test must always be interpreted within the clinical context and other relevant data and should not be used alone for a diagnosis of malignancy. This test is not intended to detect minimal residual disease. This test was developed and its performance characteristics determined by [facility]. It has not been cleared or approved by the US Food and Drug Administration. This test was performed in a CLIA certified laboratory and is intended for clinical purposes. Performed By: [facility] [address] [place] [address] Resource Management Planner: Chapin Larry MD, PhD CLIA Number: [id number] us Sean Ace MD LAB REF LAB BLOOD AND FLUI D ORD Final Result [facility] [address] [place] [address] documented in this encounter Visit Diagnoses Diagnosis Gastrointestinal stromal tumor of stomach documented in this encounter Additional Health Concerns Active Problems Noted Date Diagnosed Date Autogenerated Problem 03/30/2025 Assessment Noted Time A fall risk assessment has been complete d for the patient 03/30/2025 8:02 AM EDT A Body Mass Index follow-up plan has been documented for the patient 04/25/2025 3:57 PM EDT documented as of this encounter Care Teams Supervising Nurse Relationship Specialty Start Date End Date Jan Chavez MD [address] [place] [address] PCP - General 07/05/21 Rachid Jaime MD [address] [address] Surgeon Neurosurgery 08/07/21 documented as of this encounter
--- OUTSIDE RECORDS SUMMARY | 2025-06-08 11:44 | XMS_ITS | Encounter Summary ---
Author Organization [facility] Address [address] [place] [address] Care Team Providers Care Gas Load Dispatcher Name Role Phone Jan Chavez MD Primary Care Provider [phone] Rachid Jaime MD Unavailable [phone] Encounter Details Date Type Department Care Team ([facility] st Contact Info) Description 04/26/2025 Telephone [facility] [address] [place] [address] Shorty Barroso MD [address] [address] Social History Tobacco Use Types Packs/Day Years [...] as of this encounter Miscellaneous Notes * Telephone Encounter - Krissy Aleman - 04/26/2025 3:23 PM EDT Left message for patient to call back. * Telephone Encounter - Janessa Mendoza - 04/26/2025 1:18 PM EDT Patient Phone Message Reason for Call: Calling to speak to the nurse with a question about his diet since being discharged from having surgery. Best contact number and optimal time of day to reach caller: [phone] Note: Please do not reply to this message. Follow-up communication and further actions as a result of this message need to be communicated with the patient directly, if the patient is not active onMyChart. If the patient is active on MyChart, they will receive notification of the communication/outcome via [employer]. documented in this encounter Plan of Treatment [...] documented as of this encounter Care Teams Gas Load Dispatcher Relationship Specialty Start Date End Date Jan Chavez MD [address] [place] [address] PCP - General 07/05/21 Rachid Jaime MD [address] [facility] [address] [place] [address] Surgeon Neurosurgery 08/07/21 documented as of this encounter
--- OUTSIDE RECORDS SUMMARY | 2025-06-08 11:44 | XMS_ITS | Encounter Summary ---
Author Organization Healthcare Address [address] [place] [address] Care Team Providers Care Culture Manager Name Role Phone Jan Chavez MD Primary Care Provider [phone] Rachid Jaime MD Unavailable Encounter Details Date Type Department Care Team (Latest Contact Info) Description 04/15/2025 Travel Social History Tobacco Use Types Packs/Day [...] documented as of this encounter Care Teams Culture Manager Relationship Specialty Start Date End Date Jan Chavez MD [address] [place] [address] PCP - General 07/05/21 Rachid Jaime MD [address] [facility] [address] [place] [address] Surgeon Neurosurgery 08/07/21 documented as of this encounter
--- OUTSIDE RECORDS SUMMARY | 2025-06-08 11:45 | XMS_ITS | Clinical Summary ---
Author Organization [facility] Address [address] [place] [address] Care Team Providers Care Tooling Manager Name Role Phone Jan Chavez MD Primary Care Provider [phone] Allergies No known active allergies Medications multivitamin [...] by mouth Daily. 3 Active nystatin (MYCOSTATIN) 171029 UNIT/GM powder APPLY 1 GRAM TOPICALLY EVERY [...] Completed 07/05/2021 Insurance MEDICARE A & B [facility] SUPP Care Teams Tooling Manager Relationship Specialty Start Date End Date Jan Chavez MD [address] [place] [address] PCP - General Family Medicine 11/20/22
--- OUTSIDE RECORDS SUMMARY | 2025-06-08 11:45 | XMS_ITS | Encounter Summary ---
Author Organization [facility] Address [address] [place] [address] Care Team Providers Care Air Support Control Officer Name Role Phone Jan Chavez MD Primary Care Provider [phone] Rachid Jaime MD Unavailable [phone] Encounter Details Date Type Department Care Team (Latest Contact Info) Description 06/01/2025 Travel Social History Tobacco Use Types Packs/Day [...] as of this encounter Functional Status * Over the past 2 weeks, how often have you been bothered by any of the following problems? Question Answer Date of Assessment Author Little interest or pleasure in doing things Not at all 06/01/2025 10:59 AM Meme Whitten Feeling down, depressed, or hopeless Not at all 05/09 10:59 AM Meme Whitten Patient Health Questionnaire-2 Score 0 05/09 10:59 AM Meme Whitten * Question Answer Date of Assessment Author Thoughts that you would be b sapna off or hurting yourself in some way Not at all 06/01/2025 10:59 AM EST Meme Peters documented as of this encounter Plan of Treatment Not on file documented as of this encounter Goals Goal Patient Goal Type Associated Problems Recent Progress Patient-Stated? Author [employer] kayla Goal Care Plan Autogenerated Problem No [...] as of this encounter Care Teams Air Support Control Officer Relationship Specialty Start Date End Date Jan Chavez MD [address] [place] [address] PCP - General 07/05/21 Rachid Jaime MD [address] [address] Surgeon Neurosurgery 08/07/21 documented as of this encounter
--- OUTSIDE RECORDS SUMMARY | 2025-06-08 11:45 | XMS_ITS | Encounter Summary ---
Author Organization [facility] Address [address] [place] [address] Care Team Providers Care Stacker Operator Name Role Phone Jan Chavez MD Primary Care Provider [phone] Rachid Jaime MD Unavailable [phone] Encounter Details Date Type Department Care Team ([facility] st Contact Info) Description 05/28/2025 Telephone [facility] [address] [place] [address] Shorty Barroso MD [address] [address] Social History Tobacco Use Types Packs/Day Years [...] Notes * Telephone Encounter - Krissy Aleman RN - 05/28/2025 4:23 PM EST Left message at Dr. Maguire's office stating that Dr. Barroso was unavailable today from 1200 to 1300but he can be reached on his cell. Number left on voicemail. * Telephone Encounter - Janessa Mendoza - 05/28/2025 9:49 AM EST Patient Phone Message Reason for Call: Dr Maguire would like to set up a phone call from noon-1:00 to discuss patient's care and treatment options. Best contact number and optimal time of day to reach caller: [phone] Note: Please do not reply to this message. Follow-up communication and further actions as a result of this message need to be communicated with the patient directly, if the patient is not active onMyChart. If the patient is active on MyChart, they will receive notification of the communication/outcome via [employer]. documented in this encounter Plan of Treatment [...] documented as of this encounter Care Teams Stacker Operator Relationship Specialty Start Date End Date Jan Chavez MD [address] [place] [id number] PCP - General 07/05/21 Rachid Jaime MD [address] [facility] [address] [place] [address] Surgeon Neurosurgery 08/07/21 documented as of this encounter
--- OUTSIDE RECORDS SUMMARY | 2025-06-08 11:45 | XMS_ITS | Clinical Summary ---
Author Organization [facility] Address [address] [place] [address] Care Team Providers Care Criminal Court Judge Name Role Phone Jan Chavez MD Primary Care Provider [phone] Rachid Jaime MD Unavailable [phone] Allergies No known active allergies Medications allopurinol (Zyloprim) 100 MG tablet Take 1 tablet by mouth 2 times a day. Active atorvastatin (Lipitor) 40 MG tablet Take 1 tablet by mouth daily. Active citalopram (CeleXA) 40 MG tablet Take 1 tablet by mouth daily. Active lisinopril-hydroCH LOROthiazide 20-12.5 MG tablet Take 1 tablet by mouth daily. Active Multiple Vitamins-Minerals (CENTRUM SILVER ADULT 50+ PO) Take 1 by mouth daily Active FeroSul 325 (65 Fe) MG tablet Take 1 tablet by mouth daily. 02/18/20 25 Active topiramate 50 MG tablet Take 1 tablet by mouth nightly. Active oxyCODONE (Roxicodone) 5 MG immediate release tablet Take 0.5 tablets by mouth every 6 hours as needed for moderate pain. 12 tablet 04/25/20 25 Active Additional Information Patient not taking.Reported on 06/01/2025 naloxone (Narcan) 4 mg/0.1 mL nasal spray 1. Give 1 spray in nostril for no/slow breathing or cannot wake after opioid use 2. Call 911 3. Repeat in other nostril if symptoms continue 1 each 04/25/20 25 026 Active Additional Information Patient not taking.Reported on 06/01/2025 acetaminophen (Tylenol) 325 MG tablet Take 2 tablets by mouth every 6 hours. 100 tablet 10/19/20 25 Active ondansetron ODT (Zofran-ODT) 4 MG disintegrating tablet Dissolve 1 tablet on the tongue every 6 hours as needed for nausea or vomiting. 20 tablet 04/25/20 Active methocarbamol (Robaxin) 500 MG tablet Take 1 tablet by mouth 4 times a day. 56 tablet 04/25/20 Active Additional Information Patient not taking.Reported on 06/01/2025 pantoprazole (Protonix) 40 MG EC tablet Take 1 tablet by mouth daily. Do not crush, chew, or split. 90 tablet 3 04/26/20 Active cefadroxil (Duricef) 500 MG capsule take 1 capsule by mouth twice daily for 14 days 05/27/20 Active mupirocin (Bactroban) 2 % ointment MIX ONE PART MUPIROCIN WITH ONE PART NYSTATIN AND APPLY TOPICALLY TO AFFECTED AREA TWICE DAILY 05/27/20 Active nystatin (Mycostatin) ointment MIX ONE PART NYSTATIN WITH ONE PART MUPIROCIN AND APPLY TOPICALLY TO AFFECTED AREA TWICE A DAY 05/27/20 Active triamcinolone (Kenalog) 0.1 % ointment APPLY TOPICALLY TO AFFECTED AREAS OF THE TRUNK AND EXTREMITIES THICK TWICE DAILY FOR 14 DAYS KEEP IN THE FRIDGE 05/17/20 Active enoxaparin (Lovenox) 40 MG/0.4ML solution prefilled syringe Inject 0.4 mL under the skin daily for 26 doses. 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 HTN (hypertension) 07/06/2021 High cholesterol 07/06/2021 RENÉE (obstructive sleep apnea) 07/06/2021 Kidney stone 07/06/2021 Brain mass 07/05/2021 Encounters Date Type Department Care Team Description 06/01/2025 11:30 AM EST Office Visit [facility] [address] [place] [phone] Shorty Barroso MD Gastrointestinal stromal tumor (GIST) (Primary Dx) 06/01/2025 Travel 05/31/2025 Telephone [facility] [address] [place] [address] Shorty Barroso MD 05/31/2025 Telephone [facility] [address] [place] [address] Shorty Barroso MD 05/28/2025 Telephone [facility] [address] [place] [address] Shorty Barroso MD 05/12/2025 Lab Requisition [facility] [address] [place] [address] Sean Ace MD Gastrointestinal stromal tumor of stomach 05/11/2025 9:00 AM EST Office [facility] [address] [place] [phone] Emiliana Pierre APRN Gastrointestinal stromal tumor (GIST) (Primary Dx) 05/11/2025 Travel 04/27/2025 Telephone [facility] [address] [place], [place] [phone] Shorty Barroso MD 04/26/2025 Telephone [facility] [address] [place] [phone] Shorty Barroso MD 04/23/2025 12:12 PM EDT Anesthesia Event [facility] [address] [place] [address] Jose Ortega MD Conley, Elizabeth T, PA 04/23/2025 11:35 AM EDT - 04/23/2025 3:35 PM EDT Surgery [facility] [address] [place] [phone] Shorty Barroso MD laparoscopic/robotic possible open partial gastrectomy [00714 (CPT )] 04/23/2025 9:31 AM EDT - 04/25/2025 4:25 PM EDT Hospital Encounter [facility]patient [address] [phone] Shorty Barroso MD Gastrointestinal stromal tumor (GIST) (CMS/HCC) Discharge Disposition: Home or Self Care 04/23/2025 Orders Only External Location [address] [place] [phone] Provider, External 04/23/2025 Travel 04/15/2025 11:30 AM EDT Pre-Admission Testing [facility] [address] [place] [address] 04/15/2025 Travel 03/30/2025 8:10 AM EDT Office Visit [facility] [address] [place] [phone] Shorty Barroso MD Gastrointestinal stromal tumor (GIST) (CMS/HCC) (Primary Dx); Abnormal coagulation profile 03/30/2025 Travel 03/24/2025 Lab Requisition [facility] [address] [place] [address] Shorty Barroso MD Iron deficiency anemia, unspecified 03/16/2025 Orders Only External Location [address] [place] [address] Provider, External 03/16/2025 Orders Only External Location [address] [place] [address] Provider, External from Last 3 Months Immunizations Immunization Administration Dates Next Due SoCAT COVID-19 Vaccine (Purple Cap) 12 + 08/01/2020,07/11/2020 Family History Medical History Relation Name Comments Anesthesia problems Neg Hx Malig Hyperthermia Neg Hx Social History Tobacco Use Types Packs/Day Years [...] Mass Index 31.26 06/01/2025 10:56 AM EST Plan of Treatment Health Maintenance Due Date Last Done Comments [facility]Medicare Annual Wellness (AWV) 1950 [facility]-Infant/Child/Adol SDOH Screenings 1950 [facility]- SDOH Screenings 11/17/1969 [facility]-Adult SDOH Screenings 11/17/1969 CT Colonography 11/17/1996 Colonoscopy 11/17/1996 FIT-DNA 11/17/1996 FIT 11/17/1996 FOBT 11/17/1996 Sigmoidoscopy 11/17/1996 [facility]-Colorectal Cancer Screening 11/17/1996 [facility]-Zoster Vaccines (1 of 2) 11/17/2001 [facility]-DTaP,Tdap,and Td Vaccines (2 - Td or Tdap) 12/26/2016 12/26/2006 [id number] Vaccine ( season) 2025 04/15/2024, 04/10/2023, 03/20/2022, Additional history exists [facility]-Influenza Vaccine (#1) 03/08/202502/28, 04/08/2023, 03/10/2022, Additional history exists [facility]-Depression Screening 06/01/2026 025, 05/11/2025, 03/30/2025, Additional history exists [facility]-RSV Vaccine: 60+ Years or (1 - 1-dose 75+ series) 11/17/2026 [facility]-Hepatitis A Vaccines Aged Out 07/11/2018 No longer eligible based on patient's age to complete this topic [facility]-Hepatitis C Screening Completed 07/05/2021 [facility]-Pneumococcal Vaccine: 50+ Years Completed 04/15/2024 [facility]-Obesity Intervention Completed 025, 03/30/2025, 03/30/2025, Additional history exists HPV Vaccines Aged Out No longer eligi [...] Barroso MD Medical Devices Implanted Type Area Sales Operations Analyst Device Identifier Shelf Expiration Date Model / Serial / Lot Periguard 10 X 16cm - [id number] Implanted:Qty: 1 on 07/06/2021 by Rachid Jaime MD at [facility]-[id number] 09/01/2025 [id number] / / [id number] Screw Ti Matrixneuro Selfdrill 4mm - [id number] Implanted:Qty: 18 on 07/06/2021 by Rachid Jaime MD at [facility] [employer] [facility]-[id number] 07/06/2022 [id number] / / Plate, Neuro Box Lp [id number] - [id number] Implanted:Qty: 2 on 07/06/2021 by Rachid Jaime MD at [facility] [employer] [facility]-[id number] 07/06/2022 [id number] / / Cover, Neuro Somis Lp 17mm - [id number] Implanted:Qty: 3 on 07/06/2021 by Rachid Jaime MD at [facility] [employer] [facility]-[id number] 07/06/2022 [id number] / / Explanted Type Area Sales Operations Analyst Device Identifier Shelf Expiration Date Model / Serial / Lot Screw Ti Matrixneuro Selfdrill 4mm - [id number] Explanted:Qty: 3 on 07/06/2021 by Rachid Jaime MD at [facility] [employer] [facility]-[id number] 07/06/2022 [id number] / / Procedures Procedure Name Priority Date/Time Associated Diagnosis Comments CBC WITH AUTO DIFFERENTIAL Routine 06/01/2025 11:14 AM EST Gastrointestinal stromal tumor (GIST) COMPREHENSIVE METABOLIC PANEL, PLASMA Routine 06/01/2025 11:14 AM EST Gastrointestinal stromal tumor (GIST) PREALBUMIN, PLASMA Routine 06/01/2025 11 :14 AM EST Gastrointestinal stromal tumor (GIST) PREALBUMIN, PLASMA Routine 05/11/2025 9: 52 AM EST Gastrointestinal stromal tumor (GIST) COMPREHENSIVE METABOLIC PANEL, PLASMA Routine 05/11/2025 9:52 AM EST Gastrointestinal stromal tumor (GIST) CBC W/O DIFFERENTIAL Routine 05/11/2025 9:52 AM EST Gastrointestinal stromal tumor (GIST) POCT GLUCOSE METER UNSOLICITED RESULTS Routine 04/25/2025 12:04 PM EDT POCT GLUCOSE METER UNSOLICITED RESULTS Routine 04/25/2025 7:40 AM EDT PHOSPHORUS, PLASMA Routine 04/25/2025 5: 11 AM EDT MAGNESIUM, PLASMA Routine 04/25/2025 5:1 1 AM EDT COMPREHENSIVE METABOLIC PANEL, PLASMA Routine 04/25/2025 5:11 AM EDT CBC W/O DIFFERENTIAL Routine 04/25/2025 5:11 AM EDT POCT GLUCOSE METER UNSOLICITED RESULTS Routine 04/24/2025 8:04 PM EDT POCT GLUCOSE METER UNSOLICITED RESULTS Routine 04/24/2025 4:52 PM EDT PHOSPHORUS, PLASMA Timed 04/24/2025 2: 32 PM EDT MAGNESIUM, PLASMA Timed 04/24/2025 2:3 2 PM EDT COMPREHENSIVE METABOLIC PANEL, PLASMA Timed 04/24/2025 2:32 PM EDT CBC W/O DIFFERENTIAL Timed 04/24/2025 2:32 PM EDT POCT GLUCOSE METER UNSOLICITED RESULTS Routine 04/24/2025 11:23 AM EDT HEMOGLOBIN A1C Add-On 04/24/2025 3:39 AM EDT PHOSPHORUS, PLASMA Routine 04/24/2025 3: 39 AM EDT MAGNESIUM, PLASMA Routine 04/24/2025 3:3 9 AM EDT COMPREHENSIVE METABOLIC PANEL, PLASMA Routine 04/24/2025 3:39 AM EDT CBC W/O DIFFERENTIAL Routine 04/24/2025 3:39 AM EDT PHOSPHORUS, PLASMA Routine 04/23/2025 3: 58 PM EDT MAGNESIUM, PLASMA Routine 04/23/2025 3:5 8 PM EDT COMPREHENSIVE METABOLIC PANEL, PLASMA Routine 04/23/2025 3:58 PM EDT CBC WITH AUTO DIFFERENTIAL Routine 04/23/2025 3:58 PM EDT BLOOD GAS PANEL, ARTERIAL Routine 04/23/2025 3:58 PM EDT SURGICAL PATHOLOGY EXAM Routine 04/23/20 2:02 PM EDT Gastrointestinal stromal tumor (GIST) GASTROINTESTINAL STROMAL TUMOR MUTATION (SO) Routine 04/23/2025 2:02 PM EDT Gastrointestinal stromal tumor of stomach ANESTHESIA PERIPHERAL IV PLACEMENT Routine 04/23/2025 12:24 PM EDT PB ANESTHESIA NON-TIMED PROCEDURE PLACEHOLDER Routine 04/23/2025 12:24 PM EDT PB POINT OF CARE IMAGING PLACEHOLDER Routine 04/23/2025 12:20 PM EDT PB ANESTHESIA PLACEHOLDER Routine 04/23/2025 12:19 PM EDT MI AN ELECTIVE ENDOTRACHEAL AIRWAY Routine 04/23/2025 12:19 PM EDT MI REMV STOMACH,PART,DISTAL,YUNG ROJEJUN 04/23/2025 11:57 AM EDT Gastrointestinal stromal tumor (GIST) TYPE AND SCREEN Routine 04/23/2025 11:47 AM EDT POCT GLUCOSE METER UNSOLICITED RESULTS Routine 04/23/2025 11:46 AM EDT POC ULTRASOUND 04/23/2025 ECG ADULT Routine 03/30/2025 9:14 AM EDT [...] Relevant to Health Maintenance Results * (ABNORMAL) CBC and Differential (06/01/2025 11:14 AM EST) Only the most recent of3 resultswithin the time period is included. WBC Count 14.94(H) 3.70 - 10.30 10*3/uL LAB HEMATOLOGY METHOD 06/01/2025 11:35 AM EST [facility] RBC Count 4.63 4.60 - 6.10 10*6/uL LAB HEMATOLOGY METHOD 06/01/2025 11:35 AM EST [facility] HGB 12.7(L) 13.7 - 17.5 g/dL LAB HEMATOLOGY METHOD 06/01/2025 11:35 AM EST [facility] HCT 41.3 40.0 - 51.0 % LAB HEMATOLOGY METHOD 06/01/2025 11:35 AM EST [facility] Platelet Count 290 155 - 369 10*3/uL LAB HEMATOLOGY METHOD 06/01/2025 11:35 AM EST [facility] MCV 89 79 - 98 fL LAB HEMATOLOGY METHOD 06/01/2025 11:35 AM EST [facility] MCH 27.4 26.0 - 32.0 pg LAB HEMATOLOGY METHOD 06/01/2025 11:35 AM EST [facility] MCHC 30.8 30.7 - 35.5 g/dL LAB HEMATOLOGY METHOD 06/01/2025 11:35 AM EST [facility] RDW 19.7(H) 11.5 - 14.5 % LAB HEMATOLOGY METHOD 06/01/2025 11:35 AM EST [facility] MPV 9.3 8.8 - 12.5 fL LAB HEMATOLOGY METHOD 06/01/2025 11:35 AM EST [facility] nRBC 0.0 <=0.0 per 100 WBCs LAB HEMATOLOGY METHOD 06/01/2025 11:35 AM EST [facility] Differential Type Automated LAB HEMATOLOGY METHOD 06/01/2025 11:35 AM EST [facility] Neutrophils % 74 % LAB HEMATOLOGY METHOD 06/01/2025 11:35 AM EST [facility] Lymphocytes % 16 % LAB HEMATOLOGY METHOD 06/01/2025 11:35 AM [facility] Monocytes % 5 % LAB HEMATOLOGY METHOD 06/01/2025 11:35 AM EST [facility] Eosinophils % 4 % LAB HEMATOLOGY METHOD 06/01/2025 11:35 AM EST [facility] Basophils % 0 % LAB HEMATOLOGY METHOD 06/01/2025 11:35 AM EST [facility] Immature Granulocytes % 1 % LAB HEMATOLOGY METHOD 06/01/2025 11:35 AM EST [facility] Neutrophils Absolute 11.07(H) 1.60 - 6.10 10*3/uL LAB HEMATOLOGY METHOD 06/01/2025 11:35 AM EST [facility] Lymphocytes Absolute 2.45 1.20 - 3.90 10*3/uL LAB HEMATOLOGY METHOD 06/01/2025 11:35 AM EST [facility] Monocytes Absolute 0.70 0.30 - 0.90 10*3/uL LAB HEMATOLOGY METHOD 06/01/2025 11:35 AM EST [facility] Eosinophils Absolute 0.56(H) 0.00 - 0.50 10*3/uL LAB HEMATOLOGY METHOD 06/01/2025 11:35 AM EST [facility] Basophils Absolute 0.06 0.00 - 0.10 10*3/uL LAB HEMATOLOGY METHOD 06/01/2025 11:35 AM EST [facility] Immature Granulocytes Absolute 0.10(H) 0.00 - [...] Final R esult [facility] [address] [place] [address] * Prealbumin, Plasma (06/01/2025 11:14 AM EST) Only the most recent of3 resultswithin the time period is included. Prealbumin, Plasma 30.6 20.0 - 41.0 mg/dL 06/01/2025 12:23 PM EST [facility] Blood Venous blood specimen / Unknown Venipuncture / Unknown 06/01/2025 11:14 AM EST 06/01/2025 11:50 AM EST us Shorty Barroso MD LAB BLOOD ORDERABLES Final R esult [facility] [address] [place] [address] * (ABNORMAL) Comprehensive Metabolic Panel, Plasma (06/01/2025 11:14 AM EST) Only the most recent of7 resultswithin the time period is included. Glucose, Plasma 137(H) 74 - 99 mg/dL 06/01/2025 12:23 PM EST [facility] BUN, Plasma 26(H) 8 - 23 mg/dL 06/01/2025 12:23 PM EST [facility] Creatinine, Plasma 1.07 0.70 - 1.20 mg/dL 06/01/2025 12:23 PM EST [facility] BUN/Creatinine Ratio 24 06/01/2025 12:23 PM EST [facility] Sodium, Plasma 138 136 - 145 mmol/L 06/01/2025 12:23 PM EST [facility] Potassium, Plasma 4.3 3.6 - 4.9 mmol/L 06/01/2025 12:23 PM EST [facility] Chloride, Plasma 101 97 - 107 mmol/L 06/01/2025 12:23 PM EST [facility] CO2, Plasma 26 22 - 29 mmol/L 06/01/2025 12:23 PM EST [facility] Anion Gap 11 6 - 16 mmol/L 06/01/2025 12:23 PM EST [facility] Total Calcium, Plasma 10.3(H) 8.9 - 10.2 mg/dL 06/01/2025 12:23 PM EST [facility] Total Protein 7.2 6.3 - 7.9 g/dL 06/01/2025 12:23 PM EST [facility] Albumin, Plasma 4.1 3.5 - 5.2 g/dL 06/01/2025 12:23 PM EST [facility] AST, Plasma 19 10 - 50 U/L 06/01/2025 12:23 PM EST [facility] Comment:Hemolyzed, result ma y be falsely increased. ALT, Plasma 27 10 - 50 U/L 06/01/2025 12:23 PM EST [facility] Alkaline Phosphatase, Plasma 76 40 - 115 U/L 06/01/2025 12:23 PM EST [facility] Total Bilirubin, Plasma 0.3 0.2 - 1.1 mg/dL 06/01/2025 12:23 PM EST [facility] eGFRcr 73.3 mL/min/1.7 3m*2 06/01/2025 12:23 PM EST [facility] Comment:Reported eGFRcr in m L/min/1.73m2 is based the CKD-EPI 2020 equation that does not use a race coefficient. Blood Venous blood specimen / Unknown Venipuncture / Unknown 06/01/2025 11:14 AM EST 06/01/2025 11:50 AM EST us Shorty Barroso MD LAB BLOOD ORDERABLES Final R esult [facility] [address] [place] [address] * (ABNORMAL) CBC W/O Differential (05/11/2025 9:52 AM EST) Only the most recent of4 resultswithin the time period is included. WBC Count 11.41(H) 3.70 - 10.30 10*3/uL LAB HEMATOLOGY METHOD 05/11/2025 10:49 AM EST [facility] RBC Count 4.35(L) 4.60 - 6.10 10*6/uL LAB HEMATOLOGY METHOD 05/11/2025 10:49 AM EST [facility] HGB 11.6(L) 13.7 - 17.5 g/dL LAB HEMATOLOGY METHOD 05/11/2025 10:49 AM EST [facility] HCT 39.2(L) 40.0 - 51.0 % LAB HEMATOLOGY METHOD 05/11/2025 10:49 AM EST [facility] Platelet Count 373(H) 155 - 369 10*3/uL LAB HEMATOLOGY METHOD 05/11/2025 10:49 AM EST [facility] MCV 90 79 - 98 fL LAB HEMATOLOGY METHOD 05/11/2025 10:49 AM EST [facility] MCH 26.7 26.0 - 32.0 pg LAB HEMATOLOGY METHOD 05/11/2025 10:49 AM EST [facility] MCHC 29.6(L) 30.7 - 35.5 g/dL LAB HEMATOLOGY METHOD 05/11/2025 10:49 AM EST [facility] RDW 19.8(H) 11.5 - 14.5 % LAB HEMATOLOGY METHOD 05/11/2025 10:49 AM EST [facility] MPV 9.5 8.8 - 12.5 fL LAB HEMATOLOGY METHOD 05/11/2025 10:49 AM EST [facility] nRBC 0.0 <=0.0 per 100 WBCs LAB HEMATOLOGY METHOD 05/11/2025 10:49 AM EST [facility] Blood Venous blood specimen / Unknown Venipuncture / Unknown 05/11/2025 9:52 AM EST 05/11/2025 10:47 AM EST Emiliana Pierre MULTIPLE LAUNCH ROCKET SYSTEM CREWMEMBER LAB BLOOD ORDERABLES Fin al Result Performing Organization Address City/State/[facility] Co de Phone Number [facility] [address] [place] [phone] * (ABNORMAL) POCT glucose meter (04/25/2025 12:04 PM EDT) Only the most recent of6 resultswithin the time period is included. POCT Glucose 127(H) 74 - 99 mg/dL [...] 04/25/2025 12:05 PM EDT [facility] Open Hearth Worker ID Mckenzie Cleaning 12:05 PM EDT [facility] Device ID [id number] 04/25/2025 12:05 PM EDT [facility] Specimen Type POC Capillary 04/25/2025 12:05 PM EDT [facility] Blood Capillary blood specimen / Unknown 04/25/2025 12:04 PM EDT 04/25/2025 12:05 PM EDT Shorty Barroso MD LAB POINT OF CARE TE ST DOCKED DEVICE UNSOLICITED RESULTS Final Result Performing Organization Address City/[facility]/ZIP Co de Phone Number [facility] [address] [place] [address] * (ABNORMAL) Phosphorus, Plasma (04/25/2025 5:11 AM EDT) Only the most recent of4 resultswithin the time period is included. Phosphorus, Plasma 2.3(L) 2.5 - 4.5 mg/dL 04/25/2025 5:57 AM EDT [facility] Blood Venous blood specimen / Unknown Venipuncture / Unknown 04/25/2025 5:11 AM EDT 04/25/2025 5:31 AM EDT Shorty Barroso MD LAB BLOOD ORDERABLES Final R esult Performing Organization Address City/[facility]/ZIP Co de Phone Number [facility] [address] [place] [address] * Magnesium, Plasma (04/25/2025 5:11 AM EDT) Only the most recent of4 resultswithin the time period is included. Magnesium, Plasma 2.1 1.9 - 2.4 mg/dL 04/25/2025 5:57 AM EDT [facility] Blood Venous blood specimen / Unknown Venipuncture / Unknown 04/25/2025 5:11 AM EDT 04/25/2025 5:31 AM EDT Shorty Barroso MD LAB BLOOD ORDERABLES Final R esult [facility] [address] [place] [address] * Hemoglobin A1c (04/24/2025 3:39 AM EDT) Hemoglobin A1c 5.5 <5.7 % 04/24/2025 9:40 AM EDT [facility] Blood Venous blood specimen / Unknown Venipuncture / Unknown 04/24/2025 3:39 AM EDT 04/24/2025 4:28 AM EDT Narrative [facility] - 04/24/2025 9:40 AM EDT HA1C Interpretive Data: Diagnosis of Diabetes: Diabetic > or = 6.5% Pre-diabetic 5.7 to 6.4% Non-diabetic < or = 5.6% Glycemic Targets for Type I and Type II Diabetics: Non- Adults <7.0% Adults <6.0% Children and Adolescents <7.5% Source: [place] [employer]. Standards of medical care in diabetes,2017. Diabetes Care.2017:40 (suppl 1):S1-S135. us Shorty Barroso MD LAB BLOOD ORDERABLES Final R esult [facility] [address] [place] [address] * (ABNORMAL) Blood gas panel, arterial (04/23/2025 3:58 PM EDT) pH, Arterial 7.32 7.31 - 7.42 LAB HEMATOLOGY METHOD 04/23/2025 4:10 PM EDT [facility] pCO2, Arterial 50(H) 32 - 45 mmHg LAB HEMATOLOGY METHOD 04/23/2025 4:10 PM EDT [facility] pO2, Arterial 70(L) >70 mmHg LAB HEMATOLOGY METHOD 04/23/2025 4:10 PM EDT [facility] SO2, Measured, Arterial 93(L) 94 - 98 % LAB HEMATOLOGY METHOD 04/23/2025 4:10 PM EDT [facility] Base Excess, Arterial -0.5 -2.0 - 3.0 mmol/L LAB HEMATOLOGY METHOD 04/23/2025 4:10 PM EDT [facility] Bicarbonate, Calculated, Arterial 26 22 - 26 mmol/L LAB HEMATOLOGY METHOD 04/23/2025 4:10 PM EDT [facility] Hematocrit, Whole Blood 34.0(L) 40.0 - 51.0 % LAB HEMATOLOGY METHOD 04/23/2025 4:10 PM EDT [facility] Sodium, Whole Blood 138 136 - 145 mmol/L LAB HEMATOLOGY METHOD 04/23/2025 4:10 PM EDT [facility] Potassium, Whole Blood 5.0(H) 3.6 - 4.9 mmol/L LAB HEMATOLOGY METHOD 04/23/2025 4:10 PM EDT [facility] Chloride, Whole Blood 105 97 - 107 mmol/L LAB HEMATOLOGY METHOD 04/23/2025 4:10 PM EDT [facility] Glucose, Whole Blood 189(H) 74 - 99 mg/dL LAB HEMATOLOGY METHOD 04/23/2025 4:10 PM EDT [facility] Ionized Calcium, Whole Blood 4.8 4.6 - 5.1 mg/dL LAB HEMATOLOGY METHOD 04/23/2025 4:10 PM EDT [facility] Lactate, Arterial, Whole Blood 1.4 0.5 - 1.6 mmol/L LAB HEMATOLOGY METHOD 04/23/2025 4:10 PM EDT [facility] Blood Arterial blood specimen / Unknown Arterial Puncture / Unknown 04/23/2025 3:58 PM EDT 04/23/2025 4:05 PM EDT Shorty Barroso MD LAB BLOOD ORDERABLES Final R esult [facility] [address] [place] [address] * (ABNORMAL) Gastrointestinal Stromal Tumor Mutation (04/23/2025 2:02 PM EDT) BLOCK ID [id number] 05/24/2025 2:55 PM EST [facility] ([place] GIST Interpretation Detected( A) 05/24/2025 2:55 PM EST [facility] Tissue Tissue specimen / Unknown 04/23/2025 2:02 PM EDT 05/12/2025 2:08 PM EST Narrative [facility] ([place]) - 05/24/2025 2:55 PM EST Gastrointestinal Stromal Tumor Mutations 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 This result has been reviewed and approved [...] variant classes is available through this link: [email or web address] CLINICAL DISCLAIMER: Results of this test must always be interpreted within the clinical context and other relevant data and should not be used alone for a diagnosis of malignancy. This test is not intended to detect minimal residual disease. This test was developed and its performance characteristics determined by [facility]. It has not been cleared or approved by the [place] Food and Drug Administration. This test was performed in a CLIA certified laboratory and is intended for clinical purposes. Performed By: [facility] [address] [place] [address] Fleet Coordinator: Chapin Larry MD, PhD CLIA Number: [id number] us Sean Ace MD LAB REF LAB BLOOD AND FLUI D ORD Final Result [facility] ([facility] [address] [place] [address] * Surgical Pathology Exam (04/23/2025 2:02 PM EDT) Case Report Surgical Pathology Case: [id number] Authorizing Provider: Shorty Barroso MD Collected: 04/23/2025 1402 Ordering Location: [facility] Received: 04/23/2025 1547 Pathologist: Sean Ace MD Specimen: Other (specify site), Partial gastrectomy 5 5:13 PM EDT [facility] Final Diagnosis A. 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 - SEE CHECKLIST 5:[address] [facility] at 1713 EDT Synoptic Checklist GASTROINTESTINAL [...] (no nodes submitted or found) 5:[address] [facility] Clinical Information Gastrointestinal stromal tumor (GIST) of stomach. 5 5:13 PM EDT [facility] LAB Microscopic Description Morphology is epithelioid and focally spindly. W Very limited focal necrosis. Abundant mitoses present. IHC is confirmatory. 5:13 PM T [facility] Special and Immunohistochemical Stains IHC: A3-3 DOG-1: POSITIVE A3-4 CD117: POSITIVE All controls show appropriate reactivity. All immunohistochemis try, in situ hybridization, and histochemical tests were developed by and are performed at the [facility], [address] [place] [address]. All tests reported here, except those addressing [...] as investigational or for research. 5:13 PM [facility] Gross Description A. PARTIAL GASTRECTOMY The specimen [...] surrounding a central chandra-brown canal. Every other veterans contact representative section of the mass is submitted in cassettes [id number]. Cold Time: 1h 45m Arnold Linares MD 5:13 PM T [facility] Note: A resident was involved in the service. I attest I examined the relevant preparations for the specimens and confirmed the diagnosis or interpretation. 5:13 PM EDT [facility] Tissue Topography unknown / Unknown 04/23/2025 2:02 PM EDT 04/23/2025 3:47 PM EDT Comment:Pre-op diagnosis: Gastrointestinal stromal tumor (GIST) [C49.A0] us Shorty Barroso MD LAB PATHOLOGY ORDERABLES Fin al Result [facility] [address] [place] [address] * Peripheral IV (04/23/2025 12:24 PM EDT) [...] Prep: ChloraPrep Patient monitoring: continuous pulse ox, conveyor monitor and heart rate Block type: TAP Laterality: [...] the procedure well, with no obvious complications. us Jose Ortega MD ANESTHESIA ORDERABLES Final Resu lt * MI AN ELECTIVE ENDOTRACHEAL AIRWAY, PB ANESTHESIA PLACEHOLDER [...] Additional Comments Atraumatic. No change to dentition. us Jose Ortega MD ANESTHESIA ORDERABLES Final Resu lt * Type and Screen (04/23/2025 11:47 AM [...] ORDERABLES F inal Result BLOOD BANK [address] [place] [address], [place] * POC Imaging (04/23/2025) Anatomical Region Laterality Modality Pelvis Other 04/23/2025 External Provider IMG POINT OF CARE ULTRASOUND E dited Result - Final * ECG Adult (Now - Performed in your clinic) (03/30/2025 9:14 AM EDT) EKG DIAGNOSIS CLASS Normal MUSE ECG Ventricular Rate 60 BPM MUSE ECG Atrial Rate 60 BPM MUSE ECG MI Interval 160 ms MUSE ECG QRSD Interval 90 ms MUSE ECG QT Interval 438 ms MUSE ECG QTC Interval 438 ms MUSE ECG P [place] 57 degrees MUSE ECG R [place] 6 degrees MUSE ECG T Wave [place] 17 degrees MUSE ECG Diagnosis Normal sinus rhythm MUSE ECG Diagnosis Normal ECG MUSE ECG Diagnosis MUSE ECG Diagnosis Confirmed by Jayne Holland ([id number]) on 03/30/2025 10:46:16 AM MUSE ECG 03/30/2025 9:14 AM EDT 03/30/2025 10:46 AM EDT Shorty Barroso MD ECG ORDERABLES Final Result Performing Organization Address [facility] Co de Phone Number MUSE ECG * (ABNORMAL) APTT (03/30/2025 9:03 AM EDT) aPTT 22(L) 25 - 35 sec LAB COAGULATION METHOD 03/30/2025 10:17 AM EDT [facility] Blood Venous blood specimen / Unknown Venipuncture / Unknown 03/30/2025 9:03 AM EDT 03/30/2025 9:36 AM EDT Emiliana Pierre APRN LAB BLOOD ORDERABLES Fin al Result Performing Organization Address City/[facility] Co de Phone Number [facility] [address] [place] [address] * Prothrombin Time/INR (03/30/2025 9:03 AM EDT) Prothrombin Time 13.4 12.0 - 14.3 sec LAB COAGULATION METHOD 03/30/2025 10:17 AM EDT [facility] INR 1.0 0.9 - 1.1 LAB COAGULATION METHOD 03/30/2025 10:[address] [facility] Blood Venous blood specimen / Unknown Venipuncture / Unknown 03/30/2025 9:03 AM EDT 03/30/2025 9:36 AM EDT Narrative [facility] - 03/30/2025 10:17 AM EDT OPTIMAL INR RANGES FOR PATIENT ON ORAL ANTICOAGULANT THERAPY Prevention of venous thromboembolism INR 2.0 to 3.0 In patients with heart disease: Atrial fibrillation INR 2.0 to 3.0 Valvular heart disease INR 2.0 to 3.0 Tissue heart valves INR 2.0 to 3.0 Mechanical prosthetic valves INR 2.5 to 3.5 Prevention of recurrent [place] INR 2.5 to 3.5 Emiliana Pierre M[employer]IPLE [employer]CH [employer]OCK[employer] CREWMEMBER LAB BLOOD ORDERABLES Fin al Result [facility] [address] [place] [address] * Surgical Pathology Consult (03/24/2025 10:38 AM EDT) Case Report Sugical Pathology Consult Case: [id number] Authorizing Provider: Shorty Barroso MD Collected: 03/24/2025 1038 Ordering Location: [facility] Lab Received: 03/24/2025 1039 Pathologist: Landry Mcdonald MD Specimen: Duodenum, [id number] 5 6:16 PM EDT [facility] Final Diagnosis (OUTSIDE CASE: [id number] COLLECTED ON 03/10/2025): DUODENUM, BIOPSY (A): - [...] THE SUBMITTED SAMPLE) 5 6:[address] [facility] at 1816 EDT Clinical Information D50.9 - Iron deficiency anemia, unspecified [ICD-10-CM] 5 6:[address] [facility] Special and Immunohistochemical Stains Immunohistochemica l stains that have been performed by the outside institution are also reviewed here, which are interpreted as follows: Positive: CD117, DOG1 5 6:[address] [facility] Gross Description A. [id number] Received along with a corresponding pathology report from [facility] are 5 slide(s) labeled outside case: [id number] collected on 03/10/2025. 5 6:[address] [facility] Tissue Duodenal structure / Unknown 03/24/2025 10:38 AM EDT 03/24/2025 10:39 AM EDT us Shorty Barroso MD LAB PATHOLOGY ORDERABLES Fin al Result [facility] [address] [place] [address] * CT THORACIC OUTSIDE IMAGES (03/16/2025 11:00 AM EDT) Only the most recent of2 resultswithin the time period is included. Anatomical Region Laterality Modality Computed Tomogra phy 03/16/2025 11:0 0 AM EDT us External Provider IMG CT PROCEDURES Edited Resul t - Final * Dale Hepatitis C Antibody (07/05/2021 6:33 PM EST) Hepatitis C Antibody Negative Negative 07/05/2021 8:12 PM EST [facility] Blood Venous blood specimen / Unknown Venipuncture / Unknown 07/05/2021 6:33 PM EST 07/05/2021 6:42 PM EST us Jose R Morrow MD LAB BLOOD ORDERABLES Tran l Result [facility] [address] [place] [address] from Last 3 Months or Most Recently Relevant to Health Maintenance Additional Health Concerns Active Problems Noted Date Diagnosed Date Autogenerated Problem 03/30/2025 [address] [phone] MEDICARE [facility] Advance Directives Documents on File Type Date Recorded Patient Personal Service Representative Expl anation Advance Directives and Living Will 04/23/2025 * Full Code (Latest Code Status on File) Date Activated Date Inactivated Comments 04/23/2025 3:40 PM 04/25/2025 6:30 PM Question Answer Comments I have reviewed the capacity from the link above and, if needed, have updated to appropriate status: Yes * Full Code Date Activated Date Inactivated Comments 07/05/2021 10:54 PM 07/07/2021 4:30 PM Question Answer Comments Patient has decision-making capacity? Yes Care Teams Criminal Court Judge Relationship Specialty Start Date End Date Jan Chavez MD [address] [place] [address] PCP - General 07/05/21 Rachid Jaime MD [address] [facility] [address] [place] [phone] Surgeon Neurosurgery 08/07/21
--- OUTSIDE RECORDS SUMMARY | 2025-06-08 11:45 | XMS_ITS | Encounter Summary ---
Author Organization Healthcare Address [address] [place] [address] Care Team Providers Care Car Cleaning Supervisor Name Role Phone Jan Chavez MD Primary Care Provider [phone] Rachid Jaime MD Unavailable [phone] Encounter Details Date Type Department Care Team ([facility] st Contact Info) Description 05/31/2025 Telephone [facility] [address] [place] [address] Shorty Barroso MD [address] [address] Social History Tobacco Use Types Packs/Day Years [...] Meme Peters documented as of this encounter Miscellaneous Notes * Telephone Encounter - Chris Floresabigail Starks - 05/31/2025 11:37 AM EST Patient Phone Message Reason for Call: Pt calling back to let Krissy know her can come tmw at 11:30 AM Best contact number and optimal time of day to reach caller: [phone] Note: Please do not reply to this message. Follow-up communication and further actions as a result of this message need to be communicated with the patient directly, if the patient is not active onMyChart. If the patient is active on MyChart, they will receive notification of the communication/outcome via [employer]. documented in this encounter Plan of Treatment [...] documented as of this encounter Care Teams Car Cleaning Supervisor Relationship Specialty Start Date End Date Jan Chavez MD [address] [place] [address] PCP - General 07/05/21 Rachid Jaime MD [address] [place] [phone] Surgeon Neurosurgery 08/07/21 documented as of this encounter
--- OUTSIDE RECORDS SUMMARY | 2025-06-08 11:45 | XMS_ITS | Encounter Summary ---
Author Organization Healthcare Address [address] [place] [address] Care Team Providers Care Garment Form Assembler Name Role Phone Jan Chavez MD Primary Care Provider [phone] Rachid Jaime MD Unavailable Encounter Details Date Type Department Care Team (Latest Contact Info) Description 05/11/2025 Travel Social History Tobacco Use Types Packs/Day [...] usual. Not at all 05/11/2025 10:38 AM Caty Hayden Thoughts that you would be b [...] Caty Varela documented as of this encounter Plan of [...] documented as of this encounter Care Teams Garment Form Assembler Relationship Specialty Start Date End Date Jan Chavez MD [address] [place] [address] PCP - General 07/05/21 Rachid Jaime MD [address] [place] [phone] Surgeon Neurosurgery 08/07/21 documented as of this encounter
--- OUTSIDE RECORDS SUMMARY | 2025-06-08 11:45 | XMS_ITS | Encounter Summary ---
Author Organization [facility] Address [address] [place] [address] Care Team Providers Care Key Punch Teacher Name Role Phone Jan Chavez MD Primary Care Provider [phone] Rachid Jaime MD Unavailable [phone] Encounter Details Date Type Department Care Team ([facility] st Contact Info) Description 04/27/2025 Telephone [facility] [address] [place] [address] Shorty Barroso MD [address] [address] Social History Tobacco Use Types Packs/Day Years [...] encounter Miscellaneous Notes * Telephone Encounter - Bebeto Flores Tereza - 04/27/2025 10:03 AM EDT Patient Phone Message Reason for Call: pt daughter is calling to ask Dr. Barroso for some different things her father could eat he is tired of eating the samething's if Dr. Barroso or his nurse could give them a call back with some more food options please Best contact number and optimal time of day to reach caller: [phone] Katie Note: Please do not reply to this message. Follow-up communication and further actions as a result of this message need to be communicated with the patient directly, if the patient is not active onMyChart. If the patient is active on MyChart, they will receive notification of the communication/outcome via MyChart. documented in this encounter Plan of Treatment [...] documented as of this encounter Care Teams Key Punch Teacher Relationship Specialty Start Date End Date Jan Chavez MD [address] [place] [address] PCP - General 07/05/21 Rachid Jaime MD [address] [facility] [address] [place] [address] Surgeon Neurosurgery 08/07/21 documented as of this encounter
--- OUTSIDE RECORDS SUMMARY | 2025-06-08 11:45 | XMS_ITS | Encounter Summary ---
Author Organization [facility] Address [address] [place] [address] Care Team Providers Care Store Operations Associate Name Role Phone Jan Chavez MD Primary Care Provider [phone] Rachid Jaime MD Unavailable [phone] Encounter Details Date Type Department Care Team ([facility] st Contact Info) Description 05/31/2025 Telephone [facility] [address] [place] [address] Shorty Barroso MD [address] [address] Social History Tobacco Use Types Packs/Day Years [...] Telephone Encounter - Krissy Aleman RN - 05/31/2025 8:46 AM EST Left message inquiring if appointment tomorrow can be moved from [facility]0 to 1100. Requested call back. documented in this encounter Plan of Treatment [...] documented as of this encounter Care Teams Store Operations Associate Relationship Specialty Start Date End Date Jan Chavez MD [address] [place] [address] PCP - General 07/05/21 Rachid Jaime MD [address] [facility] [address] [place] [address] Surgeon Neurosurgery 08/07/21 documented as of this encounter
[2025-06-08 12:20] LABS: Hematocrit 43.3 % (42.0-52.0); Hemoglobin 13.1 g/dL (14.1-18.0); Immature Granulocytes % 0.4 %; Mean Corpuscular HGB Conc 30.3 g/dL (31.8-35.4); Mean Corpuscular Hemoglobin 27.9 pg (27.0-31.2); Mean Corpuscular Volume 92.3 fl (80-94); Nucleated Red Blood Cells % 0 %; Platelet Count 315 K/mm3 (142-424); Red Blood Count 4.69 M/mm3 (4.60-6.20); Red Cell Distribution Width-SD 65.4 fL; White Blood Count 11.8 K/mm3 (4.8-10.8)
[2025-06-08 13:24] LABS: Alanine Aminotransferase 31 U/L (12-78); Albumin Level 4.7 g/dl (3.5-5.0); Albumin/Globulin Ratio 1.5 (1.1-1.8); Alkaline Phosphatase 82 U/L (38-126); Anion Gap 12.7 mEq/L (5-15); Aspartate Amino Transferase 29 U/L (17-59); Bilirubin,Total 0.4 mg/dl (0.2-1.3); Blood Urea Nitrogen 26 mg/dl (9-20); Calcium 10.6 mg/dl (8.4-10.2); Carbon Dioxide 25 mmol/L (22.0-30.0); Chloride 102 mmol/L (98-107); Creatinine,Serum 1.40 mg/dl (0.66-1.25); Estimated Glomerular Filt Rate 50 ml/min (>60); GFR (African American) 60 ML/MIN (>60); Globulin 3.1 g/dL (1.3-3.2); Glucose 140 mg/dl (74-100); Iron 92 ug/dL (49-181); Potassium 3.7 mmoL/L (3.5-5.1); Sodium 136 mmol/L (136-145); Total Protein,Serum 7.8 g/dl (6.3-8.2)
[2025-06-08 13:34] LABS: Total Iron Binding Capacity 120 ug/dL (261-462)
[2025-06-08 13:59] LABS: Ferritin 109 ng/ml (17.9-464)
== END 2025-06-08 23:59 | disposition home or self-care (01) ==
LOC: LAB 11:42
PROVIDERS: PCP Family Medicine; Visit Provider Internal Medicine Medical Oncology
DX: C49.A4 Gastrointestinal stromal tumor of large intestine (principal); D50.9 Iron deficiency anemia, unspecified
CPT/HCPCS: 36415; 80053; 82728; 83540; 83550; 85025